=== PATIENT | female | born 1950 | race Caucasian/White ===

== ENCOUNTER 2024-12-23 10:41 | Inpatient (IN) ==
[2024-12-23 11:39] LABS: Basophils # (auto) 0.04 K/uL (0.00-0.20); Basophils % (auto) 0.5 %; Eosinophils # (auto) 0.03 K/uL (0.00-0.50); Eosinophils % (auto) 0.4 %; Hematocrit (blood only) 45.1 % (37.0-47.0); Hemoglobin 15.4 g/dl (12.0-16.0); Immature Granulocytes # (auto) 0.03 K/uL (0.01-0.20); Immature Granulocytes % (auto) 0.4 %; Lymphocytes # (auto) 1.82 K/uL (1.20-3.40); Lymphocytes % (auto) 24.6 %; Mean Corpuscular Hemoglobin 29.6 pg (25.0-34.0); Mean Corpuscular Hgb Conc 34.1 g/dL (32.0-36.0); Mean Corpuscular Volume 86.7 fL (80.0-100.0); Mean Platelet Volume 10.5 fL (9.4-12.4); Monocytes % (auto) 8.1 %; Neutrophils # (auto) 4.89 K/uL (1.40-6.50); Platelet Count 293 K/uL (130-400); RDW Coefficient of Variation 13.2 % (11.5-14.5); RDW Standard Deviation 41.5 fL (36.4-46.3); White Blood Count 7.41 K/ul (4.8-10.8)
--- NOTE | 2024-12-23 11:48 | XRay Report ---
XR chest 1V portable CLINICAL HISTORY: Tachycardia. COMPARISON STUDY: No previous studies for comparison. FINDINGS: Lung volumes are normal. Lungs are clear. There is no pneumothorax or pleural effusion. Mil d cardiomegaly. Mediastinal contours are normal. There is no evidence for pulmonary edema. IMPRESSION: No acute cardiopulmonary findings. ACT 112: Negative or not required by law. Electronically signed by: Darryl Galeana M.D. 12/23/2024 11:46 AM
--- NOTE | 2024-12-23 12:00 | Emergency Department Note ---
Impression & Plan Atrial fibrillation with rapid ventricular response, Hypokalemia ED Provider Note Provider: Gil Galeana MD CHIEF COMPLAINT: Weak, fatigued HISTORY OF PRESENT ILLNESS: Patient is a 74-year-old female past medical history including hypothyroidism and hypertension presenting here today stating send in a Friday to 3 days ago began develop nausea and vomiting. Not expected until this morning. Feeling better today as far as the stomach. Have an episode of diarrhea but nothing significant. No abdominal pain. No chest pain. No palpitations. Had a normal breakfast. Has however today been feeling quite rundown and generally weak and fatigued. No dizziness or headache. No syncope but felt quite lightheaded in the shower this morning. Again did have food and drink. No new numbness or tingling. Denies any significant cardiac history. No sick contacts. Denies significant URI symptoms. PAST MEDICAL HISTORY: As noted above MEDICATIONS: Reviewed home medications FMH: Mother with a history of A-fib SOCIAL HISTORY: Retired PHYSICAL EXAM: GENERAL: alert and oriented in no acute distress on stretcher Head: normocephalic and atraumatic EYES: No injection, discharge or icterus. EOMI. NECK: Trachea midline. ENT: Mucous membranes pink and moist. LUNGS: Airway patent. No retractions. Breath sounds clear with good air entry bilaterally. HEART: Tachycardic regular irregular rate and rhythm. No chest wall tenderness ABDOMEN: Soft and non-tender, without guarding or rebound. SKIN: Acyanotic, warm, dry, without rashes EXTREMITIES: Without swelling, tenderness or deformity NEUROLOGICAL: No focal deficits. No aphasia. No facial droop or slurred speech. Ambulatory. EK bpm atrial fibrillation. No acute ST segment elevation or depression with QTc of 517. CONTINUOUS CARDIAC MONITORING: was ordered and showed a heart rate of 100s-150s bpm in atrial fibrillation Patient's laboratory studies and imaging reviewed. Differential includes Infection, dehydration, metabolic abnormality, hypo/hyperglycemia, electrolyte disturbance, anemia, hypoxia, cardiac sources, intracerebral event, toxicologic, neurologic, as well as other pathologies. IMPRESSION/MEDICAL DECISION MAKING: No focal weakness. No headache. No aphasia or dizziness. Doubt acute CVA. Appears to be a new onset rapid atrial fibrillation. Given some IV fluids here. GI symptoms likely viral gastroenteritis seem to be resolving. Denies abdominal pain or chest pain. [place] palpitations or feeling her arrhythmia. Near syncope but no actual syncope and no head trauma. No bleeding hemorrhaging. Does not appear fluid overloaded on exam and chest x-ray without findings concerning for significant pneumonia or fluid overload. Again benign abdomen no bleeding intra-abdominal imaging at this time. Basic blood work completed. No leukocytosis. No significant anemia. Respiratory viral panel completed for completeness with the GI symptoms that have been resolving but denies other URI symptoms. Given some IV fluid and some metoprolol. [id number] 2 score is is elevated at 3. Will need long-term anticoagulation. Will see how closely can affect some rate control and given some IV magnesium here. Respiratory viral panel negative here. Somewhat low potassium 3.0 without other significant electrolyte abnormalities noted. Given some oral potassium repletion. Troponin returns normal at 10.9. Normal renal function. Second dose of IV metoprolol is affecting some rate control with patient still feels quite weak and fatigued. Dose of IV potassium ordered for additional supplementation as well. Discussion patient agreeable to plan to stay and feels more comfortable with this. Hospitalist team contacted. Will leave anticoagulation choice up to the inpatient team. DIAGNOSIS: New onset atrial fibrillation ventricular response, hypokalemia DISPOSITION: Hospitalist will evaluate Patient was agreeable with this plan. Critical Care I have personally spent 34 minutes of critical care time in the direct management of this patient. This includes bedside care, interpretation of diagnostic studies, and testing, discussion with consultants, patient, and other required patient management activities. These 34 minutes is in excess of all separately billable procedures. Past Med/Surg History Problem List (Updated 12/23/24 @ 13:28 by Gil Galeana M.D.) Hypokalemia (Acute) Atrial fibrillation with rapid ventricular response (Acute) Social History Smoking Status: Former smoker Preferred Language: [place]i Feels Safe at Home: Yes Allergies Allergies Allergy/AdvReac Type Severity Reaction Status Date / Time naproxen Allergy Intermediate Rash Unverified 12/23/24 13:17 hydrochlorothiazide AdvReac Intermediate Makes her Unverified 12/23/24 13:17 feel terrible Home Meds Home Medications Medication Instructions Recorded Confirmed amlodipine 5 mg tablet 5 mg PO QAM 12/23/24 12/23/24 aspirin 81 mg tablet,delayed 81 mg PO QAM 12/23/24 12/23/24 release cyanocobalamin (vitamin B-12) 1 tab PO DAILY 12/23/24 12/23/24 diclofenac sodium 75 mg 75 mg PO BID 12/23/24 12/23/24 tablet,delayed release duloxetine 30 mg capsule,delayed 30 mg PO QAM 12/23/24 12/23/24 release irbesartan 300 mg tablet 300 mg PO HS 12/23/24 12/23/24 levothyroxine 88 mcg tablet 88 mcg PO QAM 12/23/24 12/23/24 magnesium 1 tab PO DAILY 12/23/24 12/23/24 omeprazole 20 mg capsule,delayed 20 mg PO QAM 12/23/24 12/23/24 release rosuvastatin 5 mg tablet 5 mg PO QAM 12/23/24 12/23/24 Results & Data (ED) Vital Signs Vital Signs - 24 hr 12/23/24 10:58 12/23/24 11:12 12/23/24 11:15 Temperature 36.1 C L Temperature Source Skin Pulse Rate 96 H 153 H Pulse Rate [Apical] Pulse Rate from SpO2 Sensor 114 H Respiratory Rate 16 16 Respiratory Effort / Characteristics Non-Labored Spontaneous Respiratory Depth Normal Respiratory Pattern Regular Blood Pressure 74/54 L 119/75 Blood Pressure [Right Arm] Blood Pressure Mean 60 83 Blood Pressure Mean [Right Arm] Pulse Oximetry 96 95 Oxygen Delivery Method Room Air Sepsis Recent Fever Within 48 Hours No Sepsis New/Unexplained Change in Mental Status N/A Sepsis Action Taken by Nursing No Action Required 12/23/24 11:27 12/23/24 11:32 12/23/24 11:33 Temperature Temperature Source Pulse Rate 112 H 107 H Pulse Rate [Apical] Pulse Rate from SpO2 Sensor 100 H 128 H Respiratory Rate 16 18 Respiratory Effort / Characteristics Respiratory Depth Respiratory Pattern Blood Pressure 99/57 L Blood Pressure [Right Arm] Blood Pressure Mean 93 Blood Pressure Mean [Right Arm] Pulse Oximetry 92 93 Oxygen Delivery Method Sepsis Recent Fever Within 48 Hours Sepsis New/Unexplained Change in Mental Status Sepsis Action Taken by Nursing 12/23/24 12:01 12/23/24 12:16 12/23/24 12:33 Temperature Temperature Source Pulse Rate 137 H 115 H Pulse Rate [Apical] 110 H Pulse Rate from SpO2 Sensor Respiratory Rate 18 Respiratory Effort / Characteristics Respiratory Depth Respiratory Pattern Blood Pressure 126/100 Blood Pressure [Right Arm] 121/75 Blood Pressure Mean Blood Pressure Mean [Right Arm] 90 Pulse Oximetry 94 Oxygen Delivery Method Room Air Sepsis Recent Fever Within 48 Hours Sepsis New/Unexplained Change in Mental Status Sepsis Action Taken by Nursing 12/23/24 12:45 Temperature Temperature Source Pulse Rate 114 H Pulse Rate [Apical] Pulse Rate from SpO2 Sensor Respiratory Rate Respiratory Effort / Characteristics Respiratory Depth Respiratory Pattern Blood Pressure 121/75 Blood Pressure [Right Arm] Blood Pressure Mean Blood Pressure Mean [Right Arm] Pulse Oximetry Oxygen Delivery Method Sepsis Recent Fever Within 48 Hours Sepsis New/Unexplained Change in Mental Status Sepsis Action Taken by Nursing Laboratory Data 12/23/24 11:14 12/23/24 11:14 Lab Results 12/23/24 12/23/24 Range/Units 11:14 Unknown WBC 7.41 (4.8-10.8) K/ul RBC 5.20 (4.20-5.40) M/uL Hgb 15.4 (12.0-16.0) g/dl Hct 45.1 (37.0-47.0) % MCV 86.7 (80.0-100.0) fL MCH 29.6 (25.0-34.0) pg MCHC 34.1 (32.0-36.0) g/dL RDW Std Deviation 41.5 (36.4-46.3) fL RDW Coeff of [place] 13.2 (11.5-14.5) % Plt Count 293 (130-400) K/uL MPV 10.5 (9.4-12.4) fL Immature Gran % (Auto) 0.4 % Neut % (Auto) 66.0 % Lymph % (Auto) 24.6 % [place] % (Auto) 8.1 % Eos % (Auto) 0.4 % Baso % (Auto) 0.5 % Neut # (Auto) 4.89 (1.40-6.50) K/uL Lymph # (Auto) 1.82 (1.20-3.40) K/uL [place] # (Auto) 0.60 H (0.11-0.59) K/uL Eos # (Auto) 0.03 (0.00-0.50) K/uL Baso # (Auto) 0.04 (0.00-0.20) K/uL Immature Gran # (Auto) 0.03 (0.01-0.20) K/uL PT 10.3 (9.0-12.0) Seconds INR 0.9 (0.9-1.1) APTT 24 (21-31) Seconds PTT Ratio 0.9 Sodium 140 (136-145) mmol/L Potassium 3.0 L (3.5-5.1) mmol/L Chloride 104 (98-107) mmol/L Carbon Dioxide 26 (21-32) mmol/L Anion Gap 10 (3-11) BUN 22 (6-23) mg/dl Creatinine 1.16 (0.6-1.2) mg/dl Est Cr Clr Drug Dosing 39.2 ml/min eGFR 49.78 BUN/Creatinine Ratio 19.0 (10-20) Glucose 140 H (70-99(Fasting)) mg/dl Calcium 9.4 (8.6-10.3) mg/dl Total Bilirubin 0.7 (0.2-1.0) mg/dl AST 26 (13-39) U/L ALT 28 (7-52) U/L Alkaline Phosphatase 86 (34-104) U/L Troponin I High Sens 10.9 (0-14) pg/ml Total Protein 6.9 (6.0-8.3) gm/dl Albumin 4.5 (3.4-5.0) gm/dl Globulin 2.4 L (2.5-4.0) gm/dl Albumin/Globulin Ratio 1.9 (0.9-2) TSH 3.249 (0.300-4.500) uIu/ml Adenovirus (PCR) Not Detected (NotDetected) B. pertussis DNA (PCR) Not Detected (NotDetected) B.parapertussis DNA PCR Not Detected (NotDetected) C. pneumoniae DNA (PCR) Not Detected (NotDetected) Coronavirus OC43 (PCR) Not Detected (NotDetected) Coronavirus HKU1 (PCR) Not Detected (NotDetected) Coronavirus 229E (PCR) Not Detected (NotDetected) SARS-CoV-2 (PCR) Not Detected (NotDetected) Coronavirus NL63 (PCR) Not Detected (NotDetected) Human Metapneumovir PCR Not Detected (NotDetected) Influenza Type A (PCR) Not Detected (NotDetected) Influenza Type B (PCR) Not Detected (NotDetected) M. pneumoniae (PCR) Not Detected (NotDetected) Parainfluenza 1 (PCR) Not Detected (NotDetected) Parainfluenza 2 (PCR) Not Detected (NotDetected) Parainfluenza 3 (PCR) Not Detected (NotDetected) Parainfluenza 4 (PCR) Not Detected (NotDetected) RSV (PCR) Not Detected (NotDetected) Entero/Rhino (PCR) Not Detected (NotDetected) Administered Medications Potassium Chloride (K Ger / Wtr) 10 meq in 100 mls @ 100 mls/hr IV ONE ONE Stop: 12/23/24 13:54 Last Admin: 12/23/24 13:09 Dose: 100 mls/hr Documented By: RADHA Discontinued Medications Sodium Chloride (Nss) 1,000 mls @ 999 mls/hr IV .Q1H1M ONE Stop: 12/23/24 12:54 Last Infusion: 12/23/24 13:14 Dose: Infused Documented By: Admin: 12/23/24 12:01 Dose: 999 mls/hr Documented By: RADHA Magnesium Sulfate/Dextrose (Magnesium Sulfate / D5w) 1 gm in 100 mls @ 100 mls/hr IV NOW STA Stop: 12/23/24 12:54 Last Infusion: 12/23/24 13:13 Dose: Infused Documented By: Admin: 12/23/24 12:01 Dose: 100 mls/hr Documented By: RADHA Metoprolol Tartrate (Metoprolol Tartrate 1 Mg/Ml Vial) 5 mg IV NOW STA Stop: 12/23/24 11:55 Last Admin: 12/23/24 12:01 Dose: 5 mg Documented By: RADHA Metoprolol Tartrate (Metoprolol Tartrate 1 Mg/Ml Vial) 5 mg IV NOW STA Stop: 12/23/24 12:38 Last Admin: 12/23/24 12:45 Dose: 5 mg Documented By: RADHA Potassium Chloride (Potassium Chloride Crtab 20 Meq Tabcr) 40 meq PO NOW STA Stop: 12/23/24 12:07 Last Admin: 12/23/24 12:45 Dose: 40 meq Documented By: RADHA Imaging Data Radiologist's Impression: Chest X-Ray 12/23/24 11:20 XR chest 1V portable CLINICAL HISTORY: Tachycardia. COMPARISON STUDY: No previous studies for comparison. FINDINGS: Lung volumes are normal. Lungs are clear. There is no pneumothorax or pleural effusion. Mild cardiomegaly. Mediastinal contours are normal. There is no evidence for pulmonary edema. IMPRESSION: No acute cardiopulmonary findings. ACT 112: Negative or not required by law. Electronically signed by: Darryl Galeana M.D. 12/23/2024 11:46 AM Discharge Plan Visit Data Chief Complaint: Dehydration Stated Complaint: DEHYDRATION ED Provider: Gil Galeana Discharge Problem: Atrial fibrillation with rapid ventricular response, Hypokalemia Patient Disposition: Being Evaluated by Hospitalist Forms Stand Alone Forms: My [facility] Prescriptions Prescriptions: No Action amlodipine 5 mg tablet 5 mg PO QAM aspirin [Aspir-81] 81 mg Tablet,Delayed Release (Dr/Ec) 81 mg PO QAM levothyroxine 88 mcg tablet 88 mcg PO QAM omeprazole 20 mg capsule,delayed release(DR/EC) 20 mg PO QAM diclofenac sodium 75 mg tablet,delayed release (DR/EC) 75 mg PO BID irbesartan 300 mg tablet 300 mg PO HS rosuvastatin 5 mg tablet 5 mg PO QAM magnesium Tablet 1 tab PO DAILY Rx Instructions: otc unknown strength duloxetine 30 mg capsule,delayed release(DR/EC) 30 mg PO QAM cyanocobalamin (vitamin B-12) 1 tab PO DAILY Rx Instructions: otc, unknown strength Referrals Referrals: PCP,NO [Physician] -
[2024-12-23] MEDS: SODIUM CHLORIDE 0.9% 1,000 ML IV ONE (12:01)
[2024-12-23] MEDS: METOPROLOL TARTRATE 1 MG/ML VIAL IV STA ×2 (12:01→12:45)
[2024-12-23] MEDS: MAGNESIUM SULFATE / D5W 1 GM/100 ML BAG IV STA (12:01)
[2024-12-23 12:02] LABS: Albumin Globulin Ratio 1.9 (0.9-2); Albumin Level 4.5 gm/dl (3.4-5.0); Bilirubin,Total 0.7 mg/dl (0.2-1.0); Calcium 9.4 mg/dl (8.6-10.3); Creatinine Clr Calc Pharmacy 39.2 ml/min; Globulin 2.4 gm/dl (2.5-4.0); Total Protein 6.9 gm/dl (6.0-8.3)
[2024-12-23 12:05] LABS: INR 0.9 (0.9-1.1); Partial Thromboplastin Ratio 0.9; Partial Thromboplastin Time 24 Seconds (21-31); Prothrombin Time 10.3 Seconds (9.0-12.0)
[2024-12-23 12:26] LABS: Adenovirus PCR Not Detected (NotDetected); Bordetella parapertussis PCR Not Detected (NotDetected); Bordetella pertussis PCR Not Detected (NotDetected); Chlamydia pneumoniae PCR Not Detected (NotDetected); Coronavirus 229E PCR Not Detected (NotDetected); Coronavirus CoV-2 (COVID19)PCR Not Detected (NotDetected); Coronavirus HKU1 PCR Not Detected (NotDetected); Coronavirus NL63 PCR Not Detected (NotDetected); Coronavirus OC43PCR Not Detected (NotDetected); Human Metapneumovirus PCR Not Detected (NotDetected); Influenza A PCR Not Detected (NotDetected); Influenza B PCR Not Detected (NotDetected); Mycoplasma pneumoniae PCR Not Detected (NotDetected); Parainfluenza Virus 1 PCR Not Detected (NotDetected); Parainfluenza Virus 2 PCR Not Detected (NotDetected); Parainfluenza Virus 3 PCR Not Detected (NotDetected); Parainfluenza Virus 4 PCR Not Detected (NotDetected); Respiratory Syncytial VirusPCR Not Detected (NotDetected); Rhinovirus/Enterovirus PCR Not Detected (NotDetected)
[2024-12-23 12:27] LABS: Troponin I High Sensitivity 10.9 pg/ml (0-14)
[2024-12-23 12:36] LABS: Thyroid Stimulating Hormone 3.249 uIu/ml (0.300-4.500)
[2024-12-23] MEDS: POTASSIUM CHLORIDE CRTAB 20 MEQ TABCR PO STA (12:45)
[2024-12-23] MEDS: POTASSIUM CHLORIDE / WTR 10 MEQ/100 ML PLCT IV ONE (13:09)
[2024-12-23 13:41] LABS: Magnesium 2.1 mg/dl (1.7-2.4)
[2024-12-23] MEDS ORDERED: STAT IV Infusion **Titration per Protocol STA (14:12)
--- NOTE | 2024-12-23 14:14 | History & Physical Report ---
Date of Service December 23, 2024 Assessment & Plan (1) New onset atrial fibrillation: Plan: Bc Najera is a very pleasant 74y/o F with PMHx significant for hypothyroidism, HTN, HLD, former tobacco use and chronic pain of right knee who presented to the ED from home with complaints of generalized weakness, lightheadedness and dizziness. She was found to have new-onset atrial fibrillation with RVR. EKG on presentation revealed new onset atrial fibrillation with rapid ventricular response, ventricular rate 139 bpm. Initial labs reviewed. TSH WNL. S/p 10mg IV metoprolol tartrate and 40mEq po KCl in the ED. [id number] score of 3 points. Initiating IV heparin for stroke prophylaxis. Appreciate cardiology consult. Metoprolol tartrate 12.5mg Q6H for now. Obtain resting TTE. (2) HTN, goal below 130/80: Plan: Hold amlodipine and irbesartan for now 2/2 softer BP. (3) Dyslipidemia, goal LDL below 100: Plan: Continue statin and ASA. Check AM lipid panel and Hgb A1c. (4) Dehydration: (5) Viral gastroenteritis: Plan: Dehydration 2/2 recent viral gastroenteritis. S/p 1L NSS in ED. Continue IVF with 1L LR's x 1 bag for now. (6) Hypokalemia: Plan: K+ 3 on presentation. S/p 40mEq po KCl and 10mEq IV KCl in ED. Continue to monitor and replete PRN. (7) Hypothyroidism: Plan: TSH WNL. Continue levothyroxine. DVT Prophylaxis: On IV heparin as per above. Code Status: FULL CODE PCP: Igor Boucher, Disposition: Admit to PCU for further inpatient evaluation and management. Patient seen in collaboration with Dr. Crowder. Please see addendum. I spent a total of 45 minutes coordinating, documenting, and providing care for this patient excluding time spent in the performance of separately billed services or time spent by another provider/QHP. This included personally reviewing all current laboratories and imaging studies, medical reconciliation, outpatient chart review and discussion with specialists. This chart was completed in part utilizing Speech Voice Recognition Software. Grammatical errors, random word insertions, pronoun errors, and incomplete sentences are an occasional consequence of this system due to software limitations, ambient noise, and hardware issues. Any formal questions or concerns about the content, text, or information contained within the body of this dictation should be directly addressed to the provider for clarification. History of Present Illness Chief Complaint: Dehydration, dizziness/lightheadedness Primary Care Provider: Igor Boucher DO Bc Najera is a very pleasant 74y/o F with PMHx significant for hypothyroidism, HTN, HLD, former tobacco use and chronic pain of right knee who presented to the ED from home with complaints of generalized weakness, light headedness and dizziness. History obtained from the patient, discussion with ED provider and associated chart review. Mentions she developed a GI illness over the weekend with nausea, vomiting and diarrhea. Vomiting resolved on Friday but she continued to have some diarrhea and persistent nausea through Friday. Diarrhea now resolved. She was been having a tough time maintaining her oral hydration status due to the nausea, which is slowly improving. She was able to eat some breakfast this morning without issue and has been tolerating fluids since yesterday without any further incidences of vomiting. She was showering this morning when she started to feel lightheaded and dizzy. Did not pass out or hit her head. Does however feel extremely weak and fatigued. Denies any palpitations, chest pain or SOB. Notes her mother has a history of atrial fibrillation. Former smoker. No alcohol use. Lives with her . Very independent and functional at baseline. EKG on presentation revealed new onset atrial fibrillation with rapid ventricular response, ventricular rate 139 bpm. Initial labs reviewed. K+ 3 with normal magnesium level. TSH WNL. S/p 10mg IV metoprolol tartrate and 40mEq po KCl in the ED. [id number] score of 3 points. Allergies Allergy/AdvReac Type Severity Reaction Status Date / Time naproxen Allergy Intermediate Rash Unverified 12/23/24 13:17 hydrochlorothiazide AdvReac Intermediate Makes her Unverified 12/23/24 13:17 feel terrible Home Medications Medication Instructions Recorded Confirmed Type amlodipine 5 mg tablet 5 mg PO QAM 12/23/24 12/23/24 History aspirin 81 mg tablet,delayed 81 mg PO QAM 12/23/24 12/23/24 History release cyanocobalamin (vitamin B-12) 1 tab PO DAILY 12/23/24 12/23/24 History diclofenac sodium 75 mg 75 mg PO BID 12/23/24 12/23/24 History tablet,delayed release duloxetine 30 mg capsule,delayed 30 mg PO QAM 12/23/24 12/23/24 History release irbesartan 300 mg tablet 300 mg PO HS 12/23/24 12/23/24 History levothyroxine 88 mcg tablet 88 mcg PO QAM 12/23/24 12/23/24 History magnesium 1 tab PO DAILY 12/23/24 12/23/24 History omeprazole 20 mg capsule,delayed 20 mg PO QAM 12/23/24 12/23/24 History release rosuvastatin 5 mg tablet 5 mg PO QAM 12/23/24 12/23/24 History Past Med/Surg History Problem List (Updated 12/23/24 @ 16:08 by Bree Hoang PA-C) Hypothyroidism New onset atrial fibrillation Dehydration Dyslipidemia, goal LDL below 100 HTN, goal below 130/80 Viral gastroenteritis New onset atrial fibrillation Hypokalemia (Acute) Atrial fibrillation with rapid ventricular response (Acute) Social History Smoking Status: Former smoker Hx Alcohol Use: Yes Alcohol type: beer Hx Substance Use: No Preferred Language: Kyrgyz Communication Ability: Effective Relay Worker Required: No Beliefs That Will Affect Care: None Current Living Situation: Spouse Feels Safe at Home: Yes Safety Concerns: Feels Safe At This Time Assistive Devices: None Review of Systems Review of Systems: At least ten systems reviewed and negative, except as noted in the HPI. Physical Exam Physical Exam: General: WD/WN, vitals as above, NAD, sitting up in bed, very pleasant, conversing appropriately. A+Ox3. HEENT: Normocephalic, atraumatic. Conjunctivae normal. External ear and nose normal, oropharynx somewhat dry. Respiratory: Normal respiratory effort, lungs clear to auscultation bilaterally. No accessory muscle use. Cardiovascular: Tachycardic rate, irregularly irregular rhythm. Normal peripheral pulses, no BLE edema. Abdomen/GI: Normal bowel sounds, soft, nondistended, nontender to palpation in all quadrants. Extremities/Musculoskeletal: No cyanosis or clubbing, extremities motor strength intact, moves all extremities. Results & Data Results & Data Vital Signs (Past 12 Hours) Vital Signs Temp Pulse Pulse Resp BP BP Pulse Ox 12/23/24 12:45 114 H 121/75 12/23/24 12:33 110 H 18 121/75 94 12/23/24 12:16 115 H 12/23/24 12:01 137 H 126/100 12/23/24 11:33 107 H 18 93 12/23/24 11:32 99/57 L 12/23/24 11:27 112 H 16 92 12/23/24 11:15 153 H 16 95 12/23/24 11:12 119/75 12/23/24 10:58 36.1 C L 96 H 16 74/54 L 96 O2 Del Method 12/23/24 12:45 12/23/24 12:33 Room Air 12/23/24 12:16 12/23/24 12:01 12/23/24 11:33 12/23/24 11:32 12/23/24 11:27 12/23/24 11:15 12/23/24 11:12 12/23/24 10:58 Room Air Laboratory Results Short CBC 12/23/24 Range/Units 11:14 WBC 7.41 (4.8-10.8) K/ul Hgb 15.4 (12.0-16.0) g/dl Hct 45.1 (37.0-47.0) % Plt Count 293 (130-400) K/uL BMP 12/23/24 11:14 Sodium 140 Potassium 3.0 L Chloride 104 Carbon Dioxide 26 BUN 22 Creatinine 1.16 Glucose 140 H Calcium 9.4 Liver Function 12/23/24 Range/Units 11:14 Total Bilirubin 0.7 (0.2-1.0) mg/dl AST 26 (13-39) U/L ALT 28 (7-52) U/L Alkaline Phosphatase 86 (34-104) U/L Albumin 4.5 (3.4-5.0) gm/dl Diagnostic Findings Chest X-Ray 12/23/24 11:20 XR chest 1V portable CLINICAL HISTORY: Tachycardia. COMPARISON STUDY: No previous studies for comparison. FINDINGS: Lung volumes are normal. Lungs are clear. There is no pneumothorax or pleural effusion. Mild cardiomegaly. Mediastinal contours are normal. There is no evidence for pulmonary edema. IMPRESSION: No acute cardiopulmonary findings. ACT 112: Negative or not required by law. Electronically signed by: Darryl Galeana M.D. 12/23/2024 11:46 AM Medications Administered Heparin Sodium/Dextrose (Heparin 86793 Unit/500 Ml D5w) 25,000 units in 500 mls @ 21 mls/hr IV .[id number] [facility]; Protocol Stop: 01/22/25 14:29 Last Admin: 12/23/24 14:41 Dose: 1,050 units/hr, 21 mls/hr Documented By: RADHA Co-signed By: ERIN Lactated Ringer's (Lr) 1,000 mls @ 80 mls/hr IV .[id number] [facility] Stop: 12/24/24 04:14 Last Admin: 12/23/24 15:58 Dose: 80 mls/hr Documented By: OZIEL Discontinued Medications Heparin Sodium/Dextrose (Heparin Iv Adult Wt-Based Standard *No* Initial Bolus Protocol) 1 each IV ONE STA; Protocol Stop: 12/23/24 14:13 Last Admin: 12/23/24 15:52 Dose: 1 each Documented By: OZIEL Sodium Chloride (Nss) 1,000 mls @ 999 mls/hr IV .Q1H1M ONE Stop: 12/23/24 12:54 Last Infusion: 12/23/24 13:14 Dose: Infused Documented By: Admin: 12/23/24 12:01 Dose: 999 mls/hr Documented By: RADHA Magnesium Sulfate/Dextrose (Magnesium Sulfate / D5w) 1 gm in 100 mls @ 100 mls/hr IV NOW STA Stop: 12/23/24 12:54 Last Infusion: 12/23/24 13:13 Dose: Infused Documented By: Admin: 12/23/24 12:01 Dose: 100 mls/hr Documented By: RDAHA Potassium Chloride (K Ger / Wtr) 10 meq in 100 mls @ 100 mls/hr IV ONE ONE Stop: 12/23/24 13:54 Last Infusion: 12/23/24 14:37 Dose: Infused Documented By: Admin: 12/23/24 13:09 Dose: 100 mls/hr Documented By: RADHA Diltiazem HCl 125 mg/ Dextrose 125 mls @ 5 mls/hr IV .Q24H [facility]; Protocol Stop: 01/22/25 14:14 Last Admin: 12/23/24 15:42 Dose: Not Given Documented By: OZIEL Metoprolol Tartrate (Metoprolol Tartrate 1 Mg/Ml Vial) 5 mg IV NOW STA Stop: 12/23/24 11:55 Last Admin: 12/23/24 12:01 Dose: 5 mg Documented By: RADHA Metoprolol Tartrate (Metoprolol Tartrate 1 Mg/Ml Vial) 5 mg IV NOW STA Stop: 12/23/24 12:38 Last Admin: 12/23/24 12:45 Dose: 5 mg Documented By: DS Potassium Chloride (Potassium Chloride Crtab 20 Meq Tabcr) 40 meq PO NOW STA Stop: 12/23/24 12:07 Last Admin: 12/23/24 12:45 Dose: 40 meq Documented By: RADHA Code Status & VTE Plan Code Status FULL CODE VTE Prophylaxis Plan VTE Prophylaxis will be ordered: Yes Supervising Physician Co-Signing Physician Notes Patient seen and examined at bedside. Rates better controlled after metoprolol dosing. Feels well overall. Discussed need for blood thinner, discussed risks and benefits at length, she is agreeable. [facility] and potential discharge if rates controlled. I have seen and discussed the case with the collaborating advanced practitioner. I agree with the above H&P. I have reviewed and confirmed the patients medical history, the findings on physical examination, and the patients diagnosis and treatment plan with Natalya HUNTER and agree with the information documented. I spent a total of 20 minutes coordinating, documenting, and providing care for this patient excluding time spent in the performance of separately billed services. All of the aforementioned completed outside of collaborating with the assigned advanced practitioner for a full treatment plan. I have reviewed the advanced practitioner's documentation, and I agree with, and take responsibility for the plan of care (7) Hypothyroidism Hypothyroidism type: unspecified Qualified Code(s): E03.9 - Hypothyroidism, unspecified
[2024-12-23] MEDS: HEPARIN 25000 UNIT/500 ML D5W 25,000 UNITS/500 ML BAG IV SCH (14:41)
--- NOTE | 2024-12-23 14:52 | Cardiology Consultation ---
Date of Consultation December 23, 2024 Assessment & Plan (1) Dehydration: (2) Viral gastroenteritis: (3) New onset atrial fibrillation: (4) Hypokalemia: (5) HTN, goal below 130/80: (6) Dyslipidemia, goal LDL below 100: Plan 74-year-old female presenting to [facility] via personal vehicle with weakness and lightheadedness, significant volume depletion in the setting of probable viral gastroenteritis. BP 74/54 on presentation, improving with fluid resuscitation. Laboratory work with hypokalemia. EKG notable for new onset atrial fibrillation with rapid ventricular response of unknown duration. [id number] Score 5 points. Recommendations: Agree with weight based IV heparin Avoid diltiazem for now given soft blood pressures, GI issues Add metoprolol tartrate 12.5 mg every 6 hours for now Supplement potassium, maintain electrolytes Hold amlodipine, irbesartan Admit to telemetry Refer for resting echocardiography Will follow, reevaluate in AM See documentation by Dr. Hayward Supervising Physician Co-Signing Physician Notes Patient was seen and personally examined. Full assessment and plan as outlined by advanced provider above. Care and management discussed and personally endorsed 74-year-old female presents after suffering probable acute viral syndrome for GI complaints weakness. Found to be in atrial fibrillation with elevated ventricular response rate. Uncertain duration of onset. Plan as above add beta-denae, supplement electrolytes. [id number] 2 score elevated for age, gender, hypertension, prior TIA. Full anticoagulation warranted begun with IV heparin with plans likely for Eliquis on discharge History of Present Illness Reason for Consultation: Atrial fibrillation [facility]ing Physician: [facility] Hospital[facility] Service Attending Physician: [facility] Hospitalist Service History of Present Illness Bc Najera is a very pleasant 74-year-old female who was in her usual state of health, feeling perfectly fine until 1230 Friday morning at which time she awoke with nausea, vomiting and diarrhea. Patient notes that she vomited nonstop until noon the next day. She describes having never been so sick in her entire life. She notes things seem to be a little better on Friday and Friday though she continued to have diarrhea and nausea and was unable to eat. Notes even having a tough time trying to drink water. This morning she awoke and while lying in bed felt pretty good, feeling as though she could go about her day. She notes exiting the bed and going to the shower where she developed significant weakness, dizziness, and wobbly knees upon standing. She notes getting out of the bathroom on the floor and eventually getting settled though feeling extremely weak and lightheaded. Patient transported to [facility] ER via for further evaluation and treatment. EKG on presentation revealed new onset atrial fibrillation with rapid ventricular response, ventricular rate 139 bpm. Complete blood count looked okay, within normal white blood cell count. H&H were 15.4 and 45.1. Platelet count was normal at 293K. Chemistry panel revealed hypokalemia with a potassium of 3.0. Random glucose elevated at 140. Magnesium normal at 2.1. TSH within normal range, 3.249. In the ER patient received fluid resuscitation, a total of 10 mg IV metoprolol, 40 mEq of potassium chloride, and one potassium rider. IV heparin and diltiazem has been ordered although not yet initiated. Patient denies palpitations, chest pain, or shortness of breath. She is feeling better with initial measures in the ER. Patient denies prior cardiac history with exception of her PCP hearing a heart murmur many years ago. This led to resting echocardiography circa 2001 with normal findings observed. Patient specifically denies history of atrial fibrillation, arrhythmias, CHF, CAD, NV, rheumatic fever, or scarlet fever. Past Medical and Surgical History: Hypertension Dyslipidemia Probable TIA circa 3 years ago, did not seek care Hemorrhoids Bunion, status post surgery Cataract status post surgery Following with ophthalmology, elevated pressures, mother with glaucoma. Family History: Mother had atrial fibrillation diagnosed at the age of 90. She also had a history of colon cancer. She passed at the age of 93 from natural causes. Father committed suicide before patient was born. Oldest sister with a MAINTENANCE COORDINATOR cancer. Another sister without known issues. Lost brother 1 year ago due to COPD. Social History: Smoker from her teenage years till around the age of 31. Alcohol: 4 beers per day. No illegal/illicit drug use. . Lives with her . 2 stepchildren. 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 Allergies Allergy/AdvReac Type Severity Reaction Status Date / Time naproxen Allergy Intermediate Rash Unverified 12/23/24 13:17 hydrochlorothiazide AdvReac Intermediate Makes her Unverified 12/23/24 13:17 feel terrible Home Medications Medication Instructions Recorded Confirmed Type amlodipine 5 mg tablet 5 mg PO QAM 12/23/24 12/23/24 History aspirin 81 mg tablet,delayed 81 mg PO QAM 12/23/24 12/23/24 History release cyanocobalamin (vitamin B-12) 1 tab PO DAILY 12/23/24 12/23/24 History diclofenac sodium 75 mg 75 mg PO BID 12/23/24 12/23/24 History tablet,delayed release duloxetine 30 mg capsule,delayed 30 mg PO QAM 12/23/24 12/23/24 History release irbesartan 300 mg tablet 300 mg PO HS 12/23/24 12/23/24 History levothyroxine 88 mcg tablet 88 mcg PO QAM 12/23/24 12/23/24 History magnesium 1 tab PO DAILY 12/23/24 12/23/24 History omeprazole 20 mg capsule,delayed 20 mg PO QAM 12/23/24 12/23/24 History release rosuvastatin 5 mg tablet 5 mg PO QAM 12/23/24 12/23/24 History Patient History Social History Smoking Status: Former smoker Preferred Language: Lebanese Feels Safe at Home: Yes Review of Systems Review of Systems: Complete Review of Systems: Constitutional: Low-grade fever on Friday and Friday. No rigors. HEENT: Bilateral cataract status postextraction.? Glaucoma. No macular degeneration. No history of amaurosis fugax. Pulmonary: Denies history of asthma, emphysema, COPD, or sleep apnea. No history of PE. Cardiac: See above. GI/Abd: No dysphagia. No GERD. No melana or hematochezia. No kidney problems. No liver problems. No history of pancreatic issues. Vascular: No history of carotid artery disease, AAA, or lower extremity claudication/PAD. Hematologic: No coagulation disorder, anemia, or abnormal bleeding. Musculoskeletal: Arthritis. Skin: No rash. Neurologic: Suspected TIA circa 3 years ago. No history of seizure. Endocrine: No history of diabetes mellitus. No thyroid trouble. Complete Review of Systems is as stated above, negative, or noncontributory Physical Exam Physical Exam: General: A&Ox3. NAD. HENT: Normocephalic. Atraumatic. Eyes: PER. Conjunctiva pink, sclera clear. Neck: No carotid bruits. No JVD. No HJR. Heart: Irregularly irregular, 130 bpm. No murmur. No rub. Lungs: Clear to auscultation. Abdomen: +BS. Soft. Nontender. No masses or organomegaly. Extremities: No clubbing, cyanosis, or edema. Limited neurological examination is without focal deficits. Pulses: Posterior tibial=2/4. Results & Data Vital Signs (Past 12 Hours) Vital Signs Temp Pulse Pulse Resp BP BP Pulse Ox 12/23/24 14:39 115 H 12/23/24 14:25 120 H 18 112/87 96 12/23/24 12:45 114 H 121/75 12/23/24 12:33 110 H 18 121/75 94 12/23/24 12:16 115 H 12/23/24 12:01 137 H 126/100 12/23/24 11:33 107 H 18 93 12/23/24 11:32 99/57 L 12/23/24 11:27 112 H 16 92 12/23/24 11:15 153 H 16 95 12/23/24 11:12 119/75 12/23/24 10:58 36.1 C L 96 H 16 74/54 L 96 O2 Del Method 12/23/24 14:39 12/23/24 14:25 Room Air 12/23/24 12:45 12/23/24 12:33 Room Air 12/23/24 12:16 12/23/24 12:01 12/23/24 11:33 12/23/24 11:32 12/23/24 11:27 12/23/24 11:15 12/23/24 11:12 12/23/24 10:58 Room Air Laboratory Results Cardiac Enzymes 12/23/24 Range/Units 11:14 AST 26 (13-39) U/L Troponin I High Sens 10.9 (0-14) pg/ml Coagulation 12/23/24 Range/Units 11:14 PT 10.3 (9.0-12.0) Seconds APTT 24 (21-31) Seconds CBC 12/23/24 Range/Units 11:14 WBC 7.41 (4.8-10.8) K/ul RBC 5.20 (4.20-5.40) M/uL Hgb 15.4 (12.0-16.0) g/dl Hct 45.1 (37.0-47.0) % Plt Count 293 (130-400) K/uL Neut # (Auto) 4.89 (1.40-6.50) K/uL Lymph # (Auto) 1.82 (1.20-3.40) K/uL [place] # (Auto) 0.60 H (0.11-0.59) K/uL Eos # (Auto) 0.03 (0.00-0.50) K/uL Baso # (Auto) 0.04 (0.00-0.20) K/uL Comprehensive Metabolic Panel 12/23/24 Range/Units 11:14 Sodium 140 (136-145) mmol/L Potassium 3.0 L (3.5-5.1) mmol/L Chloride 104 (98-107) mmol/L Carbon Dioxide 26 (21-32) mmol/L BUN 22 (6-23) mg/dl Creatinine 1.16 (0.6-1.2) mg/dl Glucose 140 H (70-99(Fasting)) mg/dl Calcium 9.4 (8.6-10.3) mg/dl AST 26 (13-39) U/L ALT 28 (7-52) U/L Alkaline Phosphatase 86 (34-104) U/L Total Protein 6.9 (6.0-8.3) gm/dl Albumin 4.5 (3.4-5.0) gm/dl Intake and Output 12/23/24 12/23/24 12/23/24 06:59 14:59 22:59 Intake Total 1200 / 1200 Balance 1200 / 1200 Intake: IV 1200 / 1200 Magnesium Sulfate / D5w 1 gm In 100 / 100 100 ml @ 100 mls/hr IV NOW STA Rx#:[id number] Potassium Chloride / Wtr 10 meq 100 / 100 In 100 ml @ 100 mls/hr IV ONE ONE Rx#:[id number] Sodium Chloride 0.9% 1,000 ml @ 1000 / 1000 999 mls/hr IV .Q1H1M ONE Rx#: [id number] Other: Weight 72.2 kg Weight Measurement Method Chair Scale Patient Weight 12/24/24 06:59 Weight 72.2 kg Diagnostic Findings Telemetry: Atrial fibrillation with rapid ventricular response. No significant bradycardia or pauses. No periods of sinus. No significant ventricular arrhythmias. Admission chest x-ray without acute cardiopulmonary findings.
[2024-12-23] MEDS: dilTIAZem HCL 125 MG in DEXTROSE 5% 100 ML IV SCH (15:42)
[2024-12-23] MEDS ORDERED: POLYETHYLENE (MIRALAX) 17 GM PACK PO PRN (15:43)
[2024-12-23] MEDS ORDERED: MAGNESIUM HYDROXIDE SUSP 30 ML UDC PO PRN (15:43)
[2024-12-23] MEDS ORDERED: ACETAMINOPHEN 325 MG TAB PO PRN (15:43)
[2024-12-23] MEDS: Heparin IV Adult Wt-Based Standard *NO* INITIAL Bolus Protocol IV STA (15:52)
[2024-12-23] MEDS: LACTATED RINGER'S 1,000 ML IV SCH (15:58)
[2024-12-23] MEDS: METOPROLOL TARTRATE 25 MG TAB PO SCH (16:28)
[2024-12-23 21:27] LABS: ANTI-Xa, UFH(UnfractionatedHep 0.47 IU/ml (0.3-0.7)
--- OUTSIDE RECORDS SUMMARY | 2024-12-24 04:39 | External Medical Summary | Summary of Care ---
Author Name Unknown Organization [facility] Address [address] [place] [address] Phone [phone] Care Team Providers Care Portuguese Tutor Name Role Phone Maxine Boucher DO Primary Care Provider Reason for Visit * Reason Comments eRx-Medication Refill Encounter Details Date Type Department Care Team (Late st Contact Info) Description 07/20/2024 Refill Family Practice [facility] [address] [place] [address] Maxine Boucher DO [address] [place] [address] Allergies Active Allergy Reactions Criticality Noted Date Comments Hydrochlorothiazide 05/12/2018 Nauseaous and low energy Naproxen Rash High 11/26/2007 Bullous eruption on hands, phototoxicity documented as of this encounter (statuses as of 07/22/2024) Medications Medication Sig Dispensed Refills Start Date End Date Status Calcium-Vitamin D-Vitamin K 500-1000-40 MG-UNT-MCG Oral Tablet Chewable 1 Tablet in the morning. Active aspirin enteric coated 81 MG TBEC Take 1 Tab by mouth daily. 100 Tab 3 02/23/2018 Active Vitamin B-12 1000 MCG Oral Tablet (Cyanocobalamin) Take 1 Tablet by mouth in the morning. 90 Tablet 3 01/13/2024 Active amLODIPine Besylate 5 MG Oral Tablet (Norvasc)Indicat ions:HTN, goal below 130/80 TAKE 1 TABLET BY MOUTH IN THE MORNING 90 Tablet 2 02/12/2024 Active Fluorouracil 5 % External Cream (Efudex) Apply to rough area on nose twice a day for two weeks, and to rough areas on hands twice a day for 4 weeks 40 g 1 02/13/2024 Active Magnesium Oxide 400 MG Oral TabletIndication s:Leg cramping Take 1 Tablet by mouth in the morning. 30 Tablet 11 02/17/2024 Active Diclofenac Sodium 75 MG Oral Tablet Delayed Release (Voltaren)Indica tions:Pain in limb Take 1 tablet by mouth twice daily with food 60 Tablet 5 02/21/2024 Active Omeprazole 20 MG Oral Capsule Delayed Release (PriLOSEC)Indica tions:Esophageal reflux Take 1 capsule by mouth in the morning 90 Capsule 3 03/15/2024 Active Rosuvastatin Calcium 5 MG Oral Tablet (Crestor) TAKE 1 TABLET BY MOUTH IN THE MORNING 90 Tablet 1 04/05/2024 Active Irbesartan 300 MG Oral Tablet (Avapro) TAKE 1 TABLET BY MOUTH AT BEDTIME 90 Tablet 1 04/05/2024 Active DULoxetine HCl 30 MG Oral Capsule Delayed Release Particles (Cymbalta)Indica tions:Adjustment disorder with anxious mood,Chronic pain of right knee TAKE 1 CAPSULE BY MOUTH ONCE DAILY IN THE MORNING. DO NOT CUT, CRUSH, OR CHEW CAPSULE. 90 Capsule 07/21/2024 Active Levothyroxine Sodium 88 MCG Oral Tablet (Levoxyl) TAKE 1 TABLET BY MOUTH IN THE MORNING AT LEAST 30 MINUTES PRIOR TO BREAKFAST OR MEDICATIONS 90 Tablet 1 07/22/2024 Active Levothyroxine Sodium 88 MCG Oral Tablet (Levoxyl) TAKE 1 TABLET BY MOUTH IN THE MORNING AT LEAST 30 MINUTES PRIOR TO BREAKFAST OR MEDICATIONS 90 Tablet 1 01/30/2024 4 Discontinued documented as of this encounter (statuses as of 07/22/2024) Active Problems Problem Noted Date Diagnosed Date Chronic pain of right knee 02/06/2021 HTN, goal below 130/80 12/14/2019 ADVANCE DIRECTIVE INFORMATION 08/20/2006 Overview: Pt will bring copy at next visit. Other specified hypothyroidism 12/30/2002 CANCER OF COLON,FAM HX - Mom 03/10/1998 Menopause 03/10/1998 CARDIAC MURMURS NEC documented as of this encounter (statuses as of 07/22/2024) Resolved Problems Problem Noted Date Diagnosed Date Resolved Date Encounter for examination fo r normal comparison and control in clinical research program 01/12/2019 05/15/2020 Overview: DO NOT DELETE [facility] DETECT Study: Project # [id number], Power Generation Technician: Murphy Alicia, PhD. SUMMARY: Goal: Establish test characteristics (sensitivity, specificity, PPV, NPV) of a circulating tumor DNA (ctDNA)-based test for cancer. Hypothesis: Circulating tumor DNA (ctDNA) and elevated protein biomarkers (together, the marker panel) can be detected in asymptomatic individuals with early cancer. Specific Aim 1: Determine the prevalence of a positive marker panel test in a prospective clinical cohort of 10,000 asymptomatic women ages 65 to 75 years. Specific Aim 2: Determine the sensitivity, specificity, positive predictive value (PPV) and negative predictive value (NPV) of a marker panel test to identify histologically proven cancers that develop within 5-years of the marker panel evaluation. CONTACTS: During normal business hours, contact study staff at ; after hours Power Generation Technician via the [facility] hospital relief operator . Please contact study team before resolving/deleting from patients problem list. Study phone number: [phone]. Diagnosis changed due to Research Module. Go to Snapshot for study details. Encounter for examination fo r normal comparison and control in clinical research program 01/12/2019 06/13/2022 Overview: DO NOT DELETE - [facility] DETECT Study: Project # [id number], Power Generation Technician: Ezequiel Christian, MS, MPH. SUMMARY: Goal: Establish test characteristics (sensitivity, specificity, PPV, NPV) of a circulating tumor DNA (ctDNA)-based test for cancer. - Hypothesis: Circulating tumor DNA (ctDNA) and elevated protein biomarkers (together, the marker panel) can be detected in asymptomatic individuals with early cancer. - Specific Aim 1: Determine the prevalence of a positive marker panel test in a prospective clinical cohort of 10,000 asymptomatic women ages 65 to 75 years. - Specific Aim 2: Determine the sensitivity, specificity, positive predictive value (PPV) and negative predictive value (NPV) of a marker panel test to identify histologically proven cancers that develop within 5-years of the marker panel evaluation. - CONTACTS: During normal business hours, contact study staff at ; after hours Power Generation Technician via the [facility] hospital relief operator . - Please contact study team before resolving/deleting from patients problem list. Study phone number: [phone]. Diagnosis changed due to Research Module. Go to Snapshot for study details. Special screening for malign ant neoplasms, colon 01/30/2006 04/08/2019 Overview: Colonoscopy 01/21/06 --hyperplastic polyp--repeat 5 years documented as of this encounter (statuses as of 07/22/2024) Immunizations Name Administration Dates Next Due COVID-19 mRNA, LNP-s, No Pre serve, 2-Dose Series (Textic) 08/07/2021,12/25/2020,11/20/2020 COVID-19, LNP-s, No Preserve , Gus-sucrose, Ages 12+ (Pfizer) 04/30/2022 COVID-19, MRNA-LNP, 23-24, P F, 30 MCG/0.3 mL, 12 YRS AND ABOVE, IM (PFIZER-Comirnaty) 08/13/2023 Covid-19, Mrna, Lnp-s, Pf, B ivalent, 30 Mcg, IM, 12 yrs and above (Pfizer) 08/08/2022 Pneumococcal Conjugate Vacc, 13 Valent (Prevnar) 11/12/2016 Pneumococcal Polysaccharide PPV23 (Pneumovax) 11/13/2017 Season Influenza, Quad, PF, Adjuvanted, 65+ Yrs, IM (FLUAD) 06/15/2020 Seasonal Influenza Vac., MDV , IM, 0.5 mL (Fluzone) 07/21/2013,08/13/2012,07/19/2010,08/22,08/31/2007 Seasonal Influenza, High Dos e, Trivalent, PF, IM (Fluzone HD) 07/05/2024 Seasonal Influenza, PF, 6 M & above, IM , (FluLaval or Fluzone) 09/30/2018,09/19/2017 Seasonal Influenza, Quadriva lent Hd (Fluzone Hd) 07/01/2023,07/10/2022,08/13/2021 Seasonal Influenza, Quadriva lent, No Preserve, IM 09/02/2016,08/25/2015 Seasonal Influenza, Trivalen t, Adjuvanted, 65+ YRS, PF, (Fluad) 07/29/2019 TDAP (age 10 and older)(Boostrix) 06/15/2020 TDAP, Age 7 and older, IM (Adacel) 06/13/2010 Varicella Zoster Vaccine (Adult) 10/12/2012 Zoster Vaccine Recombinant (Shingrix) 09/01/2019 ,04/19/2019 documented as of this encounter Social History Tobacco Use Types Packs/Day Years Used Date Smoking Tobacco: Former Cigarettes 1 15 0 02/08/1969 - 02/09/1984 Smokeless Tobacco: Never Alcohol Use Standard Drinks/Week Comments Yes 0 (1 standard drink = 0.6 oz pur e alcohol) beer on weekends PHQ-2 Answer Date Recorded PHQ Adult Total Score 0 06/11/2024 Hunger Vital Sign Answer Date Recorded Within the past 12 months, y ou worried that your food would run out before you got the money to buy more. Never true 06/30/20 23 Within the past 12 months, t he food you bought just didn't last and you didn't have money to get more. Never true 06/30/2023 Childcare Answer Date Recorded Do you feel overwhelmed with taking care of a child, family member or friend? No 06/30/2023 Does your family need help f inding childcare? (Household - for ages 0-17 years) Not on file 06/30/2023 Clothing Answer Date Recorded Have you been unable to get clothing when it was really needed? No 06/30/2023 Is your family able to get c lothes or diapers when needed? (Household - for ages 0-17 years) Not on file 06/30/2023 Personal Safety Answer Date Recorded Do you feel unsafe or have concerns for your saf ety? No 06/30/2023 Do you have concerns for you r family's safety? (Household - for ages 0-17 years) Not on file 06/30/2023 Utilities Answer Date Recorded Do you have trouble paying y our heating, water, or electric bill? (Adult - for ages 18 years and over) Not on file 07/04/2024 Is your family able to pay t he heat, water, or electric bill? (Household - for ages 0-17 years) Not on file 07/04/2024 Does your family have access to good internet? (Household - for ages 0-17 years) Not on file 07/04/2024 Employment Status Answer Date Recorded Are you unemployed or without regular income? No 06/30/2023 Does the household have a re gular source of income? (Household - for ages 0-17 years) Not on file 06/30/2023 Social Connections Answer Date Recorded How often do you feel lonely or isolated from those around you? (Adult - for ages 18 years and over) Not on file 07/04/2024 Financial Resource Strain Answer Date R ecorded Do you have any trouble payi ng for your medications, or do you think you might in the future? No 06/30/2023 Does your family have troubl e paying for medicine? (Household - for ages 0-17 years) Not on file 06/30/2023 Transportation Needs Answer Date Record ed READ ONLY Do you have troubl e getting a ride to medical visits or work? Never True 06/30/2023 Does your family have a hard time getting a ride to doctors visits? (Household - for ages 0-17 years) Not on file 06/30/2023 Has lack of transportation k ept you from medical appointments, meetings, work, or from getting things needed for daily living? Check all that apply. (Adult - for ages 18 years and over) Not on file 06/30/2023 Do you (or your family) have trouble finding or paying for a ride (transportation)? (Household - for ages 0-17 years) Not on file 06/30/2023 Housing Stability Answer Date Recorded Do you currently live in a s helter or have no steady place to sleep at night? No 06/30/2023 READ ONLY Do you think you a re at risk of becoming homeless? No 06/30/2023 Does your family worry about paying for your home or becoming homeless? (Household - for ages 0-17 years) Not on file 0 06/30/2023 Are you homeless or worried that you might be in the future? (Adult - for ages 18 years and over) Not on file Are you (or your family) pratima eless or worried that you might be in the future? (Household - for ages 0-17 years) Not on file Food Insecurity Answer Date Recorded Do you need food for this week? No 06/30/2023 Are you able to get enough f ood for your family? (Household - for ages 0-17 years) Not on file 06/30/2023 Does your family need food t his week? (Household - for ages 0-17 years) Not on file 06/30/2023 Do you always have enough fo od for your family? (Household - for ages 0-17 years) Not on file 06/30/2023 Sex and Gender Information Value Date Recorded Sex Assigned at Female 05/24/2020 1:35 PM EDT Gender Identity Female 05/24/2020 1:35 PM EDT Sexual Orientation Straight 05/24/2020 1: 35 PM EDT Job Start Date Occupation Industry Not on file Not on file Not on file documented as of this encounter Miscellaneous Notes * Telephone Encounter - Justin Fisher [facility] - 07/22/2024 3:44 AM EDTSigned Prescriptions: Disp Refills Levothyroxine Sodium 88 MCG Oral Tablet (L*90 Tab*1 Sig: TAKE 1 TABLET BY MOUTH IN THE MORNING AT LEAST 30 MINUTES PRIOR TO BREAKFAST OR MEDICATIONSAuthorizing Provider: MAXINE BOUCHER User: JUSTIN FISHER documented in this encounter Plan of Treatment Upcoming Encounters Date Type Department Care Team (Late st Contact Info) Description 08/19/2024 10:00 AM EST Office Visit [facility] [address] [place] [address] Lisa Ramírez CRNP [address] [place] [address] 02/17/2025 10:00 AM EDT Office Visit [facility] [address] [place] [address] Maxine Boucher, [address] [place] [address] Scheduled Procedures Name Priority Associated Diagnoses Date/Ti me COLONOSCOPY FLEXIBLE PROXIMA L DIAGNOSTIC Recall Family history of colon cancer Health Maintenance Due Date Last Done Comments Cologuard 1996 Sigmoidoscopy 1996 Fecal Occult Blood Test 12/05/2002 12/05/19 02, 09/13/2000, 04/05/1998, Additional history exists COVID-19 Vaccine ( season) 2024 08/13/2023, 08/08/2022, 04/30/2022, Additional history exists GFR 01/12/2025 01/13/2024, 11/14, 05/07/2022, Additional history exists TSH 01/12/2025 01/13/2024, 11/14, 05/07/2022, Additional history exists Adult Wellness Visit 06/11/2025 06/11/2024 Depression Screening 06/11/2025 06/11/2024, 02/17/20 24 Mammogram 07/05/2025 07/05/2024, 06/14, 07/03/2023, Additional history exists Albumin/Creatinine Ratio 12/03/2025 023, 02/06/2021, 05/24/2020 Colonoscopy 12/10/2027 12/10/2022, 11/14, 01/31/2017, Additional history exists Colorectal Cancer Screening 12/10/2027 Lipid Panel 01/12/2029 01/13/2024, 11/14, 05/07/2022, Additional history exists DXA Scan 05/24/2029 05/24/2024, 05/13, 12/03/2016 DTap/Tdap Vaccines (4 - Td or Tdap) 06/15/2030 06/15/2020, 06/13/2010, 12/30/2002 Pneumococcal Vaccine: 65+ Years Completed 11/13/2017, 11/12/2016 Zoster Vaccines Completed 09/01/2019, 07/0 05/2019, 10/12/2012 RETIRED - COLONOSCOPY-EVERY 5 YRS AGES 18-100 Discontinued 12/10/2022, 12/10/2022, 01/31/2017, Additional history exists Influenza Vaccine (FLU shot) Completed 07/05/2024, 07/01/2023, 07/10/2022, Additional history exists HPV (Gardasil) Vaccine Aged Out No lo nger eligible based on patient's age to complete this topic Hepatitis B Vaccine Aged Out No longe r eligible based on patient's age to complete this topic MENINGOCOCCAL (MENACTRA/MENVEO) Aged Out No longer eligible based on patient's age to complete this topic documented as of this encounter Medical Devices Implanted Type Area Child Caregiver Private Home Device Identifier Shelf Expiration Date Model / Serial / Lot Lens Li61ao 13.00mm 19.00 - [id number] - [id number] Implanted:Qty: 1 on 07/15/2023 by Doron Toscano MD at [facility] Left: Eye [employer] 04/11/2028 [id number] / [id number] / [id number] Lens Li61ao 13.00mm 17.50 - [id number] - [id number] Implanted:Qty: 1 on 07/29/2023 by Doron Toscano MD at OR [facility] Right: Eye [employer] 03/12/2028 [id number] / [id number] / [id number] documented as of this encounter Advance Directives Documents on File Type Date Recorded Patient Lens Blank Gauger Expl anation Advance Directives and Living Will 07/08/2003 LIVING WILL Power of Director Of Claims 07/08/2003 POWER OF A [facility] POA * Full Code (Latest Code Status on File) Date Activated Date Inactivated Comments 07/29/2023 11:46 AM 07/29/2023 5:54 PM This orde r reflects the patients wishes and were consensually agreed upon. Question Answer Comments Discussion of Advance Directives occurred with: Patient Does the patient have a Living Will? No Does the patient have Health Care Power of Attor liya? No * Full Code Date Activated Date Inactivated Comments 07/15/2023 1:49 PM 07/15/2023 7:54 PM This order r eflects the patients wishes and were consensually agreed upon. Question Answer Comments Discussion of Advance Directives occurred with: Patient Does the patient have a Living Will? No Does the patient have Health Care Power of Attor liya? No Care Teams Portuguese Tutor Relationship Specialty Start Date End Date Maxine Boucher DO [address] [place] [address] PCP - General Family Medicine 12/14/19 documented as of this encounter
--- OUTSIDE RECORDS SUMMARY | 2024-12-24 04:39 | External Medical Summary | Summary of Care ---
Author Name Unknown Organization [facility] Address [address] [facility] [place] [address] Phone [phone] Care Team Providers Care Mortgage Loan Interviewer Name Role Phone Boucher Igor Persaudvira Primary Care Provider Encounter Details Date Type Department Care Team (Late st Contact Info) Description 11/04/2024 Population Health External Data Unspecified Department Allergies Active Allergy Reactions Criticality Noted Date Comments Hydrochlorothiazide 05/12/2018 Nauseaous and low energy Naproxen Rash High 11/26/2007 Bullous eruption on hands, phototoxicity documented as of this encounter (statuses as of 11/04/2024) Medications Calcium-Vitamin D-Vitamin K 500-1000-40 MG-UNT-MCG Oral Tablet Chewable 1 Tablet in the morning. Active aspirin enteric coated 81 MG TBEC Take 1 Tab by mouth daily. 100 Tab 3 8 Active Vitamin B-12 1000 MCG Oral Tablet (Cyanocobalamin ) Take 1 Tablet by mouth in the morning. 90 Tablet 3 4 Active Fluorouracil 5 % External Cream (Efudex) Apply to rough area on nose twice a day for two weeks, and to rough areas on hands twice a day for 4 weeks 40 g 1 4 Active Magnesium Oxide 400 MG Oral TabletIndicatio ns:Leg cramping Take 1 Tablet by mouth in the morning. 30 Tablet 11 02/17/2024 10:47 AM EDT 4 Active Omeprazole 20 MG Oral Capsule Delayed Release (PriLOSEC)Indic ations:Esophage al reflux Take 1 capsule by mouth in the morning 90 Capsule 3 4 Active Levothyroxine Sodium 88 MCG Oral Tablet (Levoxyl) TAKE 1 TABLET BY MOUTH IN THE MORNING AT LEAST 30 MINUTES PRIOR TO BREAKFAST OR MEDICATIONS 90 Tablet 1 4 Active Diclofenac Sodium 75 MG Oral Tablet Delayed Release (Voltaren)Indic ations:Pain in limb Take 1 tablet by mouth twice daily with food 60 Tablet 5 4 Active Rosuvastatin Calcium 5 MG Oral Tablet (Crestor) TAKE 1 TABLET BY MOUTH IN THE MORNING 90 Tablet 1 4 Active Irbesartan 300 MG Oral Tablet (Avapro) TAKE 1 TABLET BY MOUTH AT BEDTIME 90 Tablet 1 4 Active DULoxetine HCl 30 MG Oral Capsule Delayed Release Particles (Cymbalta)Indic ations:Adjustme nt disorder with anxious mood,Chronic pain of right knee TAKE 1 CAPSULE BY MOUTH ONCE DAILY IN THE MORNING -DO NOT CUT, CRUSH OR CHEW 90 Capsule 3 5 Active amLODIPine Besylate 5 MG Oral Tablet (Norvasc)Indica tions:HTN, goal below 130/80 TAKE 1 TABLET BY MOUTH IN THE MORNING 90 Tablet 3 5 Active documented as of this encounter (statuses as of 11/04/2024) Active Problems Problem Noted Date Diagnosed Date Chronic pain of right knee 02/06/2021 HTN, goal below 130/80 12/14/2019 Other specified hypothyroidism 12/30/2002 CANCER OF COLON,FAM HX - Mom 03/10/1998 Menopause 03/10/1998 CARDIAC MURMURS NEC documented as of this encounter (statuses as of 11/04/2024) Resolved Problems Problem Noted Date Diagnosed Date Resolved Date Encounter for examination fo r normal comparison and control in clinical research program 01/12/2019 05/15/2020 Overview (01/29/2021): DO NOT DELETE [facility] DETECT Study: Project # [id number], Psychiatric Nursing Aide: Murphy Alicia, PhD. SUMMARY: Goal: Establish test [...] contact study staff at ; after hours Psychiatric Nursing Aide via the [facility] rock crushing machine operator . Please contact study team before resolving/deleting from patients problem list. Study phone number: [phone]. Diagnosis changed due to Research Module. Go to Snapshot for study details. Encounter for examination fo r normal comparison and control in clinical research program 01/12/2019 06/13/2022 Overview (01/29/2021): DO NOT DELETE [facility] Study: Project # [id number], Psychiatric Nursing Aide: Ezequiel Christian, MS, MPH. SUMMARY: Goal: Establish [...] contact study staff at ; after hours Psychiatric Nursing Aide via the [facility] rock crushing machine operator . - Please contact study team before resolving/deleting from patients problem list. Study phone number: [phone]. Diagnosis changed due to Research Module. Go to Workhint for study details. ADVANCE DIRECTIVE INFORMATION 08/20/2006 08/16/2024 Overview (08/20/2006): Pt will bring copy at next visit. Special screening for malign ant neoplasms, colon 01/30/2006 04/08/2019 Overview (01/30/2006): Colonoscopy 01/21/06 --hyperplastic polyp--repeat 5 years documented as of this encounter (statuses as of 11/04/2024) Immunizations Name Administration Dates Next Due COVID-19 mRNA, LNP-s, No Pre serve, 2-Dose Series (DrinkSendo) 08/07/2021,12/25/2020,11/20/2020 COVID-19, LNP-s, No Preserve , Gus-sucrose, Ages 12+ (DrinkSendo) 04/30/2022 COVID-19, MRNA-LNP, PF, 30 M CG/0.3 mL, 12 YRS AND ABOVE, IM ([facility]) 08/13/2023 Covid-19, Mrna, Lnp-s, Pf, B ivalent, 30 Mcg, IM, 12 yrs and above (DrinkSendo) 08/08/2022 Pneumococcal Conjugate Vacc, 13 Valent (Prevnar) [...] the money to buy more. Never true 09/02/20 24 Within the past 12 months, t he food you bought just didn't last and you didn't have money to get more. Never true 09/02/2024 Childcare Answer Date Recorded Do you feel overwhelmed with taking care of a child, family member or friend? No 09/02/2024 Does your family need help f inding childcare? (Household - for ages 0-17 years) Not on file 09/02/2024 Clothing Answer Date Recorded Have you been unable to get clothing when it was really needed? No 09/02/2024 Is your family able to get c lothes or diapers when needed? (Household - for ages 0-17 years) Not on file 09/02/2024 Personal Safety Answer Date Recorded Do you feel unsafe or have concerns for your saf ety? No 09/02/2024 Do you have concerns for you r family's safety? (Household - for ages 0-17 years) Not on file 09/02/2024 Utilities Answer Date Recorded Do you have trouble paying y our heating, water, or electric bill? No 09/02/2024 Is your family able to pay t he heat, water, or electric bill? (Household - for ages 0-17 years) Not on file 09/02/2024 Does your family have access to good internet? (Household - for ages 0-17 years) Not on file 09/02/2024 Employment Status Answer Date Recorded Are you unemployed or without regular income? No 09/02/2024 Does the household have a re gular source of income? (Household - for ages 0-17 years) Not on file 09/02/2024 Social Connections Answer Date Recorded How often do you feel lonely or isolated from th ose around you? Rarely 09/02/2024 Financial Resource Strain Answer Date R ecorded Do you have any trouble payi ng for your medications, or do you think you might in the future? No 09/02/2024 Does your family have troubl e paying for medicine? (Household - for ages 0-17 years) Not on file 09/02/2024 Transportation Needs Answer Date Record ed Do you have trouble getting a ride to medical visits or work? (Adult - for ages 18 years and over) Not on file 09/02/2024 Does your family have a hard time getting a ride to doctors visits? (Household - for ages 0-17 years) Not on file 09/02/2024 Has lack of transportation k ept you from medical appointments, meetings, work, or from getting things needed for daily living? Check all that apply. No 09/02/2024 Do you (or your family) have trouble finding or paying for a ride (transportation)? (Household - for ages 0-17 years) Not on file 09/02/2024 Housing Stability Answer Date Recorded Do you currently live in a s helter or have no steady place to sleep at night? No 09/02/2024 Do you think you are at risk of becoming homeless? (Adult - for ages 18 years and over) Not on file 09/02/2024 Does your family worry about paying for your home or becoming homeless? (Household - for ages 0-17 years) Not on file 1 11/02/2023 Are you homeless or worried that you might be in the future? No 09/02/2024 Are you (or your family) pratima eless or worried that you might be in the future? (Household - for ages 0-17 years) Not on file Food Insecurity Answer Date Recorded Do you need food for this week? No 09/02/2024 Are you able to get enough f ood for your family? (Household - for ages 0-17 years) Not on file 09/02/2024 Does your family need food t his week? (Household - for ages 0-17 years) Not on file 09/02/2024 Do you always have enough fo od for your family? 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 file Not on file Not on fi le documented as of this encounter Plan of Treatment Upcoming Encounters Date Type Department Care Team (Late st Contact Info) Description 02/17/2025 10:00 AM EDT Office Visit Family Practice [facility] [address] [place] [address] Igor Boucher DO [address] [place] [id number] Scheduled Procedures Name Priority Associated Diagnoses Date/Ti [...] Depression Screening 06/11/2025 06/11/2024, 02/17/20 24 Mammogram 09/15/2025 09/15/2024, 06/14, 07/03/2023, Additional history exists Albumin/Creatinine Ratio 12/03/2025 023, 02/06/2021, 05/24/2020 Colonoscopy 12/10/2027 12/10/2022, 11/14, 01/31/2017, Additional history exists Colorectal Cancer Screening 12/10/2027 Lipid Panel 01/12/2029 01/13/2024, 11/14, 05/07/2022, Additional history exists DXA Scan 05/24/2029 05/24/2024, 05/13, 12/03/2016 DTap/Tdap Vaccines (4 - Td or Tdap) 06/15/2030 06/15/2020, 06/13/2010, 12/30/2002 Pneumococcal Vaccine: 50+ Years Completed 11/13/2017, 11/12/2016 Zoster Vaccines Completed 09/01/2019, 05/2019, 10/12/2012 RETIRED - COLONOSCOPY-EVERY 5 YRS [...] this encounter Medical Devices Implanted Type Area Steel Estimator Device Identifier Shelf Expiration Date Model / Serial / Lot Lens Li61ao 13.00mm 19.00 - [id number] - [id number] Implanted:Qty: 1 on 07/15/2023 by Doron Toscano MD at OR [facility] Left: Eye [employer]OM[employer] 04/11/2028 [id number] / [id number] / [id number] Lens Li61ao 13.00mm 17.50 - [id number] - [id number] Implanted:Qty: 1 on 07/29/2023 by Doron Toscano MD at OR [facility] Right: Eye BAUSCH [employer] LOMB 03/12/2028 [id number] / [id number] / [id number] documented as of this encounter Advance Directives Documents on File Type Date Recorded Patient Structural Manager Expl anation Advance Directives and Living Will 07/08/2003 LIVING WILL Power of Special Education Educational Assistant 07/08/2003 POWER OF A TTORNEY DURABLE HEALTHCARE [...] Power of Attor liya? No Care Teams Mortgage Loan Interviewer Relationship Specialty Start Date End Date Igor Boucher DO [address] [place] [address] PCP - General Family Medicine 12/14/19 documented as of this encounter
--- OUTSIDE RECORDS SUMMARY | 2024-12-24 04:39 | External Medical Summary | Summary of Care ---
Author Name Unknown Organization [facility] Address [address] [place] [address] Phone [phone] Care Team Providers Care Event Sales Assistant Name Role Phone Igor Bouchervira Primary Care Provider Encounter Details Date Type Department Care Team (Late st Contact Info) Description 06/29/2024 Orders Only Outcomes Research Department [address] [place] [address] Guerline Carpio [employer] Research Other*[id number] Allergies Active Allergy Reactions Criticality Noted Date Comments Hydrochlorothiazide 05/12/2018 Nauseaous and low energy Naproxen Rash High 11/26/2007 Bullous eruption on hands, phototoxicity documented as of this encounter (statuses as of 06/29/2024) Medications Medication Sig Dispensed Refills Start Date End Date Status Calcium-Vitamin D-Vitamin K 500-1000-40 MG-UNT-MCG Oral Tablet Chewable 1 Tablet in the morning. Active aspirin enteric coated 81 MG TBEC Take 1 Tab by mouth daily. 100 Tab 3 02/23/2018 Active Vitamin B-12 1000 MCG Oral Tablet (Cyanocobalamin) Take 1 Tablet by mouth in the morning. 90 Tablet 3 01/13/2024 Active DULoxetine HCl 30 MG Oral Capsule Delayed Release Particles (Cymbalta)Indicati ons:Adjustment disorder with anxious mood,Chronic pain of right knee TAKE 1 CAPSULE BY MOUTH ONCE DAILY IN THE MORNING DO NOT CUT,CRUSH, OR CHEW CAPSULE 90 Capsule 1 01/20/2024 Active Levothyroxine Sodium 88 MCG Oral Tablet (Levoxyl) TAKE 1 TABLET BY MOUTH IN THE MORNING AT LEAST 30 MINUTES PRIOR TO BREAKFAST OR MEDICATIONS 90 Tablet 1 01/30/2024 Active amLODIPine Besylate 5 MG Oral Tablet (Norvasc)Indicatio ns:HTN, goal below 130/80 TAKE 1 TABLET BY MOUTH IN THE MORNING 90 Tablet 2 02/12/2024 Active Fluorouracil 5 % External Cream (Efudex) Apply to rough area on nose twice a day for two weeks, and to rough areas on hands twice a day for 4 weeks 40 g 1 02/13/2024 Active Magnesium Oxide 400 MG Oral TabletIndications: Leg cramping Take 1 Tablet by mouth in the morning. 30 Tablet 11 02/17/2024 Active Diclofenac Sodium 75 MG Oral Tablet Delayed Release (Voltaren)Indicati ons:Pain in limb Take 1 tablet by mouth twice daily with food 60 Tablet 5 02/21/2024 Active Omeprazole 20 MG Oral Capsule Delayed Release (PriLOSEC)Indicati ons:Esophageal reflux Take 1 capsule by mouth in the morning 90 Capsule 3 03/15/2024 Active Rosuvastatin Calcium 5 MG Oral Tablet (Crestor) TAKE 1 TABLET BY MOUTH IN THE MORNING 90 Tablet 1 04/05/2024 Active Irbesartan 300 MG Oral Tablet (Avapro) TAKE 1 TABLET BY MOUTH AT BEDTIME 90 Tablet 1 04/05/2024 Active documented as of this encounter (statuses as of 06/29/2024) Active Problems Problem Noted Date Diagnosed Date Chronic pain of right knee 02/06/2021 HTN, goal below 130/80 12/14/2019 ADVANCE DIRECTIVE INFORMATION 08/20/2006 Overview: Pt will bring copy at next visit. Other specified hypothyroidism 12/30/2002 CANCER OF COLON,FAM HX - Mom 03/10/1998 Menopause 03/10/1998 CARDIAC MURMURS NEC documented as of this encounter (statuses as of 06/29/2024) Resolved Problems Problem Noted Date Diagnosed Date Resolved Date Encounter for examination fo r normal comparison and control in clinical research program 01/12/2019 05/15/2020 Overview: DO NOT DELETE [facility] DETECT Study: Project # [id number], Broth Setter: Murphy Alicia, PhD. SUMMARY: Goal: Establish test [...] contact study staff at ; after hours Broth Setter via the [facility] hospital change number operator . Please contact study team before resolving/deleting from patients problem list. Study phone number: [phone]. Diagnosis changed due to Research Module. Go to Snapshot for study details. Encounter for examination fo r normal comparison and control in clinical research program 01/12/2019 06/13/2022 Overview: DO NOT DELETE - [facility] Study: Project # [id number], Broth Setter: Ezequiel Christian, MS, MPH. SUMMARY: Goal: Establish [...] contact study staff at ; after hours Broth Setter via the [facility] change number operator . - Please contact study team before resolving/deleting from patients problem list. Study phone number: [phone]. Diagnosis changed due to Research Module. Go to Snapshot for study details. Special screening for malign ant neoplasms, colon 01/30/2006 04/08/2019 Overview: Colonoscopy 01/21/06 --hyperplastic polyp--repeat 5 years documented as of this encounter (statuses as of 06/29/2024) Immunizations Name Administration Dates Next Due COVID-19 mRNA, LNP-s, No Pre serve, 2-Dose Series (Cellectar) 08/07/2021,12/25/2020,11/20/2020 COVID-19, LNP-s, No Preserve , Gus-sucrose, Ages 12+ (Pfizer) 04/30/2022 COVID-19, MRNA-LNP, 23-24, P F, 30 MCG/0.3 mL, 12 YRS AND ABOVE, IM ([employer]ir[facility]) 08/13/2023 Covid-19, Mrna, Lnp-s, Pf, B ivalent, 30 Mcg, IM, 12 yrs and above (Cellectar) 08/08/2022 Pneumococcal Conjugate Vacc, 13 Valent (Prevnar) 11/12/2016 Pneumococcal Polysaccharide PPV23 (Pneumovax) 11/13/2017 Season Influenza, Quad, PF, Adjuvanted, 65+ Yrs, IM (FLUAD) 06/15/2020 Seasonal Influenza, PF, 6 M & above, IM , (FluLaval or Fluzone) 09/30/2018,09/19/2017 Seasonal Influenza, Quadriva lent Hd (Fluzone Hd) 07/01/2023,07/10/2022,08/13/2021 Seasonal Influenza, Quadriva lent, No Preserve, IM 09/02/2016,08/25/2015 Seasonal Influenza, Trivalen t, (IIV3), with Preserv, (Fluzone) 07/21/2013,08/13/2012,07/19/2010,08/22,08/31/2007 Seasonal Influenza, Trivalen t, Adjuvanted, 65+ YRS, [...] our heating, water, or electric bill? No 06/30/2023 Is your family able to pay t he heat, water, or electric bill? (Household - for ages 0-17 years) Not on file 06/30/2023 Does your family have access to good internet? (Household - for ages 0-17 years) Not on file 06/30/2023 Employment Status Answer Date Recorded Are you unemployed or without regular income? No 06/30/2023 Does the household have a re gular source of income? (Household - for ages 0-17 years) Not on file 06/30/2023 Social Connections Answer Date Recorded How often do you feel lonely or isolated from th ose around you? Never 06/30/2023 Financial Resource Strain Answer Date R ecorded [...] on file documented as of this encounter Plan of Treatment Upcoming Encounters Date Type Department Care Team (Late st Contact Info) Description 07/05/2024 3:00 PM EDT Imaging Radiology [facility] [address] [place] [address] 08/19/2024 10:00 AM EST Office Visit [facility] [address] [place] [address] Lisa Ramírez CRNP [address] [place] [address] 02/17/2025 10:00 AM EDT Office Visit [facility] [address] [place] [address] Igor Boucher DO [address] [place] [address] Scheduled Orders Name Type Priority Associated Diagnoses Orde r Schedule MYCODE SUBSEQUENT ADULT Lab Routine MyCode Research Other*[id number] Every 6 Months for 2 Occurrences starting 06/29/2024 until 07/19/2025 Scheduled Procedures Name Priority Associated Diagnoses Date/Ti me COLONOSCOPY FLEXIBLE PROXIMA L DIAGNOSTIC Recall Family history of colon cancer Health Maintenance Due Date Last Done Comments Cologuard 1996 Sigmoidoscopy 1996 Fecal Occult Blood Test 12/05/2002 12/05/19 02, 09/13/2000, 04/05/1998, Additional history exists COVID-19 Vaccine ( season) 2024 08/13/2023, 08/08/2022, 04/30/2022, Additional history exists Influenza Vaccine (FLU shot) (#1) 2024 07/01/2023, 07/10/2022, 08/13/2021, Additional history exists Mammogram 07/03/2024 07/03/2023, 06/14, 05/07/2022, Additional history exists GFR 01/12/2025 01/13/2024, 11/14, 05/07/2022, Additional history exists TSH 01/12/2025 01/13/2024, 11/14, 05/07/2022, Additional history exists Adult Wellness Visit 06/11/2025 06/11/2024 Depression Screening 06/11/2025 06/11/2024, 02/17/20 24 Albumin/Creatinine Ratio 12/03/2025 023, 02/06/2021, 05/24/2020 Colonoscopy 12/10/2027 12/10/2022, 11/14, 01/31/2017, Additional history exists Colorectal Cancer Screening 12/10/2027 Lipid Panel 01/12/2029 01/13/2024, 11/14, 05/07/2022, Additional history exists DXA Scan 05/24/2029 05/24/2024, 12/03/2016 DTap/Tdap Vaccines (4 - Td or Tdap) 06/15/2030 06/15/2020, 06/13/2010, 12/30/2002 Pneumococcal Vaccine: 65+ Years Completed 11/13/2017, 11/12/2016 Zoster Vaccines Completed 09/01/2019, 05/2019, 10/12/2012 RETIRED - COLONOSCOPY-EVERY 5 YRS AGES 18-100 Discontinued 12/10/2022, 12/10/2022, 01/31/2017, Additional history exists HPV (Gardasil) Vaccine Aged Out No lo nger eligible based on patient's age to complete this topic Hepatitis B Vaccine Aged Out No longe r eligible based on patient's age to complete this topic MENINGOCOCCAL (MENACTRA/MENVEO) Aged Out No longer eligible based on patient's age to complete this topic documented as of this encounter Medical Devices Implanted Type Area Body Wirer Device Identifier Shelf Expiration Date Model / Serial / Lot Lens Li61ao 13.00mm 19.00 - [id number] - [id number] Implanted:Qty: 1 on 07/15/2023 by Doron Toscano MD at [place] [facility] Left: Eye [employer]OMB 04/11/2028 [id number] / [id number] / [id number] Lens Li61ao 13.00mm 17.50 - [id number] - [id number] Implanted:Qty: 1 on 07/29/2023 by Doron Toscano MD at [place] [facility] Right: Eye [employer]CH [employer]OMB 03/12/2028 [id number] / [id number] / [id number] documented as of this encounter Visit Diagnoses Diagnosis MyCode Research Other*[id number] Screening mammogram for breast cancer documented in this encounter Advance Directives Documents on File Type Date Recorded Patient Program And Research Coordinator Expl anation Advance Directives and Living Will 07/08/[address] WILL Power of Rd Lab Technician 07/08/2003 POWER OF A TTORNEY DURABLE HEALTHCARE [...] Power of Attor liya? No Care Teams Event Sales Assistant Relationship Specialty Start Date End Date Igor Boucher DO [address] [place] [address] PCP - General Family Medicine 12/14/19 documented as of this encounter
--- OUTSIDE RECORDS SUMMARY | 2024-12-24 04:39 | External Medical Summary | Summary of Care ---
Author Name Unknown Organization [facility] Address [address] [address] Phone [phone] Care Team Providers Care Instructional Developer Name Role Phone Maxine Boucher DO Primary Care Provider Reason for Visit * Reason Comments eRx-Medication Refill Encounter Details Date Type Department Care Team (Late st Contact Info) Description 09/28/2024 Refill Family Practice [facility] [address] [place] [address] Maxine Boucher DO [address] [place] [address] Allergies Active Allergy Reactions Criticality Noted Date Comments Hydrochlorothiazide 05/12/2018 Nauseaous and low energy Naproxen Rash High 11/26/2007 Bullous eruption on hands, phototoxicity documented as of this encounter (statuses as of 09/29/2024) Medications Calcium-Vitami n D-Vitamin K 500-1000-40 MG-UNT-MCG Oral Tablet Chewable 1 Tablet in the morning. Active aspirin enteric coated 81 MG TBEC Take 1 Tab by mouth daily. 100 Tab 3 02/24/20 18 Active Vitamin B-12 1000 MCG Oral Tablet (Cyanocobalami n) Take 1 Tablet by mouth in the morning. 90 Tablet 3 01/13/20 24 Active amLODIPine Besylate 5 MG Oral Tablet (Norvasc)Indic ations:HTN, goal below 130/80 TAKE 1 TABLET BY MOUTH IN THE MORNING 90 Tablet 2 02/12/20 24 Active Fluorouracil 5 % External Cream (Efudex) Apply to rough area on nose twice a day for two weeks, and to rough areas on hands twice a day for 4 weeks 40 g 1 02/13/20 24 Active Magnesium Oxide 400 MG Oral TabletIndicati ons:Leg cramping Take 1 Tablet by mouth in the morning. 30 Tablet 11 4 10:47 AM EDT 02/17/20 24 Active Omeprazole 20 MG Oral Capsule Delayed Release (PriLOSEC)Patrizia cations:Esopha geal reflux Take 1 capsule by mouth in the morning 90 Capsule 3 03/15/20 24 Active DULoxetine HCl 30 MG Oral Capsule Delayed Release Particles (Cymbalta)Patrizia cations:Adjust ment disorder with anxious mood,Chronic pain of right knee TAKE 1 CAPSULE BY MOUTH ONCE DAILY IN THE MORNING. DO NOT CUT, CRUSH, OR CHEW CAPSULE. 90 Capsule 07/21/20 24 Active Levothyroxine Sodium 88 MCG Oral Tablet (Levoxyl) TAKE 1 TABLET BY MOUTH IN THE MORNING AT LEAST 30 MINUTES PRIOR TO BREAKFAST OR MEDICATIONS 90 Tablet 1 07/22/20 24 Active Diclofenac Sodium 75 MG Oral Tablet Delayed Release (Voltaren)Patrizia cations:Pain in limb Take 1 tablet by mouth twice daily with food 60 Tablet 5 08/17/20 24 Active Rosuvastatin Calcium 5 MG Oral Tablet (Crestor) TAKE 1 TABLET BY MOUTH IN THE MORNING 90 Tablet 1 09/29/20 24 Active Irbesartan 300 MG Oral Tablet (Avapro) TAKE 1 TABLET BY MOUTH AT BEDTIME 90 Tablet 1 09/29/20 24 Active Rosuvastatin Calcium 5 MG Oral Tablet (Crestor) TAKE 1 TABLET BY MOUTH IN THE MORNING 90 Tablet 1 04/05/20 24 024 Discontinued Irbesartan 300 MG Oral Tablet (Avapro) TAKE 1 TABLET BY MOUTH AT BEDTIME 90 Tablet 1 04/05/20 24 024 Discontinued documented as of this encounter (statuses as of 09/29/2024) Active Problems Problem Noted Date Diagnosed Date Chronic pain of right knee 02/06/2021 HTN, goal below 130/80 12/14/2019 Other specified hypothyroidism 12/30/2002 CANCER OF COLON,FAM HX - Mom 03/10/1998 Menopause 03/10/1998 CARDIAC MURMURS NEC documented as of this encounter (statuses as of 09/29/2024) Resolved Problems Problem Noted Date Diagnosed Date Resolved Date Encounter for examination fo r normal comparison and control in clinical research program 01/12/2019 05/15/2020 Overview (01/29/2021): DO NOT DELETE [employer] MAX Study: Project # [id number], Social Media Marketing Specialist: Murphy Alicia, PhD. SUMMARY: Goal: Establish test [...] contact study staff at ; after hours Social Media Marketing Specialist via the [facility] hospital welding machine operator submerged arc . Please contact study team before resolving/deleting from patients problem list. Study phone number: [phone]. Diagnosis changed due to Research Module. Go to Snapshot for study details. Encounter for examination fo r normal comparison and control in clinical research program 01/12/2019 06/13/2022 Overview (01/29/2021): DO NOT DELETE - [employer] MAX Study: Project # [id number], Social Media Marketing Specialist: Ezequiel Christian, MS, MPH. SUMMARY: Goal: Establish [...] contact study staff at ; after hours Social Media Marketing Specialist via the [facility] hospital welding machine operator submerged arc . - Please contact study team before resolving/deleting from patients problem list. Study phone number: [phone]. Diagnosis changed due to Research Module. Go to Snapshot for study details. ADVANCE DIRECTIVE INFORMATION 08/20/2006 08/16/2024 Overview (08/20/2006): Pt will bring copy at next visit. Special screening for malign ant neoplasms, colon 01/30/2006 04/08/2019 Overview (01/30/2006): Colonoscopy 01/21/06 --hyperplastic polyp--repeat 5 years documented as of this encounter (statuses as of 09/29/2024) Immunizations Name Administration Dates Next Due COVID-19 mRNA, LNP-s, No Pre serve, 2-Dose Series ([employer]) 08/07/2021,12/25/2020,11/20/2020 COVID-19, LNP-s, No Preserve , Gus-sucrose, Ages 12+ (Pfizer) 04/30/2022 COVID-19, MRNA-LNP, PF, 30 M CG/0.3 mL, 12 YRS AND ABOVE, IM [facility] 08/13/2023 Covid-19, Mrna, Lnp-s, Pf, B ivalent, 30 Mcg, IM, 12 yrs and above ([employer]) 08/08/2022 Pneumococcal Conjugate Vacc, 13 Valent (Prevnar) [...] 09/02/2024 Does the household have a re lar source of income? 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 on file Not on fi le documented as of this encounter Miscellaneous Notes * Telephone Encounter - Xuan Ortiz RP - 09/29/2024 10:50 AM ESTSigned Prescriptions: Disp Refills Rosuvastatin Calcium 5 MG Oral Tablet (Cre*90 Tab*1 Sig: TAKE 1 TABLET BY MOUTH IN THE MORNINGAuthorizing Provider: MAXINE BOUCHER User: XUAN ORTIZ Irbesartan 300 MG Oral Tablet (Avapro) 90 Tab*1 Sig: TAKE 1 TABLET BY MOUTH AT BEDTIMEAuthorizing Provider: MAXINE BOUCHER User: XUAN ORTIZ documented in this encounter Plan of Treatment Upcoming Encounters Date Type Department Care Team (Late st Contact Info) Description 02/17/2025 10:00 AM EDT Office Visit [facility] [address] [place] [address] Maxine Boucher DO [address] [place] [id number] Scheduled Procedures Name Priority Associated Diagnoses Date/Ti [...] this encounter Medical Devices Implanted Type Area Uat Tester Device Identifier Shelf Expiration Date Model / Serial / Lot Lens Li61ao 13.00mm 19.00 - [id number] - [id number] Implanted:Qty: 1 on 07/15/2023 by Doron Toscano MD at OR [facility] Left: Eye [employer] 04/11/2028 [id number] / [id number] / [id number] Lens Li61ao 13.00mm 17.50 - [id number] - [id number] Implanted:Qty: 1 on 07/29/2023 by Doron Toscano MD at OR [facility] Right: Eye [employer]OMB 03/12/2028 [id number] / [id number] / [id number] documented as of this encounter Advance Directives Documents on File Type Date Recorded Patient Assistant Chief Nursing Officer Expl anation Advance Directives and Living Will 07/08/2003 LIVING WILL Power of Assistant District Attorney 07/08/2003 POWER OF A TTORNEY DURABLE HEALTHCARE [...] Power of Attor liya? No Care Teams Instructional Developer Relationship Specialty Start Date End Date Maxine Boucher DO [address] [place] [address] PCP - General Family Medicine 12/14/19 documented as of this encounter
--- OUTSIDE RECORDS SUMMARY | 2024-12-24 04:39 | External Medical Summary | Summary of Care ---
Author Name Unknown Organization [facility] Address [address] [address] Phone [phone] Care Team Providers Care Roll Table Operator Name Role Phone Maxine Boucher DO Primary Care Provider Reason for Visit * Reason Comments eRx-Medication Refill Encounter Details Date Type Department Care Team (Late st Contact Info) Description 10/31/2024 Refill Family Practice [facility] [address] [place] [address] Maxine Boucher DO [address] [place] [address] HTN, goal below 130/80 Allergies Active Allergy Reactions Criticality Noted Date Comments Hydrochlorothiazide 05/12/2018 Nauseaous and low energy Naproxen Rash High 11/26/2007 Bullous eruption on hands, phototoxicity documented as of this encounter (statuses as of 10/31/2024) Medications Calcium-Vitami n D-Vitamin K 500-1000-40 MG-UNT-MCG Oral Tablet Chewable 1 Tablet in the morning. Active aspirin enteric coated 81 MG TBEC Take 1 Tab by mouth daily. 100 Tab 3 02/24/20 18 Active Vitamin B-12 1000 MCG Oral Tablet (Cyanocobalami n) Take 1 Tablet by mouth in the morning. 90 Tablet 3 01/13/20 24 Active Fluorouracil 5 % External Cream [...] morning 90 Capsule 3 03/15/20 24 Active Levothyroxine Sodium 88 MCG Oral [...] BEDTIME 90 Tablet 1 09/29/20 24 Active DULoxetine HCl 30 MG Oral Capsule Delayed Release Particles (Cymbalta)Patrizia cations:Adjust ment disorder with anxious mood,Chronic pain of right knee TAKE 1 CAPSULE BY MOUTH ONCE DAILY IN THE MORNING -DO NOT CUT, CRUSH OR CHEW 90 Capsule 3 10/16/19 25 Active amLODIPine Besylate 5 MG Oral Tablet (Norvasc)Indic ations:HTN, goal below 130/80 TAKE 1 TABLET BY MOUTH IN THE MORNING 90 Tablet 3 10/31/19 25 Active amLODIPine Besylate 5 MG Oral Tablet (Norvasc)Indic ations:HTN, goal below 130/80 TAKE 1 TABLET BY MOUTH IN THE MORNING 90 Tablet 2 02/12/20 24 025 Discontinued documented as of this encounter (statuses as of 10/31/2024) Active Problems Problem Noted Date Diagnosed Date Chronic pain of right knee 02/06/2021 HTN, goal below 130/80 12/14/2019 Other specified hypothyroidism 12/30/2002 CANCER OF COLON,FAM HX - Mom 03/10/1998 Menopause 03/10/1998 CARDIAC MURMURS NEC documented as of this encounter (statuses as of 10/31/2024) Resolved Problems Problem Noted Date Diagnosed Date Resolved Date Encounter for examination fo r normal comparison and control in clinical research program 01/12/2019 05/15/2020 Overview (01/29/2021): DO NOT DELETE Asaf [facility] MAX Study: Project # [id number], Cardiology Consultants: Murphy Alicia, PhD. SUMMARY: Goal: Establish test [...] contact study staff at ; after hours Cardiology Consultants via the [facility] hospital scale tank operator . Please contact study team before resolving/deleting from patients problem list. Study phone number: [phone]. Diagnosis changed due to Research Module. Go to Snapshot for study details. Encounter for examination fo r normal comparison and control in clinical research program 01/12/2019 06/13/2022 Overview (01/29/2021): DO NOT DELETE - [facility] DETECT Study: Project # [id number], Cardiology Consultants: Ezequiel Christian, MS, MPH. SUMMARY: Goal: Establish [...] contact study staff at ; after hours Cardiology Consultants via the [facility] hospital scale tank operator . - Please contact study team before resolving/deleting from patients problem list. Study phone number: [phone]. Diagnosis changed due to Research Module. Go to Snapshot for study details. ADVANCE DIRECTIVE INFORMATION 08/20/2006 08/16/2024 Overview (08/20/2006): Pt will bring copy at next visit. Special screening for malign ant neoplasms, colon 01/30/2006 04/08/2019 Overview (01/30/2006): Colonoscopy 01/21/06 --hyperplastic polyp--repeat 5 years documented as of this encounter (statuses as of 10/31/2024) Immunizations Name Administration Dates Next Due COVID-19 mRNA, LNP-s, No Pre serve, 2-Dose Series ([employer]) 08/07/2021,12/25/2020,11/20/2020 COVID-19, LNP-s, No Preserve , Gus-sucrose, Ages 12+ (Pfizer) 04/30/2022 COVID-19, MRNA-LNP, PF, 30 M CG/0.3 mL, 12 YRS AND ABOVE, IM ([employer]) 08/13/2023 Covid-19, Mrna, Lnp-s, Pf, B ivalent, 30 Mcg, IM, 12 yrs and above ([employer]) 08/08/2022 Pneumococcal Conjugate Vacc, 13 Valent (Prevnar) [...] 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 Not on fi le documented as of this encounter Miscellaneous Notes * Telephone Encounter - Aureliano Gusman jim - 10/31/2024 9:21 AM ESTSigned Prescriptions: Disp Refills amLODIPine Besylate 5 MG Oral Tablet (Norv*90 Tab*3 Sig: TAKE 1 TABLET BY MOUTH IN THE MORNINGAuthorizing Provider: MAXINE BOUCHEROrderlowell User: AURELIANO GUSMAN documented in this encounter Plan of Treatment Upcoming Encounters Date Type Department Care Team (Late st Contact Info) Description 02/17/2025 10:00 AM EDT Office Visit Family Practice [facility] [address] [address] Maxine Boucher, [address] [place] [address] Scheduled Procedures Name Priority Associated Diagnoses Date/Ti [...] this encounter Medical Devices Implanted Type Area Fluorescent Lamp Replacer Device Identifier Shelf Expiration Date Model / Serial / Lot Lens Li61ao 13.00mm 19.00 - [id number] - [id number] Implanted:Qty: 1 on 07/15/2023 by Doron Toscano MD at OR [facility] Left: Eye [employer]CH [employer] LOMB 04/11/2028 [id number] / [id number] / [id number] Lens Li61ao 13.00mm 17.50 - [id number] - [id number] Implanted:Qty: 1 on 07/29/2023 by Doron Toscano MD at OR [facility] Right: Eye [employer]CH [employer] LOMB 03/12/2028 [id number] / [id number] / [id number] documented as of this encounter Visit Diagnoses Diagnosis HTN, goal below 130/80 Unspecified essential hypertension documented in this encounter Advance Directives Documents on File Type Date Recorded 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 No Care Teams Roll Table Operator Relationship Specialty Start Date End Date Maxine Boucher DO [address] [place] [address] PCP - General Family Medicine 12/14/19 documented as of this encounter
--- OUTSIDE RECORDS SUMMARY | 2024-12-24 04:39 | External Medical Summary | Summary of Care ---
Author Name Unknown Organization [facility] Address [address] [address] Phone [phone] Care Team Providers Care Design And Sales Consultant Name Role Phone Maxine Boucher DO Primary Care Provider Reason for Visit * Reason Comments eRx-Medication Refill Encounter Details Date Type Department Care Team (Late st Contact Info) Description 10/15/[address] [facility] [address] [place] [address] Maxine Boucher DO [address] [place] [address] Adjustment disorder with anxious mood; Chronic pain of right knee Allergies Active Allergy Reactions Criticality Noted Date Comments Hydrochlorothiazide 05/12/2018 Nauseaous and low energy Naproxen Rash High 11/26/2007 Bullous eruption on hands, phototoxicity documented as of this encounter (statuses as of 10/16/2024) Medications Calcium-Vitami n D-Vitamin K 500-1000-40 MG-UNT-MCG [...] CHEW 90 Capsule 3 10/16/19 25 Active DULoxetine HCl 30 MG Oral Capsule Delayed Release Particles (Cymbalta)Patrizia cations:Adjust ment disorder with anxious mood,Chronic pain of right knee TAKE 1 CAPSULE BY MOUTH ONCE DAILY IN THE MORNING. DO NOT CUT, CRUSH, OR CHEW CAPSULE. 90 Capsule 07/21/20 24 025 Discontinued documented as of this encounter (statuses as of 10/16/2024) Active Problems Problem Noted Date Diagnosed Date Chronic pain of right knee 02/06/2021 HTN, goal below 130/80 12/14/2019 Other specified hypothyroidism 12/30/2002 CANCER OF COLON,FAM HX - Mom 03/10/1998 Menopause 03/10/1998 CARDIAC MURMURS NEC documented as of this encounter (statuses as of 10/16/2024) Resolved Problems Problem Noted Date Diagnosed Date Resolved Date Encounter for examination fo r normal comparison and control in clinical research program 01/12/2019 05/15/2020 Overview (01/29/2021): DO NOT DELETE [employer] Study: Project # [id number], General Counselor: Murphy Alicia, PhD. SUMMARY: Goal: Establish test [...] contact study staff at ; after hours General Counselor via the [facility] hospital locomotive switch operator . Please contact study team before resolving/deleting from patients problem list. Study phone number: [phone]. Diagnosis changed due to Research Module. Go to Snapshot for study details. Encounter for examination fo r normal comparison and control in clinical research program 01/12/2019 06/13/2022 Overview (01/29/2021): DO NOT DELETE - [employer] DETECT Study: Project # [id number], General Counselor: Ezequiel Christian, MS, MPH. SUMMARY: Goal: Establish [...] contact study staff at ; after hours General Counselor via the [facility] hospital locomotive switch operator . - Please contact study team before resolving/deleting from patients problem list. Study phone number: [phone]. Diagnosis changed due to Research Module. Go to Snapshot for study details. ADVANCE DIRECTIVE INFORMATION 08/20/2006 08/16/2024 Overview (08/20/2006): Pt will bring copy at next visit. Special screening for malign ant neoplasms, colon 01/30/2006 04/08/2019 Overview (01/30/2006): Colonoscopy 01/21/06 --hyperplastic polyp--repeat 5 years documented as of this encounter (statuses as of 10/16/2024) Immunizations Name Administration Dates Next Due COVID-19 mRNA, LNP-s, No Pre serve, 2-Dose Series ([employer]) 08/07/2021,12/25/2020,11/20/2020 COVID-19, LNP-s, No Preserve , Gus-sucrose, Ages 12+ (Pfizer) 04/30/2022 COVID-19, MRNA-LNP, PF, 30 M CG/0.3 mL, 12 YRS AND ABOVE, IM ([facility]) 08/13/2023 Covid-19, Mrna, Lnp-s, Pf, B ivalent, 30 Mcg, IM, 12 yrs and above ([employer]) 08/08/2022 Pneumococcal Conjugate Vacc, 13 Valent (Prevnar) [...] 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 Not on fi le documented as of this encounter Miscellaneous Notes * Telephone Encounter - Markell Rivers [facility] - 10/16/2024 12:54 PM ESTSigned Prescriptions: Disp Refills DULoxetine HCl 30 MG Oral Capsule Delayed *90 Cap*3 Sig: TAKE 1 CAPSULE BY MOUTH ONCE DAILY IN THE MORNING -DO NOT CUT, CRUSH OR CHEWAuthorizing Provider: MAXINE BOUCHER User: MARKELL RIVERS documented in this encounter Plan of Treatment Upcoming Encounters Date Type Department Care Team (Late st Contact Info) Description 02/17/2025 10:00 AM EDT Office Visit Family [facility] [address] [place] [address] Maxine Boucher, [address] [place] [address] Scheduled Procedures Name Priority Associated Diagnoses Date/Ti [...] this encounter Medical Devices Implanted Type Area Lcac Operator Device Identifier Shelf Expiration Date Model / Serial / Lot Lens Li61ao 13.00mm 19.00 - [id number] - [id number] Implanted:Qty: 1 on 07/15/2023 by Doron Toscano MD at OR [facility] Left: Eye [employer]OM[employer] 04/11/2028 [id number] / [id number] / [id number] Lens Li61ao 13.00mm 17.50 - [id number] - [id number] Implanted:Qty: 1 on 07/29/2023 by Doron Toscano MD at OR [facility] Right: Eye [employer]OMB 03/12/2028 [id number] / [id number] / [id number] documented as of this encounter Visit Diagnoses Diagnosis Adjustment disorder with anxious mood Adjustment disorder with anxiety Chronic pain of right knee documented in this encounter Advance Directives Documents on File Type Date Recorded 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 No Care Teams Design And Sales Consultant Relationship Specialty Start Date End Date Maxine Boucher DO [address] [place] [address] PCP - General Family Medicine 12/14/19 documented as of this encounter
--- OUTSIDE RECORDS SUMMARY | 2024-12-24 04:39 | External Medical Summary | Summary of Care ---
Author Name Unknown Organization [facility] Address [address] [facility] [place] [address] Phone [phone] Care Team Providers Care Driller Machine Name Role Phone Igor Boucher DO Primary Care Provider Reason for Visit * Reason Onset Date Comments Health Maintenance 11/25/2024 Encounter Details Date Type Department Care Team (Late st Contact Info) Description 11/25/2024 Telephone Family Practice [facility] [address] [place] [address] Igor Boucher DO [address] [place] [address] Health Maintenance Allergies Active Allergy Reactions Criticality Noted Date Comments Hydrochlorothiazide 05/12/2018 Nauseaous and low energy Naproxen Rash High 11/26/2007 Bullous eruption on hands, phototoxicity documented as of this encounter (statuses as of 11/25/2024) Medications Calcium-Vitamin D-Vitamin K 500-1000-40 MG-UNT-MCG Oral [...] 4 weeks 40 g 1 4 Active Additional Information Patient not taking.Reported on 11/09/2024 Magnesium Oxide 400 MG Oral TabletIndicatio ns:Leg [...] as of this encounter (statuses as of 11/25/2024) Active Problems Problem Noted Date Diagnosed Date Chronic pain of right knee 02/06/2021 HTN, goal below 130/80 12/14/2019 Other specified hypothyroidism 12/30/2002 CANCER OF COLON,FAM HX - Mom 03/10/1998 Menopause 03/10/1998 CARDIAC MURMURS NEC documented as of this encounter (statuses as of 11/25/2024) Resolved Problems Problem Noted Date Diagnosed Date Resolved Date Encounter for examination fo r normal comparison and control in clinical research program 01/12/2019 05/15/2020 Overview (01/29/2021): DO NOT DELETE Asaf [employer] MAX Study: Project # [id number], Elementary Tutor: Murphy Alicia, PhD. SUMMARY: Goal: Establish test [...] contact study staff at ; after hours Elementary Tutor via the [facility] slug press operator . Please contact study team before resolving/deleting from patients problem list. Study phone number: [phone]. Diagnosis changed due to Research Module. Go to Snapshot for study details. Encounter for examination fo r normal comparison and control in clinical research program 01/12/2019 06/13/2022 Overview (01/29/2021): DO NOT DELETE - Asaf ASNTANA Study: Project # [id number], Elementary Tutor: Ezequiel Christian, MS, MPH. SUMMARY: Goal: Establish [...] contact study staff at ; after hours Elementary Tutor via the [facility] slug press operator . - Please contact study team before resolving/deleting from patients problem list. Study phone number: [phone]. Diagnosis changed due to Research Module. Go to Snapshot for study details. ADVANCE DIRECTIVE INFORMATION 08/20/2006 08/16/2024 Overview (08/20/2006): Pt will bring copy at next visit. Special screening for malign ant neoplasms, colon 01/30/2006 04/08/2019 Overview (01/30/2006): Colonoscopy 01/21/06 --hyperplastic polyp--repeat 5 years documented as of this encounter (statuses as of 11/25/2024) Immunizations Name Administration Dates Next Due COVID-19 mRNA, LNP-s, No Pre serve, 2-Dose Series ([facility]) 08/07/2021,12/25/2020,11/20/2020 COVID-19, LNP-s, No Preserve , Gus-sucrose, Ages 12+ (Pfizer) 04/30/2022 COVID-19, MRNA-LNP, PF, 30 M CG/0.3 mL, 12 YRS AND ABOVE, IM (PFIZER-Comirnaty) [...] ages 0-17 years) Not on file 09/02/2024 Food Insecurity Answer Date Recorded Within the past 12 months, y ou worried that your food would run out before you got the money to buy more. Never true 09/02/20 24 Within the past 12 months, t he food you bought just didn't last and you didn't have money to get more. Never true 09/02/2024 Do you need food for this week? 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 file Not on file Not on fi le documented as of this encounter Miscellaneous Notes * Telephone Encounter - Tequila Champion LPN - 11/25/2024 1:38 PM EST Care Gaps Comprehensive Care Outreach Last Office/Telemedicine Visit: 11/09/2024 (in office), Visit date not found (telemedicine) Next Office Visit: 02/17/2025 Hemoglobin AIC Results: Lab Results Component Value Date/Time HEMOGLOBIN A1C - [facility] 5.2 02/06/2021 09:40 AM HEMOGLOBIN A1C - [facility] 5.3 06/08/2020 10:04 AM BP Readings from Last 1 Encounters: 11/09/24 118/78 Reviewed Health Maintenance below: Health Maintenance Topic Date Due COVID-19 Vaccine ( season) 2024 GFR 01/12/2025 TSH 01/12/2025 Labs already ordered Care Gap Outreach Action Taken: Outreach not indicated documented in this encounter Plan of Treatment Upcoming Encounters Date Type Department Care Team (Late st Contact Info) Description 02/17/2025 10:00 AM EDT Office Visit Family [facility] [address] [place] [address] Igor Boucher DO [address] [place] [address] Scheduled Procedures Name Priority Associated Diagnoses Date/Ti [...] this encounter Medical Devices Implanted Type Area Architectural Engineering Teacher Device Identifier Shelf Expiration Date Model / Serial / Lot Lens Li61ao 13.00mm 19.00 - [id number] - [id number] Implanted:Qty: 1 on 07/15/2023 by Doron Toscano MD at OR [facility] Left: Eye [employer]USCH [employer] LOMB 04/11/2028 [id number] / [id number] / [id number] Lens Li61ao 13.00mm 17.50 - [id number] - [id number] Implanted:Qty: 1 on 07/29/2023 by Doron Toscano MD at OR [facility] Right: Eye BAUSCH & LOMB 03/12/2028 [id number] / [id number] / [id number] documented as of this encounter Advance Directives Documents on File Type Date Recorded Patient Pets And Pet Supplies Salesperson Expl anation Advance Directives and Living Will 07/08/2003 LIVING WILL Power of Physician Relations Specialist 07/08/2003 POWER OF A TTORNEY DURABLE HEALTHCARE [...] patient have Health Care Power of Attor liay? No Care Teams Driller Machine Relationship Specialty Start Date End Date Igor Boucher DO [address] [place] [address] PCP - General Family Medicine 12/14/19 documented as of this encounter
--- OUTSIDE RECORDS SUMMARY | 2024-12-24 04:39 | External Medical Summary | Summary of Care ---
Author Name Unknown Organization [facility] Address [address] [address] Phone [phone] Care Team Providers Care Superintendent Of Generation Name Role Phone Igor Boucher DO Primary Care Provider Reason for Visit * Reason Onset Date Comments Medication Administration 07/05/2024 Flu an d/or Pneumo Inj Encounter Details Date Type Department Care Team (Late st Contact Info) Description 07/05/2024 4:00 PM EDT Immunization Ancillary [facility] [address] [place] [address] [facility] [address] [place] [address] Need for prophylactic vaccination and inoculation against influenza* Allergies Active Allergy Reactions Criticality Noted Date Comments Hydrochlorothiazide 05/12/2018 Nauseaous and low energy Naproxen Rash High 11/26/2007 Bullous eruption on hands, phototoxicity documented as of this encounter (statuses as of 07/05/2024) Medications Medication Sig Dispensed Refills Start Date [...] as of this encounter (statuses as of 07/05/2024) Active Problems Problem Noted Date Diagnosed Date Chronic pain of right knee 02/06/2021 HTN, goal below 130/80 12/14/2019 ADVANCE DIRECTIVE INFORMATION 08/20/2006 Overview: Pt will bring copy at next visit. Other specified hypothyroidism 12/30/2002 CANCER OF COLON,FAM HX - Mom 03/10/1998 Menopause 03/10/1998 CARDIAC MURMURS NEC documented as of this encounter (statuses as of 07/05/2024) Resolved Problems Problem Noted Date Diagnosed Date Resolved Date Encounter for examination fo r normal comparison and control in clinical research program 01/12/2019 05/15/2020 Overview: DO NOT DELETE Asaf [employer] DETECT Study: Project # [id number], Title I Director: Murphy Alicia, PhD. SUMMARY: Goal: Establish test [...] contact study staff at ; after hours Title I Director via the [facility] industrial x ray operator . Please contact study team before resolving/deleting from patients problem list. Study phone number: [phone]. Diagnosis changed due to Research Module. Go to Snapshot for study details. Encounter for examination fo r normal comparison and control in clinical research program 01/12/2019 06/13/2022 Overview: DO NOT DELETE - Asaf Arrieta DETECT Study: Project # [id number], Title I Director: Ezequiel Christian, MS, MPH. SUMMARY: Goal: Establish [...] contact study staff at ; after hours Title I Director via the [facility] industrial x ray operator . - Please contact study team before resolving/deleting from patients problem list. Study phone number: [phone]. Diagnosis changed due to Research Module. Go to Snapshot for study details. Special screening for malign ant neoplasms, colon 01/30/2006 04/08/2019 Overview: Colonoscopy 01/21/06 --hyperplastic polyp--repeat 5 years documented as of this encounter (statuses as of 07/05/2024) Immunizations Name Administration Dates Next Due COVID-19 mRNA, LNP-s, No Pre serve, 2-Dose Series ([facility]) 08/07/2021,12/25/2020,11/20/2020 COVID-19, LNP-s, No Preserve , Gus-sucrose, Ages 12+ (Pfizer) 04/30/2022 COVID-19, MRNA-LNP, 23-24, P F, 30 MCG/0.3 mL, 12 YRS AND ABOVE, IM ([facility]) 08/13/2023 Covid-19, Mrna, Lnp-s, Pf, B ivalent, 30 Mcg, IM, 12 yrs and above ([facility]) 08/08/2022 Pneumococcal Conjugate Vacc, 13 Valent (Prevnar) 11/12/2016 Pneumococcal Polysaccharide PPV23 (Pneumovax) 11/13/2017 Season Influenza, Quad, PF, Adjuvanted, 65+ Yrs, IM (FLUAD) 06/15/2020 Seasonal Influenza, High Dos e, Trivalent, PF, [...] on file documented as of this encounter Patient Instructions * Patient Instructions* Sena Galeano LPN - 07/05/2024 2:58 PM EDT ~~PATIENT INSTRUCTIONS FOR FLU SHOT~~ Possible side effects of influenza vaccine, (flu shot), are usually mild and include: 1. Soreness or redness at injection site 2. Low grade fever 3. Body aches You may use Tylenol/Acetaminophen as needed for these symptoms. LET YOUR DOCTOR KNOW IMMEDIATELY IF YOU HAVE DIFFICULTY BREATHING OR SWALLOWING, EXPERIENCE ITCHINGOF FEET OR HANDS, HAVE SWELLING OF EYES, FACE OR INSIDE OF NOSE. documented in this encounter Progress Notes * Sena Galeano LPN - 07/05/2024 2:57 PM EDT PRE - ADMINISTRATION DOCUMENTATION Are you experiencing any cold symptoms or fever? No Have you had Guillain-Ebony Syndrome (an illness that causes paralysis) within the last 6 weeks? No Have you had the flu shot in the past? YES Have you ever had a reaction to the flu shot? No Sena Galeano LPN, 07/05/2024 2:57 PM Immunization Administration Documentation Time Out Procedure Performed: Yes Patient Identified (Ask Name/Date of ): Yes Does the patient have a fever greater than 101 degrees today? No Patient allergic to latex? No VFC Stock: No Immunization(s) verified: Yes, Immunization Name: Flu, VIS Sheet(s) given: Yes Verified Side and Site: Yes Verified Shot(s) with Parent(s)/Patient: Yes documented in this encounter Plan of Treatment Upcoming Encounters Date Type Department Care Team (Late st Contact Info) Description 08/19/2024 10:00 AM EST Office Visit [facility] [address] [place] [address] Lisa Ramírez CRNP [address] [place] [address] 02/17/2025 10:00 AM EDT Office Visit [facility] [address] [place] [address] Igor Boucher DO [address] [place] [address] Scheduled Procedures Name Priority Associated Diagnoses Date/Ti me COLONOSCOPY FLEXIBLE PROXIMA L DIAGNOSTIC Recall Family history of colon cancer Health Maintenance Due Date Last Done Comments Cologuard 1996 Sigmoidoscopy 1996 Fecal Occult Blood Test 12/05/2002 12/05/19 02, 09/13/2000, 04/05/1998, Additional history exists COVID-19 Vaccine ( season) 2024 08/13/2023, 08/08/2022, 04/30/2022, Additional history exists Mammogram 07/03/2024 07/03/2023, 06/14, [...] this encounter Medical Devices Implanted Type Area First Crusher Device Identifier Shelf Expiration Date Model / Serial / Lot Lens Li61ao 13.00mm 19.00 - [id number] - [id number] Implanted:Qty: 1 on 07/15/2023 by Doron Toscano MD at OR [facility] Left: Eye BAUSCH & LOMB 04/11/2028 [id number] / [id number] / [id number] Lens Li61ao 13.00mm 17.50 - [id number] - [id number] Implanted:Qty: 1 on 07/29/2023 by Doron Toscano MD at OR [facility] Right: Eye BAUSCH & LOMB 03/12/2028 [id number] / [id number] / [id number] documented as of this encounter Visit Diagnoses Diagnosis Need for prophylactic vaccination and inoculation against influenza- Primary documented in this encounter Advance Directives Documents on File Type Date Recorded Patient Coffee Brewer Expl 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 No Care Teams Superintendent Of Generation Relationship Specialty Start Date End Date Igor Boucher DO [address] [place] [address] PCP - General Family Medicine 12/14/19 documented as of this encounter
--- OUTSIDE RECORDS SUMMARY | 2024-12-24 04:39 | External Medical Summary | Summary of Care ---
Author Name Unknown Organization [facility] Address [address] [facility] [place] [address] Phone [phone] Care Team Providers Care Asphalt Plant Operator Name Role Phone Maxine Boucher DO Primary Care Provider Reason for Visit * Reason Comments eRx-Medication Refill Encounter Details Date Type Department Care Team (Late st Contact Info) Description 08/16/2024 Refill Family Practice [facility] [address] [place] [address] Maxine Boucher DO [address] [place] [address] Pain in limb Allergies Active Allergy Reactions Criticality Noted Date Comments Hydrochlorothiazide 05/12/2018 Nauseaous and low energy Naproxen Rash High 11/26/2007 Bullous eruption on hands, phototoxicity documented as of this encounter (statuses as of 08/17/2024) Medications Medication Sig Dispensed Refills Start Date [...] the morning. 30 Tablet 11 02/17/2024 Active Omeprazole 20 MG Oral Capsule Delayed [...] OR MEDICATIONS 90 Tablet 1 07/22/2024 Active Diclofenac Sodium 75 MG Oral Tablet Delayed Release (Voltaren)Indica tions:Pain in limb Take 1 tablet by mouth twice daily with food 60 Tablet 5 08/17/2024 Active Diclofenac Sodium 75 MG Oral Tablet Delayed Release (Voltaren)Indica tions:Pain in limb Take 1 tablet by mouth twice daily with food 60 Tablet 5 02/21/2024 4 Discontinued documented as of this encounter (statuses as of 08/17/2024) Active Problems Problem Noted Date Diagnosed Date Chronic pain of right knee 02/06/2021 HTN, goal below 130/80 12/14/2019 Other specified hypothyroidism 12/30/2002 CANCER OF COLON,FAM HX - Mom 03/10/1998 Menopause 03/10/1998 CARDIAC MURMURS NEC documented as of this encounter (statuses as of 08/17/2024) Resolved Problems Problem Noted Date Diagnosed Date Resolved Date Encounter for examination fo r normal comparison and control in clinical research program 01/12/2019 05/15/2020 Overview: DO NOT DELETE Asaf [employer] MAX Study: Project # [id number], Cotton Machine Operator: Murphy Alicia, PhD. SUMMARY: Goal: Establish test [...] contact study staff at ; after hours Cotton Machine Operator via the [facility] test rack operator . Please contact study team before resolving/deleting from patients problem list. Study phone number: [phone]. Diagnosis changed due to Research Module. Go to Snapshot for study details. Encounter for examination fo r normal comparison and control in clinical research program 01/12/2019 06/13/2022 Overview: DO NOT DELETE - Asaf Qingguo DETECT Study: Project # [id number], Cotton Machine Operator: Ezequiel Christian, MS, MPH. SUMMARY: Goal: Establish [...] contact study staff at ; after hours Cotton Machine Operator via the [facility] test rack operator . - Please contact study team before resolving/deleting from patients problem list. Study phone number: [phone]. Diagnosis changed due to Research Module. Go to Snapshot for study details. ADVANCE DIRECTIVE INFORMATION 08/20/2006 08/16/2024 Overview: Pt will bring copy at next visit. Special screening for malign ant neoplasms, colon 01/30/2006 04/08/2019 Overview: Colonoscopy 01/21/06 --hyperplastic polyp--repeat 5 years documented as of this encounter (statuses as of 08/17/2024) Immunizations Name Administration Dates Next Due COVID-19 mRNA, LNP-s, No Pre serve, 2-Dose Series ([facility]) 08/07/2021,12/25/2020,11/20/2020 COVID-19, LNP-s, No Preserve , Gus-sucrose, Ages 12+ (Pfizer) 04/30/2022 COVID-19, MRNA-LNP, PF, 30 M CG/0.3 mL, 12 YRS AND ABOVE, IM ([facility]) 08/13/2023 Covid-19, Mrna, Lnp-s, Pf, B ivalent, 30 Mcg, IM, 12 yrs and above ([facility]) 08/08/2022 Pneumococcal Conjugate Vacc, 13 Valent (Prevnar) [...] encounter Miscellaneous Notes * Telephone Encounter - Carlos Gracia [facility] - 08/17/2024 10:10 AM EST Signed Prescriptions: Disp Refills Diclofenac Sodium 75 MG Oral Tablet Delaye*60 Tab*5 Sig: Take 1 tablet by mouth twice daily with foodAuthorizing Provider: MAXINE BOUCHER User: CARLOS GRACIA documented in this encounter Plan of Treatment Upcoming Encounters Date Type Department Care Team (Late st Contact Info) Description 09/03/2024 9:20 AM EST Office Visit [facility] [address] [place] [address] Lisa Ramírez CRNP [address] [place] [address] 02/17/2025 10:00 AM EDT Office Visit [facility] [address] [place] [address] Maxine Boucher, DO [address] [place] [address] Scheduled Procedures Name Priority Associated Diagnoses Date/Ti [...] this encounter Medical Devices Implanted Type Area Metal Mockup Maker Device Identifier Shelf Expiration Date Model / Serial / Lot Lens Li61ao 13.00mm 19.00 - [id number] - [id number] Implanted:Qty: 1 on 07/15/2023 by Doron Toscano MD at OR [facility] Left: Eye BAUSCH & LOMB 04/11/2028 [id number] / [id number] / [id number] Lens Li61ao 13.00mm 17.50 - [id number] - [id number] Implanted:Qty: 1 on 07/29/2023 by Doron Toscano MD at OR [facility] Right: Eye BAUSCH & LOMB 03/12/2028 [id number] / [id number] / [id number] documented as of this encounter Visit Diagnoses Diagnosis Pain in limb documented in this encounter Advance Directives Documents on File Type Date Recorded Patient Patient Svcs Mgr Expl anation Advance Directives and Living Will 07/08/2003 LIVING WILL Power of Diet Assistant 07/08/2003 POWER OF A TTORNEY DURABLE [...] Power of Attor liya? No Care Teams Asphalt Plant Operator Relationship Specialty Start Date End Date Maxine Boucher DO [address] [place] [address] PCP - General Family Medicine 12/14/19 documented as of this encounter
--- OUTSIDE RECORDS SUMMARY | 2024-12-24 04:39 | External Medical Summary | Summary of Care ---
Author Name Unknown Organization [facility] Address [address] [place] [address] Phone [phone] Care Team Providers Care Risk Control Field Representative Name Role Phone Maxine Boucher DO Primary Care Provider Reason for Visit * Reason Comments eRx-Medication Refill Encounter Details Date Type Department Care Team (Late st Contact Info) Description 07/19/2024 Refill Family Practice [facility] [address] [place] [address] Maxine Boucher DO [address] [place] [address] Adjustment disorder with anxious mood; Chronic pain of right knee Allergies Active Allergy Reactions Criticality Noted Date Comments Hydrochlorothiazide 05/12/2018 Nauseaous and low energy Naproxen Rash High 11/26/2007 Bullous eruption on hands, phototoxicity documented as of this encounter (statuses as of 07/21/2024) Medications Medication Sig Dispensed Refills Start Date End Date Status Calcium-Vitamin D-Vitamin K 500-1000-40 MG-UNT-MCG Oral Tablet Chewable 1 Tablet in the morning. Active aspirin enteric coated 81 MG TBEC Take 1 Tab by mouth daily. 100 Tab 3 02/23/2018 Active Vitamin B-12 1000 MCG Oral Tablet (Cyanocobalamin) Take 1 Tablet by mouth in the morning. 90 Tablet 3 01/13/2024 Active Levothyroxine Sodium 88 MCG Oral Tablet [...] OR CHEW CAPSULE. 90 Capsule 07/21/2024 Active DULoxetine HCl 30 MG Oral Capsule Delayed Release Particles (Cymbalta)Indica tions:Adjustment disorder with anxious mood,Chronic pain of right knee TAKE 1 CAPSULE BY MOUTH ONCE DAILY IN THE MORNING DO NOT CUT,CRUSH, OR CHEW CAPSULE 90 Capsule 1 01/20/2024 4 Discontinued documented as of this encounter (statuses as of 07/21/2024) Active Problems Problem Noted Date Diagnosed Date Chronic pain of right knee 02/06/2021 HTN, goal below 130/80 12/14/2019 ADVANCE DIRECTIVE INFORMATION 08/20/2006 Overview: Pt will bring copy at next visit. Other specified hypothyroidism 12/30/2002 CANCER OF COLON,FAM HX - Mom 03/10/1998 Menopause 03/10/1998 CARDIAC MURMURS NEC documented as of this encounter (statuses as of 07/21/2024) Resolved Problems Problem Noted Date Diagnosed Date Resolved Date Encounter for examination fo r normal comparison and control in clinical research program 01/12/2019 05/15/2020 Overview: DO NOT DELETE [facility] MAX Study: Project # [id number], Director Educational Radio: Murphy Alicia, PhD. SUMMARY: Goal: Establish test [...] contact study staff at ; after hours Director Educational Radio via the [facility] hospital photo booth operator . Please contact study team before resolving/deleting from patients problem list. Study phone number: [phone]. Diagnosis changed due to Research Module. Go to Snapshot for study details. Encounter for examination fo r normal comparison and control in clinical research program 01/12/2019 06/13/2022 Overview: DO NOT DELETE - [facility] DETECT Study: Project # [id number], Director Educational Radio: Ezequiel Christian, MS, MPH. SUMMARY: Goal: Establish [...] contact study staff at ; after hours Director Educational Radio via the [facility] hospital photo booth operator . - Please contact study team before resolving/deleting from patients problem list. Study phone number: [phone]. Diagnosis changed due to Research Module. Go to Snapshot for study details. Special screening for malign ant neoplasms, colon 01/30/2006 04/08/2019 Overview: Colonoscopy 01/21/06 --hyperplastic polyp--repeat 5 years documented as of this encounter (statuses as of 07/21/2024) Immunizations Name Administration Dates Next Due COVID-19 mRNA, LNP-s, No Pre serve, 2-Dose Series (Sqrrl) 08/07/2021,12/25/2020,11/20/2020 COVID-19, LNP-s, No Preserve , Gus-sucrose, Ages 12+ (Pfizer) 04/30/2022 COVID-19, MRNA-LNP, 23-24, P F, 30 MCG/0.3 mL, 12 YRS AND ABOVE, IM ([employer]-Comirnaty) 08/13/2023 Covid-19, Mrna, Lnp-s, Pf, B ivalent, [...] encounter Miscellaneous Notes * Telephone Encounter - Bambi Palumbo RPh - 07/21/2024 9:49 AM EDT Signed Prescriptions: Disp Refills DULoxetine HCl 30 MG Oral Capsule Delayed *90 Cap*0 Sig: TAKE 1 CAPSULE BY MOUTH ONCE DAILY IN THE MORNING. DO NOT CUT, CRUSH, OR CHEW CAPSULE.Authorizing Provider:MAXINE BOUCHER User: BAMBI PALUMBO * Telephone Encounter - Bambi Palumbo RP - 07/21/2024 9:48 AM EDT RX authorized. Zero refills given until upcoming appt. 08/19/2024 Thank you, Bambi Palumbo, PharmD Clinical Pharmacist [facility]) 07/21/24 9:48 AM [phone] documented in this encounter Plan of Treatment Upcoming Encounters Date Type Department Care Team (Late st Contact Info) Description 08/19/2024 10:00 AM EST Office Visit [facility] [address] [place] [address] Lisa Ramírez CRNP [address] [place] [address] 02/17/2025 10:00 AM EDT Office Visit [facility] [address] [place] [address] Maxine Boucher DO [address] [place] [address] Scheduled Procedures Name Priority Associated Diagnoses Date/Ti [...] this encounter Medical Devices Implanted Type Area Machine Milker Device Identifier Shelf Expiration Date Model / Serial / Lot Lens Li61ao 13.00mm 19.00 - [id number] - [id number] Implanted:Qty: 1 on 07/15/2023 by Doron Toscano MD at OR [facility] Left: Eye [employer] 04/11/2028 [id number] / [id number] / [id number] Lens Li61ao 13.00mm 17.50 - [id number] - [id number] Implanted:Qty: 1 on 07/29/2023 by Doron Toscano MD at OR [facility] Right: Eye [employer] 03/12/2028 [id number] / [id number] / [id number] documented as of this encounter Visit Diagnoses Diagnosis Adjustment disorder with anxious mood Adjustment disorder with anxiety Chronic pain of right knee documented in this encounter Advance Directives Documents on File Type Date Recorded 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 No Care Teams Risk Control Field Representative Relationship Specialty Start Date End Date Maxine Boucher DO [address] [place] [address] PCP - General Family Medicine 12/14/19 documented as of this encounter
--- OUTSIDE RECORDS SUMMARY | 2024-12-24 04:39 | External Medical Summary | Summary of Care ---
Author Name Unknown Organization [facility] Address [address] [address] Phone [phone] Care Team Providers Care Automatic Pinsetter Mechanic Name Role Phone Igor Boucher DO Primary Care Provider Reason for Referral * Evaluate & Treat - Unlimited Visits (Within 10 days (routine)) - Authorized Specialty Diagnoses / Procedures Referred By Contmana t Referred To Contact Physical Therapy / Physical Medicine And Rehab Diagnoses Hip pain, left Lisa Ramírez CRNP [address] [place] [address] Phone: tel: fax: Referral ID Status Reason Start Date Expiration Date Visits Requested Visits Authorized [id number] Authorized Specialty Services Required 4 [phone] Question Answer Referral Priority Within 10 days (routine) Where should this appointment be scheduled? [facility] Reason for Visit * Reason Comments Re-Check Inverted right nippl e, has had it awhile. Encounter Details Date Type Department Care Team (Late st Contact Info) Description 09/03/2024 9:20 AM EST Office Visit Family [facility] [address] [place] [address] Lisa Ramírez CRNP [address] [place] [address] Inversion of right nipple*; Hip pain, left; HTN, goal below 130/80; Dyslipidemia, goal LDL below 130 Allergies Active Allergy Reactions Criticality Noted Date Comments Hydrochlorothiazide 05/12/2018 Nauseaous and low energy Naproxen Rash High 11/26/2007 Bullous eruption on hands, phototoxicity documented as of this encounter (statuses as of 09/03/2024) Medications Calcium-Vitamin D-Vitamin K 500-1000-40 MG-UNT-MCG Oral Tablet Chewable 1 Tablet in the morning. Active aspirin enteric coated 81 MG TBEC Take 1 Tab by mouth daily. 100 Tab 3 8 Active Vitamin B-12 1000 MCG Oral Tablet (Cyanocobalamin ) Take 1 Tablet by mouth in the morning. 90 Tablet 3 4 Active amLODIPine Besylate 5 MG Oral Tablet (Norvasc)Indica tions:HTN, goal below 130/80 TAKE 1 TABLET BY MOUTH IN THE MORNING 90 Tablet 2 4 Active Fluorouracil 5 % External Cream [...] the morning 90 Capsule 3 4 Active Rosuvastatin Calcium 5 MG Oral [...] CUT, CRUSH, OR CHEW CAPSULE. 90 Capsule 4 Active Levothyroxine Sodium 88 MCG Oral Tablet (Levoxyl) TAKE 1 TABLET BY MOUTH IN THE MORNING AT LEAST 30 MINUTES PRIOR TO BREAKFAST OR MEDICATIONS 90 Tablet 1 4 Active Diclofenac Sodium 75 MG Oral Tablet Delayed Release (Voltaren)Indic ations:Pain in limb Take 1 tablet by mouth twice daily with food 60 Tablet 5 4 Active documented as of this encounter (statuses as of 09/03/2024) Active Problems Problem Noted Date Diagnosed Date Chronic pain of right knee 02/06/2021 HTN, goal below 130/80 12/14/2019 Other specified hypothyroidism 12/30/2002 CANCER OF COLON,FAM HX - Mom 03/10/1998 Menopause 03/10/1998 CARDIAC MURMURS NEC documented as of this encounter (statuses as of 09/03/2024) Resolved Problems Problem Noted Date Diagnosed Date Resolved Date Encounter for examination fo r normal comparison and control in clinical research program 01/12/2019 05/15/2020 Overview (01/29/2021): DO NOT DELETE [employer] DETECT Study: Project # [id number], Furnace Puncher: Murphy Alicia, PhD. SUMMARY: Goal: Establish test [...] contact study staff at ; after hours Furnace Puncher via the [facility] air reduction equipment operator . Please contact study team before resolving/deleting from patients problem list. Study phone number: [phone]. Diagnosis changed due to Research Module. Go to Snapshot for study details. Encounter for examination fo r normal comparison and control in clinical research program 01/12/2019 06/13/2022 Overview (01/29/2021): DO NOT ABDIAZIZTE - [employer] DETECT Study: Project # [id number], Furnace Puncher: Ezequiel Chirstian, MS, MPH. SUMMARY: Goal: Establish test characteristics [...] contact study staff at ; after hours Furnace Puncher via the [facility] hospital air reduction equipment operator . - Please contact study team before resolving/deleting from patients problem list. Study phone number: [phone]. Diagnosis changed due to Research Module. Go to Snapshot for study details. ADVANCE DIRECTIVE INFORMATION 08/20/2006 08/16/2024 Overview (08/20/2006): Pt will bring copy at next visit. Special screening for malign ant neoplasms, colon 01/30/2006 04/08/2019 Overview (01/30/2006): Colonoscopy 01/21/06 --hyperplastic polyp--repeat 5 years documented as of this encounter (statuses as of 09/03/2024) Immunizations Name Administration Dates Next Due COVID-19 mRNA, LNP-s, No Pre serve, 2-Dose Series ([employer]) 08/07/2021,12/25/2020,11/20/2020 COVID-19, LNP-s, No Preserve , Gus-sucrose, Ages 12+ (Pfizer) 04/30/2022 COVID-19, MRNA-LNP, PF, 30 M CG/0.3 mL, 12 YRS AND ABOVE, 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 History of Present Illness Bc Najera is a 74 year old female that presents for Re-Check (Inverted right nipple, has had it awhile.) HPI Here in routine follow up Has recheck labs ordered to do closer to her 1yr visit with PCP Has noticed R breast nipple inversion x 1 year - no skin changes, lumps, discharge, pain of breast otherwise. Has had normal mammo within last couple of months More aches and pain - feels a muscle pain in her lateral L hip that is new. She had R hip pain several months ago that responded well to PT. This pain feels a little different and doesn't limit her yoga that she does 3x/week. It usually happens late in the day regardless of activity level. Will sometimes wake her up. Current Outpatient Medications Medication Sig Dispense Refill Diclofenac Sodium 75 MG Oral Tablet Delayed Release (Voltaren) Take 1 tablet by mouth twice daily with food 60 Tablet 5 Levothyroxine Sodium 88 MCG Oral Tablet (Levoxyl) TAKE 1 TABLET BY MOUTH IN THE MORNING AT LEAST 30MINUTES PRIOR TO BREAKFAST OR MEDICATIONS 90 Tablet 1 DULoxetine HCl 30 MG Oral Capsule Delayed Release Particles (Cymbalta) TAKE 1 CAPSULE BY MOUTH ONCEDAILY IN THE MORNING. DO NOT CUT, CRUSH, OR CHEW CAPSULE. 90 Capsule 0 Irbesartan 300 MG Oral Tablet (Avapro) TAKE 1 TABLET BY MOUTH AT BEDTIME 90 Tablet 1 Rosuvastatin Calcium 5 MG Oral Tablet (Crestor) TAKE 1 TABLET BY MOUTH IN THE MORNING 90 Tablet 1 Omeprazole 20 MG Oral Capsule Delayed Release (PriLOSEC) Take 1 capsule by mouth in the morning 90 Capsule 3 Magnesium Oxide 400 MG Oral Tablet Take 1 Tablet by mouth in the morning. 30 Tablet 11 Fluorouracil 5 % External Cream (Efudex) Apply to rough area on nose twice a day for two weeks, andto rough areas on hands twice a day for 4 weeks 40 g 1 amLODIPine Besylate 5 MG Oral Tablet (Norvasc) TAKE 1 TABLET BY MOUTH IN THE MORNING 90 Tablet 2 Vitamin B-12 1000 MCG Oral Tablet (Cyanocobalamin) Take 1 Tablet by mouth in the morning. 90 Tablet3 aspirin enteric coated 81 MG TBEC Take 1 Tab by mouth daily. 100 Tab 3 Calcium-Vitamin D-Vitamin K 500-1000-40 MG-UNT-MCG Oral Tablet Chewable 1 Tablet in the morning. No current facility-administered medications for this visit. Physical Exam Vitals: 09/03/24 0918 Pulse: 79 BP: 124/80 BMI: 30.63 Physical Exam Vitals reviewed. Constitutional: Appearance: Normal appearance. HENT: Head: Normocephalic and atraumatic. Right Ear: Tympanic membrane, ear canal and external ear normal. Left Ear: Tympanic membrane, ear canal and external ear normal. Nose: Nose normal. Mouth/Throat: Mouth: Mucous membranes are moist. Eyes: Extraocular Movements: Extraocular movements intact. Conjunctiva/sclera: Conjunctivae normal. Pupils: Pupils are equal, round, and reactive to light. Cardiovascular: Rate and Rhythm: Normal rate and regular rhythm. Heart sounds: Normal heart sounds. Pulmonary: Effort: Pulmonary effort is normal. Breath sounds: Normal breath sounds. Chest: Abdominal: General: There is no distension. Palpations: Abdomen is soft. Tenderness: There is no abdominal tenderness. Musculoskeletal: Cervical back: Neck supple. Right lower leg: No edema. Left lower leg: No edema. Lymphadenopathy: Upper Body: Right upper body: No supraclavicular, axillary or pectoral adenopathy. Skin: General: Skin is warm and dry. Capillary Refill: Capillary refill takes less than 2 seconds. Neurological: Mental Status: She is alert and oriented to person, place, and time. Psychiatric: Behavior: Behavior normal. Thought Content: Thought content normal. Assessment and Plan Inversion of right nipple - US BREAST LIMITED RIGHT; Future - MAMMOGRAM DIAGNOSTIC AISHWARYA RIGHT; Future Hip pain, left - PHYSICAL THERAPY REFERRAL OP Dyslipidemia On statin HTN, goal below 130/80 stable Wrap-Up Follow Up: Return if symptoms worsen or fail to improve, for Labs 2-5 Days Before Next Visit. | For: Labs 2-5 Days Before Next Visit | Check-out note: Schedule us/mammo PT referral Time: I spent a total of 30-39 minutes (exact time 30 mins) on the date of service in preparation, delivery, and documentation of the care provided to Bc Najera excluding any time spent in the performance of separately billed services. documented in this encounter Plan of Treatment Upcoming Encounters Date Type Department Care Team (Late st Contact Info) Description 09/15/2024 12:30 PM EST Imaging Radiology [facility] 1st Floor, [place] [address] [facility] [place] [address] 09/15/2024 1:00 PM EST Imaging Radiology [facility] [address] [facility] [place] [address] 02/17/2025 10:00 AM EDT Office Visit Family Practice [facility] [address] [facility] [place] [address] Igor Boucher, [address] [facility] [place] [address] Scheduled Orders Name Type Priority Associated Diagnoses Orde r Schedule US BREAST LIMITED RIGHT Medical Imaging Routine Inversion of right nipple Expected: 09/03/2024, Expires: 10/03/2025 MAMMOGRAM DIAGNOSTIC AISHWARYA RIGHT Medical Imaging Routine Inversion of right nipple Expected: 09/03/2024, Expires: 10/03/2025 Scheduled Procedures Name Priority Associated Diagnoses Date/Ti me COLONOSCOPY FLEXIBLE PROXIMA L DIAGNOSTIC Recall Family history of colon cancer Scheduled Referrals Name Type Priority Associated Diagnoses Orde r Schedule PHYSICAL THERAPY REFERRAL OP Referral Within 10 days (routine) Hip pain, left Ordered: 09/03/2024 Health Maintenance Due Date Last Done Comments Cologuard 1996 Sigmoidoscopy 1996 Fecal Occult Blood Test 12/05/2002 12/05/19, 09/13/2000, 04/05/1998, Additional history exists COVID-19 Vaccine [...] this encounter Medical Devices Implanted Type Area Alarm Adjuster Device Identifier Shelf Expiration Date Model / Serial / Lot Lens Li61ao 13.00mm 19.00 - [id number] - [id number] Implanted:Qty: 1 on 07/15/2023 by Doron Toscano MD at [facility] Left: Eye [employer] 04/11/2028 [id number] / [id number] / [id number] Lens Li61ao 13.00mm 17.50 - [id number] - [id number] Implanted:Qty: 1 on 07/29/2023 by Doron Toscano MD at OR [facility] Right: Eye [employer] 03/12/2028 [id number] / [id number] / [id number] documented as of this encounter Visit Diagnoses Diagnosis Inversion of right nipple- Primary Hip pain, left Pain in joint, pelvic region and thigh HTN, goal below 130/80 Unspecified essential hypertension Dyslipidemia, goal LDL below 130 Other and unspecified hyperlipidemia documented in this encounter Advance Directives Documents on File Type Date Recorded 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 No Care Teams Automatic Pinsetter Mechanic Relationship Specialty Start Date End Date Igor Boucher DO [address] [place] [address] PCP - General Family Medicine 12/14/19 documented as of this encounter
[2024-12-24] MEDS: LEVOTHYROXINE SODIUM 88 MCG TABLET PO SCH (04:50)
--- NOTE | 2024-12-24 05:55 | Electrocardiogram Report ---
Test Reason : Blood Pressure : */* mmHG Vent. Rate : 139 BPM Atrial Rate : 139 BPM P-R Int : 112 ms QRS Dur : 78 ms QT Int : 320 ms P-R-T Axes : * -36 97 degrees QTcB Int : 487 ms Atrial fibrillation with rapid ventricular response Left axis deviation Septal infarct , age undetermined Nonspecific ST and T wave abnormality Prolonged QT Abnormal ECG No previous ECGs available Confirmed by Kervin Lloyd ([id number]) on 12/24/2024 5:55:28 AM Referred By: Confirmed By: Kervin Lloyd
[2024-12-24 06:26] LABS: Hematocrit (blood only) 36.3 % (37.0-47.0); Hemoglobin 12.3 g/dl (12.0-16.0); Mean Corpuscular Hemoglobin 29.1 pg (25.0-34.0); Mean Corpuscular Hgb Conc 33.9 g/dL (32.0-36.0); Mean Platelet Volume 10.6 fL (9.4-12.4); Platelet Count 228 K/uL (130-400); RDW Coefficient of Variation 13.2 % (11.5-14.5); RDW Standard Deviation 41.3 fL (36.4-46.3); Red Blood Count 4.22 M/uL (4.20-5.40)
[2024-12-24 06:42] LABS: ANTI-Xa, UFH(UnfractionatedHep 0.79 IU/ml (0.3-0.7)
[2024-12-24 06:50] LABS: Potassium 3.3 mmol/L (3.5-5.1)
[2024-12-24 06:51] LABS: BUN Creatinine Ratio 13.9 (10-20); Calcium 8.6 mg/dl (8.6-10.3); Chol HDL Ratio 2.5 (0-5); Creatinine Clr Calc Pharmacy 54.8 ml/min
[2024-12-24 07:58] VITALS: O2SAT 94
[2024-12-24 08:33] LABS: Estimated Average Glucose 108 mg/dl; Hemoglobin A1C 5.4 % (4.5-5.6)
[2024-12-24] MEDS: POTASSIUM CHLORIDE CRTAB 20 MEQ TABCR PO STA (08:41)
[2024-12-24] MEDS: DULoxetine HCL 30 MG CAP PO SCH (08:41)
[2024-12-24] MEDS: ROSUVASTATIN CALCIUM 5 MG TAB PO SCH (08:42)
[2024-12-24] MEDS: PANTOprazole 40 MG TAB PO SCH (08:42)
[2024-12-24] MEDS: ASPIRIN 81 MG ECTAB PO SCH (08:42)
--- NOTE | 2024-12-24 08:53 | Hospitalist Progress Note ---
Date of Service December 24, 2024 Assessment & Plan Admission and Anticipated Discharge Date Admission Date: December 23, 2024 Results & Data Results & Data Vital Signs (Past 12 Hours) Vital Signs Temp Pulse Pulse Resp BP Pulse Ox O2 Del Method 12/24/24 07:57 37.2 C 136 H 18 112/90 94 Room Air 12/24/24 02:33 37.0 C 139 H 18 103/70 93 Room Air 12/23/24 22:25 36.8 C 133 H 16 109/74 96 Room Air 12/23/24 21:50 149 H
--- NOTE | 2024-12-24 10:45 | Cardiology Progress Note ---
Date of Service December 24, 2024 Assessment & Plan (1) Dehydration: (2) Viral gastroenteritis: (3) New onset atrial fibrillation: (4) Hypokalemia: (5) HTN, goal below 130/80: (6) Dyslipidemia, goal LDL below 100: Plan 74-year-old female presenting to [facility] via personal vehicle with weakness and lightheadedness, significant volume depletion in the setting of probable viral gastroenteritis. BP 74/54 on presentation, improving with fluid resuscitation. Laboratory work with hypokalemia. EKG with new onset atrial fibrillation with rapid ventricular response of unknown duration. [id number] Score 5 points. Resting echocardiography notable for a hyp erechogenic myocardium with mild concentric LVH, mild to moderate mitral regurgitation, trivial posterolateral pericardial effusion, mildly dilated left atrium, EF 50 to 55%. No regional wall motion abnormalities observed. Recommendations: Referral for KEISHA and possible direct current cardioversion discussed and declined. Increase metoprolol tartrate for rate control, 25 mg every 6 hours Continue IV heparin, transitioning to Eliquis 5 mg twice a day prior to discharge Supplement potassium Hold amlodipine, irbesartan Close outpatient cardiology follow-up recommended, including further evaluation of the hyperechogenic myocardium as discussed Admission and Anticipated Discharge Date Admission Date: December 23, 2024 Supervising Physician Co-Signing Physician Notes Patient seen and personally examined. Assessment plan as outlined above. 1. Newly observed atrial fibrillation minimally symptomatic. Discussed with patient's management she does not wish to proceed with cardioversion at this point in time. Presenting complaints not associated with atrial fibrillation and agree with rate control and anticoagulation with Eliquis. Follow-up cardiology 3 weeks time reassess rate control and possible need for cardioversion Subjective Patient seen and examined. Chart, medications, telemetry reviewed. Notes having a rough night, without sleep. Exhausted this morning. Occasional flushed feeling last night and today. No palpitations, chest pain, shortness of breath, cough, chest congestion, orthopnea, PND, or peripheral edema. Ate breakfast around 7 AM EKG: Atrial fibrillation with a ventricular rate of 123 bpm, QTc 472 ms. Telemetry: Atrial fibrillation with a rapid ventricular response. Resting echocardiography on December 23, 2024 revealed normal size left ventricle with mild concentric LVH, EF 50 to 55%. No regional wall motion abnormalities observed. Myocardium described as hyperechogenic. Left atrium mildly dilated. Mild to moderate mitral regurgitation observed. Very trivial posterior lateral pericardial effusion noted. Review of Systems Review of Systems: Complete Review of Systems is as stated above, in the initial consultation, negative, or noncontributory Physical Exam Physical Exam: General: A&Ox3. NAD. HENT: Normocephalic. Atraumatic. Eyes: PER. Conjunctiva pink, sclera clear. Neck: No carotid bruits. No JVD. No HJR. Heart: Irregularly irregular, 120 bpm. No murmur. No rub. Lungs: Clear to auscultation. Abdomen: +BS. Soft. Nontender. No masses or organomegaly. Extremities: No clubbing, cyanosis, or edema. Limited neurological examination is without focal deficits. Pulses: Posterior tibial=2/4. Results & Data Vital Signs (Past 12 Hours) Vital Signs Temp Pulse Resp BP Pulse Ox O2 Del Method 12/24/24 07:57 37.2 C 136 H 18 112/90 94 Room Air 12/24/24 02:33 37.0 C 139 H 18 103/70 93 Room Air Laboratory Results Cardiac Enzymes 12/23/24 Range/Units 11:14 AST 26 (13-39) U/L Troponin I High Sens 10.9 (0-14) pg/ml Coagulation 12/23/24 Range/Units 11:14 PT 10.3 (9.0-12.0) Seconds APTT 24 (21-31) Seconds Lipids 12/24/24 Range/Units 06:00 Triglycerides 139 (0-150) mg/dl Cholesterol 135 (0-200) mg/dl HDL Cholesterol 53 mg/dl Cholesterol/HDL Ratio 2.5 (0-5) CBC 12/23/24 12/24/24 Range/Units 11:14 06:00 WBC 7.41 5.20 (4.8-10.8) K/ul RBC 5.20 4.22 (4.20-5.40) M/uL Hgb 15.4 12.3 D (12.0-16.0) g/dl Hct 45.1 36.3 L (37.0-47.0) % Plt Count 293 228 (130-400) K/uL Neut # (Auto) 4.89 (1.40-6.50) K/uL Lymph # (Auto) 1.82 (1.20-3.40) K/uL Ector # (Auto) 0.60 H (0.11-0.59) K/uL Eos # (Auto) 0.03 (0.00-0.50) K/uL Baso # (Auto) 0.04 (0.00-0.20) K/uL Comprehensive Metabolic Panel 12/23/24 12/24/24 Range/Units 11:14 06:00 Sodium 140 142 (136-145) mmol/L Potassium 3.0 L 3.3 L (3.5-5.1) mmol/L Chloride 104 113 H (98-107) mmol/L Carbon Dioxide 26 24 (21-32) mmol/L BUN 22 11 (6-23) mg/dl Creatinine 1.16 0.79 D (0.6-1.2) mg/dl Glucose 140 H 110 H (70-99(Fasting)) mg/dl Calcium 9.4 8.6 (8.6-10.3) mg/dl AST 26 (13-39) U/L ALT 28 (7-52) U/L Alkaline Phosphatase 86 (34-104) U/L Total Protein 6.9 (6.0-8.3) gm/dl Albumin 4.5 (3.4-5.0) gm/dl Intake and Output 12/23/24 12/24/24 12/24/24 22:59 06:59 14:59 Intake Total 327.75 / 2838.80 1311.05 / 2838.80 Balance 327.75 / 2838.80 1311.05 / 2838.80 Intake: IV 127.75 / 2538.80 1211.05 / 2538.80 Heparin 11181 Unit/500 ml D5w 127.75 / 338.80 211.05 / 338.80 25,000 units In 500 ml @ 1,050 UNITS/HR 21 mls/hr IV .[id number] NATY Rx#:[id number] Lactated Ringer's 1,000 ml @ 80 1000 / 1000 mls/hr IV .[id number] NATY Rx#: [id number] Oral 200 / 300 100 / 300 Other: Weight 72.2 kg 65.2 kg Weight Measurement Method Built in [facility] Built in [facility]
[2024-12-24] MEDS: METOPROLOL TARTRATE 25 MG TAB PO ONE (11:08)
[2024-12-24 11:15] VITALS: RESP 20; TEMP 97.5
[2024-12-24 11:54] LABS: Ferritin 84.8 ng/ml (8-388)
[2024-12-24] MEDS: METOPROLOL TARTRATE 25 MG TAB PO SCH (12:20)
--- NOTE | 2024-12-24 14:35 | Discharge Summary ---
Date of Service December 24, 2024 Admission HPI Per Admitting Provider Bc Najera is a very pleasant 74y/o F with PMHx significant for hypothyroidism, HTN, HLD, former tobacco use and chronic pain of right knee who presented to the ED from home with complaints of generalized weakness, lightheadedness and dizziness. History obtained from the patient, discussion with ED provider and associated chart review. Mentions she developed a GI illness over the weekend with nausea, vomiting and diarrhea. Vomiting resolved on Friday but she continued to have some diarrhea and persistent nausea through Friday. Diarrhea now resolved. She was been having a tough time maintaining her oral hydration status due to the nausea, which is slowly improving. She was able to eat some breakfast this morning without issue and has been tolerating fluids since yesterday without any further incidences of vomiting. She was showering this morning when she started to feel lightheaded and dizzy. Did not pass out or hit her head. Does however feel extremely weak and fatigued. Denies any palpitations, chest pain or SOB. Notes her mother has a history of atrial fibrillation. Former smoker. No alcohol use. Lives with her . Very independent and functional at baseline. EKG on presentation revealed new onset atrial fibrillation with rapid ventricular response, ventricular rate 139 bpm. Initial labs reviewed. K+ 3 with normal magnesium level. TSH WNL. S/p 10mg IV metoprolol tartrate and 40mEq po KCl in the ED. [id number] score of 3 points. Admission Exam Per Admitting Provider General: WD/WN, vitals as above, NAD, sitting up in bed, very pleasant, conversing appropriately. A+Ox3. HEENT: Normocephalic, atraumatic. Conjunctivae normal. External ear and nose normal, oropharynx somewhat dry. Respiratory: Normal respiratory effort, lungs clear to auscultation bilaterally. No accessory muscle use. Cardiovascular: Tachycardic rate, irregularly irregular rhythm. Normal peripheral pulses, no BLE edema. Abdomen/GI: Normal bowel sounds, soft, nondistended, nontender to palpation in all quadrants. Extremities/Musculoskeletal: No cyanosis or clubbing, extremities motor strength intact, moves all extremities. Principal Diagnosis New onset Atrial fibrillation Discharge Exam Constitutional + well hydrated; no acute distress Eyes PERRL, conjunctivae normal, anicteric sclerae ENMT external ear and nose normal, oropharynx normal Respiratory normal respiratory effort, lungs clear to auscultation Cardiovascular Rate/Rhythm: + irregularly irregular Gastrointestinal (Abdomen) normal bowel sounds, soft, nontender, no hepatosplenomegaly Musculoskeletal No pedal edema Neurologic PERRL, EOMI, accommodation nl, no face palsy, no dysarthria Psychiatric A+Ox3, euthymic affect Discharge Data Allergies Allergy/AdvReac Type Severity Reaction Status Date / Time naproxen Allergy Intermediate Rash Unverified 12/23/24 13:17 hydrochlorothiazide AdvReac Intermediate Makes her Unverified 12/23/24 13:17 feel terrible Consultations 12/23/24 13:08 ED Decision to Admit Stat 12/23/24 15:43 Consult Cardiology Routine Hospital Course (1) New onset atrial fibrillation: 74 year old woman with PMHx significant for hypothyroidism, HTN, HLD, former tobacco use and chronic pain of right knee who presented to the ED from home with complaints of generalized weakness, lightheadedness and dizziness. She was found to have new-onset atrial fibrillation with RVR. EKG on presentation revealed new onset atrial fibrillation with rapid ventricular response, ventricular rate 139 bpm. Initial labs reviewed. TSH within normal. [id number] score of 3 Patient was started on heparin drip and metoprolol tartarate Cardiology evaluated. Patient does not want cardioversion at this time TTE showed mild conc LVH, EF 55-60%, mildly dilated LA, mild to mod MR, trivial posterolateral pericardial effusion Cardiology recommended discharge on metoprolol succinate 50mg BID and eliquis 5mg BID Manager Of Customer Billing recommends continuing ASA 81mg daily for 1 month for now Patient is to follow up with Cardiology outpatient Provided education regarding anticoagulation. Advised to stop diclofenac or other NSAIDs for now (2) HTN, goal below 130/80: Home amlodipine and irbesartan were held on admission due to hypotension Cardiology recommends holding off resuming this for now Patient advised to keep home BP log for PCP (3) Dyslipidemia, goal LDL below 100: Continue statin and ASA (4) Dehydration: (5) Viral gastroenteritis: Dehydration 2/2 recent viral gastroenteritis. Got 1L NSS in ED. Symptoms resolved (6) Hypokalemia: Repleted (7) Hypothyroidism: TSH WNL. Continue levothyroxine. Total Time Total Time Spent Total Time Spent (In Minutes): 45 Total Time Includes: Examination of the Patient, Discharge Planning, Medication Reconciliation and Communication With Other Providers Discharge Plan Discharge Items Patient Disposition: Home - Self-Care Reason For Visit: NEW ONSET AFIB Discharge Diagnosis: New onset Atrial fibrillation Activity: Resume your previous activity Non-emergency contact: Primary Care Provider and Manager Of Customer Billing Call non-emergency contact if: you have any medication questions Follow-up/Referrals: Igor Boucher DO [Primary Care Provider] - (Date & Time 12/29/2024 9:00 AM Provider: Igor Boucher DO [facility] ([place], [place]) ) Diet: Heart Healthy Addtl Attending Provider Instructions: Mrs Najera You were managed for new onset atrial fibrillation You are being discharged on eliquis 5mg twice a day. Continue your aspirin 81mg for one month as recommended by Cardiology. You were also started on metoprolol succinate 50mg twice a day for heart rate control Please stop your amlodipine and irbesartan for now and monitor your Blood pressure at home as discussed. Please stop taking diclofenac or other NSAIDS such as ibuprofen/motrin, naproxen for now It is very important that you follow up with your Primary Doctor and Cardiology. It was a pleasure taking care of you. Pending Studies at Discharge: No Stand-Alone Forms: My [facility] vivio, Smoking Cessation Medications and DC Order Prescriptions: New Eliquis 5 mg tablet 5 mg PO BID Qty: 60 0RF metoprolol succinate 50 mg tablet extended release 24 hr 50 mg PO BID Qty: 60 0RF Continued aspirin 81 mg Tablet,Delayed Release (Dr/Ec) 81 mg PO QAM levothyroxine 88 mcg tablet 88 mcg PO QAM omeprazole 20 mg capsule,delayed release(DR/EC) 20 mg PO QAM rosuvastatin 5 mg tablet 5 mg PO QAM magnesium Tablet 1 tab PO DAILY Rx Instructions: otc unknown strength duloxetine 30 mg capsule,delayed release(DR/EC) 30 mg PO QAM cyanocobalamin (vitamin B-12) 1 tab PO DAILY Rx Instructions: otc, unknown strength Discontinued amlodipine 5 mg tablet 5 mg PO QAM diclofenac sodium 75 mg tablet,delayed release (DR/EC) 75 mg PO BID irbesartan 300 mg tablet 300 mg PO HS Discharge Orders: Discharge Order (Routine); Ordered 12/24/24 Ordered By: Ariana Washington/Other Patient Handouts: Apixaban Oral Tablet, Metoprolol Extended Release Oral Tablet, Identifying Your Heart Risks, AFib Preventing Stroke, AFib Admission Data Admit Date/Time: 12/23/24 14:10 Attending Provider: Ariana Patel I. Admit Provider: Ovi Crowder Primary Care Provider: Igor Boucher Other Providers: Ovi Crowder; Alex Hayward Other Interventions: Discharge Summary Assessment (RN) Last Done: 12/24/24 14:39
[2024-12-24 14:42] VITALS: BP 123/94
[2024-12-24 14:45] VITALS: PULSE 132
[2024-12-24 15:09] LABS: ANTI-Xa, UFH(UnfractionatedHep 0.85 IU/ml (0.3-0.7)
--- NOTE | 2024-12-24 21:32 | Electrocardiogram Report ---
Test Reason : Blood Pressure : */* mmHG Vent. Rate : 123 BPM Atrial Rate : * BPM P-R Int : * ms QRS Dur : 78 ms QT Int : 330 ms P-R-T Axes : * -35 76 degrees QTcB Int : 472 ms Atrial fibrillation with rapid ventricular response Left axis deviation Abnormal ECG When compared with ECG of 23-Dec-2024 11:09, Nonspecific T wave abnormality has replaced inverted T waves in Lateral leads Confirmed by Kervin Lloyd ([id number]) on 12/24/2024 9:32:28 PM Referred By: REFERRED SELF Confirmed By: Kervin Lloyd
[2024-12-28 08:22] LABS: Kappa Light Chain, Free, Urine 9.96 mg/L (<=32.90); Kappa/Lambda, Free Ratio, Ur 5.89 (<=8.69); Lambda Light Chain, Free, Ur 1.69 mg/L (<=3.79)
== END 2024-12-24 15:44 | disposition home or self-care (01) | DRG 310 ==
LOC: ED 10:41 → SUATTDRO 14:10 → 2S 14:10

== ENCOUNTER 2025-01-04 08:09 | Inpatient (IN) ==
--- NOTE | 2025-01-04 08:38 | Emergency Department Note ---
Impression & Plan LIZAMA (dyspnea on exertion), Atrial fibrillation with rapid ventricular response, CHF (congestive heart failure), Elevated brain natriuretic peptide (BNP) level ED Provider Note NAME: STAR BENNETT AGE: 74 SEX: F : 1950 ARRIVES VIA: Walk-In INFORMANT: [Patient] ED PROVIDER(S): [Cole Sam MD] CHIEF COMPLAINT: Short of breath HISTORY OF PRESENT ILLNESS: The patient is a 74-year-old female who was discharged from our hospital 11 days ago with the diagnosis of A-fib. She is on Eliquis and metoprolol. Since discharge, the patient has noticed dyspnea on exertion which seems to be worsening. She went to the [facility] clinic yesterday, she presents today. She did not take her metoprolol or Eliquis this morning. Patient has pressure across the chest. She has dyspnea on exertion. No fever, no cough. She has no diagnosed lung disease. She has not seen cardiology since discharge from our hospital. PMHx/PSHx/Social Hx: See Below PHYSICAL EXAM: GENERAL: Patient is in no acute distress. HEENT: No acute trauma, normocephalic atraumatic, mucous membranes moist, no nasal congestion. NECK: No stridor, no adenopathy, no meningismus, trachea is midline. LUNGS: There are some occasional crackles, no wheezing, breath sounds somewhat diminished bilaterally. HEART: Tachycardic and irregular, no murmurs. ABDOMEN: Soft, nontender, no peritonitis. EXTREMITIES: No cyanosis, full range of motion of all the joints without pain or difficulty. NEUROLOGIC: Oriented x 3, no acute motor or sensory deficits, no focal weakness. SKIN: No jaundice, no diaphoresis. DIFFERENTIAL DIAGNOSIS: Rapid A-fib, failed outpatient management, MS, CHF, anemia, among others. EMERGENCY DEPARTMENT PROCEDURES: MEDICAL DECISION MAKING: There is no leukocytosis. A very subtle anemia was seen. There is a normal platelet count. No coagulopathy. VBG did not show acidosis or CO2 retention. No renal failure or significant electrolyte abnormality. No worrisome liver enzyme elevation. ECG shows atrial fibrillation with a rapid rate. No acute ST elevation. Cardiac enzyme testing x 1 is not consistent with acute cardiac injury. BNP is elevated consistent with CHF and fluid overload. Chest x-ray does show findings of CHF. Urinalysis does not show findings of infection. Respiratory bio fire was negative. On exam, the patient did have occasional crackles on her lung exam. She was tachycardic. She was not hypoxic or toxic. The patient was given 20 mg of IV Lasix for the findings of CHF. She was given oral metoprolol succinate, 50 mg. She was given 5 mg of IV Lopressor. She was eventually given a bolus of diltiazem and placed on a diltiazem drip. The patient presents with dyspnea on exertion. She was found to be in rapid A- fib as well as heart failure. These 2 findings are causing her dyspnea. Admission/hospitalization is warranted. Patient has made some improvement with my treatment here in the ED. Her heart rate has slowed, she is diuresing. I did speak with case management, the on-call hospitalist was consulted. Prior/Outside records/notes reviewed: Discharge summary note from 12/24/2024 describing her presentation, hospital course and plan outpatient. ECG per my interpretation: Indication was shortness of breath. The ECG shows atrial fibrillation with a rate of 141. There is no acute ST elevation, no PVCs. The QTc is 480. Continuous Cardiac Monitoring per my interpretation: An order was placed for continuous cardiac monitoring. The monitor shows a rate of 133 with rapid atrial fibrillation. Imaging/x-ray results per my interpretation: Chest x-ray does appear to show some CHF. On no focal pneumonia. Chronic Medical/Social conditions affecting care: Recent diagnosis of A-fib, advanced age, Eliquis use. Care/Management discussed with: Case management, the on-call hospitalist. Level of care consideration(s): After review of the information above and other included data: --I believe the patient requires escalation of care to admission Critical Care Note: I have personally spent 49 minutes of critical care time in the direct management of this patient. This includes bedside care, interpretation of diagnostic studies, and testing, discussion with consultants, patient, and family members, and other required patient management activities. This 49 minutes is in excess of all separately billable procedures. DISPOSITION: Admission Past Med/Surg History Problem List Elevated brain natriuretic peptide (BNP) level (Acute) CHF (congestive heart failure) (Acute) Atrial fibrillation with rapid ventricular response (Acute) LIZAMA (dyspnea on exertion) (Acute) Acute on chronic heart failure with preserved ejection fraction (HFpEF) SOB (shortness of breath) Chest pain Persistent atrial fibrillation with rapid ventricular response Hypothyroidism Dehydration Dyslipidemia, goal LDL below 100 HTN, goal below 130/80 Viral gastroenteritis New onset atrial fibrillation Hypokalemia (Acute) Atrial fibrillation with rapid ventricular response (Acute) Medical History New onset atrial fibrillation Social History Smoking Status: Never smoker Hx Alcohol Use: Yes Alcohol type: beer Hx Substance Use: No Preferred Language: Kenyan Communication Ability: Effective 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 Beliefs That Will Affect Care: None Current Living Situation: Spouse Feels Safe at Home: Yes Assistive Devices: None Allergies Allergies Allergy/AdvReac Type Severity Reaction Status Date / Time naproxen Allergy Intermediate Rash Unverified 12/23/24 13:17 hydrochlorothiazide AdvReac Intermediate Makes her Unverified 12/23/24 13:17 feel terrible Home Meds Home Medications Medication Instructions Recorded Confirmed aspirin 81 mg tablet,delayed 81 mg PO QAM 12/23/24 01/04/25 release cyanocobalamin (vitamin B-12) 1 tab PO DAILY 12/23/24 01/04/25 duloxetine 30 mg capsule,delayed 30 mg PO QAM 12/23/24 01/04/25 release levothyroxine 88 mcg tablet 88 mcg PO QAM 12/23/24 01/04/25 magnesium 1 tab PO DAILY 12/23/24 01/04/25 omeprazole 20 mg capsule,delayed 20 mg PO QAM 12/23/24 01/04/25 release rosuvastatin 5 mg tablet 5 mg PO QAM 12/23/24 01/04/25 Previous Rx's Medication Instructions Recorded apixaban 5 mg tablet (Eliquis) 5 mg PO BID #60 tabs 12/24/24 metoprolol succinate 50 mg 50 mg PO BID #60 tabs 12/24/24 tablet,extended release 24 hr Results & Data (ED) Vital Signs Vital Signs - 24 hr 01/04/25 08:22 01/04/25 08:37 01/04/25 08:53 Temperature 36.5 C Temperature Source Oral Pulse Rate 121 H 135 H 135 H Pulse Rate [Apical] Pulse Rhythm [Apical] Respiratory Rate 18 Respiratory Effort / Characteristics Respiratory Depth Blood Pressure 124/66 131/93 Blood Pressure [Right Arm] Blood Pressure Mean 85 Blood Pressure Mean [Right Arm] Blood Pressure Position Sitting Pulse Oximetry 98 Oxygen Delivery Method Room Air Sepsis Recent Fever Within 48 Hours No Sepsis New/Unexplained Change in Mental Status No Sepsis Action Taken by Nursing No Action Required 01/04/25 08:56 01/04/25 08:57 01/04/25 09:29 Temperature Temperature Source Pulse Rate 140 H Pulse Rate [Apical] 125 H Pulse Rhythm [Apical] Irregular Respiratory Rate Respiratory Effort / Characteristics Non-Labored Respiratory Depth Normal Blood Pressure 104/87 Blood Pressure [Right Arm] 131/93 Blood Pressure Mean Blood Pressure Mean [Right Arm] 105 Blood Pressure Position Pulse Oximetry 96 96 Oxygen Delivery Method Room Air Room Air Sepsis Recent Fever Within 48 Hours Sepsis New/Unexplained Change in Mental Status Sepsis Action Taken by Halfway Medications Current Medication List: was personally reviewed by me Laboratory Data Attestation: I reviewed the patient's lab results. 01/04/25 08:48 01/04/25 08:48 Lab Results 01/04/25 Range/Units 08:48 WBC 7.10 (4.8-10.8) K/ul RBC 4.06 L (4.20-5.40) M/uL Hgb 11.9 L (12.0-16.0) g/dl Hct 35.8 L (37.0-47.0) % MCV 88.2 (80.0-100.0) fL MCH 29.3 (25.0-34.0) pg MCHC 33.2 (32.0-36.0) g/dL RDW Std Deviation 42.1 (36.4-46.3) fL RDW Coeff of [place] 13.2 (11.5-14.5) % Plt Count 302 (130-400) K/uL MPV 11.1 (9.4-12.4) fL Immature Gran % (Auto) 0.4 % Neut % (Auto) 69.7 % Lymph % (Auto) 19.3 % Petroleum % (Auto) 8.2 % Eos % (Auto) 1.7 % Baso % (Auto) 0.7 % Neut # (Auto) 4.95 (1.40-6.50) K/uL Lymph # (Auto) 1.37 (1.20-3.40) K/uL Petroleum # (Auto) 0.58 (0.11-0.59) K/uL Eos # (Auto) 0.12 (0.00-0.50) K/uL Baso # (Auto) 0.05 (0.00-0.20) K/uL Immature Gran # (Auto) 0.03 (0.01-0.20) K/uL PT 10.9 (9.0-12.0) Seconds INR 1.0 (0.9-1.1) APTT 26 (21-31) Seconds PTT Ratio 1.0 VBG pH 7.44 H (7.36-7.41) VBG pCO2 33 L (38-50) mmHg VBG pO2 88 mmHg VBG HCO3 22 mmol/L VBG O2 Saturation 98.3 % VBG Base Excess -1.1 mEq/L Sodium 138 (136-145) mmol/L Potassium 4.2 (3.5-5.1) mmol/L Chloride 108 H (98-107) mmol/L Carbon Dioxide 23 (21-32) mmol/L Anion Gap 7 (3-11) BUN 16 (6-23) mg/dl Creatinine 0.91 (0.6-1.2) mg/dl Est Cr Clr Drug Dosing 55.7 ml/min eGFR 66.61 BUN/Creatinine Ratio 17.6 (10-20) Glucose 106 H (70-99(Fasting)) mg/dl Calcium 9.1 (8.6-10.3) mg/dl Magnesium 2.2 (1.7-2.4) mg/dl Total Bilirubin 1.0 (0.2-1.0) mg/dl AST 14 (13-39) U/L ALT 21 (7-52) U/L Alkaline Phosphatase 91 (34-104) U/L Troponin I High Sens 4.9 (0-14) pg/ml B-Natriuretic Peptide 991 H (0-100) pg/ml Total Protein 6.2 (6.0-8.3) gm/dl Albumin 4.0 (3.4-5.0) gm/dl Globulin 2.2 L (2.5-4.0) gm/dl Albumin/Globulin Ratio 1.8 (0.9-2) Adenovirus (PCR) Not Detected (Stefantected) B. pertussis DNA (PCR) Not Detected (NotDetected) B.parapertussis DNA PCR Not Detected (NotDetected) C. pneumoniae DNA (PCR) Not Detected (NotDetected) Coronavirus OC43 (PCR) Not Detected (NotDetected) Coronavirus HKU1 (PCR) Not Detected (NotDetected) Coronavirus 229E (PCR) Not Detected (NotDetected) SARS-CoV-2 (PCR) Not Detected (NotDetected) Coronavirus NL63 (PCR) Not Detected (NotDetected) Human Metapneumovir PCR Not Detected (NotDetected) Influenza Type A (PCR) Not Detected (NotDetected) Influenza Type B (PCR) Not Detected (NotDetected) M. pneumoniae (PCR) Not Detected (NotDetected) Parainfluenza 1 (PCR) Not Detected (NotDetected) Parainfluenza 2 (PCR) Not Detected (NotDetected) Parainfluenza 3 (PCR) Not Detected (NotDetected) Parainfluenza 4 (PCR) Not Detected (NotDetected) RSV (PCR) Not Detected (NotDetected) Entero/Rhino (PCR) Not Detected (NotDetected) Administered Medications Diltiazem HCl 125 mg/ Dextrose 125 mls @ 10 mls/hr IV .[id number] [facility]; Protocol Stop: 02/03/25 09:59 Last Titration: 01/04/25 11:57 Dose: 10 mg/hr, 10 mls/hr Documented By: RONI Co-signed By: KIAN Admin: 01/04/25 10:21 Dose: 5 mg/hr, 5 mls/hr Documented By: LORE Co-signed By: RADHA Potassium Chloride (Potassium Chloride Crtab 20 Meq Tabcr) 20 meq PO QAM [facility] Stop: 02/03/25 11:59 Last Admin: 01/04/25 12:04 Dose: 20 meq Documented By: MMF Discontinued Medications Apixaban (Apixaban 5 Mg Tablet) 5 mg PO ONE ONE Stop: 01/04/25 10:46 Last Admin: 01/04/25 10:53 Dose: 5 mg Documented By: LORE Diltiazem HCl (Diltiazem Hcl 5 Mg/Ml 5 Ml Vial) 10 mg IV NOW STA Stop: 01/04/25 09:50 Last Admin: 01/04/25 10:10 Dose: 10 mg Documented By: LORE Co-signed By: RADHA Furosemide (Furosemide Inj 20 Mg/2 Ml Vial) 20 mg IV ONE ONE Stop: 01/04/25 08:40 Last Admin: 01/04/25 08:53 Dose: 20 mg Documented By: LORE Metoprolol Succinate (Metoprolol Succ 50mg Ext Rel Tab) 50 mg PO NOW STA Stop: 01/04/25 08:35 Last Admin: 01/04/25 09:19 Dose: 50 mg Documented By: LORE Metoprolol Tartrate (Metoprolol Tartrate 1 Mg/Ml Vial) 5 mg IV NOW STA Stop: 01/04/25 08:35 Last Admin: 01/04/25 08:53 Dose: 5 mg Documented By: LORE Miscellaneous (Stat Iv Infusion Titration Per Protocol) 1 each N/A NOW STA Stop: 01/04/25 09:50 Last Admin: 01/04/25 10:31 Dose: Not Given Documented By: LORE Imaging Data Radiologist's Impression: Chest X-Ray 01/04/25 08:27 XR chest 1V portable CLINICAL HISTORY: Dyspnea COMPARISON STUDY: 12/23/2024 FINDINGS: There is stable mild cardiomegaly with mild pulmonary vascular congestion. There is interval reticular opacity in the lung bases with blunting of the costophrenic angles. No pneumothorax. Stable mild scoliosis. IMPRESSION: 1. Mild CHF. Interval very small pleural effusions, left greater than right. 2. Adjacent reticular pulmonary opacity in the lung bases could represent atelectasis or early pneumonia. ACT 112: Negative or not required by law. Electronically signed by: Murphy Reich M.D. 01/04/2025 8:44 AM Discharge Plan Visit Data Chief Complaint: Shortness of Breath/Dyspnea Stated Complaint: SOB/TROUBLE BREATHING, CHEST PRESSURE ED Provider: Cole Sam Discharge Problem: LIZAMA (dyspnea on exertion), Atrial fibrillation with rapid ventricular response, CHF (congestive heart failure), Elevated brain natriuretic peptide (BNP) level Patient Disposition: Admitted As Inpatient Condition: Serious Discharge Instructions Interventions: ED Discharge Assessment Last Done: 01/04/25 11:46 Discharge Problem: CHF (congestive heart failure) Qualifiers: Heart failure type: unspecified Heart failure chronicity: acute Qualified Code(s): I50.9 - Heart failure, unspecified
--- NOTE | 2025-01-04 08:45 | XRay Report ---
XR chest 1V portable CLINICAL HISTORY: Dyspnea COMPARISON STUDY: 12/23/2024 FINDINGS: There is stable mild cardiomegaly with mild pulmonary vascular congestion. There is interva l reticular opacity in the lung bases with blunting of the costophrenic angles. No pneumothorax. Stab le mild scoliosis. IMPRESSION: 1. Mild CHF. Interval very small pleural effusions, left greater than right. 2. Adjacent reticular pulmonary opacity in the lung bases could represent atelectasis or early pneumo katja. ACT 112: Negative or not required by law. Electronically signed by: Murphy Reich M.D. 01/04/2025 8:44 AM
[2025-01-04] MEDS: FUROSEMIDE INJ 20 MG/2 ML VIAL IV ONE (08:53)
[2025-01-04] MEDS: METOPROLOL TARTRATE 1 MG/ML VIAL IV STA (08:53)
[2025-01-04 08:55] LABS: Base Excess VBG -1.1 mEq/L; HCO3 VBG 22 mmol/L; Oxygen Saturation VBG 98.3 %; PCO2 VBG 33 mmHg (38-50); PO2 VBG 88 mmHg; pH VBG 7.44 (7.36-7.41)
[2025-01-04 09:05] LABS: Basophils # (auto) 0.05 K/uL (0.00-0.20); Basophils % (auto) 0.7 %; Eosinophils # (auto) 0.12 K/uL (0.00-0.50); Eosinophils % (auto) 1.7 %; Hematocrit (blood only) 35.8 % (37.0-47.0); Hemoglobin 11.9 g/dl (12.0-16.0); Immature Granulocytes # (auto) 0.03 K/uL (0.01-0.20); Immature Granulocytes % (auto) 0.4 %; Lymphocytes # (auto) 1.37 K/uL (1.20-3.40); Lymphocytes % (auto) 19.3 %; Mean Corpuscular Hemoglobin 29.3 pg (25.0-34.0); Mean Corpuscular Hgb Conc 33.2 g/dL (32.0-36.0); Mean Corpuscular Volume 88.2 fL (80.0-100.0); Mean Platelet Volume 11.1 fL (9.4-12.4); Monocytes # (auto) 0.58 K/uL (0.11-0.59); Monocytes % (auto) 8.2 %; Neutrophils # (auto) 4.95 K/uL (1.40-6.50); Neutrophils % (auto) 69.7 %; Platelet Count 302 K/uL (130-400); RDW Coefficient of Variation 13.2 % (11.5-14.5); RDW Standard Deviation 42.1 fL (36.4-46.3); Red Blood Count 4.06 M/uL (4.20-5.40)
[2025-01-04] MEDS: METOPROLOL SUCC 50MG EXT REL TAB PO STA (09:19)
[2025-01-04 09:21] LABS: Partial Thromboplastin Time 26 Seconds (21-31); Prothrombin Time 10.9 Seconds (9.0-12.0)
[2025-01-04 09:22] LABS: Calcium 9.1 mg/dl (8.6-10.3); Magnesium 2.2 mg/dl (1.7-2.4); Potassium 4.2 mmol/L (3.5-5.1)
[2025-01-04 09:28] LABS: Albumin Globulin Ratio 1.8 (0.9-2); BUN Creatinine Ratio 17.6 (10-20); Creatinine Clr Calc Pharmacy 55.7 ml/min; Globulin 2.2 gm/dl (2.5-4.0); Total Protein 6.2 gm/dl (6.0-8.3)
[2025-01-04 09:32] LABS: Troponin I High Sensitivity 4.9 pg/ml (0-14)
[2025-01-04 09:57] LABS: Adenovirus PCR Not Detected (NotDetected); Bordetella parapertussis PCR Not Detected (NotDetected); Bordetella pertussis PCR Not Detected (NotDetected); Chlamydia pneumoniae PCR Not Detected (NotDetected); Coronavirus 229E PCR Not Detected (NotDetected); Coronavirus CoV-2 (COVID19)PCR Not Detected (NotDetected); Coronavirus HKU1 PCR Not Detected (NotDetected); Coronavirus NL63 PCR Not Detected (NotDetected); Coronavirus OC43PCR Not Detected (NotDetected); Human Metapneumovirus PCR Not Detected (NotDetected); Influenza A PCR Not Detected (NotDetected); Influenza B PCR Not Detected (NotDetected); Mycoplasma pneumoniae PCR Not Detected (NotDetected); Parainfluenza Virus 1 PCR Not Detected (NotDetected); Parainfluenza Virus 2 PCR Not Detected (NotDetected); Parainfluenza Virus 3 PCR Not Detected (NotDetected); Parainfluenza Virus 4 PCR Not Detected (NotDetected); Respiratory Syncytial VirusPCR Not Detected (NotDetected); Rhinovirus/Enterovirus PCR Not Detected (NotDetected)
[2025-01-04] MEDS: dilTIAZem HCl 5 MG/ML 5 ML VIAL IV STA (10:10)
--- NOTE | 2025-01-04 10:12 | History & Physical Report ---
<Statement entered by Ever Mendoza, DO - 01/04/25 12:16> I have seen and examined the patient and have discussed the case with the advance practice provider. I have reviewed the advanced practitioner's documentation, and I agree with, and take responsibility for that plan of care. Patient seen and evaluated while still in the ED. Has had good response to Lasix. Breathing seems a bit better. Lungs: Decreased breath sounds, few Rales at bases CV: S1-S2 irregular irregular Heart rate seems to be starting to respond to IV diltiazem drip, continue to titrate as able with patient's blood pressure Communication with cardiology team, aware of patient, will consider cardioversion, patient informed Plan of care discussed as outlined below I spent a total of 18 minutes coordinating, documenting, and providing care for this patient excluding time spent by another provider/QHP. Date of Service January 04, 2025 Assessment & Plan (1) Persistent atrial fibrillation with rapid ventricular response: (2) Acute on chronic heart failure with preserved ejection fraction (HFpEF): (3) Chest pain: (4) SOB (shortness of breath): (5) HTN, goal below 130/80: (6) Dyslipidemia, goal LDL below 100: (7) Hypothyroidism: Plan This is a 74 yr old F who has a significant PMH of Persistent Afib, HTN and HLD who presents to ED 2/2 worsening chest tightness and shortness of breath. Of significance pt was recently hospitalized from 12/23-12/24 2/2 new onset atrial fibrillation. #Persistent Atrial fibrillation with RVR #Acute on Chronic HFpEF 2/2 above #Chest pain/LIZAMA 2/2 above pt fitbit with HRS ranging from 30s-180 every day since discharge suspect pt not tolerating rhythm along with uncontrolled rates leading to a decompensation in HFpEF Pt missed todays metoprolol and eliquis, ordered in ED started on diltiazem bolus and gtt in ED, received 1 dose of IV lopressor w/o improvement Receiving Lasix IV 20mg daily echo from recent admission notable for hyperechogenic myocardium with mild concentric LVH, mild to moderate mitral regurgitation, trivial posterolateral pericardial effusion, mildly dilated left atrium, EF 50 to 55%. K and Mag acceptable Discussed with Dr. Blum who will see pt and discuss timing of likely KEISHA/DCCV Continue Lasix IV 20mg daily, suspect CHF will improve with improved rates repeat 2 hr troponin due to chest pressure, but suspect this is secondary to afib given no ischemic change on ecg HTN: bp controlled, recently amlodipine and irbesartan was d/c in favor of metoprolol due to lower BP HLD: chronic, stable on statin Hx of TIA: asa, statin Hypothyroidism: on Synthroid, TSH last admission WNL, 3.2 uIu/ml DVT ppx: continue eliquis FULL CODE PCP: Lacie burden Dispo: admit to PCU, will keep NPO until timing of DCCV determined Pt was seen and examined in collaboration with Dr. Mendoza, please see addendum I spent a total of 61 minutes coordinating, documenting and providing care for this patient excluding time spent in the performance of separately billed services or time spent by another provider/QHP. History of Present Illness Chief Complaint: SOB and Chest tightness x 2 weeks. Primary Care Provider: Igor Burden, DO This is a 74 yr old F who has a significant PMH of Persistent Afib, HTN and HLD who presents to ED 2/2 worsening chest tightness and shortness of breath. Of significance pt was recently hospitalized from 12/23-12/24 2/2 new onset atrial fibrillation. Pt was started on metoprolol and IV heparin. Echo notable for a hyperechogenic myocardium with mild concentric LVH, mild to moderate mitral regurgitation, trivial posterolateral pericardial effusion, mildly dilated left atrium, EF 50 to 55%. No regional wall motion abnormalities observed. Her metoprolol was uptitrated to 50mg bid and she was transitioned to eliquis. It was recommended she undergo a KEISHA and DCCV, but pt declined. She was discharged with outpt follow up. Prior to his hospitalization she had a GI illness with n/v/d which is thought to have precipitated this event. Since discharge she continues to report worsening SOB with exertion and at rest. She also exhibits substernal chest tightness that is constant and worse with exertion. She further complaints of 2 pillow orthopnea and fatigue. Due to worsening sx she presented back to the ED. she reports compliance with her eliquis and metoprolol, except for this morning. She denies any f/c/s, dizziness, lightheaded, cough, hemoptysis, n/v/d, change in bowel or urinary habits. She has not weighed herself since discharge so is unaware of any weight changes. She denies any peripheral edema. Pt does have a fitbit. She pulled up her data on her hunter which shows her HR anywhere from 30s-180 every day since discharge and registering as atrial fibrillation. She doesn't have means to check BP/Pulse at home. She currently is retired, lives at home with her and is typically i ndependent at baseline. She is a former smoker and drinks beer daily. Allergies Allergy/AdvReac Type Severity Reaction Status Date / Time naproxen Allergy Intermediate Rash Unverified 12/23/24 13:17 hydrochlorothiazide AdvReac Intermediate Makes her Unverified 12/23/24 13:17 feel terrible Home Medications Medication Instructions Recorded Confirmed Type aspirin 81 mg tablet,delayed 81 mg PO QAM 12/23/24 01/04/25 History release cyanocobalamin (vitamin B-12) 1 tab PO DAILY 12/23/24 01/04/25 History duloxetine 30 mg capsule,delayed 30 mg PO QAM 12/23/24 01/04/25 History release levothyroxine 88 mcg tablet 88 mcg PO QAM 12/23/24 01/04/25 History magnesium 1 tab PO DAILY 12/23/24 01/04/25 History omeprazole 20 mg capsule,delayed 20 mg PO QAM 12/23/24 01/04/25 History release rosuvastatin 5 mg tablet 5 mg PO QAM 12/23/24 01/04/25 History apixaban 5 mg tablet (Eliquis) 5 mg PO BID #60 tabs 12/24/24 01/04/25 Rx metoprolol succinate 50 mg 50 mg PO BID #60 tabs 12/24/24 01/04/25 Rx tablet,extended release 24 hr Past Med/Surg History Problem List (Updated 01/04/25 @ 10:52 by Lia Carty PA-C) Acute on chronic heart failure with preserved ejection fraction (HFpEF) SOB (shortness of breath) Chest pain Persistent atrial fibrillation with rapid ventricular response Hypothyroidism New onset atrial fibrillation Dehydration Dyslipidemia, goal LDL below 100 HTN, goal below 130/80 Viral gastroenteritis New onset atrial fibrillation Hypokalemia (Acute) Atrial fibrillation with rapid ventricular response (Acute) Social History Smoking Status: Never smoker Hx Alcohol Use: Yes Alcohol type: beer Hx Substance Use: No Preferred Language: Bangladeshi Communication Ability: Effective Deliver Driver Required: No Beliefs That Will Affect Care: None Current Living Situation: Spouse Feels Safe at Home: Yes Assistive Devices: None Review of Systems Review of Systems: All systems reviewed & are unremarkable except as noted in HPI & below Physical Exam Physical Exam: Constitutional: WD/WN, vitals as above, NAD, sitting up in bed, pleasant, conversing easily Head: Normocephalic, Atraumatic Eyes: PERRL, conjunctivae normal, anicteric sclerae ENMT: external ear and nose normal, oropharynx normal Neck: trachea midline, no thyromegaly normal visual inspection Respiratory: normal respiratory effort, lungs clear to auscultation, no wheeze, +crackles at bases, Normal insp/exp effort, no accessory muscle use Cardiovascular: IRR/IRR HR in 120s, no murmur, no edema Vessels: no JVD or carotid bruit Chest: normal inspection of chest Abdomen: normal bowel sounds, soft, nontender, no hepatosplenomegaly Musculoskeletal: no cyanosis or clubbing, extremities motor strength 5/5 Skin: no rashes, warm and dry normal turgor Neurologic: PERRL, EOMI, accommodation nl, no face palsy, no dysarthria CN's II-XI intact bilaterally and moves all extremities Psychiatric: A+Ox3, euthymic affect Lymphatic: no cervical or axillary lymphadenopathy : deferred Results & Data Results & Data Vital Signs (Past 12 Hours) Vital Signs Temp Pulse Pulse Resp BP BP Pulse Ox 01/04/25 09:29 140 H 104/87 01/04/25 08:57 96 01/04/25 08:56 125 H 131/93 96 01/04/25 08:53 135 H 131/93 01/04/25 08:37 135 H 01/04/25 08:22 36.5 C 121 H 18 124/66 98 O2 Del Method 01/04/25 09:29 01/04/25 08:57 Room Air 01/04/25 08:56 Room Air 01/04/25 08:53 01/04/25 08:37 01/04/25 08:22 Room Air Laboratory Results I have independently reviewed and interpreted patient's admitting labs including CBC, CMP, PTT, PT/INR, mag and troponin, UA and resp biofire Diagnostic Findings Chest X-Ray 01/04/25 08:27 XR chest 1V portable CLINICAL HISTORY: Dyspnea COMPARISON STUDY: 12/23/2024 FINDINGS: There is stable mild cardiomegaly with mild pulmonary vascular con gestion. There is interval reticular opacity in the lung bases with blunting of the costophrenic angles. No pneumothorax. Stable mild scoliosis. IMPRESSION: 1. Mild CHF. Interval very small pleural effusions, left greater than right. 2. Adjacent reticular pulmonary opacity in the lung bases could represent atelectasis or early pneumonia. ACT 112: Negative or not required by law. Electronically signed by: Murphy Reich M.D. 01/04/2025 8:44 AM Medications Administered Medication List Diltiazem HCl 125 mg/ Dextrose 125 mls @ 5 mls/hr IV .Q24H NATY; Protocol Stop: 02/03/25 09:59 Last Admin: 01/04/25 10:21 Dose: 5 mg/hr, 5 mls/hr Documented By: LORE Co-signed By: RADHA Discontinued Medications Diltiazem HCl (Diltiazem Hcl 5 Mg/Ml 5 Ml Vial) 10 mg IV NOW STA Stop: 01/04/25 09:50 Last Admin: 01/04/25 10:10 Dose: 10 mg Documented By: LORE Co-signed By: RADHA Furosemide (Furosemide Inj 20 Mg/2 Ml Vial) 20 mg IV ONE ONE Stop: 01/04/25 08:40 Last Admin: 01/04/25 08:53 Dose: 20 mg Documented By: LORE Metoprolol Succinate (Metoprolol Succ 50mg Ext Rel Tab) 50 mg PO NOW STA Stop: 01/04/25 08:35 Last Admin: 01/04/25 09:19 Dose: 50 mg Documented By: LORE Metoprolol Tartrate (Metoprolol Tartrate 1 Mg/Ml Vial) 5 mg IV NOW STA Stop: 01/04/25 08:35 Last Admin: 01/04/25 08:53 Dose: 5 mg Documented By: LORE Miscellaneous (Stat Iv Infusion Titration Per Protocol) 1 each N/A NOW STA Stop: 01/04/25 09:50 Last Admin: 01/04/25 10:31 Dose: Not Given Documented By: LORE ECG Additional Comments: I have independently reviewed and interpreted patient's admitting EKG which revealed: afib 141 bpm, qtc 480ms, no st or t wave changes COVID-19 Results Results COVID- Adm Lab Results: RBC 4.06 M/uL (4.20-5.40) L 01/04/25 WBC 7.10 K/ul (4.8-10.8) 01/04/25 Hgb 11.9 g/dl (12.0-16.0) L 01/04/25 Hct 35.8 % (37.0-47.0) L 01/04/25 Plt Count 302 K/uL (130-400) 01/04/25 Neutrophils (%) (Auto) 69.7 % 01/04/25 Lymphocytes (%) (Auto) 19.3 % 01/04/25 Monocytes # (Auto) 0.58 K/uL (0.11-0.59) 01/04/25 Eosinophils # (Auto) 0.12 K/uL (0.00-0.50) 01/04/25 Immature Granulocyte % (Auto) 0.4 % 01/04/25 Neutrophils # (Auto) 4.95 K/uL (1.40-6.50) 01/04/25 Lymphocytes # (Auto) 1.37 K/uL (1.20-3.40) 01/04/25 Monocytes # (Auto) 0.58 K/uL (0.11-0.59) 01/04/25 Eosinophils # (Auto) 0.12 K/uL (0.00-0.50) 01/04/25 Basophils # (Auto) 0.05 K/uL (0.00-0.20) 01/04/25 Immature Granulocyte # (Auto) 0.03 K/uL (0.01-0.20) 5 Na 138 mmol/L (136-145) 01/04/25 K 4.2 mmol/L (3.5-5.1) 01/04/25 Cl 108 mmol/L (98-107) H 01/04/25 CO2 23 mmol/L (21-32) 01/04/25 Anion Gap 7 (3-11) 01/04/25 BUN 16 mg/dl (6-23) 01/04/25 Creatinine 0.91 mg/dl (0.6-1.2) 01/04/25 BUN/Creatinine Ratio 17.6 (10-20) 01/04/25 Glucose Level 106 mg/dl (70-99(Fasting)) H 01/04/25 Ca 9.1 mg/dl (8.6-10.3) 01/04/25 Total Bilirubin 1.0 mg/dl (0.2-1.0) 01/04/25 AST/SGOT 14 U/L (13-39) 01/04/25 ALT/SGPT 21 U/L (7-52) 01/04/25 Alkaline Phosphatase 91 U/L (34-104) 01/04/25 Total Protein 6.2 gm/dl (6.0-8.3) 01/04/25 Albumin 4.0 gm/dl (3.4-5.0) 01/04/25 Globulin 2.2 gm/dl (2.5-4.0) L 01/04/25 Albumin/Globulin Ratio 1.8 (0.9-2) 01/04/25 PTT 26 Seconds (21-31) 01/04/25 INR 1.0 (0.9-1.1) 01/04/25 Adenovirus (PCR) Not Detected (NotDetected) 01/04/25 B. parapertussis DNA (PCR) Not Detected (NotDetected) 12/12 03/06 B. pertussis DNA (PCR) Not Detected (NotDetected) 01/04/25 C. pneumoniae DNA (PCR) Not Detected (NotDetected) Coronavirus Type OC43 (PCR) Not Detected (NotDetected) Coronavirus Type HKU1 (PCR) Not Detected (NotDetected) Coronavirus Type 229E (PCR) Not Detected (NotDetected) COVID-19 PCR Not Detected (NotDetected) 01/04/25 Coronavirus Type NL63 (PCR) Not Detected (NotDetected) Human Metapneumovirus (PCR) Not Detected (NotDetected) Influenza Virus Type A (PCR) Not Detected (NotDetected) Influenza Virus Type B (PCR) Not Detected (NotDetected) M. pneumoniae (PCR) Not Detected (NotDetected) 01/04/25 Parainfluenza Type 1 (PCR) Not Detected (NotDetected) 12/12 03/06 Parainfluenza Type 2 (PCR) Not Detected (NotDetected) 12/12 03/06 Parainfluenza Type 3 (PCR) Not Detected (NotDetected) 12/12 03/06 Parainfluenza Type 4 (PCR) Not Detected (NotDetected) 12/12 03/06 RSV (PCR) Not Detected (NotDetected) 01/04/25 Enterovirus/Rhinovirus (PCR) Not Detected (NotDetected) Chest X-Ray 01/04/25 Code Status & VTE Plan Code Status FULL CODE VTE Prophylaxis Plan VTE Prophylaxis will be ordered: No (7) Hypothyroidism Hypothyroidism type: unspecified Qualified Code(s): E03.9 - Hypothyroidism, unspecified
[2025-01-04] MEDS: dilTIAZem HCL 125 MG in DEXTROSE 5% 100 ML IV SCH (10:21)
[2025-01-04] MEDS: STAT IV Infusion **Titration per Protocol STA (10:31)
[2025-01-04 10:40] LABS: Appearance Urine Clear (Clear); Bacteria Urine Automated None Seen (None Seen); Bilirubin Urine Negative (Negative); Blood Urine Negative (Negative); Cast Urine Automated 0-2 /lpf (0-2); Color Urine Yellow; Epithelial Cell Urine Auto 0-2 /hpf (0-2); Glucose Urine UA Negative (Negative); Ketones Urine Negative (Negative); Leukocyte Esterase Urine 2+ (Negative); Nitrite Urine Negative (Negative); Protein Urine Negative (Negative); RBC Urine Automated 0-2 /hpf (0-2); Specific Gravity Urine 1.006 (1.000-1.030); Urobilinogen Urine Negative (Negative); WBC Urine Automated 0-5 /hpf (0-5)
[2025-01-04] MEDS: APIXABAN 5 MG TABLET PO ONE (10:53)
[2025-01-04] MEDS ORDERED: ONDANSETRON INJ 2 MG/ML 2 ML VIAL IV PRN (11:46)
[2025-01-04] MEDS ORDERED: ACETAMINOPHEN 325 MG TAB PO PRN (11:46)
[2025-01-04] MEDS: POTASSIUM CHLORIDE CRTAB 20 MEQ TABCR PO SCH (12:04)
--- OUTSIDE RECORDS SUMMARY | 2025-01-04 12:31 | External Medical Summary | Summary of Care ---
Author Name Unknown Organization [facility] Address [address] [place] [address] Phone [phone] Care Team Providers Care Cafe Assistant Name Role Phone Boucher Igor Persaudvira Primary Care Provider Reason for Visit * Reason Onset Date Comments Test Results 01/03/2025 Unexpected or In determinate Result Encounter Details Date Type Department Care Team (Late st Contact Info) Description 01/03/2025 Telephone Laboratory, [place] [address] [place] [address] Raghavendra Kwok, ELSA [address] [place] [address] Test Results (Unexpected or Indeterminate ... Allergies Active Allergy Reactions Criticality Noted Date Comments Hydrochlorothiazide 05/12/2018 Nauseaous and low energy Naproxen Rash High 11/26/2007 Bullous eruption on hands, phototoxicity documented as of this encounter (statuses as of 01/04/2025) Medications aspirin enteric coated 81 MG TBEC Take 1 Tab by mouth daily. 100 Tab 3 8 Active Vitamin B-12 1000 MCG Oral Tablet (Cyanocobalamin) Take 1 Tablet by mouth in the morning. 90 Tablet 3 4 Active Magnesium Oxide 400 MG Oral TabletIndication [...] OR MEDICATIONS 90 Tablet 1 4 Active Rosuvastatin Calcium 5 MG Oral Tablet (Crestor) TAKE 1 TABLET BY MOUTH IN THE MORNING 90 Tablet 1 4 Active Eliquis 5 MG Oral Tablet Take 1 Tablet by mouth in the morning and 1 Tablet before bedtime. 5 Active DULoxetine HCl 20 MG Oral Capsule Delayed Release Particles (Cymbalta)Indica tions:Chronic pain of right knee,Major depressive disorder in full remission, unspecified whether recurrent (HCC) Take 2 Capsules by mouth in the morning. Do not cut, crush or chew. 60 Capsule 5 5 Active Metoprolol Succinate ER 50 MG Oral Tablet Extended Release 24 Hour (toPROL XL) Take 1 Tablet by mouth in the morning and 1 Tablet before bedtime. 5 Active documented as of this encounter (statuses as of 01/04/2025) Active Problems Problem Noted Date Diagnosed Date Chronic pain of right knee 02/06/2021 HTN, goal below 130/80 12/14/2019 Other specified hypothyroidism 12/30/2002 CANCER OF COLON,FAM HX - Mom 03/10/1998 Menopause 03/10/1998 CARDIAC MURMURS NEC documented as of this encounter (statuses as of 01/04/2025) Resolved Problems Problem Noted Date Diagnosed Date Resolved Date Encounter for examination fo r normal comparison and control in clinical research program 01/12/2019 05/15/2020 Overview (01/29/2021): DO NOT DELETE [facility] DETECT Study: Project # [id number], Systems Testing Laboratory Technician: Murphy Alicia, PhD. SUMMARY: Goal: Establish [...] contact study staff at ; after hours Systems Testing Laboratory Technician via the [facility] biscuit machine operator . Please contact study team before resolving/deleting from patients problem list. Study phone number: [phone]. Diagnosis changed due to Research Module. Go to Snapshot for study details. Encounter for examination fo r normal comparison and control in clinical research program 01/12/2019 06/13/2022 Overview (01/29/2021): DO NOT DELETE - [facility] MAX Study: Project # [id number], Systems Testing Laboratory Technician: Ezequiel Christian, MS, MPH. SUMMARY: Goal: [...] contact study staff at ; after hours Systems Testing Laboratory Technician via the [facility] biscuit machine operator . - Please contact study team before resolving/deleting from patients problem list. Study phone number: [phone]. Diagnosis changed due to Research Module. Go to [employer]te for study details. ADVANCE DIRECTIVE INFORMATION 08/20/2006 08/16/2024 Overview (08/20/2006): Pt will bring copy at next visit. Special screening for malign ant neoplasms, colon 01/30/2006 04/08/2019 Overview (01/30/2006): Colonoscopy 01/21/06 --hyperplastic polyp--repeat 5 years documented as of this encounter (statuses as of 01/04/2025) Immunizations Name Administration Dates Next Due COVID-19 mRNA, LNP-s, No Pre serve, 2-Dose Series ([employer]) 08/07/2021,12/25/2020,11/20/2020 COVID-19, LNP-s, No Preserve , Gus-sucrose, Ages 12+ (Pfizer) 04/30/2022 COVID-19, MRNA-LNP, PF, 30 M CG/0.3 mL, 12 YRS AND ABOVE, IM ([facility]) 08/13/2023 Covid-19, Mrna, Lnp-s, Pf, B ivalent, 30 Mcg, IM, 12 yrs and above ([employer]) 08/08/2022 Pneumococcal Conjugate Vacc, 13 Valent (Prevnar) [...] 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 Study Type:XR CHEST 2 VIEWS Date of Study: 01/03/2025 IMPRESSION Small bilateral pleural effusions. Ill-defined bibasilar ground-glass opacities are noted which may represent atelectasis or infection. Please correlate clinically. Please respond to this encounter to acknowledge receipt of this message and take responsibility to ensure this report is reviewed. Thank you, KHURRAM Hughes Client Service Rep [facility] documented in this encounter Plan of Treatment Upcoming Encounters Date Type Department Care Team (Late st Contact Info) Description 01/11/2025 9:30 AM EDT [facility] [address] [phone] [place] Dwyer [address] [address] 01/27/2025 11:30 AM EDT Office Visit Cardiology, [facility] [place] [address] [phone] Evleyn Vogt PA-C [address] [place] [address] 02/17/2025 10:00 AM EDT Office Visit [facility] [address] [place] [address] Igor Boucher DO [address] [place] [address] 07/01/2025 10:40 AM EDT Office Visit [facility] [address] [place] [address] Lisa Ramírez CRNP [address] [place] [address] Scheduled Procedures Name Priority Associated Diagnoses Date/Ti [...] 06/11/2025 06/11/2024, 02/17/20 24 Mammogram 09/15/2025 09/15/2024, 1201/2024, 07/05/2024, Additional history exists Albumin/Creatinine Ratio 12/03/2025 023, [...] on patient's age to complete this topic Meningitis B Vaccine (Bexsero/Trumemba) Aged Out No longer eligible based on patient's age to complete this topic documented as of this encounter Medical Devices Implanted Type Area Renal Dialysis Rn Device Identifier Shelf Expiration Date Model / Serial / Lot Lens Li61ao 13.00mm 19.00 - [id number] - [id number] Implanted:Qty: 1 on 07/15/2023 by Doron Toscano MD at OR [facility] Left: Eye [employer] 04/11/2028 [id number] / [id number] / [id number] Lens Li61ao 13.00mm 17.50 - [id number] - [id number] Implanted:Qty: 1 on 07/29/2023 by Doron Toscano MD at OR [facility] Right: Eye [employer] 03/12/2028 [id number] / [id number] / [id number] documented as of this encounter Advance Directives Documents on File Type Date Recorded Patient Pricing Consultant Expl anation Advance Directives and Living Will 07/08/2003 LIVING WILL Power of Area Operations Manager 07/08/2003 POWER OF A [facility] [...] Power of Attor liya? No Care Teams Cafe Assistant Relationship Specialty Start Date End Date Igor Boucher DO [address] [id number] PCP - General Family Medicine 12/14/19 documented as of this encounter
--- OUTSIDE RECORDS SUMMARY | 2025-01-04 12:31 | External Medical Summary | Summary of Care ---
Author Name Unknown Organization [facility] Address [address] [facility] [place] [address] Phone [phone] Care Team Providers Care Rare/Endangered Species Specialist Name Role Phone Igor Boucher DO Primary Care Provider Reason for Visit * Reason Comments Outpatient Testing Encounter Details Date Type Department Care Team (Late st Contact Info) Description 01/03/2025 11:20 AM EDT [facility] [address] [facility] [place] [address] [place], Laboratory [address] [facility] [address] Encounter for long-term (current) use of medications; HTN, goal below 130/80; Leg cramping; Other specified hypothyroidism; Dyslipidemia, goal LDL below 130; B12 deficiency; Atrial fibrillation, unspecified type (HCC); SOB (shortness of breath) Allergies Active Allergy Reactions Criticality Noted Date Comments Hydrochlorothiazide 05/12/2018 Nauseaous and low energy Naproxen Rash High 11/26/2007 Bullous eruption on hands, phototoxicity documented as of this encounter (statuses as of 01/03/2025) Medications aspirin enteric coated 81 MG TBEC Take 1 Tab by mouth daily. 100 Tab 3 02/24/20 18 Active Vitamin B-12 1000 MCG Oral Tablet (Cyanocobalamin ) Take 1 Tablet by mouth in the morning. 90 Tablet 3 01/13/20 24 Active Magnesium Oxide 400 MG Oral TabletIndicatio [...] MEDICATIONS 90 Tablet 1 07/22/20 24 Active Rosuvastatin Calcium 5 MG Oral Tablet (Crestor) TAKE 1 TABLET BY MOUTH IN THE MORNING 90 Tablet 1 09/29/20 24 Active Eliquis 5 MG Oral Tablet Take 1 Tablet by mouth in the morning and 1 Tablet before bedtime. 12/25/19 25 Active DULoxetine HCl 20 MG Oral Capsule Delayed Release Particles (Cymbalta)Indic ations:Chronic pain of right knee,Major depressive disorder in full remission, unspecified whether recurrent (HCC) Take 2 Capsules by mouth in the morning. Do not cut, crush or chew. 60 Capsule 5 12/30/19 25 Active Metoprolol Succinate ER 25 MG Oral Tablet Extended Release 24 Hour (toPROL XL) Take 1 Tablet by mouth in the morning and 1 Tablet before bedtime. 12/25/19 25 025 Discontinued documented as of this encounter (statuses as of 01/03/2025) Active Problems Problem Noted Date Diagnosed Date Chronic pain of right knee 02/06/2021 HTN, goal below 130/80 12/14/2019 Other specified hypothyroidism 12/30/2002 CANCER OF COLON,FAM HX - Mom 03/10/1998 Menopause 03/10/1998 CARDIAC MURMURS NEC documented as of this encounter (statuses as of 01/03/2025) Resolved Problems Problem Noted Date Diagnosed Date Resolved Date Encounter for examination fo r normal comparison and control in clinical research program 01/12/2019 05/15/2020 Overview (01/29/2021): DO NOT DELETE [facility] DETECT Study: Project # [id number], Spanish Lecturer: Murphy Alicia, PhD. SUMMARY: Goal: Establish test [...] contact study staff at ; after hours Spanish Lecturer via the [facility] hospital stereoplotter operator . Please contact study team before resolving/deleting from patients problem list. Study phone number: [phone]. Diagnosis changed due to Research Module. Go to Snapshot for study details. Encounter for examination fo r normal comparison and control in clinical research program 01/12/2019 06/13/2022 Overview (01/29/2021): DO NOT DELETE - [facility] Study: Project # [id number], Spanish Lecturer: Ezequiel Christian, MS, MPH. SUMMARY: Goal: Establish [...] contact study staff at ; after hours Spanish Lecturer via the [facility] stereoplotter operator . - Please contact study team before resolving/deleting from patients problem list. Study phone number: [phone]. Diagnosis changed due to Research Module. Go to Snapshot for study details. ADVANCE DIRECTIVE INFORMATION 08/20/2006 08/16/2024 Overview (08/20/2006): Pt will bring copy at next visit. Special screening for malign ant neoplasms, colon 01/30/2006 04/08/2019 Overview (01/30/2006): Colonoscopy 01/21/06 --hyperplastic polyp--repeat 5 years documented as of this encounter (statuses as of 01/03/2025) Immunizations Name Administration Dates Next Due COVID-19 mRNA, LNP-s, No Pre serve, 2-Dose Series ([employer]) 08/07/2021,12/25/2020,11/20/2020 COVID-19, LNP-s, No Preserve , Gus-sucrose, Ages 12+ ([employer]) 04/30/2022 COVID-19, MRNA-LNP, PF, 30 M CG/0.3 mL, 12 YRS AND ABOVE, IM [facility] 08/13/2023 Covid-19, Mrna, Lnp-s, Pf, B ivalent, 30 Mcg, IM, 12 yrs and above ([employer]) 08/08/2022 DT - Diptheria/Tetanus (PEDS) 12/30/2002 Pneumococcal Conjugate Vacc, 13 Valent (Prevnar) 11/12/2016 [...] 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 Not on file Not on fi le documented as of this encounter Plan of Treatment Upcoming Encounters Date Type Department Care Team (Late st Contact Info) Description 01/11/2025 9:30 AM EDT Laboratory Laboratory, [facility] [address] [place] [phone] [address] [place] [address] 01/27/2025 11:30 AM EDT Office Visit Cardiology, [facility] [address] [place] [phone] Evelyn Vogt PA-C [address] [place] [address] [place] [address] 02/17/2025 10:00 AM EDT Office Visit Family Practice [facility] [address] [place] [address] Igor Boucher, [address] [place] [address] 07/01/2025 10:40 AM EDT Office Visit Family Practice [facility] [address] [place] [address] Lisa Ramírez CRNP [address] [place] [address] Pending Results Name Type Priority Associated Diagnoses Date /Time VITAMIN B12 Lab Routine Encounter for long-term (current) use of medications 01/03/2025 11:16 AM EDT CBC WITH WBC DIFFERENTIAL Lab Routine HTN, goal below 130/80 01/03/2025 11:16 AM EDT COMPREHENSIVE METABOLIC PANEL Lab Routine Leg cramping 01/03/2025 11:16 AM EDT TSH WITH FREE T4 IF INDICATED Lab Routine Other specified hypothyroidism 01/03/2025 11:16 AM EDT MAGNESIUM Lab Routine Encounter for long-term (current) use of medications 01/03/2025 11:16 AM EDT LIPID PANEL WITH DIRECT LDL IF TG IS HIGH Lab Routine Dyslipidemia, goal LDL below 130 01/03/2025 11:16 AM EDT METHYLMALONIC ACID, SERUM Lab Routine B12 deficiency 01/03/2025 11:16 AM EDT BNP, NT-PRO Lab Routine Atrial fibrillation, unspecified type (HCC) SOB (shortness of breath) 01/03/2025 11:16 AM EDT CBC Lab Routine HTN, goal below 130/80 01/03/2025 11:16 AM EDT DIFFERENTIAL, AUTOMATED Lab Routine HTN, goal below 130/80 01/03/2025 11:16 AM EDT Scheduled Procedures Name Priority Associated Diagnoses Date/Ti [...] 06/11/2025 06/11/2024 Depression Screening 06/11/2025 06/11/2024, 02/17/20 Mammogram 09/15/2025 09/15/2024, 01/2024, 07/05/2024, Additional history exists Albumin/Creatinine Ratio 12/03/2025 [...] this encounter Medical Devices Implanted Type Area Loader Operator Supervisor Device Identifier Shelf Expiration Date Model / Serial / Lot Lens Li61ao 13.00mm 19.00 - [id number] - [id number] Implanted:Qty: 1 on 07/15/2023 by Doron Toscano MD at [place] [facility] Left: Eye [employer] 04/11/2028 [id number] / [id number] / [id number] Lens Li61ao 13.00mm 17.50 - [id number] - [id number] Implanted:Qty: 1 on 07/29/2023 by Doron Toscano MD at [place] [facility] Right: Eye [employer] 03/12/2028 [id number] / [id number] / [id number] documented as of this encounter Visit Diagnoses Diagnosis Encounter for long-term (current) use of medications Encounter for long-term (current) use of other medications HTN, goal below 130/80 Unspecified essential hypertension Leg cramping Other specified hypothyroidism Dyslipidemia, goal LDL below 130 Other and unspecified hyperlipidemia B12 deficiency Other B-complex deficiencies Atrial fibrillation, unspecified type (HCC) SOB (shortness of breath) Shortness of breath documented in this encounter Advance Directives Documents on File Type Date Recorded Patient Coal Conveyor Operator Expl anation Advance Directives and Living Will 07/08/2003 LIVING WILL Power of Health Education Aide 07/08/2003 POWER OF A TTORNEY DURABLE HEALTHCARE [...] Power of Attor liya? No Care Teams Rare/Endangered Species Specialist Relationship Specialty Start Date End Date Igor Boucher DO [address] [place] [address] PCP - General Family Medicine 12/14/19 documented as of this encounter
--- OUTSIDE RECORDS SUMMARY | 2025-01-04 12:31 | External Medical Summary | Summary of Care ---
Author Name Unknown Organization [facility] Address [address] [facility] [place] [address] Phone [phone] Care Team Providers Care Yardage Tufting Machine Operator Name Role Phone Igor Boucher DO Primary Care Provider Reason for Visit * Reason Comments Acute Patient is here with complaints of recent Afib diagnosis. Last night she felt a lot of pressure on her chest and she is having SOB with exertion and fatigue. Encounter Details Date Type Department Care Team (Late st Contact Info) Description 01/03/2025 10:20 AM EDT Office [facility] [address] [facility] [place] [address] Raghavendra Kwok PACornelio [address] [place] [id number] Atrial fibrillation, unspecified type (HCC)*; SOB (shortness of breath) Allergies Active Allergy [...] 01/12/2019 05/15/2020 Overview (01/29/2021): DO NOT DELETE [facility] DETECT Study: Project # [id number], Arcade Games Mechanic: Murphy Alicia, PhD. SUMMARY: Goal: Establish test [...] contact study staff at ; after hours Arcade Games Mechanic via the [facility] hospital mortar mixer operator . Please contact study team before resolving/deleting from patients problem list. Study phone number: [phone]. Diagnosis changed due to Research Module. Go to Snapshot for study details. Encounter for examination fo r normal comparison and control in clinical research program 01/12/2019 06/13/2022 Overview (01/29/2021): DO NOT DELETE - [facility] Study: Project # [id number], [employer] Mechanic: Ezequiel Christian, MS, MPH. SUMMARY: Goal: Establish [...] contact study staff at ; after hours Arcade Games Mechanic via the [facility] mortar mixer operator . - Please contact study team before resolving/deleting from patients problem list. Study phone number: [phone]. Diagnosis changed due to Research Module. 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 Not on file Not on fi le documented as of this encounter Last Filed Vital Signs Vital Sign Reading Time Taken Comments Blood Pressure 112/62 01/03/2025 10:11 AM EDT Pulse 79 01/03/2025 10:11 AM EDT Temperature 36.3 °C (97.3 °F) 01/03/2025 10:11 AM E DT Respiratory Rate 18 01/03/2025 10:11 AM EDT Oxygen Saturation 96% 01/03/2025 10:11 AM EDT Inhaled Oxygen Concentration - - Weight 75 kg (165 lb 4.8 oz) 01/03/2025 10:11 AM EDT Height - - Body Mass Index 31.23 09/03/2024 9:18 AM EST documented in this encounter Progress Notes * Raghavendra Kwok PA-C - 01/03/2025 10:29 AM EDT Images from the original note were not included. Subjective Bc Najera is a 74 year old female that presents for Acute (Patient is here with complaints ofrecent Afib diagnosis. Last night she felt a lot of pressure on her chest and she is having SOB with exertion and fatigue. ) Recent diagnosis of A.fib at [facility] ER 12/24/24. Had presented d/t acute GI illness and Afib incidentally found. Patient denies sensation of palpitations. Echo EF 55-60%. Saw PCP in follow-up 12/29/24. Continues with "exhaustion". Feels a pressure in chest, worse with laying down. Breathing seems more labored. No cough or wheezing. No leg swelling. Admits not eating well, food doesn't taste good. Trying to hydrate. No longer V/D. Compliant with Eliquis, metoprolol. PCP did just increase duloxetine to help with arthritic pains now that she is off NSAIDs. Objective BP 112/62 | Pulse 79 | Temp 97.3 °F (36.3 °C) (Tympanic) | Resp 18 | Wt 165 lb 4.8 oz (75 kg) | LMP 09/10/2002 | SpO2 96% | BMI 31.23 kg/m² | BSA 1.8 m² Physical Exam Vitals and nursing note reviewed. Constitutional: General: She is not in acute distress. HENT: Head: Normocephalic and atraumatic. Cardiovascular: Rate and Rhythm: Normal rate. Rhythm irregular. Pulmonary: Effort: Pulmonary effort is normal. Breath sounds: No wheezing, rhonchi or rales. Musculoskeletal: General: No swelling. Neurological: Mental Status: She is alert and oriented to person, place, and time. Psychiatric: Mood and Affect: Mood normal. Assessment and Plan Atrial fibrillation, unspecified type (HCC) Orders: EKG; Future BNP, NT-PRO; Future XR CHEST 2 VIEWS SOB (shortness of breath) Orders: EKG; Future BNP, NT-PRO; Future XR CHEST 2 VIEWS Additional lab orders in place from PCP. Ask-A-Doc Cardiology sent. Wrap-Up Follow Up: Return for Xray today, Labs Today. | For: Xray today, Labs Today | Check-out note: Any sooner appointments with Cardiology? To ER if acute worsening. I spent a total of 30-39 minutes (exact time 30 mins) on the date of service in preparation, delivery, and documentation of the care provided to Bc Najera excluding any time spent in the performance of separately billed services. documented in this encounter Nursing Notes * Loren Duarte LPN - 01/03/2025 10:11 AM EDT The patient has been properly identified by confirmation of name and date of . Chief Complaint Patient presents with Acute Patient is here with complaints of recent Afib diagnosis. Last night she felt a lot of pressure on her chest and she is having SOB with exertion and fatigue. documented in this encounter Plan of Treatment Upcoming Encounters Date Type Department Care Team (Late st Contact Info) Description 01/11/2025 9:30 AM EDT Laboratory Laboratory, [facility] [address] [place] [phone] [facility] [address] [place] [address] 01/27/2025 11:30 AM EDT Office Visit Cardiology, [facility] [address] [place] [phone] Evelyn Vogt PA-C [address] [facility] [place] [address] 02/17/2025 10:00 AM EDT Office Visit [facility] [address] [place] [address] Igor Boucher DO [address] [place] [address] 07/01/2025 10:40 AM EDT Office Visit [facility] [address] [place] [address] Lisa Ramírez CRNP [address] [place] [address] Pending Results Name Type Priority Associated Diagnoses Date /Time BNP, NT-PRO Lab Routine Atrial fibrillation, unspecified type (HCC) SOB (shortness of breath) 01/03/2025 11:16 AM EDT Scheduled Orders Name Type Priority Associated Diagnoses Orde r Schedule BNP, NT-PRO Lab Routine Atrial fibrillation, unspecified type (HCC) SOB (shortness of breath) Expected: 01/03/2025 (Approximate), Expires: 01/03/2026 Scheduled Procedures Name Priority Associated Diagnoses Date/Ti [...] this encounter Medical Devices Implanted Type Area Cash Register Repairer Device Identifier Shelf Expiration Date Model / Serial / Lot Lens Li61ao 13.00mm 19.00 - [id number] - [id number] Implanted:Qty: 1 on 07/15/2023 by Doron Toscano MD at [facility] Left: Eye [employer] 04/11/2028 [id number] / [id number] / [id number] Lens Li61ao 13.00mm 17.50 - [id number] - [id number] Implanted:Qty: 1 on 07/29/2023 by Doron Toscano MD at [facility] Right: Eye [employer] 03/12/2028 [id number] / [id number] / [id number] documented as of this encounter Procedures Procedure Name Priority Date/Time Associated Diagnosis Comments XR CHEST 2 VIEWS Routine 01/03/2025 11:2 6 AM EDT Atrial fibrillation, unspecified type (HCC) SOB (shortness of breath) documented in this encounter Results * XR CHEST 2 VIEWS (01/03/2025 11:26 AM EDT) Anatomical Region Laterality Modality Chest Digital Radiogra phy 01/03/2025 12:4 4 PM EDT Impressions 01/03/2025 12:42 PM EDT IMPRESSION Small bilateral pleural effusions. Ill-defined bibasilar ground-glass opacities are noted which may represent atelectasis or infection. Please correlate clinically. Narrative 01/03/2025 12:42 PM EDT EXAM XR CHEST 2 VIEWS-01/03/2025 11:26 am HISTORY A fib, SOB COMPARISON None TECHNIQUE Chest x-ray two-views FINDINGS The cardiac silhouette is mildly enlarged. There are atherosclerotic calcifications of the thoracic aorta. There are small bilateral pleural effusions. Ill- defined bibasilar ground-glass opacities are noted. Dextroscoliosis of the thoracolumbar spine is noted. Moderate degenerative changes of the thoracic and lumbar spine are noted. Procedure Note Opal Barrett MD - 01/03/2025 EXAM XR CHEST 2 VIEWS-01/03/2025 11:26 am HISTORY A fib, SOB COMPARISON None TECHNIQUE Chest x-ray two-views FINDINGS The cardiac silhouette is mildly enlarged. There are atheroscleroticcalcifications of the thoracic aorta. There are small bilateral pleuraleffusions. Ill-defined bibasilar ground-glass opacities are noted.Dextroscoliosis of the thoracolumbar spine is noted. Moderatedegenerative changes of the thoracic and lumbar spine are noted. IMPRESSION IMPRESSION Small bilateral pleural effusions. Ill-defined bibasilar ground-glassopacities are noted which may represent atelectasis or infection. Pleasecorrelate clinically. Raghavendra Kwok PA-C RADIOLOGY (RAD GENERAL) F inal Result * EKG (01/03/2025 10:56 AM EDT) 01/03/2025 10:5 6 AM EDT Narrative Procedure Note Kendall Damian DO - 01/03/2025 10:56 AM EDT REASON FOR STUDY: A fib, SOB;A fib, SOB CONCLUSIONS: Atrial fibrillation with rapid ventricular response Possible Anterior infarct , age undetermined Abnormal ECG No previous ECGs available Ventricular Rate: 139 Atrial Rate: 267 QRS Duration: 78 QT/QTc: 310/471 ms P-R-T [place]: 0 : -6 : 76 degrees Raghavendra Kwok PA-C EKG Final Res ult [facility] documented in this encounter Visit Diagnoses Diagnosis Atrial fibrillation, unspecified type (HCC)- Primary SOB (shortness of breath) Shortness of breath Atrial fibrillation, unspecified type (HCC) SOB (shortness of breath) Shortness of breath documented in this encounter Advance Directives Documents on File Type Date Recorded Patient Senior Cytogenetics Laboratory Director Expl anation Advance Directives and Living Will 07/08/2003 LIVING WILL Power of Senior Business Development Manager 07/08/2003 POWER OF A TTORNEY DURABLE [...] Power of Attor liya? No Care Teams Yardage Tufting Machine Operator Relationship Specialty Start Date End Date Igor Boucher DO [address] [facility] [place] [address] PCP - General Family Medicine 12/14/19 documented as of this encounter
--- OUTSIDE RECORDS SUMMARY | 2025-01-04 12:32 | External Medical Summary | Summary of Care ---
Author Name Unknown Organization [facility] Address [address] [facility] [address] Phone [phone] Care Team Providers Care Temperature Regulator Pyrometer Name Role Phone Igor Boucher DO Primary Care Provider Reason for Visit * Reason Comments Outpatient Testing Encounter Details Date Type Department Care Team (Late st Contact Info) Description 01/03/2025 11:20 AM EDT [facility] [address] [place] [address] [place], Laboratory [address] [place] [address] Encounter for long-term (current) use of medications; [...] 01/12/2019 05/15/2020 Overview (01/29/2021): DO NOT DELETE [facility] DETECT Study: Project # [id number], Hogshead Stripper: Murphy Alicia, PhD. SUMMARY: Goal: Establish test [...] contact study staff at ; after hours Hogshead Stripper via the [facility] hospital track moving machine operator . Please contact study team before resolving/deleting from patients problem list. Study phone number: [phone]. Diagnosis changed due to Research Module. Go to Snapshot for study details. Encounter for examination fo r normal comparison and control in clinical research program 01/12/2019 06/13/2022 Overview (01/29/2021): DO NOT DELETE - [facility] Study: Project # [id number], Hogshead Stripper: Ezequiel Christian, MS, MPH. SUMMARY: Goal: Establish [...] contact study staff at ; after hours Hogshead Stripper via the [facility] track moving machine operator . - Please contact study team before resolving/deleting from patients problem list. Study phone number: [phone]. Diagnosis changed due to Research Module. 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 Not on fi le documented as of this encounter Plan of Treatment Upcoming Encounters Date Type Department Care Team (Late st Contact Info) Description 01/11/2025 9:30 AM EDT Laboratory Laboratory, [facility] [address] [address] [phone] [address] [place] [address] 01/27/2025 11:30 AM EDT Office Visit Cardiology, [facility] [address] [place] [phone] Evelyn Vogt PA-C [address] [place] [address] [place] [address] 02/17/2025 10:00 AM EDT Office Visit Family Practice [facility] [address] [place] [address] Igor Boucher, [address] [place] [address] 07/01/2025 10:40 AM EDT Office Visit Family Practice [facility] [address] [place] [address] Lisa Ramírez CRNP [address] [place] [address] Pending Results Name Type Priority Associated Diagnoses [...] this encounter Medical Devices Implanted Type Area Cutter Hand Device Identifier Shelf Expiration Date Model / Serial / Lot Lens Li61ao 13.00mm 19.00 - [id number] - [id number] Implanted:Qty: 1 on 07/15/2023 by Doron Toscano MD at OR [facility] Left: Eye [employer] 04/11/2028 [id number] / [id number] / [id number] Lens Li61ao 13.00mm 17.50 - [id number] - [id number] Implanted:Qty: 1 on 07/29/2023 by Doron Toscano MD at OR [facility] Right: Eye [employer] 03/12/2028 [id number] / [id number] / [id number] documented as of this encounter Visit Diagnoses [...] Documents on File Type Date Recorded Patient Facility Designer Expl anation Advance Directives and Living Will 07/08/2003 LIVING WILL Power of Exposure Machine Operator 07/08/2003 POWER OF A TTORNEY DURABLE HEALTHCARE [...] Power of Attor liya? No Care Teams Temperature Regulator Pyrometer Relationship Specialty Start Date End Date Igor Boucher DO [address] [place] [address] PCP - General Family Medicine 12/14/19 documented as of this encounter
--- OUTSIDE RECORDS SUMMARY | 2025-01-04 12:32 | External Medical Summary | Summary of Care ---
Author Name Unknown Organization [facility] Address [address] [facility] [place] [address] Phone [phone] Care Team Providers Care Client Services Analyst Name Role Phone Maxine Boucher DO Primary Care Provider Reason for Referral * Evaluate & Treat - Unlimited Visits (Within 10 days (routine)) - Authorized Specialty Diagnoses / Procedures Referred By Contmaan cm Referred To Contact Cardiovascular Medicine / Cardiology Diagnoses Chronic atrial fibrillation (HCC) Maxine Boucher DO [address] [place] [address] Phone: tel: fax: Referral ID Status Reason Start Date Expiration Date Visits Requested Visits Authorized [id number] Authorized Specialty Services Required 12/28/[phone] Question Answer Referral Priority Within 10 days (routine) Where should this appointment be scheduled? [facility] For which of the following conditions are you referring? Atrial Fibrillation (A. Fib) Reason for Visit * Reason Onset Date Comments Advice 12/24/2024 Encounter Details Date Type Department Care Team (Late st Contact Info) Description 12/24/2024 Telephone Cardiology, [facility] [address] [place] [address] Alex Hayward MD [address] [place] [address] Advice Allergies Active Allergy Reactions Criticality Noted Date Comments Hydrochlorothiazide 05/12/2018 Nauseaous and low energy Naproxen Rash High 11/26/2007 Bullous eruption on hands, phototoxicity documented as of this encounter (statuses as of 12/29/2024) Medications aspirin enteric coated 81 MG TBEC Take 1 Tab by mouth daily. 100 Tab 3 02/24/20 18 Active Vitamin B-12 1000 MCG Oral Tablet (Cyanocobalam in) Take 1 Tablet by mouth in the morning. 90 Tablet 3 01/13/20 24 Active Magnesium Oxide 400 MG Oral TabletIndicat ions:Leg cramping Take 1 Tablet by mouth in the morning. 30 Tablet 11 4 10:47 AM EDT 02/17/20 24 Active Omeprazole 20 MG Oral Capsule Delayed Release (PriLOSEC)Ind ications:Esop hageal reflux Take 1 capsule by mouth in [...] 1 Tablet before bedtime. 12/25/19 25 Active Metoprolol Succinate ER 25 MG Oral Tablet Extended Release 24 Hour (toPROL XL) Take 1 Tablet by mouth in the morning and 1 Tablet before bedtime. 12/25/19 25 Active Calcium-Vitam in D-Vitamin K 500-1000-40 MG-UNT-MCG Oral Tablet Chewable 1 Tablet in the morning. 025 Discontinued(Me dication List Clean Up) Fluorouracil 5 % External Cream (Efudex) Apply to rough area on nose twice a day for two weeks, and to rough areas on hands twice a day for 4 weeks 40 g 1 02/13/20 24 025 Discontinued(Me dication List Clean Up) Diclofenac Sodium 75 MG Oral Tablet Delayed Release (Voltaren)Ind ications:Pain in limb Take 1 tablet by mouth twice daily with food 60 Tablet 5 08/17/20 24 025 Discontinued(Me dication List Clean Up) Irbesartan 300 MG Oral Tablet (Avapro) TAKE 1 TABLET BY MOUTH AT BEDTIME 90 Tablet 1 09/29/20 24 025 Discontinued DULoxetine HCl 30 MG Oral Capsule Delayed Release Particles (Cymbalta)Ind ications:Adju stment disorder with anxious mood,Chronic pain of right knee TAKE 1 CAPSULE BY MOUTH ONCE DAILY IN THE MORNING -DO NOT CUT, CRUSH OR CHEW 90 Capsule 3 10/16/19 25 025 Discontinued amLODIPine Besylate 5 MG Oral Tablet (Norvasc)Patrizia cations:HTN, goal below 130/80 TAKE 1 TABLET BY MOUTH IN THE MORNING 90 Tablet 3 10/31/19 25 025 Discontinued documented as of this encounter (statuses as of 12/29/2024) Active Problems Problem Noted Date Diagnosed Date Chronic pain of right knee 02/06/2021 HTN, goal below 130/80 12/14/2019 Other specified hypothyroidism 12/30/2002 CANCER OF COLON,FAM HX - Mom 03/10/1998 Menopause 03/10/1998 CARDIAC MURMURS NEC documented as of this encounter (statuses as of 12/29/2024) Resolved Problems Problem Noted Date Diagnosed Date Resolved Date Encounter for examination fo r normal comparison and control in clinical research program 01/12/2019 05/15/2020 Overview (01/29/2021): DO NOT DELETE [facility] DETECT Study: Project # [id number], Gold Plater: Murphy Alicia, PhD. SUMMARY: Goal: Establish test [...] contact study staff at ; after hours Gold Plater via the [facility] photo machine operator . Please contact study team before resolving/deleting from patients problem list. Study phone number: [phone]. Diagnosis changed due to Research Module. Go to Snapshot for study details. Encounter for examination fo r normal comparison and control in clinical research program 01/12/2019 06/13/2022 Overview (01/29/2021): DO NOT DELETE - [facility] MAX Study: Project # [id number], Gold Plater: Ezequiel Christian, MS, MPH. SUMMARY: Goal: Establish [...] contact study staff at ; after hours Gold Plater via the [facility] photo machine operator . - Please contact study team before resolving/deleting from patients problem list. Study phone number: [phone]. Diagnosis changed due to Research Module. Go to Trot for study details. ADVANCE DIRECTIVE INFORMATION 08/20/2006 08/16/2024 Overview (08/20/2006): Pt will bring copy at next visit. Special screening for malign ant neoplasms, colon 01/30/2006 04/08/2019 Overview (01/30/2006): Colonoscopy 01/21/06 --hyperplastic polyp--repeat 5 years documented as of this encounter (statuses as of 12/29/2024) Immunizations Name Administration Dates Next Due COVID-19 mRNA, LNP-s, No Pre serve, 2-Dose Series (Line[place]) 08/07/2021,12/25/2020,11/20/2020 COVID-19, LNP-s, No Preserve , Gus-sucrose, Ages 12+ (Pfizer) 04/30/2022 COVID-19, MRNA-LNP, PF, 30 M CG/0.3 mL, 12 YRS AND ABOVE, IM ([facility]) 08/13/2023 Covid-19, Mrna, Lnp-s, Pf, B ivalent, 30 Mcg, IM, 12 yrs and above (Pfizer) 08/08/2022 DT - Diptheria/Tetanus (PEDS) 12/30/2002 Pneumococcal [...] 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 Please schedule and remove hold. * Telephone Encounter - Griffin Smart OSA - 12/29/2024 10:47 AM EDT Patient called back, she accepted , 01/27/25 at 1130 am with Evelyn. I did get a referral from the PCP. Thank you. * Telephone Encounter - Griffin Smart OSA - 12/29/2024 9:38 AM EDT LM for patient to call back to schedule. * Telephone Encounter - Griffin Smart OSA - 12/29/2024 7:49 AM EDT Thank you very much. * Addendum Note - Maxine Boucher DO - 12/28/2024 9:27 PM EDTAddended by: MAXINE BOUCHER on: 12/28/2024 09:27 PM Modules accepted: Orders * Telephone Encounter - Griffin Smart OSA - 12/28/2024 9:[address] Boucher, may I please have a referral placed for this patient, for the cardiology department, forher recent hospital stay. thank you. * Telephone Encounter - Sharon Estrella RN - 12/28/2024 9:23 AM EDT Patient seen by Dr. Hayward and Deep Ervin during recent hospitalization at [facility]. Please schedule either return visit with either listed above. If no return available in time frame for providers, please schedule new patient evaluation with any other provider. Patient will require referral from PCP if needing schedule as a new patient. * Telephone Encounter - Griffin Smart OSA - 12/24/2024 2:56 PM EDT Sharon patient will be new to the office, may I offer her a WELCOME WAGON HOSTESS appt with any provider? Thank you. * Addendum Note - Jc Stubbs LPN - 12/24/2024 2:55 PM EDTAddended by: JC STUBBS on: 12/24/2024 02:55 PM Modules accepted: Orders * Telephone Encounter - Jc Stubbs LPN - 12/24/2024 2:54 PM EDT Medication list updated. Scheduling please assist. * Telephone Encounter - Alex Hayward MD - 12/24/2024 2:47 PM EDT Patient was hospitalized at [facility] following acute gastroenteritis. Found to be in atrial fibrillation with elevated ventricular response rate. Patient unaware of arrhythmia anduncertain of duration. Begun on rate control with metoprolol succinate 25 mg twice per day, anticoagulation with Eliquis 5mg twice per day. May need upward titration of metoprolol if rates remain elevated Follow-up cardiology 3 weeks time documented in this encounter Plan of Treatment Upcoming Encounters Date Type Department Care Team (Late st Contact Info) Description 01/27/2025 11:30 AM EDT Office Visit Cardiology, [facility] [address] [facility] [place] [address] Evelyn Vogt PA-C [address] [place] [address] [place] [address] 02/17/2025 10:00 AM EDT Office Visit Family [facility] [address] [place] [address] Maxine Boucher DO [address] [place] [address] 07/01/2025 10:40 AM EDT Office Visit [facility] [address] [place] [address] Lisa Ramírez CRNP [address] [place] [address] Scheduled Procedures Name Priority Associated Diagnoses Date/Ti me COLONOSCOPY FLEXIBLE PROXIMA L DIAGNOSTIC Recall Family history of colon cancer Scheduled Referrals Name Type Priority Associated Diagnoses Orde r Schedule CARDIOLOGY REFERRAL OP Referral Within 10 days (routine) Chronic atrial fibrillation (HCC) Ordered: 12/28/2024 Health Maintenance Due Date Last Done Comments [...] 06/11/2025 06/11/2024, 02/17/20 24 Mammogram 09/15/2025 09/15/2024, 01/2024, 07/05/2024, Additional history [...] this encounter Medical Devices Implanted Type Area Script Developer Device Identifier Shelf Expiration Date Model / Serial / Lot Lens Li61ao 13.00mm 19.00 - [id number] - [id number] Implanted:Qty: 1 on 07/15/2023 by Doron Toscano MD at OR [facility] Left: Eye [employer]USCH [employer] LOMB 04/11/2028 [id number] / [id number] / [id number] Lens Li61ao 13.00mm 17.50 - [id number] - [id number] Implanted:Qty: 1 on 07/29/2023 by Doron Toscano MD at OR [facility] Right: Eye BAUSCH & LOMB 03/12/2028 [id number] / [id number] / [id number] documented as of this encounter Visit Diagnoses Diagnosis Chronic atrial fibrillation (HCC)- Primary Atrial fibrillation documented in this encounter Advance Directives Documents on File Type Date Recorded Patient Tugboat Operator Expl anation Advance Directives and Living Will 07/08/2003 LIVING WILL Power of Roller Presser Operator 07/08/2003 POWER OF A TTORNEY DURABLE [...] Power of Attor liya? No Care Teams Client Services Analyst Relationship Specialty Start Date End Date Maxine Boucher DO [address] [place] [address] PCP - General Family Medicine 12/14/19 documented as of this encounter
--- OUTSIDE RECORDS SUMMARY | 2025-01-04 12:32 | External Medical Summary | Summary of Care ---
Author Name Unknown Organization [facility] Address [address] [facility] [place] [address] Phone [phone] Care Team Providers Care Bagel Maker Name Role Phone Maxine Boucher DO Primary Care Provider Reason for Referral * Evaluate & Treat - Unlimited Visits (Within 10 days (routine)) - Authorized Specialty Diagnoses / Procedures Referred By Contmana cm Referred To Contact Cardiovascular Medicine / Cardiology Diagnoses Chronic atrial fibrillation (HCC) Maxine Boucher DO [address] [place] [address] Phone: tel: fax: Referral ID Status Reason Start Date Expiration Date Visits Requested Visits Authorized [id number] Authorized Specialty Services Required 12/28/[phone] Question Answer Referral Priority Within 10 days (routine) Where should this appointment be scheduled? [facility] For which of the following conditions are you referring? Atrial Fibrillation (A. Fib) Reason for Visit * Reason Onset Date Comments Advice 12/24/2024 Encounter Details Date Type Department Care Team (Late st Contact Info) Description 12/24/2024 Telephone Cardiology, [facility] [address] [place] [address] Alex Hayward MD [address] [place] [address] Advice Allergies Active Allergy Reactions Criticality Noted [...] DELETE [facility] DETECT Study: Project # [id number], Records Management Director: Murphy Alicia, PhD. SUMMARY: Goal: Establish [...] contact study staff at ; after hours Records Management Director via the [facility] friction welding machine operator . Please contact study team before resolving/deleting from patients problem list. Study phone number: [phone]. Diagnosis changed due to Research Module. Go to Snapshot for study details. Encounter for examination fo r normal comparison and control in clinical research program 01/12/2019 06/13/2022 Overview (01/29/2021): DO NOT DELETE - [facility] MAX Study: Project # [id number], Records Management Director: Ezequiel Christian, MS, MPH. SUMMARY: Goal: [...] contact study staff at ; after hours Records Management Director via the [facility] friction welding machine operator . - Please contact study team before resolving/deleting from patients problem list. Study phone number: [phone]. Diagnosis changed due to Research Module. Go to [employer] for study details. ADVANCE DIRECTIVE INFORMATION 08/20/2006 08/16/2024 Overview (08/20/2006): Pt will bring copy at next visit. 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 Please schedule either return visit with either listed above. If no return available in time frame for providers, please schedule new patient evaluation with any other provider. Patient will require referral from PCP if needing schedule as a new patient. * Telephone Encounter - Griffin Smart OSA - 12/24/2024 2:56 PM EDT Sharon, patient will be new to the office, may I offer her a EXTRUSION DIE COORDINATOR appt with any provider? Thank you. * Addendum Note - Jc Stubbs LPN - 12/24/2024 2:55 PM EDTAddended by: JC STUBBS on: 12/24/2024 02:55 PM Modules accepted: Orders * Telephone Encounter - Jc Stubbs LPN - 12/24/2024 2:54 PM EDT Medication list updated. Scheduling please assist. * Telephone Encounter - Alex Hayward MD - 12/24/2024 2:47 PM EDT Patient was hospitalized at [facility] following acute gastroenteritis. Found to be in [...] Description 02/17/2025 10:00 AM EDT Office Visit [facility] [address] [place] [address] Maxine Boucher DO [address] [place] [address] 07/01/2025 10:40 AM EDT Office Visit [facility] [address] [place] [address] Lisa Ramírez CRNP [address] [place] [address] Scheduled Procedures Name Priority Associated Diagnoses Date/Ti [...] this encounter Medical Devices Implanted Type Area Laborer/Key Man Device Identifier Shelf Expiration Date Model / Serial / Lot Lens Li61ao 13.00mm 19.00 - [id number] - [id number] Implanted:Qty: 1 on 07/15/2023 by Doron Toscano MD at OR [facility] Left: Eye BAUSCH [employer] LOMB 04/11/2028 [id number] / [id number] / [id number] Lens Li61ao 13.00mm 17.50 - [id number] - [id number] Implanted:Qty: 1 on 07/29/2023 by Doron Toscano MD at [facility] Right: Eye BAUSCH & LOMB 03/12/2028 [id number] / [id number] / [id number] documented as of this encounter Visit Diagnoses Diagnosis Chronic atrial fibrillation (HCC)- Primary Atrial fibrillation documented in this encounter Advance Directives Documents on File Type Date Recorded Patient Pulper Operator Expl anation Advance Directives and Living Will 07/08/[address] L[address] WILL Power of Ct Mri Technologist 07/08/2003 POWER OF A TTORNEY DURABLE HEALTHCARE [...] Power of Attor liya? No Care Teams Bagel Maker Relationship Specialty Start Date End Date Maxine Boucher DO [address] [place] [address] PCP - General Family Medicine 12/14/19 documented as of this encounter
--- OUTSIDE RECORDS SUMMARY | 2025-01-04 12:32 | External Medical Summary ---
Author Name Unknown Address Unknown Organization K01:LABORATORY [facility] - [address] [place] [address] Laboratory Report Ordering Provider Test Date Status MATI GOODMAN 01/03/2025 11:16:21 Final Observation Date Value Abnormality Reference (Units ) Status SYNC LEUKOCYTES IN BLOOD BY AUTOMATED COUNT 01/03/2025 11:16:21 7.73 4.00-10.80 (K/uL) Final Segs 01/03/2025 11:16:21 73.2 40.0-75.0 (%) Final Lymphs % 01/03/2025 11:16:21 18.4 18.0-42.0 (%) Final Monos 01/03/2025 11:16:21 6.0 1.0-11.0 (%) Final Eosinophils 01/03/2025 11:16:21 1.2 0.0-6.0 (%) Final Basos 01/03/2025 11:16:21 0.6 0.0-2.0 (%) Final Immature Granulocyte, Percent 01/03/2025 11:16:21 0.6 0.0-2.0 (%) Final Absolute Segs 01/03/2025 11:16:21 5.66 1.80-7.70 (K/uL) Final Lymphs, absolute 01/03/2025 11:16:21 1.42 1.00-4.80 (K/ul) Final Monos, Abs 01/03/2025 11:16:21 0.46 0.00-1.10 (K/uL) Final Eos, Abs 01/03/2025 11:16:21 0.09 0.00-0.70 (K/uL) Final Basos, Abs 01/03/2025 11:16:21 0.05 0.00-0.20 (K/uL) Final Immature Granulocytes, Number 01/03/2025 11:16:21 0.05 0.00-0.20 (K/uL) Final Performing Location LABORATORY [facility] - [facility] [place] [address]
--- OUTSIDE RECORDS SUMMARY | 2025-01-04 12:32 | External Medical Summary ---
Author Name Unknown Address Unknown Organization K01:[facility] - [address] [place] [address] Laboratory Report Ordering Provider Test Date Status MATI GOODMAN 01/03/2025 11:16:21 Final Observation Date Value Abnormality Reference (Units ) Status TSH 01/03/2025 11:16:21 2.49 0.27-4.20 (uIU/mL) Final Performing Location [facility] [place] [address] [place] [address]
--- OUTSIDE RECORDS SUMMARY | 2025-01-04 12:32 | External Medical Summary | Summary of Care ---
Author Name Unknown Organization [facility] Address [address] [facility] [place] [address] Phone [phone] Care Team Providers Care Booking Police Officer Name Role Phone Igor Boucher DO Primary Care Provider Encounter Details Date Type Department Care Team (Late st Contact Info) Description 12/31/2024 Orders Only PATIENT PORT[place] DO NOT DELETE [place] [address] Allergies Active Allergy Reactions Criticality Noted Date Comments Hydrochlorothiazide 05/12/2018 Nauseaous and low energy Naproxen Rash High 11/26/2007 Bullous eruption on hands, phototoxicity documented as of this encounter (statuses as of 12/31/2024) Medications aspirin enteric coated 81 MG TBEC [...] and 1 Tablet before bedtime. 5 Active Metoprolol Succinate ER 25 MG Oral [...] or chew. 60 Capsule 5 5 Active documented as of this encounter (statuses as of 12/31/2024) Active Problems Problem Noted Date Diagnosed Date Chronic pain of right knee 02/06/2021 HTN, goal below 130/80 12/14/2019 Other specified hypothyroidism 12/30/2002 CANCER OF COLON,FAM HX - Mom 03/10/1998 Menopause 03/10/1998 CARDIAC MURMURS NEC documented as of this encounter (statuses as of 12/31/2024) Resolved Problems Problem Noted Date Diagnosed Date Resolved Date Encounter for examination fo r normal comparison and control in clinical research program 01/12/2019 05/15/2020 Overview (01/29/2021): DO NOT DELETE [facility] DETECT Study: Project # [id number], Railway Signal Operator: Murphy Alicia, PhD. SUMMARY: Goal: Establish [...] contact study staff at ; after hours Railway Signal Operator via the [facility] vibrating screed operator . Please contact study team before resolving/deleting from patients problem list. Study phone number: [phone]. Diagnosis changed due to Research Module. Go to Snapshot for study details. Encounter for examination fo r normal comparison and control in clinical research program 01/12/2019 06/13/2022 Overview (01/29/2021): DO NOT DELETE - [facility] DETECT Study: Project # [id number], Railway Signal Operator: Ezequiel Christian, MS, MPH. SUMMARY: Goal: [...] contact study staff at ; after hours Railway Signal Operator via the [facility] vibrating screed operator . - Please contact study team before resolving/deleting from patients problem list. Study phone number: [phone]. Diagnosis changed due to Research Module. Go to Snapshot for study details. ADVANCE DIRECTIVE INFORMATION 08/20/2006 08/16/2024 Overview (08/20/2006): Pt will bring copy at next visit. Special screening for malign ant neoplasms, colon 01/30/2006 04/08/2019 Overview (01/30/2006): Colonoscopy 01/21/06 --hyperplastic polyp--repeat 5 years documented as of this encounter (statuses as of 12/31/2024) Immunizations Name Administration Dates Next Due COVID-19 mRNA, LNP-s, No Pre serve, 2-Dose Series ([place]) 08/07/2021,12/25/2020,11/20/2020 COVID-19, LNP-s, No Preserve , Gus-sucrose, Ages 12+ (Pfizer) 04/30/2022 COVID-19, MRNA-LNP, PF, 30 M CG/0.3 mL, 12 YRS AND ABOVE, IM ([facility] 08/13/2023 Covid-19, Mrna, Lnp-s, Pf, B ivalent, [...] 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 Not on fi le documented as of this encounter Plan of Treatment Upcoming Encounters Date Type Department Care Team (Late st Contact Info) Description 01/27/2025 11:30 AM EDT Office Visit Cardiology, [facility] [address] [place] [id number] Evelyn Vogt PA-C [address] [place] [address] 02/17/2025 10:00 AM EDT Office Visit [facility] [address] [place] [address] Igor Boucher DO [address] [place] [address] 07/01/2025 10:40 AM EDT Office Visit [facility] [address] [place] [address] Lisa Ramírez CRNP [address] [place] [address] Scheduled Procedures Name Priority Associated Diagnoses Date/Ti [...] this encounter Medical Devices Implanted Type Area Compliance Review Specialist Device Identifier Shelf Expiration Date Model / Serial / Lot Lens Li61ao 13.00mm 19.00 - [id number] - [id number] Implanted:Qty: 1 on 07/15/2023 by Doron Toscano MD at OR [facility] Left: Eye BAUSCH [employer] LOMB 04/11/2028 [id number] / [id number] / [id number] Lens Li61ao 13.00mm 17.50 - [id number] - [id number] Implanted:Qty: 1 on 07/29/2023 by Doron Toscano MD at OR [facility] Right: Eye BAUSCH & LOMB 03/12/2028 [id number] / [id number] / [id number] documented as of this encounter Advance Directives Documents on File Type Date Recorded Patient Contact Center Specialist Expl anation Advance Directives and Living Will 07/08/2003 LIVING WILL Power of Boat Loader 07/08/2003 POWER OF A TTORNEY DURABLE HEALTHCARE [...] Power of Attor liya? No Care Teams Booking Police Officer Relationship Specialty Start Date End Date Igor Boucher DO [address] [place] [address] PCP - General Family Medicine 12/14/19 documented as of this encounter
--- OUTSIDE RECORDS SUMMARY | 2025-01-04 12:32 | External Medical Summary | Summary of Care ---
Author Name Unknown Organization [facility] Address [address] [facility] [place] [address] Phone [phone] Care Team Providers Care Stock Transfer Clerk Name Role Phone Igor Boucher DO Primary Care Provider Reason for Visit * Reason Comments Hospital Follow-Up [facility] d/c 12/[address] omach virus, dehydration, Afib Encounter Details Date Type Department Care Team (Late st Contact Info) Description 12/29/2024 9:00 AM EDT Office Visit Family [facility] [address] [place] [address] Igor Boucher DO [address] [facility] [place] [address] Chronic atrial fibrillation (HCC)*; Other specified hypothyroidism; HTN, goal below 130/80; Dyslipidemia, goal LDL below 130; Chronic pain of right knee; Major depressive disorder in full remission, unspecified whether recurrent (HCC); B12 deficiency; Encounter for long-term (current) use of medications Allergies Active Allergy Reactions Criticality Noted Date [...] 20 MG Oral Capsule Delayed Release Particles (Cymbalta)Patrizia cations:Chroni c pain of right knee,Major depressive disorder in full remission, unspecified whether recurrent (HCC) Take 2 Capsules by mouth in the morning. Do not cut, crush or chew. 60 Capsule 5 12/30/19 25 Active Calcium-Vitami n D-Vitamin K 500-1000-40 MG-UNT-MCG Oral Tablet Chewable 1 Tablet in the morning. 025 Discontinued(M edication List Clean Up) Fluorouracil 5 % External Cream (Efudex) Apply to rough area on nose twice a day for two weeks, and to rough areas on hands twice a day for 4 weeks 40 g 1 02/13/20 24 025 Discontinued(M edication List Clean Up) Diclofenac Sodium 75 MG Oral Tablet Delayed Release (Voltaren)Patrizia cations:Pain in limb Take 1 tablet by mouth twice daily with food 60 Tablet 5 08/17/20 24 025 Discontinued(M edication List Clean Up) Irbesartan 300 MG Oral [...] Discontinued amLODIPine Besylate 5 MG Oral Tablet (Norvasc)Indic [...] 01/12/2019 05/15/2020 Overview (01/29/2021): DO NOT DELETE [facility] DETECT Study: Project # [id number], Cafeteria Helper: Murphy Alicia, PhD. SUMMARY: Goal: Establish test [...] contact study staff at ; after hours Cafeteria Helper via the [facility] hospital acoustic sensor operator . Please contact study team before resolving/deleting from patients problem list. Study phone number: [phone]. Diagnosis changed due to Research Module. Go to Snapshot for study details. Encounter for examination fo r normal comparison and control in clinical research program 01/12/2019 06/13/2022 Overview (01/29/2021): DO NOT DELETE - [facility] MAX Study: Project # [id number], Cafeteria Helper: Ezequiel Christian, MS, MPH. SUMMARY: Goal: Establish [...] contact study staff at ; after hours Cafeteria Helper via the [facility] hospital acoustic sensor operator . - Please contact study team before resolving/deleting from patients problem list. Study phone number: [phone]. Diagnosis changed due to Research Module. Go to Beta Dash for study details. ADVANCE DIRECTIVE INFORMATION 08/20/2006 08/16/2024 Overview (08/20/2006): Pt will bring copy at next visit. 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 Assessment and Plan Assessment & Plan Atrial Fibrillation/Hospital Discharge New onset likely due to dehydration from a stomach virus. Irregular heart rate, lightheadedness, controlled with metoprolol now but remains in A-fib. On Eliquis for anticoagulation. Discussed cardioversion options but ultimately defer to cardiology. Fatigue from metoprolol expected to improve. - Continue metoprolol for rate control. - Continue Eliquis for anticoagulation. - Arrange cardiology follow-up for ongoing discussion - Recheck labs including potassium and TSH before cardiology appointment. Hypertension Blood pressure low due to metoprolol. Holding other antihypertensives. Discussed irbesartan for renal benefits, not currently needed. - Monitor blood pressure and adjust medications as needed. Joint Pain Joint pain previously managed with diclofenac, not used due to anticoagulation. Discussed increasing Cymbalta for pain management. - Increase Cymbalta to 40 mg initially, then to 60 mg if tolerated. History of Present Illness Bc Najera is a 74 year old female that presents for Hospital Follow-Up ([facility] d/c 12/24 had stomach virus, dehydration, Afib) History of Present Illness The patient, with a recent diagnosis of atrial fibrillation (AFib), presents for follow-up after a recent hospitalization. She reports feeling pressure in the chest but no palpitations. She also experiences lightheadedness, especially when walking or climbing stairs. The patient is currently on metoprolol and Eliquis for AFib. She also has joint pain, which is managed with Cymbalta and diclofenac. However, the patient reports that she has been holding other blood pressure medications due to lowblood pressure. Physical Exam Vitals: 12/29/24 0850 Temp: 97.2 °F (36.2 °C) Pulse: 68 Resp: 16 BP: 108/68 Physical Exam Constitutional: Appearance: Normal appearance. HENT: Head: Normocephalic and atraumatic. Eyes: Extraocular Movements: Extraocular movements intact. Pupils: Pupils are equal, round, and reactive to light. Cardiovascular: Rate and Rhythm: Normal rate. Rhythm irregular. Pulmonary: Effort: Pulmonary effort is normal. Neurological: General: No focal deficit present. Mental Status: She is alert and oriented to person, place, and time. Psychiatric: Mood and Affect: Mood normal. Behavior: Behavior normal. Wrap-Up Follow-up: Return in about 6 months (around 07/01/2025). | Check-out note: Every other with [employer] Please schedule consult/referral with cardiology [facility] f/u Time: Total time today was 44 minutes excluding any time spent in the performance of separately billed services. Text in this note was generated using an reKode Education documentation service. I discussed the use of a device to record and summarize our discussion today. All persons present during the encounter consented to its use. documented in this encounter Plan of Treatment Upcoming Encounters Date Type Department Care Team (Late st Contact Info) Description 02/17/2025 10:00 AM EDT Office Visit [facility] [address] [facility] [place] [address] Igor Boucher DO [address] [place] [address] 07/01/2025 10:40 AM EDT Office Visit [facility] [address] [address] Lisa Ramírez CRNP [address] [place] [address] Scheduled Orders Name Type Priority Associated Diagnoses Orde r Schedule TSH WITH FREE T4 IF INDICATED Lab Routine Other specified hypothyroidism Expected: 12/29/2024 (Approximate), Expires: 12/29/2025 COMPREHENSIVE METABOLIC PANEL Lab Routine HTN, goal below 130/80 Dyslipidemia, goal LDL below 130 Expected: 12/29/2024 (Approximate), Expires: 12/29/2025 LIPID PANEL WITH DIRECT LDL IF TG IS HIGH Lab Routine Dyslipidemia, goal LDL below 130 Expected: 12/29/2024, Expires: 12/29/2025 METHYLMALONIC ACID, SERUM Lab Routine B12 deficiency Expected: 12/29/2024 (Approximate), Expires: 12/29/2025 VITAMIN B12 Lab Routine B12 deficiency Expected: 12/29/2024 (Approximate), Expires: 12/29/2025 CBC WITH WBC DIFFERENTIAL Lab Routine Encounter for long-term (current) use of medications Expected: 12/29/2024 (Approximate), Expires: 12/29/2025 Scheduled Procedures Name Priority Associated Diagnoses Date/Ti [...] this encounter Medical Devices Implanted Type Area Yarder Engineer Device Identifier Shelf Expiration Date Model / Serial / Lot Lens Li61ao 13.00mm 19.00 - [id number] - [id number] Implanted:Qty: 1 on 07/15/2023 by Doron Toscano MD at OR [facility] Left: Eye [employer] 04/11/2028 [id number] / [id number] / [id number] Lens Li61ao 13.00mm 17.50 - [id number] - [id number] Implanted:Qty: 1 on 07/29/2023 by Doron Toscano MD at OR [facility] Right: Eye BAUSCH [employer] LOMB 03/12/2028 [id number] / [id number] / [id number] documented as of this encounter Visit Diagnoses Diagnosis Chronic atrial fibrillation (HCC)- Primary Atrial fibrillation Other specified hypothyroidism HTN, goal below 130/80 Unspecified essential hypertension Dyslipidemia, goal LDL below 130 Other and unspecified hyperlipidemia Chronic pain of right knee Major depressive disorder in full remission, unspecified whether recurrent (HCC) B12 deficiency Other B-complex deficiencies Encounter for long-term (current) use of medications Encounter for long-term (current) use of other medications documented in this encounter Advance Directives Documents on File Type Date Recorded 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 No Care Teams Stock Transfer Clerk Relationship Specialty Start Date End Date Igor Boucher DO [address] [place] [address] PCP - General Family Medicine 12/14/19 documented as of this encounter"
--- OUTSIDE RECORDS SUMMARY | 2025-01-04 12:32 | External Medical Summary ---
Author Name Unknown Address Unknown Organization K01:[facility] [address] [facility] [address] [facility] [address] Laboratory Report Ordering Provider Test Date Status MATI GOODMAN 01/03/2025 11:16:21 Final Observation Date Value Abnormality Reference (Units ) Status WBC, Total 01/03/2025 11:16:21 7.73 4.00-10.80 (K/uL) Final RBC 01/03/2025 11:16:21 4.04 3.85-5.15 (M/uL) Final Hemoglobin 01/03/2025 11:16:21 11.8 Below low normal 12.0-15.3 (g/dL) Final HCT 01/03/2025 11:16:21 38.2 36.0-45.2 (%) Final MCV 01/03/2025 11:16:21 94.6 81.5-97.5 (fL) Final MCH 01/03/2025 11:16:21 29.2 27.0-34.0 (pg) Final MCHC 01/03/2025 11:16:21 30.9 32.0-36.0 (g/dL) Final RDW 01/03/2025 11:16:21 13.2 11.5-15.5 (%) Final Platelets 01/03/2025 11:16:21 347 140-400 (K/uL) Final MPV 01/03/2025 11:16:21 11.7 6.6-11.1 (fL) Final Nucleated erythrocytes/100 leukocytes [Ratio] in Blood by Automated count 01/03/2025 11:16:21 0 <=0 (/100 WBCs) Final Performing Location [facility] [place] [address] [place] [address]
--- OUTSIDE RECORDS SUMMARY | 2025-01-04 12:32 | External Medical Summary ---
Author Name Unknown Address Unknown Organization K01:[facility] [place] [address] [place] [address] Laboratory Report Ordering Provider Test Date Status MATI GOODMAN 01/03/2025 11:16:21 Final Observation Date Value Abnormality Reference (Units ) Status Magnesium 01/03/2025 11:16:21 2.5 1.5-2.6 (m g/dL) Final Performing Location LABORATORY [facility] - [address] [place] [address]
--- OUTSIDE RECORDS SUMMARY | 2025-01-04 12:32 | External Medical Summary ---
Author Name Unknown Address Unknown Organization K01:[facility] [place] [address] [place] [address] Laboratory Report Ordering Provider Test Date Status VALERIA IBARRA 01/03/2025 11:16:21 Final Observation Date Value Abnormality Reference (Units ) Status Vitamin B12 01/03/2025 11:16:21 1584 Above high normal 232-1245 (pg/mL) Final Performing Location LABORATORY [facility] - [address] [place] [address]
--- OUTSIDE RECORDS SUMMARY | 2025-01-04 12:32 | External Medical Summary ---
Author Name Unknown Address Unknown Organization K01:LABORATORY [facility] [place] [place] - [address] [facility] [address] Laboratory Report Ordering Provider Test Date Status MATI GOODMAN 01/03/2025 11:16:21 Final Observation Date Value Abnormality Reference (Units ) Status Triglyceride 01/03/2025 11:16:21 143 <=174 ( mg/dL) Final Triglyceride Reference Range s (mg/dL):
<150 Acceptable
150-174 Borderline high
175-499 High
>=500 Very high Cholesterol 01/03/2025 11:16:21 139 <200 (mg /dL) Final Total Cholesterol Reference Ranges (mg/dL):
<200 Desirable
200-239 Borderline high
>=240 High HDL 01/03/2025 11:16:21 38 Below low normal >49 (mg/dL) Final HDL Cholesterol Reference Ra nges (mg/dL):
>=60 High (Desirable)
<50 Low (Undesirable) For Females
<40 Low (Undesirable) For Males NON-HDL CHOLESTEROL 01/03/2025 11:16:21 101 <=159 (mg/dL) Final Non-HDL Cholesterol Referenc e Range (mg/dL):
<100 Target level for high risk ASCVD patient
<130 Optimal for general population
130-159 Near optimal for general population
160-189 Borderline High
190-219 High
>=220 Very High LDL, (calculated) 01/03/2025 11:16:21 72 <= 129 (mg/dL) Final LDL Cholesterol Reference Ra nges (mg/dL):
<70 Target level for high risk ASCVD patient
<100 Optimal for general population
100-129 Near optimal for general population
130-159 Borderline high
160-189 High
>=190 Very high
Patient has high LDL cholesterol. Consider screening for Familial Hypercholesterolemia. Performing Location LABORATORY [facility] [place] [place] - [address] [facility] [address]
--- OUTSIDE RECORDS SUMMARY | 2025-01-04 12:32 | External Medical Summary ---
Author Name Unknown Address Unknown Organization K01:LABORATORY [facility] [place] - [address] [place] [address] Laboratory Report Ordering Provider Test Date Status DELILAH DEL TORO 01/03/2025 11:16:21 Final Exclude Heart Failure: <300 pg/mL
Diagnose Heart Failure:
Age <50 yr: >450 pg/mL
50-75 yr: >900 pg/mL
>75 yr: >1800 pg/mL
GFR is 30-59 mL/min: >1200 pg/mL or Age- adjusted values
GFR <30 mL/min: do not use, not reliable

Prognostic threshold: 1000 pg/mL Observation Date Value Abnormality Reference (Units ) Status BNP, Pro-hormone 01/03/2025 11:16:21 4933 Above high no rmal <300 (pg/mL) Final Performing Location LABORATORY [facility] [place] - [facility] [address] [place] [address]
--- OUTSIDE RECORDS SUMMARY | 2025-01-04 12:32 | External Medical Summary | Summary of Care ---
Author Name Unknown Organization [facility] Address [address] [facility] [place] [address] Phone [phone] Care Team Providers Care Taste Tester Name Role Phone Maxine Boucher DO Primary Care Provider Reason for Referral * Evaluate & Treat - Unlimited Visits (Within 10 days (routine)) - Authorized Specialty Diagnoses / Procedures Referred By Contmana cm Referred To Contact Cardiovascular Medicine / Cardiology Diagnoses Chronic atrial fibrillation (HCC) Maxine Boucher DO [address] [place] [address] Phone: tel: fax: Referral ID Status Reason Start Date Expiration Date Visits Requested Visits Authorized [id number] Authorized Specialty Services Required 12/28/2024 999 999 Question Answer Referral Priority Within 10 days (routine) Where should this appointment be scheduled? [facility] For which of the following conditions are you referring? Atrial Fibrillation (A. Fib) Reason for Visit * Reason Onset Date Comments Advice 12/24/2024 Encounter Details Date Type Department Care Team (Late st Contact Info) Description 12/24/2024 Telephone Cardiology, [facility] [address] [place] [address] Alex Hayward MD [address] [place] [address] Advice Allergies Active Allergy Reactions Criticality Noted [...] 01/12/2019 05/15/2020 Overview (01/29/2021): DO NOT DELETE [facility] DETECT Study: Project # [id number], Medical Records Supervisor: Murphy Alicia, PhD. SUMMARY: Goal: Establish test [...] contact study staff at ; after hours Medical Records Supervisor via the [facility] hospital gauge and weigh machine operator . Please contact study team before resolving/deleting from patients problem list. Study phone number: [phone]. Diagnosis changed due to Research Module. Go to Snapshot for study details. Encounter for examination fo r normal comparison and control in clinical research program 01/12/2019 06/13/2022 Overview (01/29/2021): DO NOT DELETE - [facility] MAX Study: Project # [id number], Medical Records Supervisor: Ezequiel Christian, MS, MPH. SUMMARY: Goal: Establish [...] contact study staff at ; after hours Medical Records Supervisor via the [facility] gauge and weigh machine operator . - Please contact study team before resolving/deleting from patients problem list. Study phone number: [phone]. Diagnosis changed due to Research Module. Go to Envision Blue Green for study details. ADVANCE DIRECTIVE INFORMATION 08/20/2006 08/16/2024 Overview (08/20/2006): Pt will bring copy at next visit. 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 Please schedule either return visit with either [...] the office, may I offer her a DOUBLE BACKER appt with any provider? Thank you. * Addendum Note - Jc Stubbs LPN - 12/24/2024 2:55 PM EDTAddended by: JC STUBBS on: 12/24/2024 02:55 PM Modules accepted: Orders * Telephone Encounter - Jc Stubbs LPN - 12/24/2024 2:54 PM EDT Medication list updated. Scheduling please assist. * Telephone Encounter - Alex Hayward MD - 12/24/2024 2:47 PM EDT Patient was hospitalized at [facility] following acute gastroenteritis. Found to be in [...] Description 02/17/2025 10:00 AM EDT Office Visit [address] [place] [address] Maxine Boucher DO [address] [place] [address] 07/01/2025 10:40 AM EDT Office Visit Family Practice [facility] [address] [place] [address] Lisa Ramírez CRNP [address] [place] [address] Scheduled Procedures Name Priority Associated Diagnoses Date/Ti [...] this encounter Medical Devices Implanted Type Area Crop Pest Control Specialist Device Identifier Shelf Expiration Date Model / Serial / Lot Lens Li61ao 13.00mm 19.00 - [id number] - [id number] Implanted:Qty: 1 on 07/15/2023 by Doron Toscano MD at OR [facility] Left: Eye [employer]OMB 04/11/2028 [id number] / [id number] / [id number] Lens Li61ao 13.00mm 17.50 - [id number] - [id number] Implanted:Qty: 1 on 07/29/2023 by Doron Toscano MD at OR [facility] Right: Eye BAUSCH [employer] LOMB 03/12/2028 [id number] / [id number] / [id number] documented as of this encounter Visit Diagnoses Diagnosis Chronic atrial fibrillation (HCC)- Primary Atrial fibrillation documented in this encounter Advance Directives Documents on File Type Date Recorded 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 No Care Teams Taste Tester Relationship Specialty Start Date End Date Maxine Boucher DO [address] [facility] [place] [address] PCP - General Family Medicine 12/14/19 documented as of this encounter
--- OUTSIDE RECORDS SUMMARY | 2025-01-04 12:32 | External Medical Summary ---
Author Name Unknown Address Unknown Organization K01:[facility] [place] [address] [facility] [address] [place] [address] Laboratory Report Ordering Provider Test Date Status MATI GOODMAN 01/03/2025 11:16:21 Final Observation Date Value Abnormality Reference (Units ) Status BUN 01/03/2025 11:16:21 14 6-20 (mg/dL) Final Creatinine 01/03/2025 11:16:21 1.0 0.5-1.0 (mg/dL) Final Glomerular filtration rate/1.73 sq M.predicted [Volume Rate/Area] in Serum, Plasma or Blood by Creatinine-based formula (CKD-EPI) 01/03/2025 11:16:21 61 >=60 (mL/min) Final eGFR is calculated based on the CKD-EPI 2020 equation. Sodium 01/03/2025 11:16:21 138 135-146 (m mol/L) Final Potassium 01/03/2025 11:16:21 4.5 3.5-5.1 (m mol/L) Final Cl 01/03/2025 11:16:21 104 98-107 (mm ol/L) Final CO2 01/03/2025 11:16:21 22 22-32 (mmo l/L) Final Anion gap 01/03/2025 11:16:21 12 7-15 (mmol /L) Final Glucose 01/03/2025 11:16:21 111 70-120 (mg /dL) Final Albumin 01/03/2025 11:16:21 4.1 3.8-5.0 (g /dL) Final AST (Aspartate aminotransferase) 01/03/2025 11:16:21 17 10-35 (U/L) Final Alk Phos 01/03/2025 11:16:21 110 35-130 (U/ L) Final Bilirubin, Total 01/03/2025 11:16:21 0.8 <=1 .2 (mg/dL) Final Calcium 01/03/2025 11:16:21 9.2 8.4-10.2 ( mg/dL) Final Protein 01/03/2025 11:16:21 6.1 6.0-8.3 (g /dL) Final ALT (Alanine aminotransferase) 01/03/2025 11:16:21 25 10-35 (U/L) Final Performing Location [facility]ORY [facility] [place] - [address] [facility] [address]
--- OUTSIDE RECORDS SUMMARY | 2025-01-04 12:32 | External Medical Summary | Summary of Care ---
Author Name Unknown Organization [facility] Address [address] [facility] [place] [address] Phone [phone] Care Team Providers Care Licensed Midwife Name Role Phone Maxine Boucher DO Primary Care Provider Reason for Referral * Evaluate & Treat - Unlimited Visits (Within 10 days (routine)) - Authorized Specialty Diagnoses / Procedures Referred By Contmana cm Referred To Contact Cardiovascular Medicine / Cardiology Diagnoses Chronic atrial fibrillation (HCC) Maxine Boucher DO [address] [place] [address] Phone: tel: fax: Referral ID Status Reason Start Date Expiration Date Visits Requested Visits Authorized [id number] Authorized Specialty Services Required 12/28/2024 999 999 Question Answer Referral Priority Within 10 days (routine) Where should this appointment be scheduled? [facility] For which of the following conditions are you referring? Atrial Fibrillation (A. Fib) Reason for Visit * Reason Onset Date Comments Advice 12/24/2024 Encounter Details Date Type Department Care Team (Late st Contact Info) Description 12/24/2024 Telephone Cardiology, [facility] [address] [place] [address] Alex Hayward MD [address] [place] [address] Advice Allergies Active Allergy Reactions Criticality Noted [...] 05/15/2020 Overview (01/29/2021): DO NOT DELETE [employer] DETECT Study: Project # [id number], Middle School Technology Teacher: Murphy Alicia, PhD. SUMMARY: Goal: Establish test [...] contact study staff at ; after hours Middle School Technology Teacher via the [facility] gas roller operator . Please contact study team before resolving/deleting from patients problem list. Study phone number: [phone]. Diagnosis changed due to Research Module. Go to Snapshot for study details. Encounter for examination fo r normal comparison and control in clinical research program 01/12/2019 06/13/2022 Overview (01/29/2021): DO NOT DELETE - [facility] MAX Study: Project # [id number], Middle School Technology Teacher: Ezequiel Christian, MS, MPH. SUMMARY: Goal: Establish [...] contact study staff at ; after hours Middle School Technology Teacher via the [facility] gas roller operator . - Please contact study team before resolving/deleting from patients problem list. Study phone number: [phone]. Diagnosis changed due to Research Module. Go to wunderloop for study details. ADVANCE DIRECTIVE INFORMATION 08/20/2006 08/16/2024 Overview (08/20/2006): Pt will bring copy at next visit. 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 Please schedule either return visit with [...] the office, may I offer her a HABILITATIVE INTERVENTIONIST appt with any provider? Thank you. * Addendum Note - Jc Stubbs LPN - 12/24/2024 2:55 PM EDTAddended by: JC STUBBS on: 12/24/2024 02:55 PM Modules accepted: Orders * Telephone Encounter - Jc Stubbs LPN - 12/24/2024 2:54 PM EDT Medication list updated. Scheduling please assist. * Telephone Encounter - Alex Hayward MD - 12/24/2024 2:47 PM EDT Patient was hospitalized at [facility] following acute gastroenteritis. Found to be [...] 01/27/2025 11:30 AM EDT Office Visit Cardiology, [facility] [address] [facility] [place] [address] Evelyn Vogt PA-C [address] [place] [address] [place] [address] 02/17/2025 10:00 AM EDT Office Visit [facility] [address] [place] [address] Maxine Boucher DO [address] [place] [address] 07/01/2025 10:40 AM EDT Office Visit [facility] [address] [place] [address] Lisa Ramírez CRNP [address] [place] [address] Scheduled Procedures Name Priority Associated Diagnoses Date/Ti [...] this encounter Medical Devices Implanted Type Area Surface Supervisor Device Identifier Shelf Expiration Date Model / Serial / Lot Lens Li61ao 13.00mm 19.00 - [id number] - [id number] Implanted:Qty: 1 on 07/15/2023 by Doron Toscano MD at [place] [facility] Left: Eye [employer]USCH [employer] LOMB 04/11/2028 [id number] / [id number] / [id number] Lens Li61ao 13.00mm 17.50 - [id number] - [id number] Implanted:Qty: 1 on 07/29/2023 by Doron Toscano MD at OR [facility] Right: Eye BAUSCH & LOMB 03/12/2028 [id number] / [id number] / [id number] documented as of this encounter Visit Diagnoses Diagnosis Chronic atrial fibrillation (HCC)- Primary Atrial fibrillation documented in this encounter Advance Directives Documents on File Type Date Recorded Patient Draw In Hand Expl anation Advance Directives and Living Will 07/08/2003 LIVING WILL Power of Bottom Precipitator Operator 07/08/2003 POWER OF A TTORNEY DURABLE [...] Power of Attor liya? No Care Teams Licensed Midwife Relationship Specialty Start Date End Date Maxine Boucher DO [address] [place] [address] PCP - General Family Medicine 12/14/19 documented as of this encounter
--- OUTSIDE RECORDS SUMMARY | 2025-01-04 12:33 | External Medical Summary | Summary of Care ---
Author Name Unknown Organization [facility] Address [address] [facility] [place] [address] Phone [phone] Care Team Providers Care Tile Grinder Name Role Phone Boucher Igor Persaudvira Primary Care Provider Reason for Visit * Reason Onset Date Comments Advice 12/24/2024 Encounter Details Date Type Department Care Team (Late st Contact Info) Description 12/24/2024 Telephone Cardiology, [facility] [address] [place] [address] Alex Hayward MD [address] [place] [address] Advice Allergies Active Allergy Reactions Criticality Noted Date Comments Hydrochlorothiazide 05/12/2018 Nauseaous and low energy Naproxen Rash High 11/26/2007 Bullous eruption on hands, phototoxicity documented as of this encounter (statuses as of 12/24/2024) Medications Calcium-Vitamin D-Vitamin K 500-1000-40 MG-UNT-MCG Oral [...] THE MORNING 90 Tablet 3 5 Active Eliquis 5 MG Oral Tablet Take 1 Tablet by mouth in the morning and 1 Tablet before bedtime. 5 Active Metoprolol Succinate ER 25 MG Oral Tablet Extended Release 24 Hour (toPROL XL) Take 1 Tablet by mouth in the morning and 1 Tablet before bedtime. 5 Active documented as of this encounter (statuses as of 12/24/2024) Active Problems Problem Noted Date Diagnosed Date Chronic pain of right knee 02/06/2021 HTN, goal below 130/80 12/14/2019 Other specified hypothyroidism 12/30/2002 CANCER OF COLON,FAM HX - Mom 03/10/1998 Menopause 03/10/1998 CARDIAC MURMURS NEC documented as of this encounter (statuses as of 12/24/2024) Resolved Problems Problem Noted Date Diagnosed Date Resolved Date Encounter for examination fo r normal comparison and control in clinical research program 01/12/2019 05/15/2020 Overview (01/29/2021): DO NOT DELETE [employer] MAX Study: Project # [id number], Inspector Conveyor Line: Murphy Alicia, PhD. SUMMARY: Goal: Establish test [...] contact study staff at ; after hours Inspector Conveyor Line via the [facility] hospital system operator . Please contact study team before resolving/deleting from patients problem list. Study phone number: [phone]. Diagnosis changed due to Research Module. Go to Snapshot for study details. Encounter for examination fo r normal comparison and control in clinical research program 01/12/2019 06/13/2022 Overview (01/29/2021): DO NOT DELETE - [employer] DETECT Study: Project # [id number], Inspector Conveyor Line: Ezequiel Christian, MS, MPH. SUMMARY: Goal: Establish [...] contact study staff at ; after hours Inspector Conveyor Line via the [facility] hospital system operator . - Please contact study team before resolving/deleting from patients problem list. Study phone number: [phone]. Diagnosis changed due to Research Module. Go to Snapshot for study details. ADVANCE DIRECTIVE INFORMATION 08/20/2006 08/16/2024 Overview (08/20/2006): Pt will bring copy at next visit. 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 Thank you. * Addendum Note - Jc Stubbs LPN - 12/24/2024 2:55 PM EDTAddended by: JC STUBBS on: 12/24/2024 02:55 PM Modules accepted: Orders * Telephone Encounter - Jc Stubbs LPN - 12/24/2024 2:54 PM EDT Medication list updated. Scheduling please assist. * Telephone Encounter - Alex Hayward MD - 12/24/2024 2:47 PM EDT Patient was hospitalized at [facility] following acute gastroenteritis. Found to be [...] 12/29/2024 9:00 AM EDT Office Visit [facility] [address] [place] [address] Igor Boucher DO [address] [place] [address] 02/17/2025 10:00 AM EDT Office Visit [facility] [address] [place] [address] Igor Boucher DO [address] [place] [address] Scheduled Procedures Name Priority Associated Diagnoses Date/Ti [...] encounter Medical Devices Implanted Type Area Crop Quantitative Geneticist Device Identifier Shelf Expiration Date Model / Serial / Lot Lens Li61ao 13.00mm 19.00 - [id number] - [id number] Implanted:Qty: 1 on 07/15/2023 by Doron Toscano MD at OR [facility] Left: Eye BAUSCH [employer] LOMB 04/11/2028 [id number] / [id number] / [id number] Lens Li61ao 13.00mm 17.50 - [id number] - [id number] Implanted:Qty: 1 on 07/29/2023 by Doron Toscano MD at OR [facility] Right: Eye BAUSCH & LOMB 03/12/2028 [id number] / [id number] / [id number] documented as of this encounter Advance Directives Documents on File Type Date Recorded Patient Cant Hooker Expl anation Advance Directives and Living Will 07/08/2003 LIVING WILL Power of Electric Frying Pan Repairer 07/08/2003 POWER OF A TTORNEY DURABLE HEALTHCARE [...] Power of Attor liya? No Care Teams Tile Grinder Relationship Specialty Start Date End Date Igor Boucher DO [address] [place] [address] PCP - General Family Medicine 12/14/19 documented as of this encounter
--- OUTSIDE RECORDS SUMMARY | 2025-01-04 12:33 | External Medical Summary | Summary of Care ---
Author Name Unknown Organization [facility] Address [address] [place] [address] Phone [phone] Care Team Providers Care Manager Hematology Name Role Phone Boucher Igor Persaudvira Primary Care Provider Reason for Visit * Reason Onset Date Comments Advice 12/24/2024 Encounter Details Date Type Department Care Team (Late st Contact Info) Description 12/24/2024 Telephone Cardiology, [facility] [address] [place] [address] Alex Hayward MD [address] [place] [address] Advice Allergies Active Allergy Reactions Criticality Noted Date Comments Hydrochlorothiazide 05/12/2018 Nauseaous and low energy Naproxen Rash High 11/26/2007 Bullous eruption on hands, phototoxicity documented as of this encounter (statuses as of 12/28/2024) Medications Calcium-Vitamin D-Vitamin K 500-1000-40 MG-UNT-MCG Oral [...] as of this encounter (statuses as of 12/28/2024) Active Problems Problem Noted Date Diagnosed Date Chronic pain of right knee 02/06/2021 HTN, goal below 130/80 12/14/2019 Other specified hypothyroidism 12/30/2002 CANCER OF COLON,FAM HX - Mom 03/10/1998 Menopause 03/10/1998 CARDIAC MURMURS NEC documented as of this encounter (statuses as of 12/28/2024) Resolved Problems Problem Noted Date Diagnosed Date Resolved Date Encounter for examination fo r normal comparison and control in clinical research program 01/12/2019 05/15/2020 Overview (01/29/2021): DO NOT DELETE [employer] MAX Study: Project # [id number], Pan Tank Worker: Murphy Alicia, PhD. SUMMARY: Goal: Establish test [...] contact study staff at ; after hours Pan Tank Worker via the [facility] hospital blow moulding machine operator . Please contact study team before resolving/deleting from patients problem list. Study phone number: [phone]. Diagnosis changed due to Research Module. Go to Snapshot for study details. Encounter for examination fo r normal comparison and control in clinical research program 01/12/2019 06/13/2022 Overview (01/29/2021): DO NOT DELETE - [employer] DETECT Study: Project # [id number], Pan Tank Worker: Ezequiel Christian, MS, MPH. SUMMARY: Goal: Establish [...] contact study staff at ; after hours Pan Tank Worker via the [facility] hospital blow moulding machine operator . - Please contact study team before resolving/deleting from patients problem list. Study phone number: [phone]. Diagnosis changed due to Research Module. Go to Snapshot for study details. ADVANCE DIRECTIVE INFORMATION 08/20/2006 08/16/2024 Overview (08/20/2006): Pt will bring copy at next visit. 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 thank you. * Telephone Encounter - Sharon Estrella RN - 12/28/2024 9:23 AM EDT Patient seen by Dr. Hayward and Deep Ervin during recent hospitalization at [facility]. Please schedule either return visit with [...] the office, may I offer her a WELDER GUN appt with any provider? Thank you. * Addendum Note - Jc Stubbs LPN - 12/24/2024 2:55 PM EDTAddended by: JC STUBBS on: 12/24/2024 02:55 PM Modules accepted: Orders * Telephone Encounter - Jc Stubbs LPN - 12/24/2024 2:54 PM EDT Medication list updated. Scheduling please assist. * Telephone Encounter - Alex Hayward MD - 12/24/2024 2:47 PM EDT Patient was hospitalized at [facility] following acute gastroenteritis. Found to be in [...] Description 12/29/2024 9:00 AM EDT Office Visit [facility] [address] [place] [address] Igor Boucher, DO [address] [place] [address] 02/17/2025 10:00 AM EDT Office Visit [facility] [address] [place] [address] Igor Boucher, DO [address] [place] [address] Scheduled Procedures Name Priority Associated Diagnoses Date/Ti [...] this encounter Medical Devices Implanted Type Area Occupational Health Physiotherapist Device Identifier Shelf Expiration Date Model / Serial / Lot Lens Li61ao 13.00mm 19.00 - [id number] - [id number] Implanted:Qty: 1 on 07/15/2023 by Doron Toscano MD at OR [facility] Left: Eye BAUSCH & LOMB 04/11/2028 [id number] / [id number] / [id number] Lens Li61ao 13.00mm 17.50 - [id number] - [id number] Implanted:Qty: 1 on 07/29/2023 by Doron Toscano MD at OR [facility] Right: Eye BAUSCH & LOMB 03/12/2028 [id number] / [id number] / [id number] documented as of this encounter Advance Directives Documents on File Type Date Recorded Patient Milling/Polishing Operator Expl anation Advance Directives and Living Will 07/08/2003 LIVING WILL Power of Men'S Custom Hair Piece Consultant 07/08/2003 POWER OF A TTORNEY DURABLE HEALTHCARE [...] Power of Attor liya? No Care Teams Manager Hematology Relationship Specialty Start Date End Date Igor Boucher DO [address] [place] [address] PCP - General Family Medicine 12/14/19 documented as of this encounter
--- OUTSIDE RECORDS SUMMARY | 2025-01-04 12:33 | External Medical Summary | Summary of Care ---
Author Name Unknown Organization [facility] Address [address] [facility] [place] [address] Phone [phone] Care Team Providers Care Hydroelectric Station Operator Name Role Phone Boucher Igor Persaudvira Primary Care Provider Reason for Visit * Reason Onset Date Comments Advice 12/24/2024 Encounter Details Date Type Department Care Team (Late st Contact Info) Description 12/24/2024 Telephone Cardiology, [facility] [address] [place] [address] Alex Hayward MD [address] [place] [address] Advice Allergies Active Allergy Reactions Criticality Noted [...] 01/12/2019 05/15/2020 Overview (01/29/2021): DO NOT DELETE [employer] MAX Study: Project # [id number], Faculty Research Physician: Murphy Alicia, PhD. SUMMARY: Goal: Establish test [...] contact study staff at ; after hours Faculty Research Physician via the [facility] hospital gang saw operator . Please contact study team before resolving/deleting from patients problem list. Study phone number: [phone]. Diagnosis changed due to Research Module. Go to Snapshot for study details. Encounter for examination fo r normal comparison and control in clinical research program 01/12/2019 06/13/2022 Overview (01/29/2021): DO NOT DELETE - [employer] DETECT Study: Project # [id number], Faculty Research Physician: Ezequiel Christian, MS, MPH. SUMMARY: Goal: Establish [...] contact study staff at ; after hours Faculty Research Physician via the [facility] hospital gang saw operator . - Please contact study team before resolving/deleting from patients problem list. Study phone number: [phone]. Diagnosis changed due to Research Module. Go [...] mRNA, LNP-s, No Pre serve, 2-Dose Series ([employer]) 08/07/2021,12/25/2020,11/20/2020 COVID-19, LNP-s, No Preserve , Gus-sucrose, Ages 12+ (Pfizer) 04/30/2022 COVID-19, MRNA-LNP, PF, 30 M CG/0.3 mL, 12 YRS AND ABOVE, IM (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 Please schedule either return visit with either [...] office, may I offer her a WELDER FITTER ARC appt with any provider? Thank you. * Addendum Note - Jc Stubbs LPN - 12/24/2024 2:55 PM EDTAddended by: JC STUBBS on: 12/24/2024 02:55 PM Modules accepted: Orders * Telephone Encounter - Jc Stubbs LPN - 12/24/2024 2:54 PM EDT Medication list updated. Scheduling please assist. * Telephone Encounter - Alex Hayward MD - 12/24/2024 2:47 PM EDT Patient was hospitalized at [facility] following acute gastroenteritis. Found to be in [...] Description 12/29/2024 9:00 AM EDT Office Visit [facility] [address] [place] [address] Igor Boucher, DO [address] [place] [address] 02/17/2025 10:00 AM EDT Office Visit [facility] [address] [place] [address] Igor Boucher, DO [address] [place] [address] Scheduled Procedures Name Priority Associated Diagnoses Date/Ti [...] this encounter Medical Devices Implanted Type Area Boat Tender Device Identifier Shelf Expiration Date Model / Serial / Lot Lens Li61ao 13.00mm 19.00 - [id number] - [id number] Implanted:Qty: 1 on 07/15/2023 by Doron Toscano MD at OR [facility] Left: Eye BAUSCH & LOMB 04/11/2028 [id number] / [id number] / [id number] Lens Li61ao 13.00mm 17.50 - [id number] - [id number] Implanted:Qty: 1 on 07/29/2023 by Doron Toscano MD at OR [facility] Right: Eye BAUSCH & LOMB 03/12/2028 [id number] / [id number] / [id number] documented as of this encounter Advance Directives Documents on File Type Date Recorded Patient Family Practice Nurse Practitioner Expl anation Advance Directives and Living Will 07/08/2003 LIVING WILL Power of Green Chainer 07/08/2003 POWER OF A TTORNEY DURABLE HEALTHCARE [...] Power of Attor liya? No Care Teams Hydroelectric Station Operator Relationship Specialty Start Date End Date Igor Boucher DO [address] [place] [address] PCP - General Family Medicine 12/14/19 documented as of this encounter
--- OUTSIDE RECORDS SUMMARY | 2025-01-04 12:33 | External Medical Summary | Summary of Care ---
Author Name Unknown Organization [facility] Address [address] [address] Phone [phone] Care Team Providers Care Tool Or Die Drawing Checker Name Role Phone Boucher Igor Persaudvira Primary Care Provider Reason for Visit * Reason Onset Date Comments Advice 12/24/2024 Encounter Details Date Type Department Care Team (Late st Contact Info) Description 12/24/2024 Telephone Cardiology, [facility] [address] [place] [address] Alex Hayward MD [address] [place] [address] Advice Allergies Active Allergy Reactions Criticality Noted [...] 01/12/2019 05/15/2020 Overview (01/29/2021): DO NOT DELETE [employer] MAX Study: Project # [id number], Bulk Sausage Casing Tier Off: Murphy Alicia, PhD. SUMMARY: Goal: Establish test [...] contact study staff at ; after hours Bulk Sausage Casing Tier Off via the [facility] hospital tree feller operator . Please contact study team before resolving/deleting from patients problem list. Study phone number: [phone]. Diagnosis changed due to Research Module. Go to Snapshot for study details. Encounter for examination fo r normal comparison and control in clinical research program 01/12/2019 06/13/2022 Overview (01/29/2021): DO NOT DELETE - [employer] DETECT Study: Project # [id number], Bulk Sausage Casing Tier Off: Ezequiel Christian, MS, MPH. SUMMARY: Goal: Establish [...] contact study staff at ; after hours Bulk Sausage Casing Tier Off via the [facility] hospital tree feller operator . - Please contact study team before resolving/deleting from patients problem list. Study phone number: [phone]. Diagnosis changed due to Research Module. 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 Thank you. * Addendum Note - Jc Stubbs LPN - 12/24/2024 2:55 PM EDTAddended by: JC STUBBS on: 12/24/2024 02:55 PM Modules accepted: Orders * Telephone Encounter - Jc Stubbs LPN - 12/24/2024 2:54 PM EDT Medication list updated. Scheduling please assist. * Telephone Encounter - Alex Hayward MD - 12/24/2024 2:47 PM EDT Patient was hospitalized at [facility] following acute gastroenteritis. Found to be [...] Description 12/29/2024 9:00 AM EDT Office Visit [facility] [address] [place] [address] Igor Boucher DO [address] [place] [address] 02/17/2025 10:00 AM EDT Office Visit [facility] [address] [place] [address] Igor Boucher DO [address] [place] [address] Scheduled Procedures Name Priority Associated Diagnoses Date/Ti [...] this encounter Medical Devices Implanted Type Area Cyber Analyst Device Identifier Shelf Expiration Date Model / Serial / Lot Lens Li61ao 13.00mm 19.00 - [id number] - [id number] Implanted:Qty: 1 on 07/15/2023 by Doron Toscano MD at OR [facility] Left: Eye BAUSCH & LOMB 04/11/2028 [id number] / [id number] / [id number] Lens Li61ao 13.00mm 17.50 - [id number] - [id number] Implanted:Qty: 1 on 07/29/2023 by Doron Toscano MD at OR [facility] Right: Eye BAUSCH & LOMB 03/12/2028 [id number] / [id number] / [id number] documented as of this encounter Advance Directives Documents on File Type Date Recorded Patient Supervisor Hot Strip Mill Expl anation Advance Directives and Living Will 07/08/2003 LIVING WILL Power of Welder Experimental 07/08/2003 POWER OF A TTORNEY DURABLE HEALTHCARE [...] Power of Attor liya? No Care Teams Tool Or Die Drawing Checker Relationship Specialty Start Date End Date Igor Boucher DO [address] [place] [address] PCP - General Family Medicine 12/14/19 documented as of this encounter
--- OUTSIDE RECORDS SUMMARY | 2025-01-04 12:33 | External Medical Summary | Summary of Care ---
Author Name Unknown Organization [facility] Address [address] [facility] [place] [address] Phone [phone] Care Team Providers Care Sas Sql Developer Name Role Phone Maxine Boucher DO Primary Care Provider Reason for Referral * Evaluate & Treat - Unlimited Visits (Within 10 days (routine)) - Authorized Specialty Diagnoses / Procedures Referred By Contmana cm Referred To Contact Cardiovascular Medicine / Cardiology Diagnoses Chronic atrial fibrillation (HCC) Maxine Boucher DO [address] [place] [address] Phone: tel: fax: Referral ID Status Reason Start Date Expiration Date Visits Requested Visits Authorized [id number] Authorized Specialty Services Required 12/28/2024 999 999 Question Answer Referral Priority Within 10 days (routine) Where should this appointment be scheduled? [facility] For which of the following conditions are you referring? Atrial Fibrillation (A. Fib) Reason for Visit * Reason Onset Date Comments Advice 12/24/2024 Encounter Details Date Type Department Care Team (Late st Contact Info) Description 12/24/2024 Telephone Cardiology, [facility] [address] [place] [address] Alex Hayward MD [address] [place] [address] Advice Allergies Active Allergy Reactions Criticality Noted Date Comments Hydrochlorothiazide 05/12/2018 Nauseaous and low energy Naproxen Rash High 11/26/2007 Bullous eruption on hands, phototoxicity documented as of this encounter (statuses as of 12/29/2024) Medications Calcium-Vitamin D-Vitamin K 500-1000-40 MG-UNT-MCG Oral [...] 01/12/2019 05/15/2020 Overview (01/29/2021): DO NOT DELETE [facility] DETECT Study: Project # [id number], Irrigation Specialist: Murphy Alicia, PhD. SUMMARY: Goal: Establish [...] contact study staff at ; after hours Irrigation Specialist via the [facility] hospital monotype keyboard operator . Please contact study team before resolving/deleting from patients problem list. Study phone number: [phone]. Diagnosis changed due to Research Module. Go to Snapshot for study details. Encounter for examination fo r normal comparison and control in clinical research program 01/12/2019 06/13/2022 Overview (01/29/2021): DO NOT DELETE - [employer] [facility] MAX Study: Project # [id number], Irrigation Specialist: Ezequiel Christian, MS, MPH. SUMMARY: Goal: [...] contact study staff at ; after hours Irrigation Specialist via the [facility] hospital monotype keyboard operator . - Please contact study team before resolving/deleting from patients problem list. Study phone number: [phone]. Diagnosis changed due to Research Module. 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 Please schedule either return visit with [...] the office, may I offer her a RN DOCUMENT IMPROVEMENT SPECIALIST appt with any provider? Thank you. * Addendum Note - Jc Stubbs LPN - 12/24/2024 2:55 PM EDTAddended by: JC STUBBS on: 12/24/2024 02:55 PM Modules accepted: Orders * Telephone Encounter - Jc Stubbs LPN - 12/24/2024 2:54 PM EDT Medication list updated. Scheduling please assist. * Telephone Encounter - Alex Hayward MD - 12/24/2024 2:47 PM EDT Patient was hospitalized at [facility] following acute gastroenteritis. Found to be in [...] Description 12/29/2024 9:00 AM EDT Office Visit [facility] [address] [place] [address] Maxine Boucher, [address] [place] [address] 02/17/2025 10:00 AM EDT Office Visit [facility] [address] [place] [address] Maxine Boucher, [address] [place] [address] Scheduled Procedures Name Priority Associated Diagnoses Date/Ti [...] this encounter Medical Devices Implanted Type Area Garden Labourer Device Identifier Shelf Expiration Date Model / Serial / Lot Lens Li61ao 13.00mm 19.00 - [id number] - [id number] Implanted:Qty: 1 on 07/15/2023 by Doron Toscano MD at OR [facility] Left: Eye [employer]USCH [employer] LOMB 04/11/2028 [id number] / [id number] / [id number] Lens Li61ao 13.00mm 17.50 - [id number] - [id number] Implanted:Qty: 1 on 07/29/2023 by Doron Toscano MD at OR [facility] Right: Eye [employer]USCH [employer] LOMB 03/12/2028 [id number] / [id number] / [id number] documented as of this encounter Visit Diagnoses Diagnosis Chronic atrial fibrillation (HCC)- Primary Atrial fibrillation documented in this encounter Advance Directives Documents on File Type Date Recorded Patient Heavy Equipment Plumbing Supervisor Expl anation Advance Directives and Living Will 07/08/2003 LIVING WILL Power of Ecommerce Marketing Manager 07/08/2003 POWER OF A TTORNEY DURABLE [...] Power of Attor liya? No Care Teams Sas Sql Developer Relationship Specialty Start Date End Date Maxine Boucher DO [address] [place] [address] PCP - General Family Medicine 12/14/19 documented as of this encounter
--- OUTSIDE RECORDS SUMMARY | 2025-01-04 12:33 | External Medical Summary | Summary of Care ---
Author Name Unknown Organization [facility] Address [address] [facility] [place] [address] Phone [phone] Care Team Providers Care Temporary Receptionist Name Role Phone Maxine Boucher DO Primary Care Provider Reason for Referral * Evaluate & Treat - Unlimited Visits (Within 10 days (routine)) - Authorized Specialty Diagnoses / Procedures Referred By Contmana cm Referred To Contact Cardiovascular Medicine / Cardiology Diagnoses Chronic atrial fibrillation (HCC) Maxine Boucher DO [address] [place] [address] Phone: tel: fax: Referral ID Status Reason Start Date Expiration Date Visits Requested Visits Authorized [id number] Authorized Specialty Services Required 12/28/2024 999 999 Question Answer Referral Priority Within 10 days (routine) Where should this appointment be scheduled? [facility] For which of the following conditions are you referring? Atrial Fibrillation (A. Fib) Reason for Visit * Reason Onset Date Comments Advice 12/24/2024 Encounter Details Date Type Department Care Team (Late st Contact Info) Description 12/24/2024 Telephone Cardiology, [facility] [address] [place] [address] Alex Hayward MD [address] [place] [address] Advice Allergies Active Allergy Reactions Criticality Noted [...] 05/15/2020 Overview (01/29/2021): DO NOT DELETE [facility] DETECT Study: Project # [id number], Patient Services Coordinator: Murphy Alicia, PhD. SUMMARY: Goal: Establish test [...] contact study staff at ; after hours Patient Services Coordinator via the [facility] hospital technical operator . Please contact study team before resolving/deleting from patients problem list. Study phone number: [phone]. Diagnosis changed due to Research Module. Go to Snapshot for study details. Encounter for examination fo r normal comparison and control in clinical research program 01/12/2019 06/13/2022 Overview (01/29/2021): DO NOT DELETE - [employer] [facility] MAX Study: Project # [id number], Patient Services Coordinator: Ezequiel Christian, MS, MPH. SUMMARY: Goal: Establish [...] contact study staff at ; after hours Patient Services Coordinator via the [facility] hospital technical operator . - Please contact study team before resolving/deleting from patients problem list. Study phone number: [phone]. Diagnosis changed due to Research Module. 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 Please schedule either return visit with either [...] the office, may I offer her a GUARD IMMIGRATION appt with any provider? Thank you. * Addendum Note - Jc Stubbs LPN - 12/24/2024 2:55 PM EDTAddended by: JC STUBBS on: 12/24/2024 02:55 PM Modules accepted: Orders * Telephone Encounter - Jc Stubbs LPN - 12/24/2024 2:54 PM EDT Medication list updated. Scheduling please assist. * Telephone Encounter - Alex Hayward MD - 12/24/2024 2:47 PM EDT Patient was hospitalized at [facility] following acute gastroenteritis. Found to be [...] Description 12/29/2024 9:00 AM EDT Office Visit [facility] [address] [place] [address] Maxine Boucher DO [address] [place] [address] 02/17/2025 10:00 AM EDT Office Visit [facility] [address] [place] [address] Maxine Boucher DO [address] [place] [address] Scheduled Procedures Name Priority Associated Diagnoses Date/Ti [...] this encounter Medical Devices Implanted Type Area Heavy Duty Truck Mechanic Device Identifier Shelf Expiration Date Model / Serial / Lot Lens Li61ao 13.00mm 19.00 - [id number] - [id number] Implanted:Qty: 1 on 07/15/2023 by Doron Toscano MD at OR [facility] Left: Eye BAUSCH & LOMB 04/11/2028 [id number] / [id number] / [id number] Lens Li61ao 13.00mm 17.50 - [id number] - [id number] Implanted:Qty: 1 on 07/29/2023 by Doron Toscano MD at OR [facility] Right: Eye BAUSCH & LOMB 03/12/2028 [id number] / [id number] / [id number] documented as of this encounter Visit Diagnoses Diagnosis Chronic atrial fibrillation (HCC)- Primary Atrial fibrillation documented in this encounter Advance Directives Documents on File Type Date Recorded Patient Marketing Intern Expl anation Advance Directives and Living Will 07/08/2003 LIVING WILL Power of Temporary Help Agency Referral Clerk 07/08/2003 POWER OF A TTORNEY [facility] POA * Full Code (Latest Code [...] Power of Attor liya? No Care Teams Temporary Receptionist Relationship Specialty Start Date End Date Maxine Boucher DO [address] [place] [address] PCP - General Family Medicine 12/14/19 documented as of this encounter
--- OUTSIDE RECORDS SUMMARY | 2025-01-04 12:33 | External Medical Summary | Summary of Care ---
Author Name Unknown Organization [facility] Address [address] [address] Phone [phone] Care Team Providers Care Front Office Medical Assistant Name Role Phone Boucher Igor Persaudvira Primary Care Provider Reason for Visit * Reason Onset Date Comments Advice 12/24/2024 Encounter Details Date Type Department Care Team (Late st Contact Info) Description 12/24/2024 Telephone Cardiology, [facility] [address] [place] [address] Alex Hayward MD [address] [place] [address] Advice Allergies Active Allergy Reactions Criticality Noted [...] 01/12/2019 05/15/2020 Overview (01/29/2021): DO NOT DELETE [employer] MAX Study: Project # [id number], Pulp Maker: Murphy Alicia, PhD. SUMMARY: Goal: Establish test [...] contact study staff at ; after hours Pulp Maker via the [facility] hospital lye machine operator . Please contact study team before resolving/deleting from patients problem list. Study phone number: [phone]. Diagnosis changed due to Research Module. Go to Snapshot for study details. Encounter for examination fo r normal comparison and control in clinical research program 01/12/2019 06/13/2022 Overview (01/29/2021): DO NOT DELETE - [employer] DETECT Study: Project # [id number], Pulp Maker: Ezequiel Christian, MS, MPH. SUMMARY: Goal: Establish [...] contact study staff at ; after hours Pulp Maker via the [facility] hospital lye machine operator . - Please contact study team before resolving/deleting from patients problem list. Study phone number: [phone]. Diagnosis changed due to Research Module. Go [...] mRNA, LNP-s, No Pre serve, 2-Dose Series ([employer]) 08/07/2021,12/25/2020,11/20/2020 COVID-19, LNP-s, No Preserve , Gus-sucrose, Ages 12+ (Pfizer) 04/30/2022 COVID-19, MRNA-LNP, PF, 30 M CG/0.3 mL, 12 YRS AND ABOVE, IM (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 Thank you. * Addendum Note - Jc Stubbs LPN - 12/24/2024 2:55 PM EDTAddended by: JC STUBBS on: 12/24/2024 02:55 PM Modules accepted: Orders * Telephone Encounter - Jc Stubbs LPN - 12/24/2024 2:54 PM EDT Medication list updated. Scheduling please assist. * Telephone Encounter - Alex Hayward MD - 12/24/2024 2:47 PM EDT Patient was hospitalized at [facility] following acute gastroenteritis. Found to be [...] Description 12/29/2024 9:00 AM EDT Office Visit [facility] [address] [place] [address] Igor Boucher DO [address] [place] [address] 02/17/2025 10:00 AM EDT Office Visit [facility] [address] [address] Igor Boucher DO [address] [place] [address] Scheduled Procedures Name Priority Associated Diagnoses Date/Ti [...] this encounter Medical Devices Implanted Type Area Peace Officer Device Identifier Shelf Expiration Date Model / Serial / Lot Lens Li61ao 13.00mm 19.00 - [id number] - [id number] Implanted:Qty: 1 on 07/15/2023 by Doron Toscano MD at OR [facility] Left: Eye BAUSCH & LOMB 04/11/2028 [id number] / [id number] / [id number] Lens Li61ao 13.00mm 17.50 - [id number] - [id number] Implanted:Qty: 1 on 07/29/2023 by Doron Toscano MD at OR [facility] Right: Eye BAUSCH & LOMB 03/12/2028 [id number] / [id number] / [id number] documented as of this encounter Advance Directives Documents on File Type Date Recorded Patient Tree Deadener Expl anation Advance Directives and Living Will 07/08/2003 LIVING WILL Power of Dry Ice Machine Operator 07/08/2003 POWER OF A TTORNEY [...] Power of Attor liya? No Care Teams Front Office Medical Assistant Relationship Specialty Start Date End Date Igor Boucher DO [address] [place] [address] PCP - General Family Medicine 12/14/19 documented as of this encounter
--- NOTE | 2025-01-04 13:23 | Cardiology Consultation ---
Date of Consultation January 04, 2025 Assessment & Plan (1) Atrial fibrillation with rapid ventricular response: Patient with ongoing symptomatic atrial fibrillation despite a trial of medical therapy x 11 days. Patient agreeable to proceeding with transesophageal echocardiogram guided direct-current cardioversion. Her last intake was coffee, half a cup, with cream, at 7 AM and therefore it has been over 6 hours. She had 2 pieces of pizza last evening for dinner at around 6 PM. Continue IV diltiazem and oral metoprolol for now. Continue Eliquis, most recent dose at 10:53 AM. (2) Acute on chronic heart failure with preserved ejection fraction (HFpEF): Proceed cardioversion as noted. Patient received a dose of IV furosemide 20 mg x 1 in the emergency department. Mild concentric left ventricular hypertrophy with hyperechoic myocardium noted on echocardiogram performed earlier this month suggestive of possible infiltrative process. A serum immunofixation study was performed with negative findings. Urine light chains were within normal limits. Will likely still need a dedicated monoclonal gammopathy screening panel as an outpatient and if negative, future considerations include cardiac MRI and nuclear medicine PYP scan. History of Present Illness Attending Physician: Ever Mendoza DO History of Present Illness Mrs. Najera is a 74 year old female seen in cardiology consultation per the request of Lia Carty PA-C for the valuation of persistent atrial fibrillation with rapid ventricular response. Patient presents today with worsening complaints of chest pressure and dyspnea on exertion. She had presented to this institution via the emergency department on 12/23/2024 with findings of nausea, vomiting and diarrhea. Her presentation was suggestive of a viral gastroenteritis. She was also found to be in atrial fibrillation with rapid ventricular response at that time which was a new diagnosis for her. She was started on medication including metoprolol and Eliquis. Transesophageal echocardiogram guided direct-current cardioversion was discussed with the patient but she elected to proceed with a trial of medical therapy. Over the last 10 days however she has felt quite symptomatic. After receiving oral metoprolol and IV diltiazem in the emergency department, her ventricular rates have improved from the 130s down to 100 225 bpm and she notes that she feels subjectively improved. She notes her gastrointestinal symptoms have resolved. She has been taking metoprolol and Eliquis at home without interruption since discharge on 12/24/2024, and received a dose of Eliquis in the emergency department this morning. Past Medical and Surgical History: Hypertension Dyslipidemia Probable TIA circa 3 years ago, did not seek care Hemorrhoids Bunion, status post surgery Cataract status post surgery Following with ophthalmology, elevated pressures, mother with glaucoma. Family History: Mother had atrial fibrillation diagnosed at the age of 90. She also had a history of colon cancer. She passed at the age of 93 from natural causes. Father committed suicide before patient was born. Oldest sister with a SEAT NAILER cancer. Another sister without known issues. Lost brother 1 year ago due to COPD. Social History: Smoker from her teenage years till around the age of 31. Alcohol: 4 beers per day. No illegal/illicit drug use. (Her spouse's name is Jt). Lives with her . 2 stepchildren. [facility]ired [employer], 30 years of service Allergies Allergy/AdvReac Type Severity Reaction Status Date / Time naproxen Allergy Intermediate Rash Unverified 12/23/24 13:17 hydrochlorothiazide AdvReac Intermediate Makes her Unverified 12/23/24 13:17 feel terrible Home Medications Medication Instructions Recorded Confirmed Type aspirin 81 mg tablet,delayed 81 mg PO QAM 12/23/24 01/04/25 History release cyanocobalamin (vitamin B-12) 1 tab PO DAILY 12/23/24 01/04/25 History duloxetine 30 mg capsule,delayed 30 mg PO QAM 12/23/24 01/04/25 History release levothyroxine 88 mcg tablet 88 mcg PO QAM 12/23/24 01/04/25 History magnesium 1 tab PO DAILY 12/23/24 01/04/25 History omeprazole 20 mg capsule,delayed 20 mg PO QAM 12/23/24 01/04/25 History release rosuvastatin 5 mg tablet 5 mg PO QAM 12/23/24 01/04/25 History apixaban 5 mg tablet (Eliquis) 5 mg PO BID #60 tabs 12/24/24 01/04/25 Rx metoprolol succinate 50 mg 50 mg PO BID #60 tabs 12/24/24 01/04/25 Rx tablet,extended release 24 hr Patient History Medical History New onset atrial fibrillation Social History Smoking Status: Never smoker Hx Alcohol Use: Yes Alcohol type: beer Hx Substance Use: No Preferred Language: Taiwanese Communication Ability: Effective Staff Field Engineer Required: No Beliefs That Will Affect Care: None Current Living Situation: Spouse Feels Safe at Home: Yes Assistive Devices: None Review of Systems Review of Systems: All systems reviewed & are unremarkable except as noted in HPI & below Physical Exam Physical Exam: Temp Pulse Resp BP Pulse Ox O2 Del Method 36.5 C 126 H 18 103/81 93 Room Air 01/04/25 08:22 01/04/25 12:05 01/04/25 12:00 01/04/25 12:00 01/04/25 12:13 01/04/25 12:13 General: no acute distress and stated age Eyes: conjunctiva are pink and non-injected, sclera clear Neck: normal jugular venous pulse, no hepatojugular reflux Chest: normal shape and normal respiratory effort Lungs: clear to auscultation and percussion Cardiac Exam: - Irregular rhythm, no murmurs, no edema Abdomen: abdomen soft, non-tender, no abnormal masses and no hepatosplenomegaly Musculoskeletal: no gait disturbance, no weakness Extremities: no edema and no cyanosis Neuro:awake, conversant, follows commands, no focal motor deficits Psych: appropriate affect and insight. Results & Data Vital Signs (Past 12 Hours) Vital Signs Temp Pulse Pulse Resp BP BP Pulse Ox 01/04/25 12:13 01/04/25 12:05 126 H 01/04/25 12:00 130 H 18 103/81 93 01/04/25 11:55 131 H 23 90 01/04/25 10:54 93 01/04/25 10:54 118 H 18 118/82 94 01/04/25 10:10 136 H 18 119/74 99 01/04/25 09:29 140 H 104/87 01/04/25 08:57 96 01/04/25 08:56 125 H 131/93 96 01/04/25 08:53 135 H 131/93 01/04/25 08:37 135 H 01/04/25 08:22 36.5 C 121 H 18 124/66 98 Pulse Ox O2 Del Method O2 Del Method 01/04/25 12:13 93 Room Air 01/04/25 12:05 01/04/25 12:00 Room Air 01/04/25 11:55 Room Air 01/04/25 10:54 Room Air 01/04/25 10:54 Room Air 01/04/25 10:10 Room Air 01/04/25 09:29 01/04/25 08:57 Room Air 01/04/25 08:56 Room Air 01/04/25 08:53 01/04/25 08:37 01/04/25 08:22 Room Air Laboratory Results Cardiac Enzymes 01/04/25 01/04/25 Range/Units 08:48 11:00 AST 14 (13-39) U/L Troponin I High Sens 4.9 < 2.3 (0-14) pg/ml B-Natriuretic Peptide 991 H (0-100) pg/ml Coagulation 01/04/25 Range/Units 08:48 PT 10.9 (9.0-12.0) Seconds APTT 26 (21-31) Seconds B-Natriuretic Peptide 991 H (0-100) pg/ml CBC 01/04/25 Range/Units 08:48 WBC 7.10 (4.8-10.8) K/ul RBC 4.06 L (4.20-5.40) M/uL Hgb 11.9 L (12.0-16.0) g/dl Hct 35.8 L (37.0-47.0) % Plt Count 302 (130-400) K/uL Neut # (Auto) 4.95 (1.40-6.50) K/uL Lymph # (Auto) 1.37 (1.20-3.40) K/uL [place] # (Auto) 0.58 (0.11-0.59) K/uL Eos # (Auto) 0.12 (0.00-0.50) K/uL Baso # (Auto) 0.05 (0.00-0.20) K/uL Comprehensive Metabolic Panel 01/04/25 Range/Units 08:48 Sodium 138 (136-145) mmol/L Potassium 4.2 (3.5-5.1) mmol/L Chloride 108 H (98-107) mmol/L Carbon Dioxide 23 (21-32) mmol/L BUN 16 (6-23) mg/dl Creatinine 0.91 (0.6-1.2) mg/dl Glucose 106 H (70-99(Fasting)) mg/dl Calcium 9.1 (8.6-10.3) mg/dl AST 14 (13-39) U/L ALT 21 (7-52) U/L Alkaline Phosphatase 91 (34-104) U/L Total Protein 6.2 (6.0-8.3) gm/dl Albumin 4.0 (3.4-5.0) gm/dl Intake and Output 01/03/25 01/04/25 01/04/25 22:59 06:59 14:59 Intake Total Output Total 200 / 200 Balance -192 / -192 Intake: IV dilTIAZem HCL 125 mg In Dextrose 5% 100 ml @ 5 MG/HR 5 mls/hr IV .Q24H [facility] Rx#: [id number] Output: Urine 200 / 200 Other: Weight 74.7 kg Weight Measurement Method Built in [facility] Patient Weight 01/05/25 06:59 Weight 74.7 kg Diagnostic Findings EKG performed today 01/04/2025 and reviewed independently: Atrial fibrillation with rapid ventricular spots, ventricular rate 141 bpm, no significant repolarization abnormalities, poor R wave progression noted in lead V2. Summary of transthoracic echocardiogram performed 12/23/2024: Mild concentric left ventricular prophy Myocardium is hyperechoic No left ventricular regional wall motion abnormalities The LVEF was noted to be at the lower limit of normal, 50 to 55% Mild left atrial lodgment Mild to moderate mitral regurgitation Very trivial posterior lateral pericardial effusion observed Chest x-ray performed today 01/04/2025: Mild interstitial edema with very small pleural effusions left greater than right radiology report describes an adjacent reticular pulmonary opacity in the lung bases which could represent atelectasis or early pneumonia
--- NOTE | 2025-01-04 13:34 | Anesthesiology Consultation ---
Date of Service January 04, 2025 Assessment & Plan ASA ASA3 Proposed Anesthesia Anesthesia Type: MAC Risk / Benefits Reviewed With: PT / POA / Parent / Guardian, Accepts Plan and Informed Consent Obtained History Surgery Operation Date: 01/04/25 13:30 Proposed Procedures p Transesophageal Echo - Jesus Blum DO s Cardioversion - Jesus Blum DO Height/Weight Height: 5 ft 5 in Weight: 74.7 kg Allergies Allergy/AdvReac Type Severity Reaction Status Date / Time naproxen Allergy Intermediate Rash Unverified 12/23/24 13:17 hydrochlorothiazide AdvReac Intermediate Makes her Unverified 12/23/24 13:17 feel terrible Medications Home Medications Medication Instructions Recorded Confirmed Last Taken aspirin 81 mg tablet,delayed 81 mg PO QAM 12/23/24 01/04/25 12/23/24 release cyanocobalamin (vitamin B-12) 1 tab PO DAILY 12/23/24 01/04/25 Unknown duloxetine 30 mg capsule,delayed 30 mg PO QAM 12/23/24 01/04/25 Unknown release levothyroxine 88 mcg tablet 88 mcg PO QAM 12/23/24 01/04/25 12/23/24 magnesium 1 tab PO DAILY 12/23/24 01/04/25 Unknown omeprazole 20 mg capsule,delayed 20 mg PO QAM 12/23/24 01/04/25 12/23/24 release rosuvastatin 5 mg tablet 5 mg PO QAM 12/23/24 01/04/25 Unknown apixaban 5 mg tablet (Eliquis) 5 mg PO BID #60 tabs 12/24/24 01/04/25 Unknown metoprolol succinate 50 mg 50 mg PO BID #60 tabs 12/24/24 01/04/25 Unknown tablet,extended release 24 hr Active Medications Generic Name Dose Route Start Last Admin Trade Name Freq PRN Reason Stop Dose Admin Diltiazem HCl 125 mg/ Dextrose 125 mls @ 10 mls/hr 01/04/25 10:00 01/04/25 11:57 IV 02/03/25 09:59 10 mg/hr .[id number] NATY 10 mls/hr Titration Protocol 10 MG/HR Potassium Chloride 20 meq 01/04/25 12:00 01/04/25 12:04 Potassium Chloride Crtab 20 Meq Tabcr PO 02/03/25 11:59 20 meq QAM NATY Administration Past Medical History Medical History New onset atrial fibrillation Exercise / Class Metabolic Activity II 4-5 Yardwork/Stairs/Walk up hill Past Anesthesia History No Hx of Anesthesia Complications and No Family Hx of Anesthesia Complications History of PONV No Hx of PONV and No Hx of Motion Sickness Social History Smoking Status: Never smoker Hx Alcohol Use: Yes Alcohol type: beer alcohol intake frequency: 3 or more drinks per day Hx Substance Use: No substance use type: does not use Review of Systems denies fever/cough/ colds/ chest pain/ SOB/ KHURRAM denies KHURRAM Physical Exam Vital Signs Last Vital Signs Temp 36.5 C 01/04/25 08:22 Pulse 126 H 01/04/25 12:05 Resp 18 01/04/25 12:00 BP 103/81 01/04/25 12:00 Pulse Ox 93 01/04/25 12:13 O2 Del Method Room Air 01/04/25 12:13 ENMT Mouth: no TMJ abnormality and no dentition abnormality Thyromental Distance: > or= 3.5 Finger Breadths Mallampati Class: II Neck neck extension not limited Respiratory normal respiratory effort; no respiratory distress Auscultation: lungs clear to auscultation bilaterally Cardiovascular Rate/Rhythm: regular rate and regular rhythm Neurologic moves all extremities Psychiatric Orientation: alert and oriented x 3 Testing Laboratory Results 01/04/25 08:48 01/04/25 08:48 PT 10.9 Seconds (9.0-12.0) 01/04/25 08:48 INR 1.0 (0.9-1.1) 01/04/25 08:48 APTT 26 Seconds (21-31) 01/04/25 08:48 Urine Color Yellow 01/04/25 Unknown Urine Appearance Clear (Clear) 01/04/25 Unknown Urine pH 7.0 (4.5-7.5) 01/04/25 Unknown Ur Specific [place] 1.006 (1.000-1.030) 01/04/25 Unknown Urine Protein Negative (Negative) 01/04/25 Unknown Urine Glucose (UA) Negative (Negative) 01/04/25 Unknown Urine Ketones Negative (Negative) 01/04/25 Unknown Urine Nitrite Negative (Negative) 01/04/25 Unknown Ur Leukocyte Esterase 2+ (Negative) H 01/04/25 Unknown Urine WBC (Auto) 0-5 /hpf (0-5) 01/04/25 Unknown Urine RBC (Auto) 0-2 /hpf (0-2) 01/04/25 Unknown U Hyaline Cast (Auto) 0-2 /lpf (0-2) 01/04/25 Unknown U Epithel Cells (Auto) 0-2 /hpf (0-2) 01/04/25 Unknown Urine Bacteria (Auto) None Seen (None Seen) 01/04/25 Unknown
--- NOTE | 2025-01-04 14:02 | Cardioversion ---
Date of Service January 04, 2025 Electrical Cardioversion Rpt Electrical Cardioversion Report Preprocedure diagnosis: Symptomatic atrial fibrillation with rapid ventricular response Post procedure diagnosis: No left atrial or left atrial appendage thrombus, mild to moderate mitral regurgitation, successful conversion to sinus rhythm Transesophageal echocardiogram guided direct-current cardioversion procedure: The patient's vital signs were monitored via the standard fashion. The patient was sedated with the assistance of the anesthesia service receiving a total of 160 mg of IV propofol, 40 mg of IV lidocaine, and 200 mcg of phenylephrine were administered for blood pressure support. The patient underwent a focused transesophageal echocardiogram. The left atrial appendage was well-visualized without evidence of thrombus. The mitral valve was assessed with findings of mild to moderate mitral regurgitation, no mitral valve prolapse. The patient then underwent direct-current cardioversion receiving a single dose of 200 J of biphasic energy with successful conversion to sinus rhythm. Individual Pension Consultant Jesus Blum DO Business Banking Officer Trisha Barba, RCS Estimated Blood Loss 0 Findings Consistent with Post-Op Diagnosis Anesthesia Type MAC Complications none Recommendations: Patient to proceed with hospitalization for optimization of her fluid status. Continue metoprolol. IV diltiazem has been discontinued. Continue Eliquis.
--- NOTE | 2025-01-04 14:28 | Electrocardiogram Report ---
Test Reason : Blood Pressure : */* mmHG Vent. Rate : 141 BPM Atrial Rate : * BPM P-R Int : * ms QRS Dur : 74 ms QT Int : 314 ms P-R-T Axes : * 130 50 degrees QTcB Int : 480 ms Atrial fibrillation with rapid ventricular response Right axis deviation Abnormal ECG When compared with ECG of 24-Dec-2024 05:07, QRS axis Shifted right Confirmed by Joon Bojorquez ([id number]) on 01/04/2025 2:27:58 PM Referred By: Confirmed By: Joon Bojorquez
--- NOTE | 2025-01-04 15:04 | Anesthesiology Progress Note ---
Date of Service January 04, 2025 Anesthesia Post Procedure Vital Signs Vital Signs: Temp Pulse Pulse Resp BP BP Pulse Ox 01/04/25 14:44 60 18 110/78 96 01/04/25 14:30 59 L 18 106/67 98 01/04/25 14:15 60 18 106/65 94 01/04/25 14:00 60 18 108/65 94 01/04/25 13:33 138 H 18 124/74 95 01/04/25 12:13 01/04/25 12:05 126 H 01/04/25 12:00 130 H 18 103/81 93 01/04/25 11:55 131 H 23 90 01/04/25 10:54 93 01/04/25 10:54 118 H 18 118/82 94 01/04/25 10:10 136 H 18 119/74 99 01/04/25 09:29 140 H 104/87 01/04/25 08:57 96 01/04/25 08:56 125 H 131/93 96 01/04/25 08:53 135 H 131/93 01/04/25 08:37 135 H 01/04/25 08:22 36.5 C 121 H 18 124/66 98 Pulse Ox O2 Del Method O2 Del Method O2 Flow Rate 01/04/25 14:44 Nasal Cannula 2 01/04/25 14:30 Nasal Cannula 2 01/04/25 14:15 Nasal Cannula 3 01/04/25 14:00 Nasal Cannula 3 01/04/25 13:33 Room Air 01/04/25 12:13 93 Room Air 01/04/25 12:05 01/04/25 12:00 Room Air 01/04/25 11:55 Room Air 01/04/25 10:54 Room Air 01/04/25 10:54 Room Air 01/04/25 10:10 Room Air 01/04/25 09:29 01/04/25 08:57 Room Air 01/04/25 08:56 Room Air 01/04/25 08:53 01/04/25 08:37 01/04/25 08:22 Room Air Transfer of Care Handoff Completed per policy Notes Mental Status: alert / awake / arousable and participated in evaluation Patient Amnestic to Procedure: Yes Nausea / Vomiting: adequately controlled Pain: adequately controlled Airway Patency, RR, SpO2: stable & adequate BP & HR: stable & adequate Hydration State: stable & adequate Anesthetic Complications: no major complications apparent and Pt Satisfied with anesthetic care
[2025-01-04] MEDS: METOPROLOL SUCC 50MG EXT REL TAB PO SCH (20:08)
[2025-01-04] MEDS: APIXABAN 5 MG TABLET PO SCH (20:08)
[2025-01-05] MEDS: BENZOCAINE/TETRACAIN/BUTAM 50 APPLN/5 GM CAN EXT ONE (00:54)
[2025-01-05] MEDS: FUROSEMIDE INJ 20 MG/2 ML VIAL IV ONE ×2 (03:39→10:59)
[2025-01-05] MEDS: ALBUT/IPRATROP 3MG/0.5MG NEB 3 ML VIAL NEB STA (03:41)
[2025-01-05] MEDS: LEVOTHYROXINE SODIUM 88 MCG TABLET PO SCH (05:36)
[2025-01-05 06:17] LABS: Hematocrit (blood only) 35.1 % (37.0-47.0); Hemoglobin 11.9 g/dl (12.0-16.0); Mean Corpuscular Hemoglobin 29.6 pg (25.0-34.0); Mean Corpuscular Hgb Conc 33.9 g/dL (32.0-36.0); Mean Corpuscular Volume 87.3 fL (80.0-100.0); Platelet Count 293 K/uL (130-400); RDW Coefficient of Variation 13.2 % (11.5-14.5); RDW Standard Deviation 41.8 fL (36.4-46.3); Red Blood Count 4.02 M/uL (4.20-5.40); White Blood Count 5.18 K/ul (4.8-10.8)
[2025-01-05 06:31] LABS: BUN Creatinine Ratio 18.4 (10-20); Calcium 9.1 mg/dl (8.6-10.3); Creatinine Clr Calc Pharmacy 47.1 ml/min; Magnesium 2.2 mg/dl (1.7-2.4); Potassium 3.4 mmol/L (3.5-5.1)
[2025-01-05 07:15] VITALS: TEMP 97.7
[2025-01-05] MEDS ORDERED: FUROSEMIDE INJ 20 MG/2 ML VIAL IV SCH (09:00)
[2025-01-05] MEDS: ASPIRIN 81 MG ECTAB PO SCH (09:08)
[2025-01-05] MEDS: ROSUVASTATIN CALCIUM 5 MG TAB PO SCH (09:08)
[2025-01-05] MEDS: DULoxetine HCL 30 MG CAP PO SCH (09:09)
[2025-01-05] MEDS: PANTOprazole 40 MG TAB PO SCH (09:09)
[2025-01-05] MEDS: POTASSIUM CHLORIDE CRTAB 20 MEQ TABCR PO STA ×2 (09:15→10:58)
--- NOTE | 2025-01-05 09:47 | Electrocardiogram Report ---
Test Reason : Blood Pressure : */* mmHG Vent. Rate : 61 BPM Atrial Rate : 61 BPM P-R Int : 220 ms QRS Dur : 84 ms QT Int : 418 ms P-R-T Axes : 64 -29 33 degrees QTcB Int : 420 ms Sinus rhythm with 1st degree A-V block Otherwise normal ECG When compared with ECG of 04-Jan-2025 08:30, Sinus rhythm has replaced Atrial fibrillation Vent. rate has decreased by 80 bpm QRS axis Shifted left Confirmed by Joon Bojorquez ([id number]) on 01/05/2025 9:46:33 AM Referred By: REFERRED SELF Confirmed By: Joon Bojorquez
--- NOTE | 2025-01-05 10:09 | Cardiology Progress Note ---
Date of Service January 05, 2025 Assessment & Plan (1) Atrial fibrillation with rapid ventricular response: Plan: This IV diltiazem discontinued at the time of cardioversion yesterday. Continue metoprolol succinate 50 mg twice daily. Continue Eliquis 5 mg twice daily. Patient has a history of a remote TIA. Is difficult to determine if that may have been atrial fibrillation related with atrial fibrillation finally being detected within the last month or a separate issue. She has been on aspirin for stroke prophylaxis for years and will continue aspirin 81 mg daily in addition to the Eliquis. (2) Acute on chronic heart failure with preserved ejection fraction (HFpEF): Plan: Furosemide 20 mg x 1 this morning, supplement potassium. Changed to furosemide 20 mg p.o. daily to start 01/06/2025, discharged on potassium chloride 20 mill equivalents p.o. daily along with the furosemide. Mild concentric left ventricular hypertrophy with hyperechoic myocardium noted on echocardiogram performed earlier this month suggestive of possible infiltrative process. A serum immunofixation study was performed with negative findings. Urine light chains were within normal limits. Will likely still need a dedicated monoclonal gammopathy screening panel as an outpatient and if negative, future considerations include cardiac MRI and nuclear medicine PYP scan. Disposition plan: Patient already has an outpatient cardiology follow-up visit scheduled, 01/27/25. Orders placed in outpatient chart for PYP scan and repeat gammopathy panel. Admission and Anticipated Discharge Date Admission Date: January 04, 2025 Subjective Patient seen in cardiology follow-up of dyspnea exertion. She had undergone transesophageal echocardiogram guided direct-current cardioversion yesterday which she tolerated well. She remains in sinus rhythm. Per review of telemetry, rates were mostly in the 60s during sleep last night and into the 80s in bed this morning. Patient notes feeling well. She did receive a dose of IV furosemide last night and another dose this morning. She required oxygen last night but has been weaned to room air. Physical Exam Physical Exam: Temp Pulse Resp BP Pulse Ox O2 Del Method O2 Flow Rate 36.5 C 74 17 140/81 96 Nasal Cannula 1 01/05/25 07:14 01/05/25 07:14 01/05/25 07:14 01/05/25 07:14 01/05/25 07:14 01/05/25 07:31 01/05/25 07:31 General: no acute distress and stated age Eyes: conjunctiva are pink and non-injected, sclera clear Neck: normal jugular venous pulse, no hepatojugular reflux Chest: normal shape and normal respiratory effort Lungs: clear to auscultation and percussion Cardiac Exam: - Irregular rhythm, no murmurs, no edema Abdomen: abdomen soft, non-tender, no abnormal masses and no hepatosplenomegaly Musculoskeletal: no gait disturbance, no weakness Extremities: no edema and no cyanosis Neuro:awake, conversant, follows commands, no focal motor deficits Psych: appropriate affect and insight. Results & Data Vital Signs (Past 12 Hours) Vital Signs Temp Pulse Resp BP Pulse Ox O2 Del Method O2 Flow Rate 01/05/25 07:31 Nasal Cannula 1 01/05/25 07:14 36.5 C 74 17 140/81 96 Room Air 01/05/25 03:42 67 18 91 Nasal Cannula 1 01/05/25 03:16 36.6 C 69 18 115/69 99 Room Air, Nasal Cannula 1.0 01/04/25 23:00 36.7 C 68 19 126/82 90 Room Air Laboratory Results Cardiac Enzymes 01/04/25 Range/Units 11:00 Troponin I High Sens < 2.3 (0-14) pg/ml CBC 01/05/25 Range/Units 05:41 WBC 5.18 (4.8-10.8) K/ul RBC 4.02 L (4.20-5.40) M/uL Hgb 11.9 L (12.0-16.0) g/dl Hct 35.1 L (37.0-47.0) % Plt Count 293 (130-400) K/uL Comprehensive Metabolic Panel 01/05/25 Range/Units 05:41 Sodium 139 (136-145) mmol/L Potassium 3.4 L (3.5-5.1) mmol/L Chloride 104 (98-107) mmol/L Carbon Dioxide 29 (21-32) mmol/L BUN 18 (6-23) mg/dl Creatinine 0.98 (0.6-1.2) mg/dl Glucose 110 H (70-99(Fasting)) mg/dl Calcium 9.1 (8.6-10.3) mg/dl Diagnostic Findings EKG performed this morning 01/05/2025 at 5:23 AM revealed sinus rhythm at 69 bpm, poor R wave progression noted in the anterior precordial leads, otherwise normal EKG.
--- NOTE | 2025-01-05 10:43 | Electrocardiogram Report ---
Test Reason : Blood Pressure : */* mmHG Vent. Rate : 69 BPM Atrial Rate : 69 BPM P-R Int : 192 ms QRS Dur : 88 ms QT Int : 446 ms P-R-T Axes : 52 -8 27 degrees QTcB Int : 477 ms Normal sinus rhythm Poor R wave progression, consider anterior NH vs. lead placement vs. LVH Abnormal ECG When compared with ECG of 04-Jan-2025 14:00, (unconfirmed) T wave amplitude has decreased in Anterior leads QT has lengthened Confirmed by Joon Bojorquez ([id number]) on 01/05/2025 10:42:52 AM Referred By: REFERRED SELF Confirmed By: Joon Bojorquez
--- NOTE | 2025-01-05 11:01 | Communication Note ---
By CMS guidelines, a determination that the admission or continued stay is not medically necessary has been made by a member of the UR committee and a physician for this hospital stay, therefore a Code 44 will be completed and the Inpatient admission will be changed to outpatient. Date of Service: January 05, 2025
[2025-01-05 11:30] VITALS: BP 123/72; RESP 18; O2SAT 94
[2025-01-05 11:47] VITALS: PULSE 59
--- NOTE | 2025-01-05 16:51 | Discharge Summary ---
Discharge Summary Date of Service January 05, 2025 Principal Dx & Hospital Course #1 = Principal Diagnosis (1) Persistent atrial fibrillation with rapid ventricular response: (2) Acute on chronic heart failure with preserved ejection fraction (HFpEF): (3) Chest pain: (4) SOB (shortness of breath): (5) HTN, goal below 130/80: (6) Dyslipidemia, goal LDL below 100: (7) Hypothyroidism: Plan This is a 74 yr old F who has a significant PMH of Persistent Afib, HTN and HLD who presents to ED 2/2 worsening chest tightness and shortness of breath. Of significance pt was recently hospitalized from 12/23-12/24 2/2 new onset atrial f ibrillation. #Persistent Atrial fibrillation with RVR #Acute on Chronic HFpEF 2/2 above #Chest pain/LIZAMA 2/2 above pt fitbit with HRS ranging from 30s-180 every day since discharge suspect pt not tolerating rhythm along with uncontrolled rates leading to a decompensation in HFpEF Pt missed todays metoprolol and eliquis, ordered in ED started on diltiazem bolus and gtt in ED, received 1 dose of IV lopressor w/o improvement Receiving Lasix IV 20mg daily echo from recent admission notable for hyperechogenic myocardium with mild concentric LVH, mild to moderate mitral regurgitation, trivial posterolateral pericardial effusion, mildly dilated left atrium, EF 50 to 55%. K and Mag acceptable -s/p cardioversion -patient doing well post op, recommending lasix outpatient HTN: bp controlled, recently amlodipine and irbesartan was d/c in favor of metoprolol due to lower BP HLD: chronic, stable on statin Hx of TIA: asa, statin Hypothyroidism: on Synthroid, TSH last admission WNL, 3.2 uIu/ml Notes For Next Care Provider This is a 74 yr old F who has a significant PMH of Persistent Afib, HTN and HLD who presents to ED 2/2 worsening chest tightness and shortness of breath. Of significance pt was recently hospitalized from 12/23-12/24 2/2 new onset atrial fibrillation. Upon admission, cardiology consulted, recommended KEISHA guided cardioversion which was performed without complications. Per cardiology and medicine, patient medically ready for discharge. Discharged with potassium and lasix. Medication Changes From Visit -potassium, lasix Admission HPI Per Admitting Provider This is a 74 yr old F who has a significant PMH of Persistent Afib, HTN and HLD who presents to ED 2/2 worsening chest tightness and shortness of breath. Of significance pt was recently hospitalized from 12/23-12/24 2/2 new onset atrial fibrillation. Pt was started on metoprolol and IV heparin. Echo notable for a hyperechogenic myocardium with mild concentric LVH, mild to moderate mitral regurgitation, trivial posterolateral pericardial effusion, mildly dilated left atrium, EF 50 to 55%. No regional wall motion abnormalities observed. Her metoprolol was uptitrated to 50mg bid and she was transitioned to eliquis. It was recommended she undergo a KEISHA and DCCV, but pt declined. She was discharged with outpt follow up. Prior to his hospitalization she had a GI illness with n/v/d which is thought to have precipitated this event. Since discharge she continues to report worsening SOB with exertion and at rest. She also exhibits substernal chest tightness that is constant and worse with exertion. She further complaints of 2 pillow orthopnea and fatigue. Due to worsening sx she presented back to the ED. she reports compliance with her eliquis and metoprolol, except for this morning. She denies any f/c/s, dizziness, lightheaded, cough, hemoptysis, n/v/d, change in bowel or urinary habits. She has not weighed herself since discharge so is unaware of any weight changes. She denies any peripheral edema. Pt does have a fitbit. She pulled up her data on her hunter which shows her HR anywhere from 30s-180 every day since discharge and registering as atrial fibrillation. She doesn't have means to check BP/Pulse at home. She currently is retired, lives at home with her and is typically independent at baseline. She is a former smoker and drinks beer daily. Discharge Exam Gen: A&O 3 NAD HEENT: NCAT, EOMI, not icteric. External ears normal. No rhinorrhea. Moist mucous membranes. Neck: Supple, full range of motion, no observable masses, No meningeal sign. Lungs: No Respiratory distress. CV: RRR, no edema. Abdomen: Soft, nondistended, No rebound tenderness. MSK: No joint swelling, no redness. Skin: No rashes, petechiae, lesions. Normal color per patient. Neuro: Normal Gait, Grossly intact. Psych: Appropriate for situation. Updated Medication List Medication Instructions Recorded Confirmed Type aspirin 81 mg tablet,delayed 81 mg PO QAM 12/23/24 01/04/25 History release cyanocobalamin (vitamin B-12) 1 tab PO DAILY 12/23/24 01/04/25 History duloxetine 30 mg capsule,delayed 30 mg PO QAM 12/23/24 01/04/25 History release levothyroxine 88 mcg tablet 88 mcg PO QAM 12/23/24 01/04/25 History omeprazole 20 mg capsule,delayed 20 mg PO QAM 12/23/24 01/04/25 History release rosuvastatin 5 mg tablet 5 mg PO QAM 12/23/24 01/04/25 History apixaban 5 mg tablet (Eliquis) 5 mg PO BID #60 tabs 12/24/24 01/04/25 Rx metoprolol succinate 50 mg 50 mg PO BID #60 tabs 12/24/24 01/04/25 Rx tablet,extended release 24 hr furosemide 20 mg tablet 20 mg PO DAILY #30 tabs 01/05/25 Rx potassium chloride 20 mEq 20 meq PO QAM #30 tabs 01/05/25 Rx tablet,extended release(part/cryst) Hospital Stay Data Consultations 01/04/25 10:08 ED Decision to Admit Stat 01/04/25 10:38 Consult Cardiology Routine 01/04/25 12:30 Consult Anesthesiology Routine Procedures Performed Operation Date: 01/04/25 13:30 Actual Procedures s Echo Color Flow - Jesus Blum DO p Echo Transesophageal - DO juan carlos Leblanc Cardioversion - DO juan carlos Leblanc Doppler Echo Limited/Follow Up - Jesus Blum DO Pending Results Patient Have Any Pending Studies at Discharge: Yes Discharge Instructions Given to Patient (Per Discharging Provider) 1. Please follow up with PCP and cardiology. 2. Please take medications as prescribed. Total Time Total Time Spent Total Time Spent (In Minutes): I spent a total of 35 minutes in direct patient care, including [id number] time with the patient and/or family, reviewing medical records, ordering and reviewing diagnostic tests, and coordinating care with other healthcare providers. This time includes: history taking, physical examination, medical decision making, counseling, ECG interpretation, imaging interpretation, lab interpretation, orders, and education, excluding time spent in the performance of separately billed services.
[2025-01-06] MEDS ORDERED: FUROSEMIDE INJ 20 MG/2 ML VIAL IV SCH (09:00)
--- OUTSIDE RECORDS SUMMARY | 2025-01-17 16:36 | External Medical Summary | Summary of Care ---
Author Name Unknown Organization [facility] Address [address] [address] Phone [phone] Care Team Providers Care Renewable Energy Broker Name Role Phone Maxine Boucher DO Primary Care Provider Reason for Visit * Reason Comments eRx-Medication Refill Encounter Details Date Type Department Care Team (Late st Contact Info) Description 01/11/2025 Refill Family Practice [facility] [address] [place] [address] Maxine Boucher DO [address] [place] [address] Allergies Active Allergy Reactions Criticality Noted Date Comments Hydrochlorothiazide 05/12/2018 Nauseaous and low energy Naproxen Rash High 11/26/2007 Bullous eruption on hands, phototoxicity documented as of this encounter (statuses as of 01/12/2025) Medications aspirin enteric coated 81 MG TBEC Take 1 Tab by mouth daily. 100 Tab 3 018 Active Vitamin B-12 1000 MCG Oral Tablet (Cyanocobalami n) Take 1 Tablet by mouth in the morning. 90 Tablet 3 024 Active Magnesium Oxide 400 MG Oral TabletIndicati ons:Leg cramping Take 1 Tablet by mouth in the morning. 30 Tablet 11 02/17/20 24 10:47 AM EDT 024 Active Omeprazole 20 MG Oral Capsule Delayed Release (PriLOSEC)Patrizia cations:Esopha geal reflux Take 1 capsule by mouth in the morning 90 Capsule 3 024 Active Rosuvastatin Calcium 5 MG Oral Tablet (Crestor) TAKE 1 TABLET BY MOUTH IN THE MORNING 90 Tablet 1 024 Active Eliquis 5 MG Oral Tablet Take 1 Tablet by mouth in the morning and 1 Tablet before bedtime. 025 Active DULoxetine HCl 20 MG Oral Capsule Delayed Release Particles (Cymbalta)Patrizia cations:Chroni c pain of right knee,Major depressive disorder in full remission, unspecified whether recurrent (HCC) Take 2 Capsules by mouth in the morning. Do not cut, crush or chew. 60 Capsule 5 025 Active Metoprolol Succinate ER 50 MG Oral Tablet Extended Release 24 Hour (toPROL XL) Take 1 Tablet by mouth in the morning and 1 Tablet before bedtime. 025 Active Levothyroxine Sodium 88 MCG Oral Tablet (Levoxyl) TAKE 1 TABLET BY MOUTH IN THE MORNING AT LEAST 30 MINUTES PRIOR TO BREAKFAST OR MEDICATIONS 90 Tablet 3 025 Active Furosemide 20 MG Oral Tablet (Lasix) Take 1 Tablet by mouth in the morning. 025 Active Potassium Chloride Alma Rosa ER 20 MEQ Oral Tablet Extended Release Take 20 Milliequivalent by mouth in the morning. 025 Active Levothyroxine Sodium 88 MCG Oral Tablet (Levoxyl) TAKE 1 TABLET BY MOUTH IN THE MORNING AT LEAST 30 MINUTES PRIOR TO BREAKFAST OR MEDICATIONS 90 Tablet 1 024 2024 Discontinued documented as of this encounter (statuses as of 01/12/2025) Active Problems Problem Noted Date Diagnosed Date Chronic pain of right knee 02/06/2021 HTN, goal below 130/80 12/14/2019 Other specified hypothyroidism 12/30/2002 CANCER OF COLON,FAM HX - Mom 03/10/1998 Menopause 03/10/1998 CARDIAC MURMURS NEC documented as of this encounter (statuses as of 01/12/2025) Resolved Problems Problem Noted Date Diagnosed Date Resolved Date Encounter for examination fo r normal comparison and control in clinical research program 01/12/2019 05/15/2020 Overview (01/29/2021): DO NOT DELETE [facility] DETECT Study: Project # [id number], Load Out Worker: Murphy Alicia, PhD. SUMMARY: Goal: Establish [...] contact study staff at ; after hours Load Out Worker via the [facility] digital printer operator . Please contact study team before resolving/deleting from patients problem list. Study phone number: [phone]. Diagnosis changed due to Research Module. Go to Snapshot for study details. Encounter for examination fo r normal comparison and control in clinical research program 01/12/2019 06/13/2022 Overview (01/29/2021): DO NOT DELETE - Asaf SANTANA Study: Project # [id number], Load Out Worker: Ezequiel Christian, MS, MPH. SUMMARY: Goal: [...] contact study staff at ; after hours Load Out Worker via the [facility] digital printer operator . - Please contact study team before resolving/deleting from patients problem list. Study phone number: [phone]. Diagnosis changed due to Research Module. Go to Snapshot for study details. ADVANCE DIRECTIVE INFORMATION 08/20/2006 08/16/2024 Overview (08/20/2006): Pt will bring copy at next visit. Special screening for malign ant neoplasms, colon 01/30/2006 04/08/2019 Overview (01/30/2006): Colonoscopy 01/21/06 --hyperplastic polyp--repeat 5 years documented as of this encounter (statuses as of 01/12/2025) Immunizations Name Administration Dates Next Due COVID-19 mRNA, LNP-s, No Pre serve, 2-Dose Series ([employer]) 08/07/2021,12/25/2020,11/20/2020 COVID-19, LNP-s, No Preserve , Gus-sucrose, Ages 12+ (Pfizer) 04/30/2022 COVID-19, MRNA-LNP, PF, 30 M CG/0.3 mL, 12 YRS AND ABOVE, IM ([employer]-Comirnat) 08/13/2023 Covid-19, Mrna, Lnp-s, Pf, B ivalent, 30 Mcg, IM, 12 yrs and above ([employer] [place]) 08/08/2022 Pneumococcal Conjugate Vacc, 13 Valent (Prevnar) [...] older, IM (Adacel) 06/13/2010 Varicella Zoster Vaccine Mitchell lt (Zostavax) 10/12/2012 Zoster Vaccine Recombinant (Shingrix) 09/01/2019 ,04/19/2019 [...] 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 Not on file Not on fi le documented as of this encounter Miscellaneous Notes * Telephone Encounter - Balwinder Jones RPh - 01/12/2025 11:41 AM EDT Signed Prescriptions: Disp Refills Levothyroxine Sodium 88 MCG Oral Tablet (L*90 Tab*3 Sig: TAKE 1 TABLET BY MOUTH IN THE MORNING AT LEAST 30 MINUTES PRIOR TO BREAKFAST OR MEDICATIONSAuthorizing Provider: MAXINE BOUCHER User: BALWINDER JONES documented in this encounter Plan of Treatment Upcoming Encounters Date Type Department Care Team (Late st Contact Info) Description 01/25/2025 1:00 PM EDT Appointment Radiology, [address] [address] 01/25/2025 4:00 PM EDT Appointment Radiology, [address] [address] 01/25/2025 4:30 PM EDT Appointment Radiology, [address] [address] 01/27/2025 11:30 AM EDT Office Visit Cardiology, [facility] [address] [facility] [place] [address] Evelyn Vogt PA-C [address] [facility] [place] [address] 02/17/2025 10:00 AM EDT Office Visit [facility] [address] [facility] [place] [address] Maxine Boucher DO [address] [facility] [place] [address] 07/01/2025 10:40 AM EDT Office Visit [facility] [address] [facility] [place] [address] Lisa Ramírez CRNP [address] [facility] [place] [address] Scheduled Procedures Name Priority Associated Diagnoses Date/Ti [...] this encounter Medical Devices Implanted Type Area Advertising Account Manager Device Identifier Shelf Expiration Date Model / Serial / Lot Lens Li61ao 13.00mm 19.00 - [id number] - [id number] Implanted:Qty: 1 on 07/15/2023 by Doron Toscano MD at OR [facility] Left: Eye [employer] 04/11/2028 [id number] / [id number] / [id number] Lens Li61ao 13.00mm 17.50 - [id number] - [id number] Implanted:Qty: 1 on 07/29/2023 by Doron Toscano MD at OR [facility] Right: Eye [employer] 03/12/2028 [id number] / [id number] / [id number] documented as of this encounter Advance Directives Documents on File Type Date Recorded Patient Registry Np Expl anation Advance Directives and Living Will 07/08/2003 LIVING WILL Power of Handicrafts Teacher 07/08/2003 POWER OF A TTORNEY DURABLE [...] Power of Attor liya? No Care Teams Renewable Energy Broker Relationship Specialty Start Date End Date Maxine Boucher DO [address] [place] [address] PCP - General Family Medicine 12/14/19 documented as of this encounter
--- OUTSIDE RECORDS SUMMARY | 2025-01-17 16:36 | External Medical Summary | Summary of Care ---
Author Name Unknown Organization [facility] Address [address] [facility] [place] [address] Phone [phone] Care Team Providers Care Door To Door Selling Agent Name Role Phone Sander Igor Persaudvira Primary Care Provider Encounter Details Date Type Department Care Team (Late st Contact Info) Description 12/24/2024 Result Scan Unspecified Department <No scans attached> Allergies Active Allergy Reactions Criticality Noted Date Comments Hydrochlorothiazide 05/12/2018 Nauseaous and low energy Naproxen Rash High 11/26/2007 Bullous eruption on hands, phototoxicity documented as of this encounter (statuses as of 01/13/2025) Medications aspirin enteric coated 81 MG TBEC Take 1 Tab by mouth daily. 100 Tab 3 02/23/2018 Active Vitamin B-12 1000 MCG Oral Tablet (Cyanocobalamin ) Take 1 Tablet by mouth in the morning. 90 Tablet 3 01/13/2024 Active Magnesium Oxide 400 MG Oral TabletIndicatio ns:Leg cramping Take 1 Tablet by mouth in the morning. 30 Tablet 11 02/17/2024 10:47 AM EDT 02/17/2024 Active Omeprazole 20 MG Oral Capsule Delayed Release (PriLOSEC)Indic ations:Esophage al reflux Take 1 capsule by mouth in the morning 90 Capsule 3 03/15/2024 Active Rosuvastatin Calcium 5 MG Oral Tablet (Crestor) TAKE 1 TABLET BY MOUTH IN THE MORNING 90 Tablet 1 09/29/2024 Active Eliquis 5 MG Oral Tablet Take 1 Tablet by mouth in the morning and 1 Tablet before bedtime. 12/24/2024 Active documented as of this encounter (statuses as of 01/13/2025) Active Problems Problem Noted Date Diagnosed Date Chronic pain of right knee 02/06/2021 HTN, goal below 130/80 12/14/2019 Other specified hypothyroidism 12/30/2002 CANCER OF COLON,FAM HX - Mom 03/10/1998 Menopause 03/10/1998 CARDIAC MURMURS NEC documented as of this encounter (statuses as of 01/13/2025) Resolved Problems Problem Noted Date Diagnosed Date Resolved Date Encounter for examination fo r normal comparison and control in clinical research program 01/12/2019 05/15/2020 Overview (01/29/2021): DO NOT DELETE [employer] DETECT Study: Project # [id number], Meter Installer And Remover: Murphy Alicia, PhD. SUMMARY: Goal: Establish test [...] study staff at ; after hours Meter Installer And Remover via the [facility] hospital senior boiler operator . Please contact study team before resolving/deleting from patients problem list. Study phone number: [phone]. Diagnosis changed due to Research Module. Go to Snapshot for study details. Encounter for examination fo r normal comparison and control in clinical research program 01/12/2019 06/13/2022 Overview (01/29/2021): DO NOT DELETE [employer] DETECT Study: Project # [id number], Meter Installer And Remover: Ezequiel Christian, MS, MPH. SUMMARY: Goal: Establish [...] study staff at ; after hours Meter Installer And Remover via the [facility] hospital senior boiler operator . - Please contact study team before resolving/deleting from patients problem list. Study phone number: [phone]. Diagnosis changed due to Research Module. Go to Snapshot for study details. ADVANCE DIRECTIVE INFORMATION 08/20/2006 08/16/2024 Overview (08/20/2006): Pt will bring copy at next visit. Special screening for malign ant neoplasms, colon 01/30/2006 04/08/2019 Overview (01/30/2006): Colonoscopy 01/21/06 --hyperplastic polyp--repeat 5 years documented as of this encounter (statuses as of 01/13/2025) Immunizations Name Administration Dates Next Due COVID-19 mRNA, LNP-s, No Pre serve, 2-Dose Series (Dot) 08/07/2021,12/25/2020,11/20/2020 COVID-19, LNP-s, No Preserve , Gus-sucrose, Ages 12+ (Pfizer) 04/30/2022 COVID-19, MRNA-LNP, PF, 30 M CG/0.3 mL, 12 YRS AND ABOVE, IM ([employer]-Comirnaty) 08/13/2023 Covid-19, Mrna, Lnp-s, Pf, B ivalent, 30 Mcg, IM, 12 yrs and above (Dot) 08/08/2022 Pneumococcal Conjugate Vacc, 13 Valent (Prevnar) [...] No 09/02/2024 Does the household have a [facility] source of income? 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 Not on fi le documented as of this encounter Plan of Treatment Upcoming Encounters Date Type Department Care Team (Late st Contact Info) Description 01/25/2025 1:00 PM EDT Appointment Radiology, [address] [address] 01/25/2025 4:00 PM EDT Appointment Radiology, [address] [address] 01/25/2025 4:30 PM EDT Appointment Radiology, [place] [address] [place] [address] 01/27/2025 11:30 AM EDT [facility] [place] [phone] Evelyn Vogt PA-C [address] [facility] [place] [address] 02/17/2025 10:00 AM EDT Office Visit [facility] [address] [facility] [place] [address] Igor Boucher DO [address] [place] [address] 07/01/2025 10:40 AM EDT Office Visit [facility] [address] [facility] [place] [address] Lisa Ramírez CRNP [address] [place] [address] Scheduled Procedures Name Priority Associated Diagnoses Date/Ti [...] 12/03/2025 023, 02/06/2021, 05/24/2020 GFR 01/03/2026 01/03/2025, 040 11/2023, 12/03/2022, Additional history exists TSH 01/03/2026 01/03/2025, 040 11/2023, 12/03/2022, Additional history exists Colonoscopy 12/10/2027 12/10/2022, 11/14, 01/31/2017, Additional history exists Colorectal Cancer Screening 12/10/2027 DXA Scan 05/24/2029 05/24/2024, 05/13, 12/03/2016 Lipid Panel 01/03/2030 01/03/2025, 0 11/2023, 12/03/2022, Additional history exists DTap/Tdap Vaccines [...] this encounter Medical Devices Implanted Type Area Medical Transcription Device Identifier Shelf Expiration Date Model / Serial / Lot Lens Li61ao 13.00mm 19.00 - [id number] - [id number] Implanted:Qty: 1 on 07/15/2023 by Doron Toscano MD at OR [facility] Left: Eye [employer] 04/11/2028 [id number] / [id number] / [id number] Lens Li61ao 13.00mm 17.50 - [id number] - [id number] Implanted:Qty: 1 on 07/29/2023 by Doron Toscano MD at OR [facility] Right: Eye [employer] 03/12/2028 [id number] / [id number] / [id number] documented as of this encounter Procedures Procedure Name Priority Date/Time Associated Diagnosis Comments EKG SCANNED RESULT 12/24/2024 EKG SCANNED RESULT 12/23/2024 documented in this encounter Results * EKG SCANNED RESULT (12/24/2024) 12/24/2024 us No Physician Data Unknown EKG Final Result * EKG SCANNED RESULT (12/23/2024) 12/23/2024 us No Physician Data Unknown EKG Final Result documented in this encounter Advance Directives Documents on File Type Date Recorded Patient Inventory Taker Expl anation Advance Directives and Living Will 07/08/2003 LIVING WILL Power of Regulatory Agency Director 07/08/2003 POWER OF A TTORNEY DURABLE HEALTHCARE [...] Power of Attor liya? No Care Teams Door To Door Selling Agent Relationship Specialty Start Date End Date Igor Boucher DO [address] [place] [address] PCP - General Family Medicine 12/14/19 documented as of this encounter
== END 2025-01-05 12:47 | disposition home or self-care (01) | DRG 308 ==
LOC: ED 08:09 → OBSVTOIN 10:10 → SUATTDRO 10:10 → EDINP 10:10 → INTOOBSV 10:10 → EDINP 11:46 → 2S 15:19

== ENCOUNTER 2025-01-11 15:20 | Inpatient (IN) ==
[2025-01-11] MEDS: SODIUM CHLORIDE 0.9% 1,000 ML IV ONE (16:47)
[2025-01-11 16:53] LABS: Basophils # (auto) 0.03 K/uL (0.00-0.20); Basophils % (auto) 0.5 %; Eosinophils # (auto) 0.12 K/uL (0.00-0.50); Eosinophils % (auto) 2.2 %; Hematocrit (blood only) 35.7 % (37.0-47.0); Hemoglobin 11.9 g/dl (12.0-16.0); Immature Granulocytes # (auto) 0.04 K/uL (0.01-0.20); Immature Granulocytes % (auto) 0.7 %; Lymphocytes # (auto) 1.73 K/uL (1.20-3.40); Lymphocytes % (auto) 31.3 %; Mean Corpuscular Hemoglobin 29.1 pg (25.0-34.0); Mean Corpuscular Hgb Conc 33.3 g/dL (32.0-36.0); Mean Corpuscular Volume 87.3 fL (80.0-100.0); Mean Platelet Volume 10.7 fL (9.4-12.4); Monocytes % (auto) 9.1 %; Neutrophils % (auto) 56.2 %; Platelet Count 233 K/uL (130-400); RDW Coefficient of Variation 13.2 % (11.5-14.5); RDW Standard Deviation 41.2 fL (36.4-46.3); Red Blood Count 4.09 M/uL (4.20-5.40); White Blood Count 5.52 K/ul (4.8-10.8)
[2025-01-11 17:09] LABS: Albumin Globulin Ratio 1.8 (0.9-2); Albumin Level 4.3 gm/dl (3.4-5.0); BUN Creatinine Ratio 20.4 (10-20); Bilirubin,Total 0.5 mg/dl (0.2-1.0); Calcium 9.1 mg/dl (8.6-10.3); Creatinine Clr Calc Pharmacy 47.8 ml/min; Globulin 2.4 gm/dl (2.5-4.0); Magnesium 2.1 mg/dl (1.7-2.4); Total Protein 6.7 gm/dl (6.0-8.3)
[2025-01-11 17:14] LABS: Troponin I High Sensitivity 3.3 pg/ml (0-14)
[2025-01-11 17:17] LABS: Prothrombin Time 10.9 Seconds (9.0-12.0)
[2025-01-11 17:23] LABS: Thyroid Stimulating Hormone 0.672 uIu/ml (0.300-4.500)
--- NOTE | 2025-01-11 17:44 | Emergency Department Note ---
Impression & Plan Atrial fibrillation with rapid ventricular response, Chest pain, Dyspnea ED Provider Note ED Provider Note NAME: STAR BENNETT AGE:74 SEX: Female : 1950 ARRIVES VIA: Private vehicle INFORMANT: Patient ED PROVIDER(s): Kinza Chaidez DO CHIEF COMPLAINT: Atrial fibrillation, chest pain, shortness of breath HPI: This is a 74-year-old female who presents emerged department after being referred here by his PCP due to concern for recurrent atrial fibrillation with RVR. Patient admits to some recent chest pain and shortness of breath. Patient states 2 weeks ago she was admitted with norovirus and found to be in rapid A- fib. She states she underwent cardiology evaluation while here including an echo and was seen by Dr. Blum. She states she ultimately underwent a cardioversion. She states she felt well for several days however approximately 2 to 3 days ago noticed that her Fitbit watch said that her heart rate was significantly elevated again. She began to notice that she was more short of breath with exertion and was intermittently having chest discomfort. She denies overt pain including any radiation into the neck, back, or arms. She denies nausea or vomiting, and states her appetite has slowly returned since the episode of norovirus. She states her stools are almost back to normal. She states she does feel as though she is staying well-hydrated. PAST MEDICAL HISTORY:See Below PAST SURGICAL HISTORY:See Below FAMILY HISTORY:See Below SOCIAL HISTORY:See Below HOME MEDICATIONS:See Below ALLERGIES:See Below VITALS:See Below PHYSICAL EXAMINATION: GENERAL: alert, well appearing, well nourished, no distress, non-toxic EYE EXAM: normal conjunctiva, PERRL and EOM's grossly intact OROPHARYNX: no exudate, no erythema, lips, buccal mucosa, and tongue normal and mucous membranes are moist NECK: supple, no nuchal rigidity, no adenopathy, non-tender LUNGS: Clear to auscultation. Normal chest wall mechanics, no w/r/r HEART: no murmurs, S1 normal and S2 normal ABDOMEN: abdomen soft, non-tender, normo-active bowel sounds, no masses, no rebound or guarding. BACK: Back is symmetrical on inspection and there is no deformity, no midline tenderness, no CVA tenderness. SKIN: no rashes, petechiae, orbruising UPPER EXTREMITIES: upper extremities are grossly normal. FROM, nml pulses b/l. LOWER EXTREMITIES: No pitting edema. FROM, nml pulses b/l. NEURO EXAM: Normal sensorium, cranial nerves II-XII grossly intact, normal speech, no facial droop,nogross weakness of arms, no gross weakness of legs. Gross sensation intact. No ataxia. Vital Signs: reviewed and remarkable Differential Diagnosis: acute coronary syndrome, pericarditis, pulmonary embolus, aortic dissection, pneumonia, pneumothorax, musculoskeletal pain, shingles, GERD, GI bleed, as well as others were considered MEDICAL DECISION MAKING: This is a 74-year-old female who presents emergency department after being referred here by her PCP due to finding of tachycardia in the office. Patient with recent diagnosis of atrial fibrillation. Patient was discharged on Eliquis and metoprolol. She states she had been cardioverted during her stay and felt well after until a few days ago when she began noticing intermittent chest pressure and dyspnea on exertion again. Patient was noted to have an elevated heart rate here and was in rapid A-fib. Initial blood pressure was borderline low however she had no accompanying pain, no increased work of breathing and was not hypoxic. Labs drawn and sent, IV established, EKG and chest x-ray performed at bedside interpreted by me and patient monitored on telemetry. After review of her recent cardiology evaluation including echo, and cardioversion, patient given IV fluids and then a dose of IV metoprolol. She did have mild improvement in her heart rate and blood pressure improved additionally. Patient's labs and imaging reassuring. Patient given her evening dose of oral metoprolol, and heart rate improved to the 1 teens. She was given additional 5 mg of metoprolol in case discussed via [place] text with on-call cardiology. We discussed if rate could be controlled and she was feeling well, we could increase her metoprolol as an outpatient she could follow-up with cardiology in the office. Patient with persistent rapid A-fib despite additional metoprolol dose in the ER. She was concerned due to persistent symptoms additionally as when she went to use the restroom she still felt more dyspneic than normal and had some slight chest discomfort. Case discussed with the hospitalist team for additional evaluation and management. I did give patient a one-time dose of Cardizem IV and updated the hospitalist on her response and consideration for additional rate controlling agents. I do not suspect recurrent infection. Patient's electrolytes were well-appearing. She states she has been compliant with her medications including her Eliquis. Consultation(s): 2021: Discussed with Dr. Damian, cardiology, via [place] text. Recommended increasing metoprolol to 75 mg twice daily if patient improved and rate can be controlled for her to go home. 2311: Discussed with Dr. Preston, [facility]ist team, for additional evaluation and management. ER Treatment Provided: See below Diagnostics Interpreted By Me: -EKG 1: Atrial fibrillation at 146, normal axis, normal intervals, no acute ST/T wave changes -ECG 2: Atrial fibrillation at 121, leftward axis, normal intervals, no acute ST/T wave changes -Cardiac Monitoring: An order was placed for continuous cardiac monitoring. The monitor shows a rate of 133 with atrial fibrillation rhythm. -Laboratory studies: As stated above and show below. -Imaging studies: X-ray Chest: A single view study of the chest was reviewed and was negative for cardiomegaly, focal infiltrate, effusion, pulmonary edema, or wide mediastinum. Triage Nursing Note Reviewed Prior/Outside Records Reviewed -cardiology consultation, echo, and cardioversion from 2 weeks ago reviewed Past Med/Surg History Problem List (Updated 01/12/25 @ 13:24 by Nilam Da Silva PA-C) Hypertension Chronic heart failure with preserved ejection fraction Dyspnea (Acute) Chest pain (Acute) Elevated brain natriuretic peptide (BNP) level (Acute) CHF (congestive heart failure) (Acute) Atrial fibrillation with rapid ventricular response (Acute) LIZAMA (dyspnea on exertion) (Acute) Acute on chronic heart failure with preserved ejection fraction (HFpEF) SOB (shortness of breath) Chest pain Persistent atrial fibrillation with rapid ventricular response Hypothyroidism Dehydration Dyslipidemia, goal LDL below 100 HTN, goal below 130/80 Viral gastroenteritis New onset atrial fibrillation Hypokalemia (Acute) Atrial fibrillation with rapid ventricular response (Acute) Medical History New onset atrial fibrillation Social History Smoking Status: Never smoker Second Hand Exposure: No; Do You Dip or Chew Tobacco: No; Hx Alcohol Use: Yes Alcohol type: beer Hx Substance Use: No Preferred Language: Korean Communication Ability: Effective Academic Counselor Required: No Beliefs That Will Affect Care: None Current Living Situation: Spouse Feels Safe at Home: Yes Safety Concerns: Feels Safe At This Time Assistive Devices: None Allergies Allergies Allergy/AdvReac Type Severity Reaction Status Date / Time naproxen Allergy Intermediate Rash Unverified 01/11/25 17:59 hydrochlorothiazide AdvReac Intermediate Makes her Unverified 01/11/25 17:59 feel terrible Home Meds Home Medications Medication Instructions Recorded Confirmed aspirin 81 mg tablet,delayed 81 mg PO QAM 12/23/24 01/11/25 release levothyroxine 88 mcg tablet 88 mcg PO QAM 12/23/24 01/11/25 omeprazole 20 mg capsule,delayed 20 mg PO QAM 12/23/24 01/11/25 release rosuvastatin 5 mg tablet 5 mg PO QAM 12/23/24 01/11/25 cyanocobalamin (vitamin B-12) 1,000 mcg sublingual QAM 01/11/25 01/11/25 1,000 mcg sublingual tablet duloxetine 20 mg capsule,delayed 40 mg PO QAM 01/11/25 01/11/25 release furosemide 20 mg tablet 20 mg PO QAM 01/11/25 01/11/25 Previous Rx's Medication Instructions Recorded apixaban 5 mg tablet (Eliquis) 5 mg PO BID #60 tabs 12/24/24 metoprolol succinate 50 mg 50 mg PO BID #60 tabs 12/24/24 tablet,extended release 24 hr potassium chloride 20 mEq 20 meq PO QAM #30 tabs 01/05/25 tablet,extended release(part/cryst) Results & Data (ED) Vital Signs Vital Signs - 24 hr 01/11/25 15:26 01/11/25 16:00 01/11/25 16:03 Temperature 36.6 C Temperature Source Temporal Artery Scan Pulse Rate 135 H 128 H Pulse Rate [Apical] Pulse Rate from SpO2 Sensor 119 H Pulse Rhythm [Apical] Pulse Strength [Apical] Respiratory Rate 18 26 H Respiratory Effort / Characteristics Non-Labored Spontaneous Respiratory Depth Normal Respiratory Pattern Blood Pressure 102/66 114/71 Blood Pressure [Right Arm] Blood Pressure Mean 78 78 Blood Pressure Mean [Right Arm] Blood Pressure Position Sitting Blood Pressure Position [Right Arm] Pulse Oximetry 97 96 Oxygen Delivery Method Room Air Sepsis Recent Fever Within 48 Hours No Sepsis New/Unexplained Change in Mental Status No Sepsis Action Taken by Nursing No Action Required 01/11/25 16:28 01/11/25 16:30 01/11/25 16:32 Temperature Temperature Source Pulse Rate 135 H Pulse Rate [Apical] Pulse Rate from SpO2 Sensor 120 H Pulse Rhythm [Apical] Pulse Strength [Apical] Respiratory Rate 26 H Respiratory Effort / Characteristics Respiratory Depth Respiratory Pattern Blood Pressure 91/73 L Blood Pressure [Right Arm] Blood Pressure Mean 78 Blood Pressure Mean [Right Arm] Blood Pressure Position Blood Pressure Position [Right Arm] Pulse Oximetry 93 Oxygen Delivery Method Room Air Sepsis Recent Fever Within 48 Hours Sepsis New/Unexplained Change in Mental Status Sepsis Action Taken by Nursing 01/11/25 16:32 01/11/25 16:33 01/11/25 16:57 Temperature Temperature Source Pulse Rate 134 H 130 H Pulse Rate [Apical] Pulse Rate from SpO2 Sensor 128 H 127 H Pulse Rhythm [Apical] Pulse Strength [Apical] Respiratory Rate 16 19 Respiratory Effort / Characteristics Respiratory Depth Respiratory Pattern Blood Pressure 91/73 L Blood Pressure [Right Arm] Blood Pressure Mean 78 Blood Pressure Mean [Right Arm] Blood Pressure Position Blood Pressure Position [Right Arm] Pulse Oximetry 98 97 Oxygen Delivery Method Sepsis Recent Fever Within 48 Hours Sepsis New/Unexplained Change in Mental Status Sepsis Action Taken by Nursing 01/11/25 17:00 01/11/25 17:08 01/11/25 18:01 Temperature Temperature Source Pulse Rate 150 H Pulse Rate [Apical] Pulse Rate from SpO2 Sensor Pulse Rhythm [Apical] Pulse Strength [Apical] Respiratory Rate Respiratory Effort / Characteristics Respiratory Depth Respiratory Pattern Blood Pressure 118/87 139/58 L Blood Pressure [Right Arm] Blood Pressure Mean 97 124 Blood Pressure Mean [Right Arm] Blood Pressure Position Blood Pressure Position [Right Arm] Pulse Oximetry Oxygen Delivery Method Sepsis Recent Fever Within 48 Hours Sepsis New/Unexplained Change in Mental Status Sepsis Action Taken by Nursing 01/11/25 18:03 01/11/25 18:24 01/11/25 18:31 Temperature Temperature Source Pulse Rate 140 H 148 H Pulse Rate [Apical] Pulse Rate from SpO2 Sensor 130 H 124 H Pulse Rhythm [Apical] Pulse Strength [Apical] Respiratory Rate 22 24 Respiratory Effort / Characteristics Respiratory Depth Respiratory Pattern Blood Pressure 126/62 Blood Pressure [Right Arm] Blood Pressure Mean 77 Blood Pressure Mean [Right Arm] Blood Pressure Position Blood Pressure Position [Right Arm] Pulse Oximetry 98 95 Oxygen Delivery Method Sepsis Recent Fever Within 48 Hours Sepsis New/Unexplained Change in Mental Status Sepsis Action Taken by Nursing 01/11/25 19:00 01/11/25 19:00 01/11/25 19:32 Temperature Temperature Source Pulse Rate 115 H 139 H Pulse Rate [Apical] 123 H Pulse Rate from SpO2 Sensor 104 H Pulse Rhythm [Apical] Irregular Pulse Strength [Apical] Normal Respiratory Rate 18 24 27 H Respiratory Effort / Characteristics Non-Labored Spontaneous Respiratory Depth Normal Respiratory Pattern Regular Blood Pressure 122/88 136/101 H Blood Pressure [Right Arm] 122/88 Blood Pressure Mean 99 106 Blood Pressure Mean [Right Arm] 99 Blood Pressure Position Blood Pressure Position [Right Arm] Lying Pulse Oximetry 96 97 Oxygen Delivery Method Room Air Sepsis Recent Fever Within 48 Hours Sepsis New/Unexplained Change in Mental Status Sepsis Action Taken by Nursing 01/11/25 19:33 01/11/25 19:54 01/11/25 19:57 Temperature Temperature Source Pulse Rate 131 H 116 H 127 H Pulse Rate [Apical] Pulse Rate from SpO2 Sensor 131 H Pulse Rhythm [Apical] Pulse Strength [Apical] Respiratory Rate 21 Respiratory Effort / Characteristics Respiratory Depth Respiratory Pattern Blood Pressure 136/101 H 115/94 Blood Pressure [Right Arm] Blood Pressure Mean 101 Blood Pressure Mean [Right Arm] Blood Pressure Position Blood Pressure Position [Right Arm] Pulse Oximetry 93 Oxygen Delivery Method Sepsis Recent Fever Within 48 Hours Sepsis New/Unexplained Change in Mental Status Sepsis Action Taken by Nursing 01/11/25 20:01 01/11/25 20:01 01/11/25 20:15 Temperature Temperature Source Pulse Rate Pulse Rate [Apical] Pulse Rate from SpO2 Sensor Pulse Rhythm [Apical] Pulse Strength [Apical] Respiratory Rate Respiratory Effort / Characteristics Respiratory Depth Respiratory Pattern Blood Pressure 109/71 109/71 130/88 Blood Pressure [Right Arm] Blood Pressure Mean 84 84 102 Blood Pressure Mean [Right Arm] Blood Pressure Position Blood Pressure Position [Right Arm] Pulse Oximetry Oxygen Delivery Method Sepsis Recent Fever Within 48 Hours Sepsis New/Unexplained Change in Mental Status Sepsis Action Taken by Nursing 01/11/25 20:15 01/11/25 20:34 01/11/25 21:12 Temperature Temperature Source Pulse Rate 129 H 120 H Pulse Rate [Apical] 132 H Pulse Rate from SpO2 Sensor 106 H Pulse Rhythm [Apical] Regular Pulse Strength [Apical] Normal Respiratory Rate 21 20 Respiratory Effort / Characteristics Non-Labored Spontaneous Respiratory Depth Normal Respiratory Pattern Regular Blood Pressure 130/88 130/99 Blood Pressure [Right Arm] 118/87 Blood Pressure Mean 102 Blood Pressure Mean [Right Arm] 97 Blood Pressure Position Blood Pressure Position [Right Arm] Lying Pulse Oximetry 95 95 Oxygen Delivery Method Room Air Sepsis Recent Fever Within 48 Hours Sepsis New/Unexplained Change in Mental Status Sepsis Action Taken by Nursing 01/11/25 23:00 01/11/25 23:15 01/11/25 23:31 Temperature Temperature Source Pulse Rate Pulse Rate [Apical] 143 H Pulse Rate from SpO2 Sensor Pulse Rhythm [Apical] Irregular Pulse Strength [Apical] Respiratory Rate 18 Respiratory Effort / Characteristics Non-Labored Spontaneous Respiratory Depth Normal Respiratory Pattern Regular Blood Pressure 127/93 108/82 Blood Pressure [Right Arm] 94/72 L Blood Pressure Mean 97 97 Blood Pressure Mean [Right Arm] 79 Blood Pressure Position Blood Pressure Position [Right Arm] Sitting Pulse Oximetry 94 Oxygen Delivery Method Room Air Sepsis Recent Fever Within 48 Hours Sepsis New/Unexplained Change in Mental Status Sepsis Action Taken by Nursing 01/11/25 23:39 01/11/25 23:48 01/11/25 23:52 Temperature Temperature Source Pulse Rate 92 H 106 H Pulse Rate [Apical] Pulse Rate from SpO2 Sensor Pulse Rhythm [Apical] Pulse Strength [Apical] Respiratory Rate 15 Respiratory Effort / Characteristics Respiratory Depth Respiratory Pattern Blood Pressure 103/72 Blood Pressure [Right Arm] Blood Pressure Mean 90 Blood Pressure Mean [Right Arm] Blood Pressure Position Blood Pressure Position [Right Arm] Pulse Oximetry Oxygen Delivery Method Sepsis Recent Fever Within 48 Hours Sepsis New/Unexplained Change in Mental Status Sepsis Action Taken by Nursing 01/11/25 23:57 01/12/25 00:00 01/12/25 00:00 Temperature Temperature Source Pulse Rate Pulse Rate [Apical] 94 H Pulse Rate from SpO2 Sensor Pulse Rhythm [Apical] Regular Pulse Strength [Apical] Normal Respiratory Rate 16 Respiratory Effort / Characteristics Non-Labored Spontaneous Respiratory Depth Normal Respiratory Pattern Regular Blood Pressure 109/76 109/76 Blood Pressure [Right Arm] 103/72 Blood Pressure Mean 86 86 Blood Pressure Mean [Right Arm] 82 Blood Pressure Position Blood Pressure Position [Right Arm] Lying Pulse Oximetry 92 Oxygen Delivery Method Room Air Sepsis Recent Fever Within 48 Hours Sepsis New/Unexplained Change in Mental Status Sepsis Action Taken by Nursing 01/12/25 00:09 01/12/25 00:15 01/12/25 00:15 Temperature Temperature Source Pulse Rate 107 H 112 H Pulse Rate [Apical] Pulse Rate from SpO2 Sensor 112 H 116 H Pulse Rhythm [Apical] Pulse Strength [Apical] Respiratory Rate 20 23 Respiratory Effort / Characteristics Respiratory Depth Respiratory Pattern Blood Pressure 96/69 L Blood Pressure [Right Arm] Blood Pressure Mean 86 Blood Pressure Mean [Right Arm] Blood Pressure Position Blood Pressure Position [Right Arm] Pulse Oximetry 92 91 Oxygen Delivery Method Sepsis Recent Fever Within 48 Hours Sepsis New/Unexplained Change in Mental Status Sepsis Action Taken by Nursing 01/12/25 00:15 01/12/25 00:24 01/12/25 00:27 Temperature Temperature Source Pulse Rate 105 H Pulse Rate [Apical] Pulse Rate from SpO2 Sensor Pulse Rhythm [Apical] Pulse Strength [Apical] Respiratory Rate 19 Respiratory Effort / Characteristics Respiratory Depth Respiratory Pattern Blood Pressure 96/69 L 108/82 Blood Pressure [Right Arm] Blood Pressure Mean 86 96 Blood Pressure Mean [Right Arm] Blood Pressure Position Blood Pressure Position [Right Arm] Pulse Oximetry 94 Oxygen Delivery Method Sepsis Recent Fever Within 48 Hours Sepsis New/Unexplained Change in Mental Status Sepsis Action Taken by Nursing 01/12/25 00:30 01/12/25 00:42 Temperature Temperature Source Pulse Rate 122 H 103 H Pulse Rate [Apical] Pulse Rate from SpO2 Sensor 120 H 125 H Pulse Rhythm [Apical] Pulse Strength [Apical] Respiratory Rate 17 22 Respiratory Effort / Characteristics Respiratory Depth Respiratory Pattern Blood Pressure 112/85 99/77 L Blood Pressure [Right Arm] Blood Pressure Mean 94 84 Blood Pressure Mean [Right Arm] Blood Pressure Position Blood Pressure Position [Right Arm] Pulse Oximetry 90 90 Oxygen Delivery Method Sepsis Recent Fever Within 48 Hours Sepsis New/Unexplained Change in Mental Status Sepsis Action Taken by Nursing Laboratory Data 01/12/25 05:39 01/13/25 05:44 Lab Results 01/11/25 01/11/25 Range/Units 16:10 18:28 WBC 5.52 (4.8-10.8) K/ul RBC 4.09 L (4.20-5.40) M/uL Hgb 11.9 L (12.0-16.0) g/dl Hct 35.7 L (37.0-47.0) % MCV 87.3 (80.0-100.0) fL MCH 29.1 (25.0-34.0) pg MCHC 33.3 (32.0-36.0) g/dL RDW Std Deviation 41.2 (36.4-46.3) fL RDW Coeff of [place] 13.2 (11.5-14.5) % Plt Count 233 (130-400) K/uL MPV 10.7 (9.4-12.4) fL Immature Gran % (Auto) 0.7 % Neut % (Auto) 56.2 % Lymph % (Auto) 31.3 % [place] % (Auto) 9.1 % Eos % (Auto) 2.2 % Baso % (Auto) 0.5 % Neut # (Auto) 3.10 (1.40-6.50) K/uL Lymph # (Auto) 1.73 (1.20-3.40) K/uL [place] # (Auto) 0.50 (0.11-0.59) K/uL Eos # (Auto) 0.12 (0.00-0.50) K/uL Baso # (Auto) 0.03 (0.00-0.20) K/uL Immature Gran # (Auto) 0.04 (0.01-0.20) K/uL PT 10.9 (9.0-12.0) Seconds INR 1.0 (0.9-1.1) Sodium 139 (136-145) mmol/L Potassium 4.0 (3.5-5.1) mmol/L Chloride 107 (98-107) mmol/L Carbon Dioxide 25 (21-32) mmol/L Anion Gap 7 (3-11) BUN 20 (6-23) mg/dl Creatinine 0.98 (0.6-1.2) mg/dl Est Cr Clr Drug Dosing 47.8 ml/min eGFR 60.95 BUN/Creatinine Ratio 20.4 H (10-20) Glucose 96 (70-99(Fasting)) mg/dl Calcium 9.1 (8.6-10.3) mg/dl Magnesium 2.1 (1.7-2.4) mg/dl Total Bilirubin 0.5 (0.2-1.0) mg/dl AST 14 (13-39) U/L ALT 15 (7-52) U/L Alkaline Phosphatase 97 (34-104) U/L Troponin I High Sens 3.3 (0-14) pg/ml Total Protein 6.7 (6.0-8.3) gm/dl Albumin 4.3 (3.4-5.0) gm/dl Globulin 2.4 L (2.5-4.0) gm/dl Albumin/Globulin Ratio 1.8 (0.9-2) Lipase 32 (11-82) U/L TSH 0.672 (0.300-4.500) uIu/ml Urine Color Yellow Urine Appearance Clear (Clear) Urine pH 5.0 (4.5-7.5) Ur Specific [place] 1.017 (1.000-1.030) Urine Protein Negative (Negative) Urine Glucose (UA) Negative (Negative) Urine Ketones Negative (Negative) Urine Blood Negative (Negative) Urine Nitrite Negative (Negative) Urine Bilirubin Negative (Negative) Urine Urobilinogen Negative (Negative) Ur Leukocyte Esterase Trace H (Negative) Urine WBC (Auto) 0-5 (0-5) /hpf Urine RBC (Auto) 0-2 (0-2) /hpf U Hyaline Cast (Auto) 0-2 (0-2) /lpf U Epithel Cells (Auto) 0-2 (0-2) /hpf Urine Bacteria (Auto) None Seen (None Seen) Administered Medications Apixaban (Apixaban 5 Mg Tablet) 5 mg PO BID [facility] Stop: 02/11/25 08:59 Last Admin: 01/13/25 09:06 Dose: 5 mg Documented By: LORI Co-signed By: BRIEN Admin: 01/12/25 21:01 Dose: 5 mg Documented By: Admin: 01/12/25 08:56 Dose: 5 mg Documented By: ONEIDA Aspirin (Aspirin 81 Mg Ectab) 81 mg PO [facility] Stop: 02/11/25 08:59 Last Admin: 01/13/25 09:06 Dose: 81 mg Documented By: LORI Co-signed By: BRIEN Admin: 01/12/25 08:55 Dose: 81 mg Documented By: ONEIDA Cyanocobalamin (Cyanocobalamin (B-12) 500 Mcg Tablet) 1,000 mcg PO [facility] Stop: 02/11/25 08:59 Last Admin: 01/13/25 09:06 Dose: 1,000 mcg Documented By: LORI Co-signed By: BRIEN Admin: 01/12/25 08:55 Dose: 1,000 mcg Documented By: ONEIDA Duloxetine HCl (Duloxetine Hcl 20 Mg Cap) 40 mg PO QAM [facility] Stop: 02/11/25 08:59 Last Admin: 01/13/25 09:05 Dose: 40 mg Documented By: LORI Co-signed By: BRIEN Admin: 01/12/25 08:56 Dose: 40 mg Documented By: ONEIDA Furosemide (Furosemide 20 Mg Tab) 20 mg PO QAM [facility] Stop: 02/11/25 08:59 Last Admin: 01/13/25 09:06 Dose: 20 mg Documented By: LORI Co-signed By: BRIEN Admin: 01/12/25 08:56 Dose: 20 mg Documented By: ONEIDA Magnesium Sulfate/Dextrose (Magnesium Sulfate / D5w) 1 gm in 100 mls @ 50 mls/hr IV Q2H [facility] Stop: 01/13/25 12:14 Last Admin: 01/13/25 10:57 Dose: 50 mls/hr Documented By: LORI Co-signed By: BRIEN Infusion: 01/13/25 10:57 Dose: Infused Documented By: LORI Co-signed By: BRIEN Admin: 01/13/25 09:11 Dose: 50 mls/hr Documented By: LORI Co-signed By: BRIEN Levothyroxine Sodium (Levothyroxine Sodium 88 Mcg Tablet) 88 mcg PO DAILYBB [facility] Stop: 02/11/25 06:29 Last Admin: 01/13/25 06:01 Dose: 88 mcg Documented By: Admin: 01/12/25 05:40 Dose: 88 mcg Documented By: CRISITNA Metoprolol Tartrate (Metoprolol Tartrate 1 Mg/Ml Vial) 5 mg IV Q6H PRN PRN Reason: HR > 120 Stop: 02/11/25 04:13 Last Admin: 01/13/25 06:01 Dose: 5 mg Documented By: Admin: 01/12/25 08:58 Dose: 5 mg Documented By: ONEIDA Pantoprazole S[facility] ([facility]op[facility]ole 40 Mg Tab) [facility] [place]: 02/11/25 08:59 Last Admin: 01/13/25 09:06 Dose: 40 mg Documented By: LORI Co-signed By: BRIEN Admin: 01/12/25 08:55 Dose: 40 mg Documented By: ONEIDA Potassium Chloride (Potassium Chloride Crtab 20 Meq Tabcr) 20 meq PO QAM [facility] Stop: 02/11/25 08:59 Last Admin: 01/13/25 09:09 Dose: 20 meq Documented By: LORI Co-signed By: BRIEN Admin: 01/12/25 08:55 Dose: 20 meq Documented By: ONEIDA Rosuvastatin Calcium (Rosuvastatin Calcium 5 Mg Tab) 5 mg PO QAM [facility] Stop: 02/11/25 08:59 Last Admin: 01/13/25 09:06 Dose: 5 mg Documented By: LORI Co-signed By: BRIEN Admin: 01/12/25 08:55 Dose: 5 mg Documented By: ONEIDA Sotalol HCl (Sotalol Hcl 80 Mg Tab) 80 mg PO BID [facility] Stop: 02/11/25 11:29 Last Admin: 01/13/25 09:06 Dose: 80 mg Documented By: LORI Co-signed By: BRIEN Admin: 01/12/25 21:01 Dose: 80 mg Documented By: Admin: 01/12/25 12:23 Dose: 80 mg Documented By: ONEIDA Discontinued Medications Diltiazem HCl (Diltiazem Hcl 5 Mg/Ml 5 Ml Vial) 10 mg IV NOW STA Stop: 01/11/25 23:01 Last Admin: 01/11/25 23:27 Dose: 10 mg Documented By: KAIA Co-signed By: LYNNE Sodium Chloride (Nss) 1,000 mls @ 999 mls/hr IV .Q1H1M ONE Stop: 01/11/25 17:35 Last Infusion: 01/11/25 18:28 Dose: Infused Documented By: Admin: 01/11/25 16:47 Dose: 999 mls/hr Documented By: CEF Sodium Chloride (Nss) 1,000 mls @ 125 mls/hr IV .Q8H NATY Stop: 01/12/25 23:44 Last Infusion: 01/13/25 01:20 Dose: Infused Documented By: Admin: 01/12/25 17:13 Dose: 125 mls/hr Documented By: Infusion: 01/12/25 16:52 Dose: Infused Documented By: Admin: 01/12/25 08:52 Dose: 125 mls/hr Documented By: Infusion: 01/12/25 07:55 Dose: Infused Documented By: Admin: 01/11/25 23:55 Dose: 125 mls/hr Documented By: KAIA Metoprolol Succinate (Metoprolol Succ 50mg Ext Rel Tab) 50 mg PO NOW STA Stop: 01/11/25 17:47 Last Admin: 01/11/25 18:26 Dose: 50 mg Documented By: MINO Metoprolol Succinate (Metoprolol Succ 25mg Ext Rel Tab) 25 mg PO NOW STA Stop: 01/11/25 20:35 Last Admin: 01/11/25 22:15 Dose: 25 mg Documented By: KAIA Metoprolol Succinate (Metoprolol Succ 50mg Ext Rel Tab) 50 mg PO BID NATY Stop: 02/11/25 08:59 Last Admin: 01/12/25 08:57 Dose: 50 mg Documented By: ONEIDA Metoprolol Tartrate (Metoprolol Tartrate 1 Mg/Ml Vial) 5 mg IV NOW STA Stop: 01/11/25 19:25 Last Admin: 01/11/25 19:33 Dose: 5 mg Documented By: KAIA Metoprolol Tartrate (Metoprolol Tartrate 1 Mg/Ml Vial) 2.5 mg IV Q6H PRN PRN Reason: HR > 120 Stop: 02/11/25 04:13 Last Admin: 01/12/25 05:34 Dose: 2.5 mg Documented By: [facility] Imaging Data Radiologist's Impression: Chest X-Ray 01/11/25 16:36 EXAM: XR chest 1V portable CLINICAL HISTORY: A FIB. TECHNIQUE: An X-ray image of the chest is obtained in PA projection. COMPARISON: dated 01/04/2025 FINDINGS: Pulmonary Parenchyma: Lungs are clear bilaterally. No evidence of consolidation, collapse, or focal opacities. No pulmonary nodules are identified. No evidence of pleural effusion or pleural thickening. Heart and Mediastinum: Cardiomegaly noted with congested both jabari. No mediastinal widening or masses. No hilar or mediastinal lymphadenopathy. Bony Thorax: Thoracic scoliosis with convexity to the right side noted. Bony thorax appears intact without fractures or deformities. Soft Tissues: Soft tissues overlying the chest wall are unremarkable. Cardiac monitoring electrodes. IMPRESSION: 1. Cardiomegaly noted with congested both jabari, interval reduced. 2. No evidence of consolidation, collapse, or focal opacities. 3. Thoracic scoliosis with convexity to the right side noted, stable. Electronically signed by Ziggy Zayas 01-11-2025 6:16 PM Discharge Plan Visit Data Chief Complaint: Cardiac Assessment Stated Complaint: A-FIB ED Provider: Kinza Chaidez Discharge Problem: Atrial fibrillation with rapid ventricular response, Chest pain, Dyspnea Patient Disposition: Admitted As Inpatient Discharge Instructions Interventions: ED Discharge Assessment Last Done: 01/12/25 03:43
--- NOTE | 2025-01-11 18:16 | XRay Report ---
EXAM: XR chest 1V portable CLINICAL HISTORY: A FIB. TECHNIQUE: An X-ray image of the chest is obtained in PA projection. COMPARISON: CR dated 01/04/2025 FINDINGS: Pulmonary Parenchyma: Lungs are clear bilaterally. No evidence of consolidation, collapse, or focal opacities. No pulmonary nodules are identified. No evidence of pleural effusion or pleural thickening. Heart and Mediastinum: Cardiomegaly noted with congested both jabari. No mediastinal widening or masses. No hilar or mediastinal lymphadenopathy. Bony Thorax: Thoracic scoliosis with convexity to the right side noted. Bony thorax appears intact without fractures or deformities. Soft Tissues: Soft tissues overlying the chest wall are unremarkable. Cardiac monitoring electrodes. IMPRESSION: 1. Cardiomegaly noted with congested both jabari, interval reduced. 2. No evidence of consolidation, collapse, or focal opacities. 3. Thoracic scoliosis with convexity to the right side noted, stable. Electronically signed by Ziggy Zayas 01-11-2025 6:16 PM
[2025-01-11] MEDS: METOPROLOL SUCC 50MG EXT REL TAB PO STA (18:26)
[2025-01-11 19:11] LABS: Appearance Urine Clear (Clear); Bacteria Urine Automated None Seen (None Seen); Bilirubin Urine Negative (Negative); Blood Urine Negative (Negative); Cast Urine Automated 0-2 /lpf (0-2); Color Urine Yellow; Epithelial Cell Urine Auto 0-2 /hpf (0-2); Glucose Urine UA Negative (Negative); Ketones Urine Negative (Negative); Leukocyte Esterase Urine Trace (Negative); Nitrite Urine Negative (Negative); Protein Urine Negative (Negative); RBC Urine Automated 0-2 /hpf (0-2); Specific Gravity Urine 1.017 (1.000-1.030); Urobilinogen Urine Negative (Negative); WBC Urine Automated 0-5 /hpf (0-5)
[2025-01-11] MEDS: METOPROLOL TARTRATE 1 MG/ML VIAL IV STA (19:33)
[2025-01-11] MEDS: METOPROLOL SUCC 25MG EXT REL TAB PO STA (22:15)
[2025-01-11] MEDS: dilTIAZem HCl 5 MG/ML 5 ML VIAL IV STA (23:27)
[2025-01-11] MEDS: SODIUM CHLORIDE 0.9% 1,000 ML IV SCH (23:55)
--- NOTE | 2025-01-12 02:41 | History & Physical Report ---
Date of Service January 12, 2025 Assessment & Plan (1) Atrial fibrillation with rapid ventricular response: Plan: 74-year-old female with past medical history significant for hypothyroidism, hypertension, hyperlipidemia, GERD, atrial fibrillation was sent in from PCP office for rapid A-fib. Patient was first admitted on 12/23/2024 for new onset atrial fibrillation and patient was discharged on 12/24/2024 on metoprolol succinate 50 mg twice daily and Eliquis 5 mg twice daily and also aspirin 81 mg p.o. daily,. Amlodipine and irbesartan were stopped because of hypotension. Patient was again admitted on 01/04/2025 with rapid A-fib and acute on chronic heart failure with preserved ejection fraction. Received Cardizem and IV Lopressor and also IV Lasix. Patient was status post cardioversion and was discharged on 01/04/2025. Lasix was also added on discharge. Patient states at home her watch was reading as A-fib. She went to her PCP for follow-up appointment today. EKG showed rapid A-fib in 130s. And she was sent to the ER. Denies any feeling of palpitations. Earlier felt chest pressure but that got resolved. Denies shortness of breath. No headache. No runny nose or sore throat. No cough. No fevers. Eating and drinking okay. No nausea. No abdominal pain. Normal bowel and bladder movements. Taking her medications as prescribed. In the ER her heart rate was in 140s /150s today. Received her home metoprolol succinate 50 mg and also extra dose 25 mg and also received IV Lopressor. As heart rates were still high, received a dose of IV Cardizem 10 mg. Currently heart rate are fluctuating in 100-120s. Hemodynamics are okay. Atrial fibrillation with rapid ventricular response Received total of 75 mg p.o. metoprolol succinate, IV Lopressor 5 mg and IV Cardizem 10 mg in the ER Will Continue home metoprolol succinate 50 mg twice daily for now IV Lopressor as needed Continue home Eliquis Telemetry Follow labs N.p.o. for now Consult cardiology in a.m. for further recommendations Hypertension On metoprolol succinate We will monitor Hyperlipidemia On statin History of TIA On aspirin and statin History of heart failure with preserved ejection fraction On Lasix and potassium supplement GERD On omeprazole Hypothyroidism On Synthyroid Chronic knee pain Depression On duloxetine DVT prophylaxis On Eliquis Disposition Telemetry Full code. History of Present Illness Chief Complaint: Rapid A-fib Primary Care Provider: Igor Boucher DO 74-year-old female with past medical history significant for hypothyroidism, hypertension, hyperlipidemia, GERD, atrial fibrillation was sent in from PCP office for rapid A-fib. Patient was first admitted on 12/23/2024 for new onset atrial fibrillation and patient was discharged on 12/24/2024 on metoprolol succinate 50 mg twice daily and Eliquis 5 mg twice daily and also aspirin 81 mg p.o. daily,. Amlodipine and irbesartan were stopped because of hypotension. Patient was again admitted on 01/04/2025 with rapid A-fib and acute on chronic heart failure with preserved ejection fraction. Received Cardizem and IV Lopressor and also IV Lasix. Patient was status post cardioversion and was discharged on 01/04/2025. Lasix was also added on discharge. Patient states at home her watch was reading as A-fib. She went to her PCP for follow-up appointment today. EKG showed rapid A-fib in 130s. And she was sent to the ER. Denies any feeling of palpitations. Earlier felt chest pressure but that got resolved. Denies shortness of breath. No headache. No runny nose or sore throat. No cough. No fevers. Eating and drinking okay. No nausea. No abdominal pain. Normal bowel and bladder movements. Taking her medications as prescribed. In the ER her heart rate was in 140s /150s today. Received her home metoprolol succinate 50 mg and also extra dose 25 mg and also received IV Lopressor. As heart rates were still high, received a dose of IV Cardizem 10 mg. Currently heart rate are fluctuating in 100-120s. Hemodynamics are okay. Past medical history. As mentioned above Past surgical history. Bunion surgery. Colonoscopy with biopsy. Cryocautery of cervix. Bilateral cataracts. Social history. . Quit smoking 1983. Smoked 1 pack a day for 15 years. Alcohol beer on weekends as per epic. No drug use. Family history. Mother had colon cancer. Sister had gynecologic cancer. Allergies Allergy/AdvReac Type Severity Reaction Status Date / Time naproxen Allergy Intermediate Rash Unverified 01/11/25 17:59 hydrochlorothiazide AdvReac Intermediate Makes her Unverified 01/11/25 17:59 feel terrible Home Medications Medication Instructions Recorded Confirmed Type aspirin 81 mg tablet,delayed 81 mg PO QAM 12/23/24 01/11/25 History release levothyroxine 88 mcg tablet 88 mcg PO QAM 12/23/24 01/11/25 History omeprazole 20 mg capsule,delayed 20 mg PO QAM 12/23/24 01/11/25 History release rosuvastatin 5 mg tablet 5 mg PO QAM 12/23/24 01/11/25 History apixaban 5 mg tablet (Eliquis) 5 mg PO BID #60 tabs 12/24/24 01/11/25 Rx metoprolol succinate 50 mg 50 mg PO BID #60 tabs 12/24/24 01/11/25 Rx tablet,extended release 24 hr potassium chloride 20 mEq 20 meq PO QAM #30 tabs 01/05/25 01/11/25 Rx tablet,extended release(part/cryst) cyanocobalamin (vitamin B-12) 1,000 mcg sublingual QAM 01/11/25 01/11/25 History 1,000 mcg sublingual tablet duloxetine 20 mg capsule,delayed 40 mg PO QAM 01/11/25 01/11/25 History release furosemide 20 mg tablet 20 mg PO QAM 01/11/25 01/11/25 History Past Med/Surg History Problem List (Updated 01/11/25 @ 17:44 by Kinza Chaidez DO) Dyspnea (Acute) Chest pain (Acute) Elevated brain natriuretic peptide (BNP) level (Acute) CHF (congestive heart failure) (Acute) Atrial fibrillation with rapid ventricular response (Acute) LIZAMA (dyspnea on exertion) (Acute) Acute on chronic heart failure with preserved ejection fraction (HFpEF) SOB (shortness of breath) Chest pain Persistent atrial fibrillation with rapid ventricular response Hypothyroidism Dehydration Dyslipidemia, goal LDL below 100 HTN, goal below 130/80 Viral gastroenteritis New onset atrial fibrillation Hypokalemia (Acute) Atrial fibrillation with rapid ventricular response (Acute) Medical History New onset atrial fibrillation Social History Smoking Status: Never smoker Second Hand Exposure: No; Do You Dip or Chew Tobacco: No; Hx Alcohol Use: Yes Alcohol type: beer Hx Substance Use: No Preferred Language: Macedonian Communication Ability: Effective 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 ENT- oropharynx clear Neck- supple, no JVD. Lungs- clear to auscultation no wheezing or crackles Heart- irregular rhythm, tachycardia no murmur, no gallop. Abdomen- normal bowel sounds, soft, nontender, no distension Extremities- no pretibial edema, no erythema seen. Neuro- alert, oriented PERRL, EOMI; no facial palsy; no dysarthria; moves extremities Results & Data Results & Data Vital Signs (Past 12 Hours) Vital Signs Temp Pulse Pulse Resp BP BP Pulse Ox 01/12/25 00:42 103 H 22 99/77 L 90 01/12/25 00:30 122 H 17 112/85 90 01/12/25 00:27 108/82 01/12/25 00:24 105 H 19 94 01/12/25 00:15 96/69 L 01/12/25 00:15 96/69 L 01/12/25 00:15 112 H 23 91 01/12/25 00:09 107 H 20 92 01/12/25 00:00 109/76 01/12/25 00:00 109/76 01/11/25 23:57 94 H 16 103/72 92 01/11/25 23:52 103/72 01/11/25 23:48 106 H 01/11/25 23:39 92 H 15 01/11/25 23:31 108/82 01/11/25 23:15 127/93 01/11/25 23:00 143 H 18 94/72 L 94 01/11/25 21:12 132 H 20 118/87 95 01/11/25 20:34 120 H 130/99 01/11/25 20:15 129 H 21 130/88 95 01/11/25 20:15 130/88 01/11/25 20:01 109/71 01/11/25 20:01 109/71 01/11/25 19:57 127 H 21 115/94 93 01/11/25 19:54 116 H 01/11/25 19:33 131 H 136/101 H 01/11/25 19:32 139 H 27 H 136/101 H 01/11/25 19:00 115 H 24 122/88 97 01/11/25 19:00 123 H 18 122/88 96 01/11/25 18:31 126/62 01/11/25 18:24 148 H 24 95 01/11/25 18:03 140 H 22 98 01/11/25 18:01 139/58 L 01/11/25 17:08 150 H 01/11/25 17:00 118/87 01/11/25 16:57 130 H 19 97 01/11/25 16:33 134 H 16 98 01/11/25 16:32 91/73 L 01/11/25 16:32 91/73 L 01/11/25 16:30 135 H 26 H 93 01/11/25 16:28 01/11/25 16:03 128 H 26 H 96 01/11/25 16:00 114/71 01/11/25 15:26 36.6 C 135 H 18 102/66 97 O2 Del Method 01/12/25 00:42 01/12/25 00:30 01/12/25 00:27 01/12/25 00:24 01/12/25 00:15 01/12/25 00:15 01/12/25 00:15 01/12/25 00:09 01/12/25 00:00 01/12/25 00:00 01/11/25 23:57 Room Air 01/11/25 23:52 01/11/25 23:48 01/11/25 23:39 01/11/25 23:31 01/11/25 23:15 01/11/25 23:00 Room Air 01/11/25 21:12 Room Air 01/11/25 20:34 01/11/25 20:15 01/11/25 20:15 01/11/25 20:01 01/11/25 20:01 01/11/25 19:57 01/11/25 19:54 01/11/25 19:33 01/11/25 19:32 01/11/25 19:00 01/11/25 19:00 Room Air 01/11/25 18:31 01/11/25 18:24 01/11/25 18:03 01/11/25 18:01 01/11/25 17:08 01/11/25 17:00 01/11/25 16:57 01/11/25 16:33 01/11/25 16:32 01/11/25 16:32 01/11/25 16:30 01/11/25 16:28 Room Air 01/11/25 16:03 01/11/25 16:00 01/11/25 15:26 Room Air Diagnostic Findings Laboratory Results WBC 5.52 K/ul (4.8-10.8) 01/11/25 16:10 RBC 4.09 M/uL (4.20-5.40) L 01/11/25 16:10 Hgb 11.9 g/dl (12.0-16.0) L 01/11/25 16:10 Hct 35.7 % (37.0-47.0) L 01/11/25 16:10 MCV 87.3 fL (80.0-100.0) 01/11/25 16:10 MCH 29.1 pg (25.0-34.0) 01/11/25 16:10 MCHC 33.3 g/dL (32.0-36.0) 01/11/25 16:10 RDW Std Deviation 41.2 fL (36.4-46.3) 01/11/25 16:10 RDW Coeff of [place] 13.2 % (11.5-14.5) 01/11/25 16:10 Plt Count 233 K/uL (130-400) 01/11/25 16:10 MPV 10.7 fL (9.4-12.4) 01/11/25 16:10 Immature Gran % (Auto) 0.7 % 01/11/25 16:10 Neut % (Auto) 56.2 % 01/11/25 16:10 Lymph % (Auto) 31.3 % 01/11/25 16:10 [place] % (Auto) 9.1 % 01/11/25 16:10 Eos % (Auto) 2.2 % 01/11/25 16:10 Baso % (Auto) 0.5 % 01/11/25 16:10 Neut # (Auto) 3.10 K/uL (1.40-6.50) 01/11/25 16:10 Lymph # (Auto) 1.73 K/uL (1.20-3.40) 01/11/25 16:10 [place] # (Auto) 0.50 K/uL (0.11-0.59) 01/11/25 16:10 Eos # (Auto) 0.12 K/uL (0.00-0.50) 01/11/25 16:10 Baso # (Auto) 0.03 K/uL (0.00-0.20) 01/11/25 16:10 Immature Gran # (Auto) 0.04 K/uL (0.01-0.20) 01/11/25 16:10 PT 10.9 Seconds (9.0-12.0) 01/11/25 16:10 INR 1.0 (0.9-1.1) 01/11/25 16:10 Sodium 139 mmol/L (136-145) 01/11/25 16:10 Potassium 4.0 mmol/L (3.5-5.1) 01/11/25 16:10 Chloride 107 mmol/L (98-107) 01/11/25 16:10 Carbon Dioxide 25 mmol/L (21-32) 01/11/25 16:10 Anion Gap 7 (3-11) 01/11/25 16:10 BUN 20 mg/dl (6-23) 01/11/25 16:10 Creatinine 0.98 mg/dl (0.6-1.2) 01/11/25 16:10 Est Cr Clr Drug Dosing 47.8 ml/min 01/11/25 16:10 eGFR 60.95 01/11/25 16:10 BUN/Creatinine Ratio 20.4 (10-20) H 01/11/25 16:10 Glucose 96 mg/dl (70-99(Fasting)) 01/11/25 16:10 Calcium 9.1 mg/dl (8.6-10.3) 01/11/25 16:10 Magnesium 2.1 mg/dl (1.7-2.4) 01/11/25 16:10 Total Bilirubin 0.5 mg/dl (0.2-1.0) 01/11/25 16:10 AST 14 U/L (13-39) 01/11/25 16:10 ALT 15 U/L (7-52) 01/11/25 16:10 Alkaline Phosphatase 97 U/L (34-104) 01/11/25 16:10 Troponin I High Sens 3.3 pg/ml (0-14) 01/11/25 16:10 Total Protein 6.7 gm/dl (6.0-8.3) 01/11/25 16:10 Albumin 4.3 gm/dl (3.4-5.0) 01/11/25 16:10 Globulin 2.4 gm/dl (2.5-4.0) L 01/11/25 16:10 Albumin/Globulin Ratio 1.8 (0.9-2) 01/11/25 16:10 Lipase 32 U/L (11-82) 01/11/25 16:10 TSH 0.672 uIu/ml (0.300-4.500) 01/11/25 16:10 Urine Color Yellow 01/11/25 18:28 Urine Appearance Clear (Clear) 01/11/25 18:28 Urine pH 5.0 (4.5-7.5) 01/11/25 18:28 Ur Specific [place] 1.017 (1.000-1.030) 01/11/25 18:28 Urine Protein Negative (Negative) 01/11/25 18:28 Urine Glucose (UA) Negative (Negative) 01/11/25 18:28 Urine Ketones Negative (Negative) 01/11/25 18:28 Urine Blood Negative (Negative) 01/11/25 18:28 Urine Nitrite Negative (Negative) 01/11/25 18:28 Urine Bilirubin Negative (Negative) 01/11/25 18:28 Urine Urobilinogen Negative (Negative) 01/11/25 18:28 Ur Leukocyte Esterase Trace (Negative) H 01/11/25 18:28 Urine WBC (Auto) 0-5 /hpf (0-5) 01/11/25 18:28 Urine RBC (Auto) 0-2 /hpf (0-2) 01/11/25 18:28 U Hyaline Cast (Auto) 0-2 /lpf (0-2) 01/11/25 18:28 U Epithel Cells (Auto) 0-2 /hpf (0-2) 01/11/25 18:28 Urine Bacteria (Auto) None Seen (None Seen) 01/11/25 18:28 Impressions Chest X-Ray 01/11/25 16:36 EXAM: XR chest 1V portable CLINICAL HISTORY: A FIB. TECHNIQUE: An X-ray image of the chest is obtained in PA projection. COMPARISON: CR dated 01/04/2025 FINDINGS: Pulmonary Parenchyma: Lungs are clear bilaterally. No evidence of consolidation, collapse, or focal opacities. No pulmonary nodules are identified. No evidence of pleural effusion or pleural thickening. Heart and Mediastinum: Cardiomegaly noted with congested both jabari. No mediastinal widening or masses. No hilar or mediastinal lymphadenopathy. Bony Thorax: Thoracic scoliosis with convexity to the right side noted. Bony thorax appears intact without fractures or deformities. Soft Tissues: Soft tissues overlying the chest wall are unremarkable. Cardiac monitoring electrodes. IMPRESSION: 1. Cardiomegaly noted with congested both jabari, interval reduced. 2. No evidence of consolidation, collapse, or focal opacities. 3. Thoracic scoliosis with convexity to the right side noted, stable. Electronically signed by Ziggy Zayas 01-11-2025 6:16 PM ECG Additional Comments: ECG. A-fib with rapid ventricular response rate of 146. No acute ST changes seen. Code Status & VTE Plan VTE Prophylaxis Plan VTE Prophylaxis will be ordered: Yes
[2025-01-12] MEDS ORDERED: ACETAMINOPHEN 325 MG TAB PO PRN (04:14)
[2025-01-12] MEDS ORDERED: POLYETHYLENE (MIRALAX) 17 GM PACK PO PRN (04:14)
[2025-01-12] MEDS: METOPROLOL TARTRATE 1 MG/ML VIAL IV PRN ×2 (05:34→08:58)
[2025-01-12] MEDS: LEVOTHYROXINE SODIUM 88 MCG TABLET PO SCH (05:40)
[2025-01-12 05:59] LABS: Basophils # (auto) 0.02 K/uL (0.00-0.20); Basophils % (auto) 0.5 %; Eosinophils # (auto) 0.13 K/uL (0.00-0.50); Eosinophils % (auto) 3.3 %; Hematocrit (blood only) 31.5 % (37.0-47.0); Hemoglobin 10.4 g/dl (12.0-16.0); Immature Granulocytes # (auto) 0.01 K/uL (0.01-0.20); Immature Granulocytes % (auto) 0.3 %; Lymphocytes % (auto) 35.8 %; Mean Corpuscular Hemoglobin 29.2 pg (25.0-34.0); Mean Corpuscular Volume 88.5 fL (80.0-100.0); Mean Platelet Volume 10.6 fL (9.4-12.4); Monocytes # (auto) 0.39 K/uL (0.11-0.59); Neutrophils # (auto) 1.96 K/uL (1.40-6.50); Neutrophils % (auto) 50.1 %; Platelet Count 214 K/uL (130-400); RDW Coefficient of Variation 13.1 % (11.5-14.5); RDW Standard Deviation 42.2 fL (36.4-46.3); Red Blood Count 3.56 M/uL (4.20-5.40); White Blood Count 3.91 K/ul (4.8-10.8)
[2025-01-12 06:13] LABS: BUN Creatinine Ratio 17.2 (10-20); Calcium 8.5 mg/dl (8.6-10.3); Creatinine Clr Calc Pharmacy 50.5 ml/min; Potassium 3.9 mmol/L (3.5-5.1)
--- OUTSIDE RECORDS SUMMARY | 2025-01-12 06:37 | External Medical Summary | Summary of Care ---
Author Name Unknown Organization [facility] Address [address] [facility] [place] [address] Phone [phone] Care Team Providers Care Vascular Technologist Sonographer Name Role Phone Igor Boucher DO Primary Care Provider Reason for Referral * Precert (Within 10 days (routine)) - Authorized Specialty Diagnoses / Procedures Referred By Contac t Referred To Contact Radiology Diagnoses LVH (left ventricular hypertrophy) Chronic heart failure with preserved ejection fraction (HCC) Procedures NM SPECT CT SINGLE AREA, SINGLE DAY Jesus Blum DO [address] [place] [address] Phone: tel: fax: Referral ID Status Reason Start Date Expiration Date V isits Requested Visits Authorized [id number] Authorized 01/06/2025 999 999 * Precert (Within 10 days (routine)) - Authorized Specialty Diagnoses / Procedures Referred By Contac t Referred To Contact Radiology Diagnoses LVH (left ventricular hypertrophy) Chronic heart failure with preserved ejection fraction (HCC) Procedures NM PYP WHOLE BODY IMAGING Jesus Blum DO [address] [place] [address] Phone: tel: fax: Referral ID Status Reason Start Date Expiration Date V isits Requested Visits Authorized [id number] Authorized 01/06/2025 999 999 Reason for Visit * Reason Onset Date Comments Follow Up 01/05/2025 Appointment 01/05/2025 Encounter Details Date Type Department Care Team (Late st Contact Info) Description 01/05/2025 Telephone Cardiology, [facility] [address] [place] [address] Jesus Blum, [address] [place] [address] Follow Up; Appointment Allergies Active Allergy Reactions Criticality Noted Date Comments Hydrochlorothiazide 05/12/2018 Nauseaous and low energy Naproxen Rash High 11/26/2007 Bullous eruption on hands, phototoxicity documented as of this encounter (statuses as of 01/06/2025) Medications aspirin enteric coated 81 MG TBEC [...] as of this encounter (statuses as of 01/06/2025) Active Problems Problem Noted Date Diagnosed Date Chronic pain of right knee 02/06/2021 HTN, goal below 130/80 12/14/2019 Other specified hypothyroidism 12/30/2002 CANCER OF COLON,FAM HX - Mom 03/10/1998 Menopause 03/10/1998 CARDIAC MURMURS NEC documented as of this encounter (statuses as of 01/06/2025) Resolved Problems Problem Noted Date Diagnosed Date Resolved Date Encounter for examination fo r normal comparison and control in clinical research program 01/12/2019 05/15/2020 Overview (01/29/2021): DO NOT DELETE [employer] DETECT Study: Project # [id number], Director Engineering: Murphy Alicia, PhD. SUMMARY: Goal: Establish test [...] study staff at ; after hours Director Engineering via the [facility] hospital brake operator sheet metal . Please contact study team before resolving/deleting from patients problem list. Study phone number: [phone]. Diagnosis changed due to Research Module. Go to Snapshot for study details. Encounter for examination fo r normal comparison and control in clinical research program 01/12/2019 06/13/2022 Overview (01/29/2021): DO NOT DELETE - [employer] DETECT Study: Project # [id number], Director Engineering: Ezequiel Christian, MS, MPH. SUMMARY: Goal: Establish [...] study staff at ; after hours Director Engineering via the [facility] hospital brake operator sheet metal . - Please contact study team before resolving/deleting from patients problem list. Study phone number: [phone]. Diagnosis changed due to Research Module. Go to Snapshot for study details. ADVANCE DIRECTIVE INFORMATION 08/20/2006 08/16/2024 Overview (08/20/2006): Pt will bring copy at next visit. Special screening for malign ant neoplasms, colon 01/30/2006 04/08/2019 Overview (01/30/2006): Colonoscopy 01/21/06 --hyperplastic polyp--repeat 5 years documented as of this encounter (statuses as of 01/06/2025) Immunizations Name Administration Dates Next Due COVID-19 mRNA, LNP-s, No Pre serve, 2-Dose Series ([place]) 08/07/2021,12/25/2020,11/20/2020 COVID-19, LNP-s, No Preserve , Gus-sucrose, Ages 12+ ([place]) 04/30/2022 COVID-19, MRNA-LNP, PF, 30 M CG/0.3 mL, 12 YRS AND ABOVE, IM ([facility]) 08/13/2023 Covid-19, Mrna, Lnp-s, Pf, B ivalent, 30 Mcg, IM, 12 yrs and above ([place]) 08/08/2022 DT - Diptheria/Tetanus (PEDS) 12/30/2002 Pneumococcal [...] 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 * Telephone Encounter - Griffin Smart OSA - 01/05/2025 11:11 AM EDT Patient is ordered a cardiac study, please assist patient to schedule, thank you. Please see providers note, to be done at [facility], and the patient has her FU on 01/27/25, and to be donebefore this appt. Thank you. NM PYP WHOLE BODY IMAGING [NMPYPWB] (Order [id number]) NM SPECT CT SINGLE AREA, SINGLE DAY [NMSPECTCTS] (Order [id number]) * Telephone Encounter - Jesus Blum DO - 01/05/2025 10:47 AM EDT Patient tentatively be discharged from [facility] today 01/05/2025 status post transesophageal echocardiogram guided direct-current cardioversion for symptomatic atrial fibrillation along with heart failure with preserved ejection fraction. Initial echocardiogram performed as an inpatient earlier this month revealed concentric left ventricular hypertrophy and echogenicity concerning for underlying infiltrative process. Patient has upcoming cardiology follow-up visit. Will also coordinate monoclonal gammopathy screening blood work as well as PYP nuclear medicine scan at [facility]. Orders placed. Jesus Blum DO Copied DHARMESH Morris as an FYI. documented in this encounter Plan of Treatment Upcoming Encounters Date Type Department Care Team (Late st Contact Info) Description 01/11/2025 2:20 PM EDT Office Visit [facility] [address] [place] [address] Igor Boucher DO [address] [place] [address] 01/25/2025 1:00 PM EDT Appointment Radiology, [address] [address] 01/25/2025 4:00 PM EDT Appointment Radiology, [place] [address] [place] [address] 01/25/2025 4:30 PM EDT Appointment Radiology, [address] [address] 01/27/2025 11:30 AM EDT Office Visit Cardiology, [facility] [address] [place] [address] Evelyn Vogt PA-C [address] [place] [address] [place] [address] 02/17/2025 10:00 AM EDT Office Visit [facility] [address] [place] [address] Igor Boucher DO [address] [place] [address] 07/01/2025 10:40 AM EDT Office Visit [facility] [address] [place] [address] Lisa Ramírez CRNP [address] [facility] [address] Scheduled Orders Name Type Priority Associated Diagnoses Orde r Schedule MONOCLONAL GAMMOPATHIES SCREENING PANEL Lab Routine LVH (left ventricular hypertrophy) Chronic heart failure with preserved ejection fraction (HCC) Expected: 01/06/2025, Expires: 01/05/2026 URINE IMMUNOFIXATION, BENCE KESSLER PROTEIN, RANDOM URINE Lab Routine LVH (left ventricular hypertrophy) Chronic heart failure with preserved ejection fraction (HCC) Expected: 01/06/2025, Expires: 01/05/2026 NM PYP WHOLE BODY IMAGING Medical Imaging Routine LVH (left ventricular hypertrophy) Chronic heart failure with preserved ejection fraction (HCC) Expected: 01/06/2025, Expires: 02/05/[address] SINGLE AREA, SINGLE DAY Medical Imaging Routine LVH (left ventricular hypertrophy) Chronic heart failure with preserved ejection fraction (HCC) Expected: 01/06/2025, Expires: 02/05/2026 Scheduled Procedures Name Priority Associated Diagnoses Date/Ti me COLONOSCOPY FLEXIBLE PROXIMA L DIAGNOSTIC Recall Family history of colon cancer Health Maintenance Due Date Last Done Comments Cologuard 1996 Sigmoidoscopy 1996 Fecal Occult Blood Test 12/05/2002 12/05/19 02, 09/13/2000, 04/05/1998, Additional history exists COVID-19 Vaccine ( season) 2024 08/13/2023, 08/08/2022, 04/30/2022, Additional history exists Adult Wellness Visit 06/11/2025 06/11/2024 Depression Screening 06/11/2025 06/11/2024, 02/17/20 24 Mammogram 09/15/2025 09/15/2024, 01/2024, 07/05/2024, Additional history exists Albumin/Creatinine Ratio 12/03/2025 023, 02/06/2021, 05/24/2020 GFR 01/03/2026 01/03/2025, 04/0 11/2023, 12/03/2022, Additional history exists TSH 01/03/2026 01/03/2025, 04/0 11/2023, 12/03/2022, Additional history exists Colonoscopy 12/10/2027 12/10/2022, 11/14, 01/31/2017, Additional history exists Colorectal Cancer Screening 12/10/2027 DXA Scan 05/24/2029 05/24/2024, 05/13, 12/03/2016 Lipid Panel 01/03/2030 01/03/2025, 04/0 11/2023, 12/03/2022, Additional history exists DTap/Tdap Vaccines (4 - Td or Tdap) [...] this encounter Medical Devices Implanted Type Area Radiotelephone Technical Operator Device Identifier Shelf Expiration Date Model / Serial / Lot Lens Li61ao 13.00mm 19.00 - [id number] - [id number] Implanted:Qty: 1 on 07/15/2023 by Doron Toscano MD at OR [facility] Left: Eye [employer] 04/11/2028 [id number] / [id number] / [id number] Lens Li61ao 13.00mm 17.50 - [id number] - [id number] Implanted:Qty: 1 on 07/29/2023 by Doron Toscano MD at OR [facility] Right: Eye [employer]CH [employer] LOMB 03/12/2028 [id number] / [id number] / [id number] documented as of this encounter Visit Diagnoses Diagnosis Chronic heart failure with preserved ejection fraction (HCC)- Primary LVH (left ventricular hypertrophy) Cardiomegaly documented in this encounter Advance Directives Documents on File Type Date Recorded Patient Life Science Taxonomist Expl anation Advance Directives and Living Will 07/08/2003 LIVING WILL Power of Gypsum Calciner 07/08/2003 POWER OF A TTORNEY DURABLE HEALTHCARE [...] Power of Attor liya? No Care Teams Vascular Technologist Sonographer Relationship Specialty Start Date End Date Igor Boucher DO [address] [place] [address] PCP - General Family Medicine 12/14/19 documented as of this encounter
--- OUTSIDE RECORDS SUMMARY | 2025-01-12 06:37 | External Medical Summary | Summary of Care ---
Author Name Unknown Organization [facility] Address [address] [address] Phone [phone] Care Team Providers Care Crane Manager Name Role Phone Igor Boucher DO Primary Care Provider Encounter Details Date Type Department Care Team (Late st Contact Info) Description 01/04/2025 Result Scan Unspecified Department Jesus Blum DO [address] [place] [address] <No scans attached> Allergies Active Allergy Reactions Criticality Noted Date [...] 05/15/2020 Overview (01/29/2021): DO NOT DELETE [facility] DETECT Study: Project # [id number], Steel Handler: Murphy Alicia, PhD. SUMMARY: Goal: Establish test [...] contact study staff at ; after hours Steel Handler via the [facility] horizontal boring mill operator . Please contact study team before resolving/deleting from patients problem list. Study phone number: [phone]. Diagnosis changed due to Research Module. Go to Snapshot for study details. Encounter for examination fo r normal comparison and control in clinical research program 01/12/2019 06/13/2022 Overview (01/29/2021): DO NOT DELETE - [facility] DETECT Study: Project # [id number], Steel Handler: Ezequiel Christian, MS, MPH. SUMMARY: Goal: Establish [...] contact study staff at ; after hours Steel Handler via the [facility] horizontal boring mill operator . - Please contact study team before resolving/deleting from patients problem list. Study phone number: [phone]. Diagnosis changed due to Research Module. Go to SourceTour for study details. ADVANCE DIRECTIVE INFORMATION 08/20/2006 08/16/2024 Overview (08/20/2006): Pt will bring copy at next visit. Special screening for malign ant neoplasms, colon 01/30/2006 04/08/2019 Overview (01/30/2006): Colonoscopy 01/21/06 --hyperplastic polyp--repeat 5 years documented as of this encounter (statuses as of 01/06/2025) Immunizations Name Administration Dates Next Due COVID-19 mRNA, LNP-s, No Pre serve, 2-Dose Series ([place]) 08/07/2021,12/25/2020,11/20/2020 COVID-19, LNP-s, No Preserve , Gus-sucrose, Ages 12+ (Pfizer) 04/30/2022 COVID-19, MRNA-LNP, PF, 30 M CG/0.3 mL, 12 YRS AND ABOVE, IM ([facility]) 08/13/2023 Covid-19, Mrna, Lnp-s, Pf, B ivalent, 30 Mcg, IM, 12 yrs and above ([place]) 08/08/2022 Pneumococcal Conjugate Vacc, 13 Valent (Prevnar) [...] 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 [address] [place] [address] Evelyn Vogt PA-C [address] [place] [address] [place] [address] 02/17/2025 10:00 AM EDT Office Visit [facility] [address] [place] [address] Igor Boucher, [address] [place] [address] 07/01/2025 10:40 AM EDT Office Visit Family Practice [facility] [address] [place] [address] Lisa Ramírez CRNP [address] [place] [address] Scheduled Procedures Name Priority Associated Diagnoses Date/Ti [...] this encounter Medical Devices Implanted Type Area Cloth Handler Device Identifier Shelf Expiration Date Model / Serial / Lot Lens Li61ao 13.00mm 19.00 - [id number] - [id number] Implanted:Qty: 1 on 07/15/2023 by Doron Toscano MD at OR [facility] Left: Eye [employer]OM[employer] 04/11/2028 [id number] / [id number] / [id number] Lens Li61ao 13.00mm 17.50 - [id number] - [id number] Implanted:Qty: 1 on 07/29/2023 by Doron Toscano MD at OR [facility] Right: Eye [employer]CH [employer]OMB 03/12/2028 [id number] / [id number] / [id number] documented as of this encounter Procedures Procedure Name Priority Date/Time Associated Diagnosis Comments ECHOCARDIOLOGY SCANNED RESULT 01/04/2025 documented in this encounter Results * ECHOCARDIOLOGY SCANNED RESULT (01/04/2025) 01/04/2025 Jesus Blum DO ECHOCARDIOLOGY Final Result documented in this encounter Advance Directives Documents on File Type Date Recorded Patient Monologist Expl anation Advance Directives and Living Will 07/08/2003 LIVING WILL Power of Past Due Accounts Clerk 07/08/2003 POWER OF A TTORNEY DURABLE HEALTHCARE [...] Power of Attor liya? No Care Teams Crane Manager Relationship Specialty Start Date End Date Igor Boucher DO [address] [place] [address] PCP - General Family Medicine 12/14/19 documented as of this encounter
--- OUTSIDE RECORDS SUMMARY | 2025-01-12 06:37 | External Medical Summary | Summary of Care ---
Author Name Unknown Organization [facility] Address [address] [facility] [facility] [address] Phone [phone] Care Team Providers Care Pulp Grinder Feeder Name Role Phone Igor Boucher DO Primary Care Provider Encounter Details Date Type Department Care Team (Late st Contact Info) Description [facility] [address] [place] [address] Raghavendra Kwok PA-C [address] [place] [id number] Allergies Active Allergy Reactions Criticality Noted Date [...] 5 12/30/19 25 Active Metoprolol Succinate ER 50 MG Oral Tablet Extended Release 24 Hour (toPROL XL) Take 1 Tablet by mouth in the morning and 1 Tablet before bedtime. 01/04/20 25 Active Metoprolol Succinate ER 25 MG [...] [facility] DETECT Study: Project # [id number], Equal Opportunity Officer: Murphy Alicia, PhD. SUMMARY: Goal: Establish test [...] contact study staff at ; after hours Equal Opportunity Officer via the [facility] checkout operator . Please contact study team before resolving/deleting from patients problem list. Study phone number: [phone]. Diagnosis changed due to Research Module. Go to Snapshot for study details. Encounter for examination fo r normal comparison and control in clinical research program 01/12/2019 06/13/2022 Overview (01/29/2021): DO NOT DELETE - [facility] Study: Project # [id number], Equal Opportunity Officer: Ezequiel Christian, MS, MPH. SUMMARY: Goal: Establish [...] contact study staff at ; after hours Equal Opportunity Officer via the [facility] checkout operator . - Please contact study team before resolving/deleting from patients problem list. Study phone number: [phone]. Diagnosis changed due to Research Module. 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 Not on fi le documented as of this encounter Plan of Treatment Upcoming Encounters Date Type Department Care Team (Late st Contact Info) Description 01/11/2025 2:20 PM EDT Office Visit Family Practice [facility] [address] [place] [address] Igor Boucher DO [address] [place] [address] 01/25/2025 1:00 PM EDT Appointment Radiology, [address] [address] 01/25/2025 4:00 PM EDT Appointment Radiology, [address] [address] 01/25/2025 4:30 PM EDT Appointment Radiology, [address] [address] 01/27/2025 11:30 AM EDT Office Visit Cardiology, [facility] [address] [place] [phone] Evelyn Vogt PA-C [address] [place] [address] [place] [address] 02/17/2025 10:00 AM EDT Office Visit [facility] [address] [place] [address] Igor Boucher DO [address] [place] [address] 07/01/2025 10:40 AM EDT Office Visit [facility] [address] [place] [address] Lisa Ramírez CRNP [address] [place] [address] Scheduled Procedures Name Priority Associated Diagnoses Date/Ti [...] 05/24/2024, 05/13, 12/03/2016 Lipid Panel 01/03/2030 01/03/2025, 11/2023, 12/03/2022, Additional history exists DTap/Tdap Vaccines [...] this encounter Medical Devices Implanted Type Area Harvest Worker Fruit Device Identifier Shelf Expiration Date Model / Serial / Lot Lens Li61ao 13.00mm 19.00 - [id number] - [id number] Implanted:Qty: 1 on 07/15/2023 by Doron Toscano MD at [place] [facility] Left: Eye [employer]CH [employer] LOMB 04/11/2028 [id number] / [id number] / [id number] Lens Li61ao 13.00mm 17.50 - [id number] - [id number] Implanted:Qty: 1 on 07/29/2023 by Doron Toscano MD at OR [facility] Right: Eye [employer]USCH [employer] LOMB 03/12/2028 [id number] / [id number] / [id number] documented as of this encounter Advance Directives Documents on File Type Date Recorded Patient Install Technician Expl anation Advance Directives and Living Will 07/08/2003 LIVING WILL Power of Banking Teacher 07/08/2003 POWER OF A TTORNEY DURABLE HEALTHCARE [...] Power of Attor liya? No Care Teams Pulp Grinder Feeder Relationship Specialty Start Date End Date Igor Boucher DO [address] [place] [address] PCP - General Family Medicine 12/14/19 documented as of this encounter
--- OUTSIDE RECORDS SUMMARY | 2025-01-12 06:37 | External Medical Summary | Summary of Care ---
Author Name Unknown Organization [facility] Address [address] [place] [address] Phone [phone] Care Team Providers Care Salsa Dance Instructor Name Role Phone Sander Igor Persaudvira Primary Care Provider Reason for Visit * Reason Onset Date Comments Referral 01/05/2025 Encounter Details Date Type Department Care Team (Late st Contact Info) Description 01/05/2025 New Patient Triage (ELECTRIC WHEELCHAIR REPAIRER USE ONLY) Cardiology, [facility] [address] [facility] [place] [address] Erica Rodriguez CRNP [address] [place] [address] Referral Allergies Active Allergy Reactions Criticality Noted Date [...] Overview (01/29/2021): DO NOT DELETE [facility] DETECT Study: Project # [id number], Marketing Information Manager: Murphy Alicia, PhD. SUMMARY: Goal: Establish test [...] contact study staff at ; after hours Marketing Information Manager via the [facility] cryptologic technician operator/analyst . Please contact study team before resolving/deleting from patients problem list. Study phone number: [phone]. Diagnosis changed due to Research Module. Go to Snapshot for study details. Encounter for examination fo r normal comparison and control in clinical research program 01/12/2019 06/13/2022 Overview (01/29/2021): DO NOT DELETE - [facility] MAX Study: Project # [id number], Marketing Information Manager: Ezequiel Christian, MS, MPH. SUMMARY: Goal: Establish [...] contact study staff at ; after hours Marketing Information Manager via the [facility] cryptologic technician operator/analyst . - Please contact study team before resolving/deleting from patients problem list. Study phone number: [phone]. Diagnosis changed due to Research Module. Go to ChromaDex for study details. ADVANCE DIRECTIVE INFORMATION 08/20/2006 08/16/2024 Overview (08/20/2006): Pt will bring copy at next visit. Special screening for malign ant neoplasms, colon 01/30/2006 04/08/2019 Overview (01/30/2006): Colonoscopy 01/21/06 --hyperplastic polyp--repeat 5 years documented as of this encounter (statuses as of 01/06/2025) Immunizations Name Administration Dates Next Due COVID-19 mRNA, LNP-s, No Pre serve, 2-Dose Series ([employer]) 08/07/2021,12/25/2020,11/20/2020 COVID-19, LNP-s, No Preserve , Gus-sucrose, Ages 12+ (Pfizer) 04/30/2022 COVID-19, MRNA-LNP, PF, 30 M CG/0.3 mL, 12 YRS AND ABOVE, IM ([facility] 08/13/2023 Covid-19, Mrna, Lnp-s, Pf, B ivalent, 30 Mcg, IM, 12 yrs and above ([employer]) 08/08/2022 DT - Diptheria/Tetanus (PEDS) 12/30/2002 Pneumococcal [...] 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 She is on Metoprolol for rate control and Eliquis for oral AC therapy. Would like to discuss A-fib and treatment options EKG/Echo on chart scanned in Appropriate referral as scheduled. Thank you, ROB Dowling Cardiology [facility] * Aurora Seymour LPN - 01/05/2025 10:48 AM EDT Images from the original note were not included. New Patient Triage What is the diagnosis/reason for referral?: Chronic atrial fibrillation (HCC) [I48.20] - Primary Enter order ID here: Order [id number] Specialty specific documentation: Cardiology Structural Heart Discussed care plan with patient or proxy?: Yes radha Communicated with patient on Date (mm/dd/yyyy): 01/05/2025 at Time ([facility]): 10:56AM APPOINTMENT INFO: 01/27/25 11:30 AM - 60 min Evelyn Vogt PA-C New Cardiology Andree Dwyer PCP/REFERRING 12/29/2024 [facility]gor Boucher DO Family Medicine Chronic atrial fibrillation (HCC) +7 more Dx Hospital Follow-Up ; Referred by Self Reason for Visit Progress Notes Igor Boucher DO (Physician) Family Medicine Assessment and Plan Assessment & Plan Atrial [...] old female that presents for Hospital Follow-Up ([facility] d/c 12/24 had stomach virus, dehydration, Afib) [...] and Affect: Mood normal. Behavior: Behavior normal. EKG/ECHO/ZIO/CARDIAC TESTING EKG Report [id number] 01/03/2025 10:56 AM Kendall Damian DO Signed by Kendall Damian DO on 01/03/25 at 1433 REASON FOR STUDY: A fib, SOB;A fib, SOB CONCLUSIONS: Atrial fibrillation with rapid ventricular response Possible Anterior infarct , age undetermined Abnormal ECG No previous ECGs available Ventricular Rate: 139 Atrial Rate: 267 QRS Duration: 78 QT/QTc: 310/471 ms P-R-T [place]: 0 : -6 : 76 degrees LABS Results for orders placed or performed in visit on 01/03/25 VITAMIN B12 Result Value Ref Range Vitamin B12 1,584 (H) 232 - 1,245 pg/mL COMPREHENSIVE METABOLIC PANEL Result Value Ref Range BUN 14 6 - 20 mg/dL CREATININE 1.0 0.5 - 1.0 mg/dL EGFR 61 >=60 mL/min SODIUM 138 135 - 146 mmol/L POTASSIUM 4.5 3.5 - 5.1 mmol/L CHLORIDE 104 98 - 107 mmol/L CO2 22 22 - 32 mmol/L ANION GAP 12 7 - 15 mmol/L GLUCOSE 111 70 - 120 mg/dL Albumin 4.1 3.8 - 5.0 g/dL AST 17 10 - 35 U/L Alkaline Phosphatase 110 35 - 130 U/L Bilirubin, Total 0.8 <=1.2 mg/dL CALCIUM 9.2 8.4 - 10.2 mg/dL Protein 6.1 6.0 - 8.3 g/dL ALT 25 10 - 35 U/L TSH WITH FREE T4 IF INDICATED Result Value Ref Range TSH 2.49 0.27 - 4.20 uIU/mL MAGNESIUM Result Value Ref Range Magnesium 2.5 1.5 - 2.6 mg/dL LIPID PANEL WITH DIRECT LDL IF TG IS HIGH Result Value Ref Range Triglycerides 143 <=174 mg/dL Cholesterol 139 <200 mg/dL HDL Cholesterol 38 (L) >49 mg/dL Non-HDL Cholesterol 101 <=159 mg/dL LDL Cholesterol 72 <=129 mg/dL BNP, NT-PRO Result Value Ref Range BNP, NT-Pro 4,933 (H) <300 pg/mL CBC Result Value Ref Range WBC 7.73 4.00 - 10.80 K/uL RBC 4.04 3.85 - 5.15 M/uL HGB 11.8 (L) 12.0 - 15.3 g/dL HCT 38.2 36.0 - 45.2 % MCV 94.6 81.5 - 97.5 fL MCH 29.2 27.0 - 34.0 pg MCHC 30.9 32.0 - 36.0 g/dL RDW 13.2 11.5 - 15.5 % PLT 347 140 - 400 K/uL MPV 11.7 6.6 - 11.1 fL nRBCs 0 <=0 /100 WBCs DIFFERENTIAL, AUTOMATED Result Value Ref Range WBC 7.73 4.00 - 10.80 K/uL Neutrophils % 73.2 40.0 - 75.0 % Lymphocytes % 18.4 18.0 - 42.0 % Monocytes % 6.0 1.0 - 11.0 % Eosinophils % 1.2 0.0 - 6.0 % Basophils % 0.6 0.0 - 2.0 % Immature Granulocytes % 0.6 0.0 - 2.0 % Absolute Neutrophils 5.66 1.80 - 7.70 K/uL Absolute Lymphocytes 1.42 1.00 - 4.80 K/ul Absolute Monocytes 0.46 0.00 - 1.10 K/uL Absolute Eosinophils 0.09 0.00 - 0.70 K/uL Absolute Basophils 0.05 0.00 - 0.20 K/uL Absolute Immature Granulocytes 0.05 0.00 - 0.20 K/uL MEDICATIONS Metoprolol Succinate ER 50 MG Oral Tablet Extended Release 24 Hour (toPROL XL) DULoxetine HCl 20 MG Oral Capsule Delayed Release Particles (Cymbalta) Eliquis 5 MG Oral Tablet Rosuvastatin Calcium 5 MG Oral Tablet (Crestor) Levothyroxine Sodium 88 MCG Oral Tablet (Levoxyl) Omeprazole 20 MG Oral Capsule Delayed Release (PriLOSEC) Magnesium Oxide 400 MG Oral Tablet Vitamin B-12 1000 MCG Oral Tablet (Cyanocobalamin) aspirin enteric coated 81 MG TBEC HOSPITALIZATIONS/CONSULTS [facility] 12/23/2024 scanned under media HOSPITAL TESTING [facility] 12/23/2024 scanned under media documented in this encounter Plan of Treatment Upcoming Encounters Date Type Department Care Team (Late st Contact Info) Description 01/11/2025 2:20 PM EDT Office Visit [facility] [address] [place] [address] Igor Boucher DO [address] [place] [address] 01/27/2025 11:30 AM EDT Office Visit Cardiology, [facility] [address] [place] [phone] Evelyn Vogt PA-C [address] [place] [address] 02/17/2025 10:00 AM EDT Office Visit [facility] [address] [place] [address] Igor Boucher DO [address] [place] [address] 07/01/2025 10:40 AM EDT Office Visit [facility] [address] [place] [address] Lisa Ramírez CRNP [address] [place] [address] Scheduled Procedures Name Priority Associated Diagnoses Date/Ti [...] this encounter Medical Devices Implanted Type Area Crane Mechanic Device Identifier Shelf Expiration Date Model / Serial / Lot Lens Li61ao 13.00mm 19.00 - [id number] - [id number] Implanted:Qty: 1 on 07/15/2023 by Doron Toscano MD at OR [facility] Left: Eye [employer] 04/11/2028 [id number] / [id number] / [id number] Lens Li61ao 13.00mm 17.50 - [id number] - [id number] Implanted:Qty: 1 on 07/29/2023 by Doron Toscano MD at OR [facility] Right: Eye [employer]OM[employer] 03/12/2028 [id number] / [id number] / [id number] documented as of this encounter Advance Directives Documents on File Type Date Recorded Patient Train Station Server Expl anation Advance Directives and Living Will 07/08/2003 LIVING WILL Power of Flexible Shaft Winder 07/08/2003 POWER OF A TTORNEY DURABLE HEALTHCARE [...] Power of Attor liya? No Care Teams Salsa Dance Instructor Relationship Specialty Start Date End Date Igor Boucher DO [address] [place] [address] PCP - General Family Medicine 12/14/19 documented as of this encounter
--- OUTSIDE RECORDS SUMMARY | 2025-01-12 06:38 | External Medical Summary | Summary of Care ---
Author Name Unknown Organization [facility] Address [address] [facility] [place] [address] Phone [phone] Care Team Providers Care Entrepreneur Name Role Phone Igor Boucher DO Primary Care Provider Reason for Referral * Precert (Within 10 days (routine)) - Authorized Specialty Diagnoses / Procedures Referred By Contac t Referred To Contact Radiology Diagnoses LVH (left ventricular hypertrophy) Chronic heart failure with preserved ejection fraction (HCC) Procedures NM SPECT CT SINGLE AREA, SINGLE DAY Jesus Blum DO [address] [place] [address] Phone: tel: fax: Referral ID Status Reason Start Date Expiration Date V isits Requested Visits Authorized [id number] Authorized 01/06/2025 999 999 * Precert (Within 10 days (routine)) - Authorized Specialty Diagnoses / Procedures Referred By Contac t Referred To Contact Radiology Diagnoses LVH (left ventricular hypertrophy) Chronic heart failure with preserved ejection fraction (HCC) Procedures NM PYP WHOLE BODY IMAGING Jesus Blum DO [address] [place] [address] Phone: tel: fax: Referral ID Status Reason Start Date Expiration Date V isits Requested Visits Authorized [id number] Authorized 01/06/2025 999 999 Reason for Visit * Reason Onset Date Comments Follow Up 01/05/2025 Appointment 01/05/2025 Encounter Details Date Type Department Care Team (Late st Contact Info) Description 01/05/2025 Telephone Cardiology, [facility] [address] [place] [address] Jesus Blum, [address] [place] [address] Follow Up; Appointment Allergies Active Allergy Reactions Criticality Noted Date Comments Hydrochlorothiazide 05/12/2018 Nauseaous and low energy Naproxen Rash High 11/26/2007 Bullous eruption on hands, phototoxicity documented as of this encounter (statuses as of 01/05/2025) Medications aspirin enteric coated 81 MG TBEC [...] as of this encounter (statuses as of 01/05/2025) Active Problems Problem Noted Date Diagnosed Date Chronic pain of right knee 02/06/2021 HTN, goal below 130/80 12/14/2019 Other specified hypothyroidism 12/30/2002 CANCER OF COLON,FAM HX - Mom 03/10/1998 Menopause 03/10/1998 CARDIAC MURMURS NEC documented as of this encounter (statuses as of 01/05/2025) Resolved Problems Problem Noted Date Diagnosed Date Resolved Date Encounter for examination fo r normal comparison and control in clinical research program 01/12/2019 05/15/2020 Overview (01/29/2021): DO NOT DELETE [facility] DETECT Study: Project # [id number], Refrigeration Mechanic Helper: Murphy Alicia, PhD. SUMMARY: Goal: Establish [...] contact study staff at ; after hours Refrigeration Mechanic Helper via the [facility] hospital yarn mercerizer operator . Please contact study team before resolving/deleting from patients problem list. Study phone number: [phone]. Diagnosis changed due to Research Module. Go to Snapshot for study details. Encounter for examination fo r normal comparison and control in clinical research program 01/12/2019 06/13/2022 Overview (01/29/2021): DO NOT DELETE - [facility] DETECT Study: Project # [id number], Refrigeration Mechanic Helper: Ezequiel Christian, MS, MPH. SUMMARY: Goal: [...] contact study staff at ; after hours Refrigeration Mechanic Helper via the [facility] hospital yarn mercerizer operator . - Please contact study team before resolving/deleting from patients problem list. Study phone number: [phone]. Diagnosis changed due to Research Module. Go to Snapshot for study details. ADVANCE DIRECTIVE INFORMATION 08/20/2006 08/16/2024 Overview (08/20/2006): Pt will bring copy at next visit. Special screening for malign ant neoplasms, colon 01/30/2006 04/08/2019 Overview (01/30/2006): Colonoscopy 01/21/06 --hyperplastic polyp--repeat 5 years documented as of this encounter (statuses as of 01/05/2025) Immunizations Name Administration Dates Next Due COVID-19 mRNA, LNP-s, No Pre serve, 2-Dose Series ([employer]) 08/07/2021,12/25/2020,11/20/2020 COVID-19, LNP-s, No Preserve , Gus-sucrose, Ages 12+ ([employer]unes) 04/30/2022 COVID-19, MRNA-LNP, PF, 30 M CG/0.3 mL, 12 YRS AND ABOVE, IM (OpenBook-Comirnaty) 08/13/2023 Covid-19, Mrna, Lnp-s, Pf, B ivalent, 30 Mcg, IM, 12 yrs and above ([employer]) 08/08/2022 DT - Diptheria/Tetanus (PEDS) 12/30/2002 Pneumococcal [...] 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 Please see providers note, to be done at [facility], and the patient has her FU on 01/27/25, and to be donebefore this appt. Thank you. NM PYP WHOLE BODY IMAGING [NMPYPWB] (Order [id number]) NM SPECT CT SINGLE AREA, SINGLE DAY [NMSPECTCTS] (Order [id number]) * Telephone Encounter - Jesus Blum DO - 01/05/2025 10:47 AM EDT Patient tentatively be discharged from [facility] today 01/05/2025 status post transesophageal echocardiogram guided [...] well as PYP nuclear medicine scan at [facility]. Orders placed. DO Chantal Leblancied DHARMESH Morris as an FYI. documented in this encounter Plan of Treatment Upcoming Encounters Date Type Department Care Team (Late st Contact Info) Description 01/11/2025 9:30 AM EDT Laboratory Laboratory, [facility] [address] [place] [address] Oh Dwyer [address] [place] [address] 01/11/2025 2:20 PM EDT Office Visit Family Practice [facility] [address] [place] [address] Igor Boucher DO [address] [place] [address] 01/27/2025 11:30 AM EDT Office Visit Cardiology, [facility] [address] [place] [phone] Evelyn Vogt PA-C [address] [place] [place] [address] 02/17/2025 10:00 AM EDT Office Visit Family Practice [facility] [address] [place] [address] Igor Boucher DO [address] [place] [address] 07/01/2025 10:40 AM EDT Office Visit [facility] [address] [place] [address] Lisa Ramírez CRNP [address] [place] [address] Scheduled Orders Name Type Priority Associated Diagnoses [...] this encounter Medical Devices Implanted Type Area Solderer Torch Device Identifier Shelf Expiration Date Model / Serial / Lot Lens Li61ao 13.00mm 19.00 - [id number] - [id number] Implanted:Qty: 1 on 07/15/2023 by Doron Toscano MD at OR [facility] Left: Eye [employer] 04/11/2028 [id number] / [id number] / [id number] Lens Li61ao 13.00mm 17.50 - [id number] - [id number] Implanted:Qty: 1 on 07/29/2023 by Doron Toscano MD at OR [facility] Right: Eye [employer] 03/12/2028 [id number] / [id number] / [id number] documented as of this encounter Visit Diagnoses Diagnosis Chronic heart failure with preserved ejection fraction (HCC)- Primary LVH (left ventricular hypertrophy) Cardiomegaly documented in this encounter Advance Directives Documents on File Type Date Recorded Patient Sales Representative Business Courses Expl anation Advance Directives and Living Will 07/08/2003 LIVING WILL Power of Rn Urgent Care 07/08/2003 POWER OF A TTORNEY DURABLE HEALTHCARE [...] Power of Attor liya? No Care Teams Entrepreneur Relationship Specialty Start Date End Date Igor Boucher DO [address] [place] [address] PCP - General Family Medicine 12/14/19 documented as of this encounter
--- OUTSIDE RECORDS SUMMARY | 2025-01-12 06:38 | External Medical Summary | Summary of Care ---
Author Name Unknown Organization [facility] Address [address] [place] [address] Phone [phone] Care Team Providers Care Office Asst Name Role Phone Sander Igor Persaudvira Primary Care Provider Reason for Visit * Reason Onset Date Comments Referral 01/05/2025 Encounter Details Date Type Department Care Team (Late st Contact Info) Description 01/05/2025 New Patient Triage (CIGARETTE LIGHTER REPAIRER USE ONLY) Cardiology, [facility] [address] [facility] [place] [address] Erica Rodriguez CRNP [address] [place] [address] Referral Allergies Active Allergy Reactions [...] 01/12/2019 05/15/2020 Overview (01/29/2021): DO NOT DELETE [facility] DETECT Study: Project # [id number], Rigger Apprentice: Murphy Alicia, PhD. SUMMARY: Goal: Establish test [...] contact study staff at ; after hours Rigger Apprentice via the [facility] switch operators supervisor . Please contact study team before resolving/deleting from patients problem list. Study phone number: [phone]. Diagnosis changed due to Research Module. Go to Snapshot for study details. Encounter for examination fo r normal comparison and control in clinical research program 01/12/2019 06/13/2022 Overview (01/29/2021): DO NOT DELETE - [facility] MAX Study: Project # [id number], Rigger Apprentice: Ezequiel Christian, MS, MPH. SUMMARY: Goal: Establish [...] contact study staff at ; after hours Rigger Apprentice via the [facility] switch operators supervisor . - Please contact study team before resolving/deleting from patients problem list. Study phone number: [phone]. Diagnosis changed due to Research Module. Go to [employer] for study details. ADVANCE DIRECTIVE INFORMATION 08/20/2006 08/16/2024 Overview (08/20/2006): Pt will bring copy at next visit. Special screening for malign ant neoplasms, colon 01/30/2006 04/08/2019 Overview (01/30/2006): Colonoscopy 01/21/06 --hyperplastic polyp--repeat 5 years documented as of this encounter (statuses as of 01/05/2025) Immunizations Name Administration Dates Next Due COVID-19 mRNA, LNP-s, No Pre serve, 2-Dose Series ([employer]) 08/07/2021,12/25/2020,11/20/2020 COVID-19, LNP-s, No Preserve , Gus-sucrose, Ages 12+ (Pfizer) 04/30/2022 COVID-19, MRNA-LNP, PF, 30 M CG/0.3 mL, 12 YRS AND ABOVE, IM ([facility]) 08/13/2023 Covid-19, Mrna, Lnp-s, Pf, B ivalent, 30 Mcg, IM, 12 yrs and above ([employer] App) 08/08/2022 Pneumococcal Conjugate Vacc, 13 Valent (Prevnar) [...] 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 New Patient Triage What is the diagnosis/reason for referral?: Chronic atrial fibrillation (HCC) [I48.20] - Primary Enter order ID here: Order [id number] Specialty specific documentation: Cardiology Structural Heart Discussed care plan with patient or proxy?: Yes markt Communicated with patient on Date (mm/dd/yyyy): 01/05/2025 at Time ([facility]): 10:56AM APPOINTMENT INFO: 01/27/25 11:30 AM - 60 min Evelyn Vogt PA-C New Cardiology Andree Dwyer PCP/REFERRING 12/29/2024 Family Practice [facility] Igor Boucher DO Family Medicine Chronic atrial [...] old female that presents for Hospital Follow-Up ([facility] d/c 12/24 had stomach virus, dehydration, [...] Behavior: Behavior normal. EKG/ECHO/ZIO/CARDIAC TESTING EKG Report [id number] 01/03/2025 10:56 AM Kendall Damian DO Signed by Kendall Damian DO on 01/03/25 at 1433 REASON FOR STUDY: A fib, SOB;A fib, SOB CONCLUSIONS: Atrial fibrillation with rapid ventricular response Possible Anterior infarct , age undetermined Abnormal ECG No previous ECGs available Ventricular Rate: 139 Atrial Rate: 267 QRS Duration: 78 QT/QTc: 310/471 ms P-R-T [place]: 0 : -6 : 76 degrees LABS [...] aspirin enteric coated 81 MG TBEC HOSPITALIZATIONS/CONSULTS [facility] 12/23/2024 scanned under media HOSPITAL TESTING [facility] 12/23/2024 scanned under media documented in this encounter Plan of Treatment Upcoming Encounters Date Type Department Care Team (Late st Contact Info) Description 01/11/2025 9:30 AM EDT Laboratory Laboratory, [facility] [place] [address] [place] [phone] Oh Dwyer [address] [place] [address] 01/11/2025 2:20 PM EDT Office Visit Family Practice [facility] [place] [address] [place] [address] Igor Boucher, DO [address] [place] [address] 01/27/2025 11:30 AM EDT Office Visit Cardiology, [facility] [address] [place] [phone] Evelyn Vogt PA-C [address] [place] [address] 02/17/2025 10:00 AM EDT Office Visit Family Practice [facility] [address] [place] [address] Igor Boucher, [address] [place] [address] 07/01/2025 10:40 AM EDT Office Visit Family Practice [facility] [address] [place] [address] Lisa Ramírez CRNP [address] [place] [address] Scheduled Procedures Name Priority Associated Diagnoses Date/Ti [...] 05/24/2024, 05/13, 12/03/2016 Lipid Panel 01/03/2030 01/03/2025, 040 11/2023, 12/03/2022, Additional history exists DTap/Tdap Vaccines [...] this encounter Medical Devices Implanted Type Area Casing Finisher And Stuffer Device Identifier Shelf Expiration Date Model / Serial / Lot Lens Li61ao 13.00mm 19.00 - [id number] - [id number] Implanted:Qty: 1 on 07/15/2023 by Doron Toscano MD at OR [facility] Left: Eye [employer] 04/11/2028 [id number] / [id number] / [id number] Lens Li61ao 13.00mm 17.50 - [id number] - [id number] Implanted:Qty: 1 on 07/29/2023 by Doron Toscano MD at OR [facility] Right: Eye [employer]OMB 03/12/2028 [id number] / [id number] / [id number] documented as of this encounter Advance Directives Documents on File Type Date Recorded Patient Acid Plant Helper Expl anation Advance Directives and Living Will 07/08/2003 LIVING WILL Power of Roll Threader Operator 07/08/2003 POWER OF A TTORNEY DURABLE [...] Power of Attor liya? No Care Teams Office Asst Relationship Specialty Start Date End Date Igor Boucher DO [address] [place] [address] PCP - General Family Medicine 12/14/19 documented as of this encounter
--- OUTSIDE RECORDS SUMMARY | 2025-01-12 06:38 | External Medical Summary | Summary of Care ---
Author Name Unknown Organization [facility] Address [address] [place] [address] Phone [phone] Care Team Providers Care Semiconductor Assembler Name Role Phone Boucher Igor Persaudvira Primary Care Provider Reason for Visit * Reason Onset Date Comments Test Results 01/03/2025 Unexpected or In determinate Result Encounter Details Date Type Department Care Team (Late st Contact Info) Description 01/03/2025 Telephone Laboratory, [place] [address] [place] [address] Raghavendra Kwok, ELSA [address] [place] [address] Test Results (Unexpected or Indeterminate [...] [facility] DETECT Study: Project # [id number], Segment Producer: Murphy Alicia, PhD. SUMMARY: Goal: Establish test [...] contact study staff at ; after hours Segment Producer via the [facility] barbed wire machine operator . Please contact study team before resolving/deleting from patients problem list. Study phone number: [phone]. Diagnosis changed due to Research Module. Go to Snapshot for study details. Encounter for examination fo r normal comparison and control in clinical research program 01/12/2019 06/13/2022 Overview (01/29/2021): DO NOT DELETE - [facility] MAX Study: Project # [id number], Segment Producer: Ezequiel Christian, MS, MPH. SUMMARY: Goal: Establish [...] contact study staff at ; after hours Segment Producer via the [facility] barbed wire machine operator . - Please contact study team before resolving/deleting from patients problem list. Study phone number: [phone]. Diagnosis changed due to Research Module. Go to waygum for study details. ADVANCE DIRECTIVE INFORMATION 08/20/2006 08/16/2024 Overview (08/20/2006): Pt will bring copy at next visit. Special screening for malign ant neoplasms, colon 01/30/2006 04/08/2019 Overview (01/30/2006): Colonoscopy 01/21/06 --hyperplastic polyp--repeat 5 years documented as of this encounter (statuses as of 01/04/2025) Immunizations Name Administration Dates Next Due COVID-19 mRNA, LNP-s, No Pre serve, 2-Dose Series ([employer]) 08/07/2021,12/25/2020,11/20/2020 COVID-19, LNP-s, No Preserve , Gus-sucrose, Ages 12+ (Pfizer) 04/30/2022 COVID-19, MRNA-LNP, PF, 30 M CG/0.3 mL, 12 YRS AND ABOVE, IM ([facility]) 08/13/2023 Covid-19, Mrna, Lnp-s, Pf, B ivalent, 30 Mcg, IM, 12 yrs and above ([employer]) 08/08/2022 DT - Diptheria/Tetanus (PEDS) 12/30/2002 Pneumococcal [...] 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 MyG sent to patient. * Telephone Encounter - Opal Buck OSA - 01/03/2025 2:58 PM EDT Hello- The radiologist discovered an unexpected or indeterminate finding on Bc Najera ([id number]) and asks that you review the following report. Study Type:XR CHEST 2 VIEWS Date of Study: 01/03/2025 IMPRESSION Small bilateral pleural effusions. Ill-defined bibasilar ground-glass opacities are noted which mayrepresent atelectasis or infection. Please correlate clinically. Please respond to this encounter to acknowledge receipt of this message and take responsibility to ensure this report is reviewed. Thank you, KHURRAM Hughes Client Service [facility] documented in this encounter Plan of Treatment Upcoming Encounters Date Type Department Care Team (Late st Contact Info) Description 01/11/2025 9:30 AM EDT Laboratory Laboratory, [facility] [address] [place] [phone] [facility] [address] [place] [address] 01/27/2025 11:30 AM EDT Office Visit Cardiology, [facility] [address] [place] [phone] Evelyn Vogt PA-C [address] [place] [address] [place] [address] 02/17/2025 10:00 AM EDT Office Visit Family Practice [facility] [address] [place] [address] Igor Boucher DO [address] [place] [address] 07/01/2025 10:40 AM EDT Office Visit Family Practice [facility] [address] [place] [address] Lisa Ramírez CRNP [address] [place] [address] Scheduled Procedures Name Priority Associated Diagnoses Date/Ti [...] Completed 11/13/2017, 11/12/2016 Zoster Vaccines Completed 09/01/2019, 070 05/2019, 10/12/2012 RETIRED - COLONOSCOPY-EVERY 5 YRS [...] this encounter Medical Devices Implanted Type Area Vice President Of Software Engineering Device Identifier Shelf Expiration Date Model / Serial / Lot Lens Li61ao 13.00mm 19.00 - [id number] - [id number] Implanted:Qty: 1 on 07/15/2023 by Doron Toscano MD at OR [facility] Left: Eye [employer]USCH [employer] LOMB 04/11/2028 [id number] / [id number] / [id number] Lens Li61ao 13.00mm 17.50 - [id number] - [id number] Implanted:Qty: 1 on 07/29/2023 by Doron Toscano MD at OR [facility] Right: Eye BAUSCH & LOMB 03/12/2028 [id number] / [id number] / [id number] documented as of this encounter Advance Directives Documents on File Type Date Recorded Patient Salt Cutter Expl anation Advance Directives and Living Will 07/08/2003 LIVING WILL Power of Sole Rounding Machine Operator 07/08/2003 POWER OF A TTORNEY [...] Power of Attor liya? No Care Teams Semiconductor Assembler Relationship Specialty Start Date End Date Igor Boucher DO [address] [place] [address] PCP - General Family Medicine 12/14/19 documented as of this encounter
--- OUTSIDE RECORDS SUMMARY | 2025-01-12 06:38 | External Medical Summary | Summary of Care ---
Author Name Unknown Organization [facility] Address [address] [place] [address] Phone [phone] Care Team Providers Care Shrub Planter Name Role Phone Boucher Igor Persaudvira Primary Care Provider Reason for Visit * Reason Onset Date Comments Test Results 01/03/2025 Unexpected or In determinate Result Encounter Details Date Type Department Care Team (Late st Contact Info) Description 01/03/2025 Telephone Laboratory, [place] [address] [place] [address] Raghavendra Kwok, ELSA [address] [place] [address] Test Results (Unexpected or Indeterminate [...] [facility] [place] DETECT Study: Project # [id number], Property Utilization Manager: Murphy Alicia, PhD. SUMMARY: Goal: Establish [...] contact study staff at ; after hours Property Utilization Manager via the [facility] welding machine operator . Please contact study team before resolving/deleting from patients problem list. Study phone number: [phone]. Diagnosis changed due to Research Module. Go to Snapshot for study details. Encounter for examination fo r normal comparison and control in clinical research program 01/12/2019 06/13/2022 Overview (01/29/2021): DO NOT DELETE - [facility] MAX Study: Project # [id number], Property Utilization Manager: Ezequiel Christian, MS, MPH. SUMMARY: Goal: [...] contact study staff at ; after hours Property Utilization Manager via the [facility] welding machine operator . - Please contact study team before resolving/deleting from patients problem list. Study phone number: [phone]. Diagnosis changed due to Research Module. Go to Weroom for study details. ADVANCE DIRECTIVE INFORMATION 08/20/2006 08/16/2024 Overview (08/20/2006): Pt will bring copy at next visit. Special screening for malign ant neoplasms, colon 01/30/2006 04/08/2019 Overview (01/30/2006): Colonoscopy 01/21/06 --hyperplastic polyp--repeat 5 years documented as of this encounter (statuses as of 01/04/2025) Immunizations Name Administration Dates Next Due COVID-19 mRNA, LNP-s, No Pre serve, 2-Dose Series ([employer]) 08/07/2021,12/25/2020,11/20/2020 COVID-19, LNP-s, No Preserve , Gus-sucrose, Ages 12+ (Pfizer) 04/30/2022 COVID-19, MRNA-LNP, PF, 30 M CG/0.3 mL, 12 YRS AND ABOVE, IM ([facility]) 08/13/2023 Covid-19, Mrna, Lnp-s, Pf, B ivalent, 30 Mcg, IM, 12 yrs and above ([employer]) 08/08/2022 DT - Diptheria/Tetanus (PEDS) 12/30/2002 Pneumococcal [...] 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 MyG sent to patient. * Telephone Encounter - Opal Buck OSA - 01/03/2025 2:58 PM EDT Hello- The radiologist discovered an unexpected or indeterminate finding on Bc Najera ([id number]) and asks that you review the following report. Study Type:XR CHEST 2 VIEWS Date of Study: 01/03/2025 IMPRESSION Small bilateral pleural effusions. Ill-defined bibasilar ground-glass opacities are noted which mayrepresent atelectasis or infection. Please correlate clinically. Please respond to this encounter to acknowledge receipt of this message and take responsibility to ensure this report is reviewed. Thank you, KHURRAM Hughes Client Service [facility] documented in this encounter Plan of Treatment Upcoming Encounters Date Type Department Care Team (Late st Contact Info) Description 01/11/2025 9:30 AM EDT Laboratory Laboratory, [facility] [address] [phone] [facility] [address] [place] [address] 01/27/2025 11:30 AM EDT Office Visit Cardiology, [facility] [address] [place] [phone] Evelyn Vogt PA-C [address] [place] [address] [place] [address] 02/17/2025 10:00 AM EDT Office Visit Family Practice [facility] [address] [place] [address] Igor Boucher DO [address] [place] [address] 07/01/2025 10:40 AM EDT Office Visit Family Practice [facility] [address] [place] [address] Lisa Ramírez CRNP [address] [place] [address] Scheduled Procedures Name Priority Associated Diagnoses Date/Ti [...] this encounter Medical Devices Implanted Type Area Public Utilities Sales Representative Device Identifier Shelf Expiration Date Model / Serial / Lot Lens Li61ao 13.00mm 19.00 - [id number] - [id number] Implanted:Qty: 1 on 07/15/2023 by Doron Toscano MD at OR [facility] Left: Eye [employer]USCH [employer] LOMB 04/11/2028 [id number] / [id number] / [id number] Lens Li61ao 13.00mm 17.50 - [id number] - [id number] Implanted:Qty: 1 on 07/29/2023 by Doron Toscano MD at OR [facility] Right: Eye BAUSCH & LOMB 03/12/2028 [id number] / [id number] / [id number] documented as of this encounter Advance Directives Documents on File Type Date Recorded Patient Health Education Director Expl anation Advance Directives and Living Will 07/08/2003 LIVING WILL Power of General Intern 07/08/2003 POWER OF A TTORNEY DURABLE HEALTHCARE [...] Power of Attor liya? No Care Teams Shrub Planter Relationship Specialty Start Date End Date Igor Boucher DO [address] [place] [address] PCP - General Family Medicine 12/14/19 documented as of this encounter
--- OUTSIDE RECORDS SUMMARY | 2025-01-12 06:38 | External Medical Summary | Summary of Care ---
Author Name Unknown Organization [facility] Address [address] [facility] [place] [address] Phone [phone] Care Team Providers Care Yard Pilot Name Role Phone Igor Bouchervira Primary Care Provider Encounter Details Date Type Department Care Team (Late st Contact Info) Description 01/04/2025 Result Scan Unspecified Department <No scans attached> Allergies Active Allergy Reactions [...] 01/12/2019 05/15/2020 Overview (01/29/2021): DO NOT DELETE [facility] DETECT Study: Project # [id number], Hydrogen Plant Operations Manager: Murphy Alicia, PhD. SUMMARY: Goal: Establish [...] contact study staff at ; after hours Hydrogen Plant Operations Manager via the [facility] hospital combat systems operator . Please contact study team before resolving/deleting from patients problem list. Study phone number: [phone]. Diagnosis changed due to Research Module. Go to Snapshot for study details. Encounter for examination fo r normal comparison and control in clinical research program 01/12/2019 06/13/2022 Overview (01/29/2021): DO NOT DELETE - [facility] DETECT Study: Project # [id number], Hydrogen Plant Operations Manager: Ezequiel Christian, MS, MPH. SUMMARY: Goal: [...] contact study staff at ; after hours Hydrogen Plant Operations Manager via the [facility] hospital combat systems operator . - Please contact study team before resolving/deleting from patients problem list. Study phone number: [phone]. Diagnosis changed due to Research Module. Go to Regalister for study details. ADVANCE DIRECTIVE INFORMATION 08/20/2006 08/16/2024 Overview (08/20/2006): Pt will bring copy at next visit. 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 Not on file Not on fi le documented as of this encounter Plan of Treatment Upcoming Encounters Date Type Department Care Team (Late st Contact Info) Description 01/11/2025 9:30 AM EDT Laboratory Laboratory, [facility] [address] [facility] [place] [address] [facility] [place] [address] 01/11/2025 2:20 PM EDT Office Visit [facility] [address] [place] [address] Igor Boucher, [address] [place] [address] 01/27/2025 11:30 AM EDT Office Visit Cardiology, [facility] [address] [place] [address] Evelyn Vogt PA-C [address] [place] [address] [place] [address] 02/17/2025 10:00 AM EDT Office Visit [facility] [address] [facility] [place] [address] Igor Boucher DO [address] [place] [address] 07/01/2025 10:40 AM EDT Office Visit [facility] [address] [place] [address] Lisa Ramírez CRNP [address] [place] [address] Scheduled Procedures Name Priority Associated Diagnoses Date/Ti [...] this encounter Medical Devices Implanted Type Area Pediatric Cns Device Identifier Shelf Expiration Date Model / Serial / Lot Lens Li61ao 13.00mm 19.00 - [id number] - [id number] Implanted:Qty: 1 on 07/15/2023 by Doron Toscano MD at OR [facility] Left: Eye BAUSCH [employer] LOMB 04/11/2028 [id number] / [id number] / [id number] Lens Li61ao 13.00mm 17.50 - [id number] - [id number] Implanted:Qty: 1 on 07/29/2023 by Doron Toscano MD at OR [facility] Right: Eye BAUSCH & LOMB 03/12/2028 [id number] / [id number] / [id number] documented as of this encounter Procedures Procedure Name Priority Date/Time Associated Diagnosis Comments CARDIOLOGY SCANNED RESULT 01/04/2025 documented in this encounter Results * CARDIOLOGY SCANNED RESULT (01/04/2025) 01/04/2025 us No Physician Data Unknown OTHER Final Result documented in this encounter Advance Directives Documents on File Type Date Recorded Patient Requisition Approver Expl anation Advance Directives and Living Will 07/08/2003 LIVING WILL Power of Ramp Flight Attendant 07/08/2003 POWER OF A TTORNEY DURABLE HEALTHCARE [...] Power of Attor liya? No Care Teams Yard Pilot Relationship Specialty Start Date End Date Igor Boucher DO [address] [place] [address] PCP - General Family Medicine 12/14/19 documented as of this encounter
--- OUTSIDE RECORDS SUMMARY | 2025-01-12 06:38 | External Medical Summary | Summary of Care ---
Author Name Unknown Organization [facility] Address [address] [facility] [place] [address] Phone [phone] Care Team Providers Care Interpreter Translator Name Role Phone Igor Boucher DO Primary Care Provider Reason for Referral * Precert (Within 10 days (routine)) - Authorized Specialty Diagnoses / Procedures Referred By Contac t Referred To Contact Radiology Diagnoses LVH (left ventricular hypertrophy) Chronic heart failure with preserved ejection fraction (HCC) Procedures NM SPECT CT SINGLE AREA, SINGLE DAY Jesus Blum DO [address] [place] [address] Phone: tel: fax: Referral ID Status Reason Start Date Expiration Date V isits Requested Visits Authorized [id number] Authorized 01/06/2025 999 999 * Precert (Within 10 days (routine)) - Authorized Specialty Diagnoses / Procedures Referred By Contac t Referred To Contact Radiology Diagnoses LVH (left ventricular hypertrophy) Chronic heart failure with preserved ejection fraction (HCC) Procedures NM PYP WHOLE BODY IMAGING Jesus Blum DO [address] [place] [address] Phone: tel: fax: Referral ID Status Reason Start Date Expiration Date V isits Requested Visits Authorized [id number] Authorized 01/06/2025 999 999 Reason for Visit * Reason Onset Date Comments Follow Up 01/05/2025 Appointment 01/05/2025 Encounter Details Date Type Department Care Team (Late st Contact Info) Description 01/05/2025 Telephone Cardiology, [facility] [address] [place] [address] Jesus Blum, [address] [place] [address] Follow Up; Appointment Allergies Active Allergy Reactions [...] 01/12/2019 05/15/2020 Overview (01/29/2021): DO NOT DELETE [facility] DETECT Study: Project # [id number], Meter Tester Polyphase: Murphy Alicia, PhD. SUMMARY: Goal: Establish test [...] contact study staff at ; after hours Meter Tester Polyphase via the [facility] hospital chemical treatment operator . Please contact study team before resolving/deleting from patients problem list. Study phone number: [phone]. Diagnosis changed due to Research Module. Go to Snapshot for study details. Encounter for examination fo r normal comparison and control in clinical research program 01/12/2019 06/13/2022 Overview (01/29/2021): DO NOT DELETE - [facility] DETECT Study: Project # [id number], Meter Tester Polyphase: Ezequiel Christian, MS, MPH. SUMMARY: Goal: Establish [...] contact study staff at ; after hours Meter Tester Polyphase via the [facility] hospital chemical treatment operator . - Please contact study team before resolving/deleting from patients problem list. Study phone number: [phone]. Diagnosis changed due to Research Module. 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 Please see providers note, to be done at [facility], and the patient has her FU on 01/27/25, and to be donebefore this appt. Thank you. NM PYP WHOLE BODY IMAGING [NMPYPWB] (Order [id number]) NM SPECT CT SINGLE AREA, SINGLE DAY [NMSPECTCTS] (Order [id number]) * Telephone Encounter - Jesus Blum DO - 01/05/2025 10:47 AM EDT Patient tentatively be discharged from [facility] today 01/05/2025 status post transesophageal echocardiogram guided [...] well as PYP nuclear medicine scan at [facility]. Orders placed. DO Chantal Leblancied DHARMESH Morris as an FYI. documented in this encounter Plan of Treatment Upcoming Encounters Date Type Department Care Team (Late st Contact Info) Description 01/11/2025 9:30 AM EDT Laboratory Laboratory, [facility] [address] [place] [address] Oh Dwyer [address] [place] [address] 01/11/2025 2:20 PM EDT Office Visit Family Practice [facility] [address] [place] [address] Igor Boucher DO [address] [place] [address] 01/27/2025 11:30 AM EDT Office Visit Cardiology, [facility] [address] [place] [phone] Evelyn Vogt PA-C [address] [place] [address] 02/17/2025 10:00 AM EDT Office Visit Family Practice [facility] [address] [place] [address] Igor Boucher DO [address] [place] [address] 07/01/2025 10:40 AM EDT Office Visit [facility] [address] [place] [address] Lisa Ramírez CRNP [address] [place] [address] Scheduled Orders Name Type Priority Associated Diagnoses [...] this encounter Medical Devices Implanted Type Area Room Service Attendant Device Identifier Shelf Expiration Date Model / Serial / Lot Lens Li61ao 13.00mm 19.00 - [id number] - [id number] Implanted:Qty: 1 on 07/15/2023 by Doron Toscano MD at OR [facility] Left: Eye BAUSCH & LOMB 04/11/2028 [id number] / [id number] / [id number] Lens Li61ao 13.00mm 17.50 - [id number] - [id number] Implanted:Qty: 1 on 07/29/2023 by Doron Toscano MD at OR [facility] Right: Eye BAUSCH & LOMB 03/12/2028 [id number] / [id number] / [id number] documented as of this encounter Visit Diagnoses Diagnosis Chronic heart failure with preserved ejection fraction (HCC)- Primary LVH (left ventricular hypertrophy) Cardiomegaly documented in this encounter Advance Directives Documents on File Type Date Recorded Patient Follow Up Rep Expl anation Advance Directives and Living Will 07/08/2003 LIVING WILL Power of Solar Technician 07/08/2003 POWER OF A TTORNEY DURABLE [...] Power of Attor liya? No Care Teams Interpreter Translator Relationship Specialty Start Date End Date Igor Boucher DO [address] [place] [address] PCP - General Family Medicine 12/14/19 documented as of this encounter
--- OUTSIDE RECORDS SUMMARY | 2025-01-12 06:39 | External Medical Summary ---
Author Name Unknown Address Unknown Organization : Laboratory Report Ordering Provider Test Date Status MATI GOODMAN 01/03/2025 11:16:21 Final Observation Date Value Abnormality Reference (Units ) Status METHYLMALONIC ACID 01/03/2025 11:16:21 158 6 9-390 (nmol/L) Final Serum methylmalonic acid (MM A) levels are used to
diagnose and monitor several rare inborn errors of
metabolism, including methylmalonic aciduria. The
enzymatic conversion of MMA to succinic acid requires
vitamin B12 (adenosyl-cobalamin) as a cofactor. Serum
MMA levels are also used for assessing functional
vitamin B12 deficiency. Vitamin B12 is essential for
neurodevelopment, particularly early in
. Undiagnosed maternal vitamin B12 deficiency
may be associated with adverse / outcomes,
such as neural tube defects and intrauterine growth
restriction.
[facility] utilized Multi-Modal Decomposition
(MMD) analysis to establish first and second trimester-
specific MMA reference intervals in , as given
below:
MMA, First trimester (<13 wks gestation): 58-167 nmol/L
MMA, Second trimester (13-23 wks gestation):
63-241 nmol/L
This test was developed and its analytical performance
characteristics have been determined by [facility]. It has not been cleared or approved by the
FDA. This assay has been validated pursuant to the CLIA
regulations and is used for clinical purposes.

Test Performed at:
[facility]
[address] [facility]
[place] [address]
Griffin Snyder M.D., Ph.D.,Director of Laboratories Performing Location
--- NOTE | 2025-01-12 08:27 | Electrocardiogram Report ---
Test Reason : Blood Pressure : */* mmHG Vent. Rate : 146 BPM Atrial Rate : * BPM P-R Int : * ms QRS Dur : 74 ms QT Int : 316 ms P-R-T Axes : * -27 59 degrees QTcB Int : 492 ms Atrial fibrillation with rapid ventricular response Abnormal ECG Poor R wave progression, consider anterior TN vs. lead placement vs. LVH When compared with ECG of 05-Jan-2025 05:23, Atrial fibrillation has replaced Sinus rhythm Vent. rate has increased by 77 bpm Confirmed by Mario Grady ([id number]) on 01/12/2025 8:27:32 AM Referred By: Igor Boucher Confirmed By: Mario Grady
--- NOTE | 2025-01-12 08:35 | Electrocardiogram Report ---
Test Reason : Blood Pressure : */* mmHG Vent. Rate : 121 BPM Atrial Rate : * BPM P-R Int : * ms QRS Dur : 78 ms QT Int : 286 ms P-R-T Axes : * -35 69 degrees QTcB Int : 406 ms Atrial fibrillation with rapid ventricular response Left axis deviation Poor R wave progression, consider anterior [place] vs. lead placement vs. LVH Abnormal ECG When compared with ECG of 11-Jan-2025 15:55, HR has decreased by 25 bpm Otherwise no significant change Confirmed by Mario Grady ([id number]) on 01/12/2025 8:35:05 AM Referred By: Igor Boucher Confirmed By: Mario Grady
--- NOTE | 2025-01-12 08:39 | Cardiology Consultation ---
Date of Consultation January 12, 2025 Assessment & Plan (1) Atrial fibrillation with rapid ventricular response: (2) Chronic heart failure with preserved ejection fraction: (3) Hypertension: Plan Patient here for recurrent afib RVR having undergone KEISHA/CV on 01/04 converting to NSR. Discharged on metoprolol 50 mg BID and Eliquis 5 mg BID. She reports compliance with medications at home. (She may not have received evening Eliquis dose here last night per patient and review of records). This is her 3rd admission related to afib in the last 3 weeks. Options discussed for treatment of recurrent afib RVR. Failed metoprolol. Recommend initiation of sotalol 80 mg BID. Stable QT measurements this morning. normal renal function. preserved LVEF with mild LVH on echo. Will require 3 day load. Monitor daily QT/QTc with EKG's. Ordered. Continue eliquis 5 mg BID. If she fails to convert to NSR spontaneously, will need to plan for repeat DCCV on day 3 of admission (Fri AM). Last admission she was treated for mild HFpEF symptoms. Currently appears euvolemic Continue oral furosemide 20 mg daily History of hypertension -BP controlled - continue sotalol. -Amlodipine and irbesartan held last admission. resume therapy if needed. She is currently being worked up for possible infiltrative cardiomyopathy. Keep appt as outpatient for PYP scan and repeat blood work. Case discussed with Dr. Damian. I spent a total of 60 minutes on the date of service in preparation, delivery, and documentation of the care provided to this patient, excluding any time spent in the performance of separately billed services. Nilam Da Silva PA-C Department of Cardiology, [facility] This chart was completed in part utilizing Speech Voice Recognition Software. Grammatical errors, random word insertions, pronoun errors, and incomplete sentences are an occasional consequence of this system due to software limitations, ambient noise, and hardware issues. Any formal questions or concerns about the content, text, or information contained within the body of this dictation should be directly addressed to the provider for clarification. Supervising Physician Co-Signing Physician Notes I have personally performed a history and physical examination on the patient. I have reviewed the advance practitioner's documentation, and I agree with, and take responsibility for the plan of care. 74-year-old female with paroxysmal atrial fibrillation and chronic heart failure with preserved ejection fraction. Currently failed beta-denae therapy. Recommend sotalol loading 80 mg twice daily. Appears euvolemic from a heart basilar perspective. Will proceed with repeat external direct-current cardioversion on Friday if patient does not convert to sinus rhythm with medical therapy. Repeat limited KEISHA required prior to cardioversion as she missed dose of Eliquis this week. Daily ECG ordered for QT monitoring. I spent a total of 30 minutes on the date of service in preparation, delivery, and documentation of the care provided to this patient, excluding any time spent in the performance of separately billed services. Kendall Damian DO, [facility] History of Present Illness Reason for Consultation: Atrial fibrillation RVR Requesting Physician: Grant Winslow Attending Physician: Dr. Damian History of Present Illness Patient is a 74 year old female who presented to [facility] yesterday with recurrent atrial fibrillation RVR. This is 3rd admission in the last 3 weeks for Atrial fibrillation and symptoms. Admitted 12/23-12/24/24 for new onset atrial fibrillation RVR. Patient declined KEISHA/CV. Started on metoprolol succinate 50 mg BID and Eliquis 5 mg BID. Amlodipine/irbesartan were held on discharge due to hypotension. TTE showed mild conc LVH, EF 55-60%, mildly dilated LA, mild to mod MR, trivial posterolateral pericardial effusion. Readmitted 01/04-01/05 for ongoing afib with elevated rates and worsening SOB. Had developed symptoms of HFpEF. Required IV diuresis as inpatient. Echo was reviewed and there was concern for possible infiltrative process. Serum immunofixation study was completed which was negative. Urine light chains also normal. She ultimately underwent KEISHA/CV with return to [facility]. she was again discharged on metoprolol 50 mg BID and Eliquis 5 mg BID, along with furosemide 20 mg and supplemental potassium due to HFpEF. She was scheduled for outpatient repeat monoclonal gammopathy screening and PYP nuclear scan to r/o infiltrative disease, but this has not yet been completed. Scheduled for later in January 2025. Patient reports she was feeling well the few days after discharge. Back to normal daily activities, working in the yard, feeling well for several days. On Friday patient reported worsening fatigue. Checked her HR on her fit bit and was elevated. She had no other symptoms of palpitations/tachypalpitations, but had fatigue with activity. No SOB or chest pain. She had PCP visit yesterday for hospital f/u and found to have recurrent atrial fibrillation. She reports mild chest heaviness yesterday when heart rate was elevated but now improved. She reports compliance with oral metoprolol 50 mg BID at home. She reports compliance with Eliquis 5 mg BID at home, but she is not sure she received evening dose here last night? She took Eliquis yesterday morning before coming to the ER. She also reports compliance with oral furosemide. No SOB/orthopnea/edema. Allergies Allergy/AdvReac Type Severity Reaction Status Date / Time naproxen Allergy Intermediate Rash Unverified 01/11/25 17:59 hydrochlorothiazide AdvReac Intermediate Makes her Unverified 01/11/25 17:59 feel terrible Home Medications Medication Instructions Recorded Confirmed Type aspirin 81 mg tablet,delayed 81 mg PO QAM 12/23/24 01/11/25 History release levothyroxine 88 mcg tablet 88 mcg PO QAM 12/23/24 01/11/25 History omeprazole 20 mg capsule,delayed 20 mg PO QAM 12/23/24 01/11/25 History release rosuvastatin 5 mg tablet 5 mg PO QAM 12/23/24 01/11/25 History apixaban 5 mg tablet (Eliquis) 5 mg PO BID #60 tabs 12/24/24 01/11/25 Rx metoprolol succinate 50 mg 50 mg PO BID #60 tabs 12/24/24 01/11/25 Rx tablet,extended release 24 hr potassium chloride 20 mEq 20 meq PO QAM #30 tabs 01/05/25 01/11/25 Rx tablet,extended release(part/cryst) cyanocobalamin (vitamin B-12) 1,000 mcg sublingual QAM 01/11/25 01/11/25 History 1,000 mcg sublingual tablet duloxetine 20 mg capsule,delayed 40 mg PO QAM 01/11/25 01/11/25 History release furosemide 20 mg tablet 20 mg PO QAM 01/11/25 01/11/25 History Patient History Medical History New onset atrial fibrillation Social History Smoking Status: Never smoker Second Hand Exposure: No; Do You Dip or Chew Tobacco: No; Hx Alcohol Use: Yes Alcohol type: beer Hx Substance Use: No Preferred Language: Citizen Of [place] Communication Ability: Effective Dietary Worker Required: No Beliefs That Will Affect Care: None Current Living Situation: Spouse Feels Safe at Home: Yes Safety Concerns: Feels Safe At This Time Assistive Devices: None Review of Systems Review of Systems: All systems reviewed & are unremarkable except as noted in HPI & below Physical Exam Constitutional: WD/WN, vitals as above no acute distress Neck: trachea midline, no thyromegaly Respiratory: normal respiratory effort; no labored breathing and no cough Auscultation: lungs clear to auscultation bilaterally Cardiovascular: Rate/Rhythm: + tachycardic and + irregularly irregular Heart Sounds: normal S1 and normal S2; no murmur Vessels: no JVD Extremities: no edema Gastrointestinal (Abdomen): normal bowel sounds, soft, nontender, no hepatosplenomegaly Skin: no rashes, warm and dry Neurologic: PERRL, EOMI, accommodation nl, no face palsy, no dysarthria Results & Data Vital Signs (Past 12 Hours) Vital Signs Temp Pulse Pulse Resp BP BP Pulse Ox 01/12/25 08:08 36.5 C 136 H 20 116/82 95 01/12/25 05:50 110 H 109/80 01/12/25 05:34 128 H 120/78 01/12/25 04:14 36.4 C L 124 H 20 117/96 95 01/12/25 04:14 36.4 C L 124 H 20 117/96 95 01/12/25 04:14 01/12/25 03:38 109 H 20 91/67 L 92 01/12/25 03:15 118 H 20 100/49 L 92 01/12/25 03:04 104 H 20 103/60 93 01/12/25 02:23 113 H 18 105/68 91 01/12/25 00:42 103 H 22 99/77 L 90 01/12/25 00:30 122 H 17 112/85 90 01/12/25 00:27 108/82 01/12/25 00:24 105 H 19 94 01/12/25 00:15 96/69 L 01/12/25 00:15 96/69 L 01/12/25 00:15 112 H 23 91 01/12/25 00:09 107 H 20 92 01/12/25 00:00 109/76 01/12/25 00:00 109/76 01/11/25 23:57 94 H 16 103/72 92 01/11/25 23:52 103/72 01/11/25 23:48 106 H 01/11/25 23:39 92 H 15 01/11/25 23:31 108/82 01/11/25 23:15 127/93 01/11/25 23:00 143 H 18 94/72 L 94 01/11/25 21:12 132 H 20 118/87 95 01/11/25 20:34 120 H 130/99 Pulse Ox O2 Del Method O2 Del Method 01/12/25 08:08 Room Air 01/12/25 05:50 01/12/25 05:34 01/12/25 04:14 Room Air 01/12/25 04:14 Room Air 01/12/25 04:14 95 Room Air 01/12/25 03:38 Room Air 01/12/25 03:15 Room Air 01/12/25 03:04 Room Air 01/12/25 02:23 Room Air 01/12/25 00:42 01/12/25 00:30 01/12/25 00:27 01/12/25 00:24 01/12/25 00:15 01/12/25 00:15 01/12/25 00:15 01/12/25 00:09 01/12/25 00:00 01/12/25 00:00 01/11/25 23:57 Room Air 01/11/25 23:52 01/11/25 23:48 01/11/25 23:39 01/11/25 23:31 01/11/25 23:15 01/11/25 23:00 Room Air 01/11/25 21:12 Room Air 01/11/25 20:34 Laboratory Results Cardiac Enzymes 01/11/25 01/12/25 Range/Units 16:10 05:39 AST 14 (13-39) U/L Troponin I High Sens 3.3 6.0 (0-14) pg/ml Coagulation 01/11/25 Range/Units 16:10 PT 10.9 (9.0-12.0) Seconds CBC 01/11/25 01/12/25 Range/Units 16:10 05:39 WBC 5.52 3.91 L (4.8-10.8) K/ul RBC 4.09 L 3.56 L (4.20-5.40) M/uL Hgb 11.9 L 10.4 L (12.0-16.0) g/dl Hct 35.7 L 31.5 L (37.0-47.0) % Plt Count 233 214 (130-400) K/uL Neut # (Auto) 3.10 1.96 (1.40-6.50) K/uL Lymph # (Auto) 1.73 1.40 (1.20-3.40) K/uL [place] # (Auto) 0.50 0.39 (0.11-0.59) K/uL Eos # (Auto) 0.12 0.13 (0.00-0.50) K/uL Baso # (Auto) 0.03 0.02 (0.00-0.20) K/uL Comprehensive Metabolic Panel 01/11/25 01/12/25 Range/Units 16:10 05:39 Sodium 139 141 (136-145) mmol/L Potassium 4.0 3.9 (3.5-5.1) mmol/L Chloride 107 112 H (98-107) mmol/L Carbon Dioxide 25 25 (21-32) mmol/L BUN 20 16 (6-23) mg/dl Creatinine 0.98 0.93 (0.6-1.2) mg/dl Glucose 96 104 H (70-99(Fasting)) mg/dl Calcium 9.1 8.5 L (8.6-10.3) mg/dl AST 14 (13-39) U/L ALT 15 (7-52) U/L Alkaline Phosphatase 97 (34-104) U/L Total Protein 6.7 (6.0-8.3) gm/dl Albumin 4.3 (3.4-5.0) gm/dl Intake and Output 01/11/25 01/12/25 01/12/25 22:59 06:59 14:59 Intake Total 1000 / 1000 0 / 1000 Balance 1000 / 1000 0 / 1000 Intake: IV 1000 / 1000 Sodium Chloride 0.9% 1,000 ml @ 1000 / 1000 999 mls/hr IV .Q1H1M ONE Rx#: [id number] Oral 0 / 0 Other: # Unmeasured Voids 0 Weight 72.8 kg 73.284 kg Weight Measurement Method Chair Scale Standing Scale Diagnostic Findings Telemetry reviewed: Afib with elevated ventricular rates ranging 120-130's. EKG reviewed from 01/11/25: Afib with RVR at 146 bmp Possible old anterior infarct Compared with prior EKG, afib has replaced NSR. QT/QTC 316/492 ms Repeat EKG reviewed: Afib with RVR at 121 bmp LAD possible old anterior infarct No significant change. QT/QTc 286/406 ms Chest xray report 01/11/25 IMPRESSION: 1. Cardiomegaly noted with congested both jabari, interval reduced. 2. No evidence of consolidation, collapse, or focal opacities. 3. Thoracic scoliosis with convexity to the right side noted, stable. Echo reviewed form prior admission: LV is normal in size Mild concentric LVH Myocardium is hyperechogenic No regional wall motion abnormalities LVEF 50-55% LA is mildly dilated Mild to moderate MR Trivial posterolateral pericardial effusion Medications Administered Current Inpatient Medications Acetaminophen (Acetaminophen 325 Mg Tab) 650 mg PO Q4H PRN PRN Reason: Pain or Fever Stop: 02/11/25 04:13 Apixaban (Apixaban 5 Mg Tablet) 5 mg PO BID [facility] Stop: 02/11/25 08:59 Aspirin (Aspirin 81 Mg Ectab) 81 mg PO QAM [facility] Stop: 02/11/25 08:59 Cyanocobalamin (Cyanocobalamin (B-12) 500 Mcg Tablet) 1,000 mcg PO QAM [facility] Stop: 02/11/25 08:59 Duloxetine HCl (Duloxetine Hcl 20 Mg Cap) 40 mg PO QAM [facility]Y Stop: 02/11/25 08:59 Furosemide (Furosemide 20 Mg Tab) 20 mg PO QAM [facility] Stop: 02/11/25 08:59 Sodium Chloride (Nss) 1,000 mls @ 125 mls/hr IV .Q8H NATY Stop: 01/12/25 23:44 Last Admin: 01/11/25 23:55 Dose: 125 mls/hr Levothyroxine Sodium (Levothyroxine Sodium 88 Mcg Tablet) 88 mcg PO DAILYBB NATY Stop: 02/11/25 06:29 Last Admin: 01/12/25 05:40 Dose: 88 mcg Metoprolol Succinate (Metoprolol Succ 50mg Ext Rel Tab) 50 mg PO BID NATY Stop: 02/11/25 08:59 Metoprolol Tartrate (Metoprolol Tartrate 1 Mg/Ml Vial) 5 mg IV Q6H PRN PRN Reason: HR > 120 Stop: 02/11/25 04:13 Nitroglycerin (Nitroglycerin Sl 0.4 Mg/Tab Tab) 0.4 mg SL Q5M PRN PRN Reason: Chest Pain Stop: 02/11/25 04:13 Pantoprazole Sodium (Pantoprazole 40 Mg Tab) 40 mg PO QAM [facility] Stop: 02/11/25 08:59 Polyethylene Glycol (Polyethylene (Miralax) 17 Gm Pack) 17 gm PO DAILY PRN PRN Reason: Constipation Stop: 02/11/25 04:13 Potassium Chloride (Potassium Chloride Crtab 20 Meq Tabcr) 20 meq PO QAM [facility] Stop: 02/11/25 08:59 Rosuvastatin Calcium (Rosuvastatin Calcium 5 Mg Tab) 5 mg PO QAM [facility] Stop: 02/11/25 08:59
[2025-01-12] MEDS: PANTOprazole 40 MG TAB PO SCH (08:55)
[2025-01-12] MEDS: POTASSIUM CHLORIDE CRTAB 20 MEQ TABCR PO SCH (08:55)
[2025-01-12] MEDS: ROSUVASTATIN CALCIUM 5 MG TAB PO SCH (08:55)
[2025-01-12] MEDS: CYANOCOBALAMIN (B-12) 500 MCG TABLET PO SCH (08:55)
[2025-01-12] MEDS: ASPIRIN 81 MG ECTAB PO SCH (08:55)
[2025-01-12] MEDS: FUROSEMIDE 20 MG TAB PO SCH (08:56)
[2025-01-12] MEDS: DULoxetine HCL 20 MG CAP PO SCH (08:56)
[2025-01-12] MEDS: APIXABAN 5 MG TABLET PO SCH (08:56)
[2025-01-12] MEDS: METOPROLOL SUCC 50MG EXT REL TAB PO SCH (08:57)
--- OUTSIDE RECORDS SUMMARY | 2025-01-12 12:05 | External Medical Summary | Summary of Care ---
Author Name Unknown Organization [facility] Address [address] [address] Phone [phone] Care Team Providers Care Heel Top Lift Splitter Name Role Phone Igor Boucher DO Primary Care Provider Reason for Visit * Reason Comments Hospital Follow-Up Pt here for Hosp F./ U. Pt admitted to [facility] on 01/04/2025 and d/c 01/05/2025 for A Fib with RVR. Pt states she was feeling better until yesterday when her fit bit notes that she was back in A-fib. Other sx noted at present is SOB and chest discomfort. Encounter Details Date Type Department Care Team (Late st Contact Info) Description 01/11/2025 2:20 PM EDT [facility] [address] [facility] [place] [address] Igor Boucher DO [address] [facility] [place] [address] Atrial fibrillation, unspecified type (HCC)* Allergies Active Allergy Reactions Criticality Noted Date Comments Hydrochlorothiazide 05/12/2018 Nauseaous and low energy Naproxen Rash High 11/26/2007 Bullous eruption on hands, phototoxicity documented as of this encounter (statuses as of 01/11/2025) Medications aspirin enteric coated 81 MG TBEC [...] 1 Tablet before bedtime. 01/04/20 25 Active Furosemide 20 MG Oral Tablet (Lasix) Take 1 Tablet by mouth in the morning. 01/06/20 25 Active Potassium Chloride Al[facility] Rosa ER 20 MEQ Oral Tablet Extended Release Take 20 Milliequivalent by mouth in the morning. 01/06/20 25 Active documented as of this encounter (statuses as of 01/11/2025) Active Problems Problem Noted Date Diagnosed Date Chronic pain of right knee 02/06/2021 HTN, goal below 130/80 12/14/2019 Other specified hypothyroidism 12/30/2002 CANCER OF COLON,FAM HX - Mom 03/10/1998 Menopause 03/10/1998 CARDIAC MURMURS NEC documented as of this encounter (statuses as of 01/11/2025) Resolved Problems Problem Noted Date Diagnosed Date Resolved Date Encounter for examination fo r normal comparison and control in clinical research program 01/12/2019 05/15/2020 Overview (01/29/2021): DO NOT DELETE Asaf [employer] MAX Study: Project # [id number], Vehicle Maintenance Supervisor: Murphy Alicia, PhD. SUMMARY: Goal: Establish [...] contact study staff at ; after hours Vehicle Maintenance Supervisor via the [facility] hospital pile driver operator . Please contact study team before resolving/deleting from patients problem list. Study phone number: [phone]. Diagnosis changed due to Research Module. Go to Snapshot for study details. Encounter for examination fo r normal comparison and control in clinical research program 01/12/2019 06/13/2022 Overview (01/29/2021): DO NOT DELETE - Asaf [employer] MAX Study: Project # [id number], Vehicle Maintenance Supervisor: Ezequiel Christian, MS, MPH. SUMMARY: Goal: [...] contact study staff at ; after hours Vehicle Maintenance Supervisor via the [facility] hospital pile driver operator . - Please contact study team before resolving/deleting from patients problem list. Study phone number: [phone]. Diagnosis changed due to Research Module. Go to Snapshot for study details. ADVANCE DIRECTIVE INFORMATION 08/20/2006 08/16/2024 Overview (08/20/2006): Pt will bring copy at next visit. Special screening for malign ant neoplasms, colon 01/30/2006 04/08/2019 Overview (01/30/2006): Colonoscopy 01/21/06 --hyperplastic polyp--repeat 5 years documented as of this encounter (statuses as of 01/11/2025) Immunizations Name Administration Dates Next Due COVID-19 mRNA, LNP-s, No Pre serve, 2-Dose Series ([employer]) 08/07/2021,12/25/2020,11/20/2020 COVID-19, LNP-s, No Preserve , Gus-sucrose, Ages 12+ (Pfizer) 04/30/2022 COVID-19, MRNA-LNP, PF, 30 M CG/0.3 mL, 12 YRS AND ABOVE, IM ([employer]-Comirnat) 08/13/2023 Covid-19, Mrna, Lnp-s, Pf, B ivalent, [...] 0 [birth year]/08/1969 - 02/09/1984 Smokeless Tobacco: Never Tobacco Cessation:Counseling Given: Not Answered Alcohol Use Standard Drinks/Week Comments Yes 0 [...] 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 Not on file Not on fi le documented as of this encounter Last Filed Vital Signs Vital Sign Reading Time Taken Comments Blood Pressure 96/60 01/11/2025 2:17 PM EDT Pulse 120 01/11/2025 2:17 PM EDT Temperature 36.1 °C (97 °F) 01/11/2025 2:17 PM EDT Respiratory Rate 16 01/11/2025 2:17 PM EDT Oxygen Saturation 95% 01/11/2025 2:17 PM EDT Inhaled Oxygen Concentration - - Weight 72.8 kg (160 lb 8 oz) 01/11/2025 2:17 PM EDT Height - - Body Mass Index 30.33 09/03/2024 9:18 AM EST documented in this encounter Progress Notes * Igor Boucher, - 01/11/2025 2:28 PM EDT Images from the original note were not included. Assessment and Plan Assessment & Plan Atrial Fibrillation Recurrent atrial fibrillation with a recent episode that seems to have begun yesterday and has waxed and waned.Symptoms fluctuant today. EKG on January 03 showed atrial fibrillation with rapid ventricular response at 139 bpm. Current pulse is 120 on my assessment. Cardioversion is a potential intervention if necessary. Scheduled for a nuclear medicine SPECT CT scan to assess coronary arteries andmyocardial perfusion, providing detailed information similar to heart catheterization. - Perform EKG to assess current heart rhythm - Continue increased dose of metoprolol - Proceed with nuclear medicine SPECT CT scan as scheduled Left Ventricular Hypertrophy and Mitral Regurgitation Echocardiogram shows left ventricular hypertrophy, mild to moderate mitral regurgitation, trace pericardial effusion, and mild left atrial dilation. Ejection fraction is good with no motion abnormalities. These findings may affect cardiac function during atrial fibrillation episodes. - Monitor cardiac function and symptoms - Review results of upcoming nuclear medicine SPECT CT scan Follow-up Scheduled follow-up on January 27 with [place], to review nuclear medicine SPECT CT scan results and further assess cardiac condition. Patient to proceed to ER at this point in time for further rate and rhythm considerations, considered sending home with increased metoprolol dosing, but currently light headed, orthostatic, and still not controlled. - Follow up with cardiology on January 27 History of Present Illness Bc Najera is a 74 year old female that presents for Hospital Follow-Up (Pt here for Hosp F./U. Pt admitted to [facility] on 01/04/2025 and d/c 01/05/2025 for A Fib with RVR. Pt states she was feeling better until yesterday when her fit bit notes that she was back in A-fib. Other sx noted at present is SOB and chest discomfort.) History of Present Illness The patient, with a history of atrial fibrillation, presents after a recent hospital admission for cardioversion. Despite an increased dose of metoprolol, she has returned to atrial fibrillation. Shereports feeling better today than yesterday, despite her Fitbit alerting her to atrial fibrillationthis morning. In addition to the atrial fibrillation, the patient has a mildly dilated left atrium, mild to moderate mitral regurgitation, and a little bit of thickening of the left ventricle. Physical Exam Vitals: 01/11/25 1417 Temp: 97 °F (36.1 °C) Pulse: 64 Resp: 16 SpO2: 95% BP: 96/60 Physical Exam Constitutional: Appearance: Normal appearance. HENT: Head: Normocephalic and atraumatic. Eyes: Extraocular Movements: Extraocular movements intact. Pupils: Pupils are equal, round, and reactive to light. Cardiovascular: Rate and Rhythm: Tachycardia present. Rhythm irregular. Pulmonary: Effort: Pulmonary effort is normal. Breath sounds: Normal breath sounds. Musculoskeletal: General: Swelling present. Comments: Mild LE edema bilaterally Neurological: General: No focal deficit present. Mental Status: She is alert and oriented to person, place, and time. Psychiatric: Mood and Affect: Mood normal. Behavior: Behavior normal. Wrap-Up Time: Total time today was 42 minutes excluding any time spent in the performance of separately billed services. Text in this note was generated using an [employer] documentation service. I discussed the use of a device to record and summarize our discussion today. All persons present during the encounter consented to its use. documented in this encounter Nursing Notes * Leny Keene LPN - 01/11/2025 2:15 PM EDT ,id Chief Complaint Patient presents with Hospital Follow-Up Pt here for Hosp F./U. Pt admitted to [facility] on 01/04/2025 and d/c 01/05/2025 for A Fib with RVR. Pt states she was feeling better until yesterday when her fit bit notes that she was back in A-fib. Other sx noted at present is SOB and chest discomfort. documented in this encounter Miscellaneous Notes * Addendum Note - Leny Keene LPN - 01/11/2025 3:07 PM EDTAddended by: LENY KEENE on: 01/11/2025 03:07 PM Modules accepted: Orders documented in this encounter Plan of Treatment Upcoming Encounters Date Type Department Care Team (Late st Contact Info) Description 01/25/2025 1:00 PM EDT Appointment Radiology, [address] [address] 01/25/2025 4:00 PM EDT Appointment Radiology, [address] [address] 01/25/2025 4:30 PM EDT Appointment Radiology, [address] [address] 01/27/2025 11:30 AM EDT Office Visit Cardiology, [facility] [place] [phone] Evelyn Vogt PA-C [address] [facility] [place] [address] 02/17/2025 10:00 AM EDT [facility] [address] [facility] [place] [address] Igor Boucher DO [address] [facility] [place] [address] 07/01/2025 10:40 AM EDT [facility] [place] [address] Lisa Ramírez CRNP [address] [place] [address] Scheduled Orders Name Type Priority Associated Diagnoses Orde r Schedule EKG EKG Routine Atrial fibrillation, unspecified type (HCC) Expected: 01/11/2025 (Approximate), Expires: 02/10/2026 Scheduled Procedures Name Priority Associated Diagnoses Date/Ti [...] this encounter Medical Devices Implanted Type Area Septic Tank Cleaner Device Identifier Shelf Expiration Date Model / Serial / Lot Lens Li61ao 13.00mm 19.00 - [id number] - [id number] Implanted:Qty: 1 on 07/15/2023 by Doron Toscano MD at [facility] Left: Eye [employer] LOMB 04/11/2028 [id number] / [id number] / [id number] Lens Li61ao 13.00mm 17.50 - [id number] - [id number] Implanted:Qty: 1 on 07/29/2023 by Doron Toscano MD at OR [facility] Right: Eye BAUSCH [employer] LOMB 03/12/2028 [id number] / [id number] / [id number] documented as of this encounter Visit Diagnoses Diagnosis Atrial fibrillation, unspecified type (HCC)- Primary documented in this encounter Advance Directives Documents on File Type Date Recorded 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 No Care Teams Heel Top Lift Splitter Relationship Specialty Start Date End Date Igor Boucher DO [address] [place] [address] PCP - General Family Medicine 12/14/19 documented as of this encounter
--- OUTSIDE RECORDS SUMMARY | 2025-01-12 12:06 | External Medical Summary | Summary of Care ---
Author Name Unknown Organization [facility] Address [address] [address] Phone [phone] Care Team Providers Care Clinical Transformation Specialist Name Role Phone Igor Boucher DO Primary Care Provider Reason for Visit * Reason Comments Hospital Follow-Up Pt here for Hosp F./ U. Pt admitted to [facility] on 01/04/2025 and d/c 01/05/2025 for A Fib with RVR. Pt states she was feeling better until yesterday when her fit bit notes that she was back in A-fib. Other sx noted at present is SOB and chest discomfort. Encounter Details Date Type Department Care Team (Late st Contact Info) Description 01/11/2025 2:20 PM EDT Office Visit [facility] [address] [facility] [place] [address] Igor Boucher DO 132 [facility] [place] [address] Atrial fibrillation, unspecified type (HCC)* Allergies Active [...] 05/15/2020 Overview (01/29/2021): DO NOT DELETE Asaf [employer] MAX Study: Project # [id number], Correspondence Specialist: Murphy Alicia, PhD. SUMMARY: Goal: Establish [...] contact study staff at ; after hours Correspondence Specialist via the [facility] hospital hot die press operator . Please contact study team before resolving/deleting from patients problem list. Study phone number: [phone]. Diagnosis changed due to Research Module. Go to Snapshot for study details. Encounter for examination fo r normal comparison and control in clinical research program 01/12/2019 06/13/2022 Overview (01/29/2021): DO NOT DELETE - Asaf [employer] MAX Study: Project # [id number], Correspondence Specialist: Ezequiel Christian, MS, MPH. SUMMARY: Goal: [...] contact study staff at ; after hours Correspondence Specialist via the [facility] hospital hot die press operator . - Please contact study team before resolving/deleting from patients problem list. Study phone number: [phone]. Diagnosis changed due to Research Module. 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 Pt admitted to [facility] on 01/04/2025 and d/c 01/05/2025 for A [...] in this note was generated using an [employer] documentation service. I discussed the use of a device to record and summarize our discussion today. All persons present during the encounter consented to its use. documented in this encounter Nursing Notes * Leny Keene LPN - 01/11/2025 2:15 PM EDT ,id Chief Complaint Patient presents with Hospital Follow-Up Pt here for Hosp F./U. Pt admitted to [facility] on 01/04/2025 and d/c 01/05/2025 for A [...] Description 01/25/2025 1:00 PM EDT Appointment Radiology, [address] [address] 01/25/2025 4:00 PM EDT Appointment Radiology, [address] [address] 01/25/2025 4:30 PM EDT Appointment Radiology, [address] [address] 01/27/2025 11:30 AM EDT Office Visit Cardiology, [facility] [place] [phone] Evelyn Vogt PA-C [address] [place] [address] 02/17/2025 10:00 AM EDT Office Visit [facility] [place] [address] Igor Boucher DO [address] [facility] [place] [address] 07/01/2025 10:40 AM EDT Office [facility] [place] [address] Lisa Ramírez CRNP [address] [place] [address] Scheduled Orders Name Type Priority Associated Diagnoses [...] this encounter Medical Devices Implanted Type Area Wholesale Agronomist Device Identifier Shelf Expiration Date Model / Serial / Lot Lens Li61ao 13.00mm 19.00 - [id number] - [id number] Implanted:Qty: 1 on 07/15/2023 by Doron Toscano MD at OR [facility] Left: Eye [employer]OMB 04/11/2028 [id number] / [id number] / [id number] Lens Li61ao 13.00mm 17.50 - [id number] - [id number] Implanted:Qty: 1 on 07/29/2023 by Doron Toscano MD at OR [facility] Right: Eye BAUSCH [employer] LOMB 03/12/2028 [id number] / [id number] / [id number] documented as of this encounter Visit Diagnoses Diagnosis Atrial fibrillation, unspecified type (HCC)- Primary documented in this encounter Advance Directives Documents on File Type Date Recorded Patient Patient Financial Services Specialist Expl anation Advance Directives and Living Will 07/08/2003 LIVING WILL Power of Back Stayer 07/08/2003 POWER OF A TTORNEY DURABLE HEALTHCARE [...] Power of Attor liya? No Care Teams Clinical Transformation Specialist Relationship Specialty Start Date End Date Igor Boucher DO [address] [place] [address] PCP - General Family Medicine 12/14/19 documented as of this encounter
[2025-01-12] MEDS: SOTALOL HCL 80 MG TAB PO SCH (12:23)
--- NOTE | 2025-01-12 15:12 | Hospitalist Progress Note ---
Date of Service January 12, 2025 Assessment & Plan (1) Atrial fibrillation with rapid ventricular response: Plan: 74-year-old female with past medical history significant for hypothyroidism, hypertension, hyperlipidemia, GERD, atrial fibrillation was sent in from PCP office for rapid A-fib. Patient was first admitted on 12/23/2024 for new onset atrial fibrillation and patient was discharged on 12/24/2024 on metoprolol succinate 50 mg twice daily and Eliquis 5 mg twice daily and also aspirin 81 mg p.o. daily,. Amlodipine and irbesartan were stopped because of hypotension. Patient was again admitted on 01/04/2025 with rapid A-fib and acute on chronic heart failure with preserved ejection fraction. Received Cardizem and IV Lopressor and also IV Lasix. Patient was status post cardioversion and was discharged on 01/04/2025. Lasix was also added on discharge. Patient states at home her watch was reading as A-fib. She went to her PCP for follow-up appointment today. EKG showed rapid A-fib in 130s. And she was sent to the ER. Denies any feeling of palpitations. Earlier felt chest pressure but that got resolved. Denies shortness of breath. No headache. No runny nose or sore throat. No cough. No fevers. Eating and drinking okay. No nausea. No abdominal pain. Normal bowel and bladder movements. Taking her medications as prescribed. In the ER her heart rate was in 140s /150s today. Received her home metoprolol succinate 50 mg and also extra dose 25 mg and also received IV Lopressor. As heart rates were still high, received a dose of IV Cardizem 10 mg. Currently heart rate are fluctuating in 100-120s. Hemodynamics are okay. Atrial fibrillation with rapid ventricular response Received total of 75 mg p.o. metoprolol succinate, IV Lopressor 5 mg and IV Cardizem 10 mg in the ER Failed metoprolol treatment Started on sotalol 80 mg twice a day Monitor QTc with daily EKG Avoid QTc prolonging meds as able Appreciate Cardiology input On Eliquis for anticoagulation Consideration for repeat cardioversion if needed Monitor replete electrolytes as needed Hypertension Previously on irbesartan, amlodipine Continue sotalol as above Monitor blood pressure and adjust medications as needed Hyperlipidemia Continue statin History of TIA Continue aspirin and statin History of heart failure with preserved ejection fraction On Lasix and potassium supplement Monitor volume status GERD Continue PPI Hypothyroidism Continue levothyroxine Chronic knee pain Depression On duloxetine DVT Px: Eliquis CODE STATUS Full code Admission and Anticipated Discharge Date Admission Date: January 12, 2025 Subjective Patient is seen and examined at bedside Denies any chest pain, dyspnea, palpitation, dizziness, nausea, vomiting, abdominal pain Discussed with cardiology today A-fib RVR on monitor Review of Systems Review of Systems: All systems reviewed & are unremarkable except as noted in Subjective Physical Exam Physical Exam: Physical Exam: Vitals signs as noted above General Appearance:Moderately built and nourished, no apparent distress Head: normocephalic, Atraumatic Eyes: normal inspection, EOMI Neck: supple, Trachea midline Respiratory/Chest: Normal breath sounds, CTA, No accessory muscle use Cardiovascular: Irregularly irregular, tachycardia, No murmur Abdomen/GI:Soft, Non tender, Bowel sounds present Extremities/Musculoskeletal:normal inspection, no edema Neurologic/Psych:AAOX3, grossly no focal neurological deficits Skin: normal color, warm Results & Data Results & Data Vital Signs (Past 12 Hours) Vital Signs Temp Pulse Pulse Resp BP BP Pulse Ox 01/12/25 12:45 126 H 01/12/25 10:37 36.6 C 123 H 19 102/65 93 01/12/25 09:13 123 H 116/96 01/12/25 09:02 127 H 111/81 94 01/12/25 08:58 138 H 111/81 01/12/25 08:08 36.5 C 136 H 20 116/82 95 01/12/25 05:50 110 H 109/80 01/12/25 05:34 128 H 120/78 01/12/25 04:14 36.4 C L 124 H 20 117/96 95 01/12/25 04:14 36.4 C L 124 H 20 117/96 95 01/12/25 04:14 01/12/25 03:38 109 H 20 91/67 L 92 01/12/25 03:15 118 H 20 100/49 L 92 Pulse Ox O2 Del Method O2 Del Method 01/12/25 12:45 01/12/25 10:37 Room Air 01/12/25 09:13 01/12/25 09:02 Room Air 01/12/25 08:58 01/12/25 08:08 Room Air 01/12/25 05:50 01/12/25 05:34 01/12/25 04:14 Room Air 01/12/25 04:14 Room Air 01/12/25 04:14 95 Room Air 01/12/25 03:38 Room Air 01/12/25 03:15 Room Air Laboratory Results Short CBC 01/11/25 01/12/25 Range/Units 16:10 05:39 WBC 5.52 3.91 L (4.8-10.8) K/ul Hgb 11.9 L 10.4 L (12.0-16.0) g/dl Hct 35.7 L 31.5 L (37.0-47.0) % Plt Count 233 214 (130-400) K/uL BMP 01/11/25 01/12/25 16:10 05:39 Sodium 139 141 Potassium 4.0 3.9 Chloride 107 112 H Carbon Dioxide 25 25 BUN 20 16 Creatinine 0.98 0.93 Glucose 96 104 H Calcium 9.1 8.5 L Liver Function 01/11/25 Range/Units 16:10 Total Bilirubin 0.5 (0.2-1.0) mg/dl AST 14 (13-39) U/L ALT 15 (7-52) U/L Alkaline Phosphatase 97 (34-104) U/L Albumin 4.3 (3.4-5.0) gm/dl Urine 01/11/25 Range/Units 18:28 Urine Color Yellow Urine Appearance Clear (Clear) Urine pH 5.0 (4.5-7.5) Ur Specific Rogers 1.017 (1.000-1.030) Urine Protein Negative (Negative) Urine Glucose (UA) Negative (Negative)
[2025-01-13 07:05] LABS: Calcium 8.8 mg/dl (8.6-10.3); Magnesium 1.8 mg/dl (1.7-2.4); Potassium 3.8 mmol/L (3.5-5.1)
[2025-01-13 07:11] LABS: BUN Creatinine Ratio 17.6 (10-20); Creatinine Clr Calc Pharmacy 56.6 ml/min
[2025-01-13] MEDS: MAGNESIUM SULFATE / D5W 1 GM/100 ML BAG IV SCH (09:11)
--- NOTE | 2025-01-13 09:58 | Electrocardiogram Report ---
Test Reason : Blood Pressure : */* mmHG Vent. Rate : 135 BPM Atrial Rate : * BPM P-R Int : * ms QRS Dur : 84 ms QT Int : 334 ms P-R-T Axes : * -17 52 degrees QTcB Int : 501 ms Atrial fibrillation with rapid ventricular response Abnormal ECG When compared with ECG of 11-Jan-2025 21:20, No significant change Confirmed by Mario Grady ([id number]) on 01/13/2025 9:57:44 AM Referred By: Igor Boucher Confirmed By: Mario Grady
--- NOTE | 2025-01-13 12:22 | Cardiology Progress Note ---
Date of Service January 13, 2025 Assessment & Plan (1) Atrial fibrillation with rapid ventricular response: (2) Chronic heart failure with preserved ejection fraction: (3) Hypertension: Plan 01/12/25: Patient here for recurrent afib RVR having undergone KEISHA/CV on 01/04 converting t o NSR. Discharged on metoprolol 50 mg BID and Eliquis 5 mg BID. She reports compliance with medications at home. (She may not have received evening Eliquis dose here last night per patient and review of records). This is her 3rd admission related to afib in the last 3 weeks. Options discussed for treatment of recurrent afib RVR. Failed metoprolol. Recommend initiation of sotalol 80 mg BID. Stable QT measurements this morning. normal renal function. preserved LVEF with mild LVH on echo. Will require 3 day load. Monitor daily QT/QTc with EKG's. Ordered. Continue Eliquis 5 mg BID. If she fails to convert to NSR spontaneously, will need to plan for repeat DCCV on day 3 of admission (Fri AM). Last admission she was treated for mild HFpEF symptoms. Currently appears euvolemic Continue oral furosemide 20 mg daily History of hypertension -BP controlled - continue sotalol. -Amlodipine and irbesartan held last admission. resume therapy if needed. She is currently being worked up for possible infiltrative cardiomyopathy. Keep appt as outpatient for PYP scan and repeat blood work. 01/13/25: Patient remains in persistent atrial fibrillation with elevated rates Sotalol initiated yesterday at 80 mg BID Borderline prolonged QTC interval this morning at 501 (before 3rd dose) Repeat EKG 1 hour post 3rd dose demonstrating QTC of 513 ms will repeat EKG later this afternoon Reduce sotalol to 40 mg BID tonight given borderline prolonged QT. NPO after midnight for KEISHA/CV tomorrow morning. She missed one dose of Eliquis this week upon admission, so will need repeat KEISHA. Continue furosemide 20 mg daily with potassium. Appears euvolemic. BP controlled. Will follow. Case discussed with Dr. Damian. I spent a total of 35 minutes on the date of service in preparation, delivery, and documentation of the care provided to this patient, excluding any time spent in the performance of separately billed services. Nilam Da Silva PA-C Department of Cardiology, [facility] This chart was completed in part utilizing Speech Voice Recognition Software. Grammatical errors, random word insertions, pronoun errors, and incomplete sentences are an occasional consequence of this system due to software limitations, ambient noise, and hardware issues. Any formal questions or concerns about the content, text, or information contained within the body of this dictation should be directly addressed to the provider for clarification. Admission and Anticipated Discharge Date Admission Date: January 12, 2025 Supervising Physician Co-Signing Physician Notes I have personally performed a history and physical examination on the patient. I have reviewed the advance practitioner's documentation, and I agree with, and take responsibility for the plan of care. 74-year-old female with paroxysmal atrial fibrillation and chronic heart failure with preserved ejection fraction. Sotalol loading initiated 01/12/25, unfortunately, prolonged QTc noted on ECG today. Will place sotalol on hold with repeat ECG this afternoon. Restart metoprolol to tartrate 50 mg 3 times daily. She will receive 1 dose now as well as an additional dose this evening. Continue Eliquis uninterrupted. N.p.o. except medications after midnight for transesophageal echo guided cardioversion in a.m. 01/14/25. I spent a total of 30 minutes on the date of service in preparation, delivery, and documentation of the care provided to this patient, excluding any time spent in the performance of separately billed services. Kendall Damian DO, [facility] Subjective Patient feeling well. resting in bed. No CP/SOB/palpitations. Remains in afib with elevated rates. No orthopnea, PND or edema. Review of Systems Review of Systems: All systems reviewed & are unremarkable except as noted in HPI & below Physical Exam Constitutional: WD/WN, vitals as above no acute distress Neck: trachea midline, no thyromegaly Respiratory: normal respiratory effort; no labored breathing and no cough Auscultation: lungs clear to auscultation bilaterally Cardiovascular: Rate/Rhythm: + tachycardic and + irregularly irregular Heart Sounds: normal S1 and normal S2; no murmur Vessels: no JVD Extremities: no edema Gastrointestinal (Abdomen): normal bowel sounds, soft, nontender, no hepatosplenomegaly Skin: no rashes, warm and dry Neurologic: PERRL, EOMI, accommodation nl, no face palsy, no dysarthria Results & Data Vital Signs (Past 12 Hours) Vital Signs Temp Pulse Pulse Resp BP BP Pulse Ox 01/13/25 11:00 37.0 C 120 H 18 112/89 94 01/13/25 07:31 36.5 C 115 H 16 130/82 91 01/13/25 07:00 143 H 01/13/25 06:22 122 H 01/13/25 06:01 128 H 117/83 01/13/25 03:12 36.9 C 119 H 18 123/91 91 O2 Del Method 01/13/25 11:00 Room Air 01/13/25 07:31 Room Air 01/13/25 07:00 01/13/25 06:22 01/13/25 06:01 01/13/25 03:12 Room Air Laboratory Results Comprehensive Metabolic Panel 01/13/25 Range/Units 05:44 Sodium 142 (136-145) mmol/L Potassium 3.8 (3.5-5.1) mmol/L Chloride 112 H (98-107) mmol/L Carbon Dioxide 22 (21-32) mmol/L BUN 15 (6-23) mg/dl Creatinine 0.85 (0.6-1.2) mg/dl Glucose 100 H (70-99(Fasting)) mg/dl Calcium 8.8 (8.6-10.3) mg/dl Intake and Output 01/12/25 01/13/25 01/13/25 22:59 06:59 14:59 Intake Total 2330 / 4330 1000 / 4330 88.333 / 88.333 Output Total Balance 2329 / 4329 1000 / 4329 88.333 / 88.333 Intake: IV 1000 / 3000 1000 / 3000 88.333 / 88.333 Magnesium Sulfate / D5w 1 gm In 88.333 / 88.333 100 ml @ 50 mls/hr IV Q2H NATY Rx#:[id number] Sodium Chloride 0.9% 1,000 ml @ 1000 / 3000 1000 / 3000 125 mls/hr IV .Q8H NATY Rx#: [id number] Oral 1330 / 1330 Output: # Bowel Movements Other: # Unmeasured Voids 3 1 Weight 77 kg Weight Measurement Method Built in [facility] Diagnostic Findings telemetry reviewed: Afib with elevated rates ranging 110-130's. EKG reviewed from 01/13/25 at 10:47 AM: Afib with RVR possible old septal infarct QT/QTC 348/513 ms EKG reviewed from 01/13/25 at 6:16 AM Afib with elevated rates QT/QTc 334/501 ms Medications Administered Current Inpatient Medications Acetaminophen (Acetaminophen 325 Mg Tab) 650 mg PO Q4H PRN PRN Reason: Pain or Fever Stop: 02/11/25 04:13 Apixaban (Apixaban 5 Mg Tablet) 5 mg PO BID [facility] Stop: 02/11/25 08:59 Last Admin: 01/13/25 09:06 Dose: 5 mg Aspirin (Aspirin 81 Mg Ectab) [facility] Stop: 02/11/25 08:59 Last Admin: 01/13/25 09:06 Dose: 81 mg Cyanocobalamin (Cyanocobalamin (B-12) 500 Mcg Tablet) 1,000 mcg [facility] Stop: 02/11/25 08:59 Last Admin: 01/13/25 09:06 Dose: 1,000 mcg Duloxetine HCl (Duloxetine Hcl 20 Mg Cap) [address] [facility] Stop: 02/11/25 08:59 Last Admin: 01/13/25 09:05 Dose: 40 mg Furosemide (Furosemide 20 Mg Tab) 20 [facility] Stop: 02/11/25 08:59 Last Admin: 01/13/25 09:06 Dose: 20 mg Levothyroxine Sodium (Levothyroxine Sodium 88 Mcg Tablet) 88 mcg PO DAILYBB [facility] Stop: 02/11/25 06:29 Last Admin: 01/13/25 06:01 Dose: 88 mcg Metoprolol Tartrate (Metoprolol Tartrate 1 Mg/Ml Vial) 5 mg IV Q6H PRN PRN Reason: HR > 120 Stop: 02/11/25 04:13 Last Admin: 01/13/25 06:01 Dose: 5 mg Nitroglycerin (Nitroglycerin Sl 0.4 Mg/Tab Tab) 0.4 mg SL Q5M PRN PRN Reason: Chest Pain Stop: 02/11/25 04:13 Pantoprazole Sodium (Pantoprazole 40 Mg Tab) 40 mg PO QAM [facility] Stop: 02/11/25 08:59 Last Admin: 01/13/25 09:06 Dose: 40 mg Polyethylene Glycol (Polyethylene (Miralax) 17 Gm Pack) 17 gm PO DAILY PRN PRN Reason: Constipation Stop: 02/11/25 04:13 Potassium Chloride (Potassium Chloride Crtab 20 Meq Tabcr) 20 meq [facility] Stop: 02/11/25 08:59 Last Admin: 01/13/25 09:09 Dose: 20 meq Rosuvastatin Calcium (Rosuvastatin Calcium 5 Mg Tab) 5 mg PO QAM [facility] Stop: 02/11/25 08:59 Last Admin: 01/13/25 09:06 Dose: 5 mg Sotalol HCl (Sotalol Hcl 80 Mg Tab) 40 mg PO BID [facility] Stop: 02/12/25 20:59
[2025-01-13] MEDS: METOPROLOL TARTRATE 50 MG TAB PO SCH (13:59)
--- NOTE | 2025-01-13 14:45 | Electrocardiogram Report ---
Test Reason : Blood Pressure : */* mmHG Vent. Rate : 131 BPM Atrial Rate : * BPM P-R Int : * ms QRS Dur : 78 ms QT Int : 348 ms P-R-T Axes : * -19 28 degrees QTcB Int : 513 ms Atrial fibrillation with rapid ventricular response with premature ventricular or aberrantly conducte d complexes Abnormal ECG When compared with ECG of 13-Jan-2025 06:16, No significant change Confirmed by Mario Grady ([id number]) on 01/13/2025 2:45:06 PM Referred By: Igor Boucher Confirmed By: Mario Grady
--- NOTE | 2025-01-13 15:37 | Hospitalist Progress Note ---
Date of Service January 13, 2025 Assessment & Plan (1) Atrial fibrillation with rapid ventricular response: Plan: 74-year-old female with past medical history significant for hypothyroidism, hypertension, hyperlipidemia, GERD, atrial fibrillation was sent in from PCP office for rapid A-fib. Patient was first admitted on 12/23/2024 for new onset atrial fibrillation and patient was discharged on 12/24/2024 on metoprolol succinate 50 mg twice daily and Eliquis 5 mg twice daily and also aspirin 81 mg p.o. daily,. Amlodipine and irbesartan were stopped because of hypotension. Patient was again admitted on 01/04/2025 with rapid A-fib and acute on chronic heart failure with preserved ejection fraction. Received Cardizem and IV Lopressor and also IV Lasix. Patient was status post cardioversion and was discharged on 01/04/2025. Lasix was also added on discharge. Patient states at home her watch was reading as A-fib. She went to her PCP for follow-up appointment today. EKG showed rapid A-fib in 130s. And she was sent to the ER. Denies any feeling of palpitations. Earlier felt chest pressure but that got resolved. Denies shortness of breath. No headache. No runny nose or sore throat. No cough. No fevers. Eating and drinking okay. No nausea. No abdominal pain. Normal bowel and bladder movements. Taking her medications as prescribed. In the ER her heart rate was in 140s /150s today. Received her home metoprolol succinate 50 mg and also extra dose 25 mg and also received IV Lopressor. As heart rates were still high, received a dose of IV Cardizem 10 mg. Currently heart rate are fluctuating in 100-120s. Hemodynamics are okay. Atrial fibrillation with rapid ventricular response Was on metoprolol succinate 50 mg twice a day Sotalol held due to prolonged QTc Monitor QTc with daily EKG Avoid QTc prolonging meds as able Appreciate Cardiology input On Eliquis for anticoagulation Started on metoprolol tartrate 50 mg today. Continue per cardiology NPO after midnight for KEISHA cardioversion tomorrow Monitor replete electrolytes as needed Hypertension Previously on irbesartan, amlodipine Continue metoprolol as above Monitor blood pressure and adjust medications as needed Hyperlipidemia Continue statin History of TIA Continue aspirin and statin History of heart failure with preserved ejection fraction On Lasix and potassium supplement Monitor volume status GERD Continue PPI Hypothyroidism Continue levothyroxine Chronic knee pain Depression On duloxetine DVT Px: Eliquis CODE STATUS Full code Admission and Anticipated Discharge Date Admission Date: January 12, 2025 Subjective Patient is seen and examined at bedside Continues to be in A-fib RVR but asymptomatic Discussed with patient's family at bedside Offers no complaints today Denies any chest pain, dyspnea, palpitation, dizziness, nausea, vomiting, abdominal pain Review of Systems Review of Systems: All systems reviewed & are unremarkable except as noted in Subjective Physical Exam Physical Exam: Physical Exam: Vitals signs as noted above General Appearance:Moderately built and nourished, no apparent distress Head: normocephalic, Atraumatic Eyes: normal inspection, EOMI Neck: supple, Trachea midline Respiratory/Chest: Normal breath sounds, CTA, No accessory muscle use Cardiovascular: Irregularly irregular, tachycardia, No murmur Abdomen/GI:Soft, Non tender, Bowel sounds present Extremities/Musculoskeletal:normal inspection, no edema Neurologic/Psych:AAOX3, grossly no focal neurological deficits Skin: normal color, warm Results & Data Results & Data Vital Signs (Past 12 Hours) Vital Signs Temp Pulse Pulse Resp BP BP Pulse Ox 01/13/25 14:00 117 H 01/13/25 11:00 37.0 C 120 H 18 112/89 94 01/13/25 07:31 36.5 C 115 H 16 130/82 91 01/13/25 07:00 143 H 01/13/25 06:22 122 H 01/13/25 06:01 128 H 117/83 O2 Del Method 01/13/25 14:00 01/13/25 11:00 Room Air 01/13/25 07:31 Room Air 01/13/25 07:00 01/13/25 06:22 01/13/25 06:01 Laboratory Results BMP 01/13/25 05:44 Sodium 142 Potassium 3.8 Chloride 112 H Carbon Dioxide 22 BUN 15 Creatinine 0.85 Glucose 100 H Calcium 8.8
--- NOTE | 2025-01-13 16:17 | Electrocardiogram Report ---
Test Reason : Blood Pressure : */* mmHG Vent. Rate : 117 BPM Atrial Rate : * BPM P-R Int : * ms QRS Dur : 78 ms QT Int : 338 ms P-R-T Axes : * -20 28 degrees QTcB Int : 471 ms Atrial fibrillation with rapid ventricular response Old Anteroseptal infarct (cited on or before 13-Jan-2025) Abnormal ECG When compared with ECG of 13-Jan-2025 10:47, HR has decreased by 14 bpm Confirmed by Mario Grady ([id number]) on 01/13/2025 4:16:38 PM Referred By: Igor Boucher Confirmed By: Mario Grady
[2025-01-13] MEDS: SOTALOL HCL 80 MG TAB PO SCH (20:10)
[2025-01-13] MEDS: CALCIUM CARBONATE 500 MG CHEWABLE TAB PO STA (20:10)
[2025-01-14] MEDS: NITROGLYCERIN SL 0.4 MG/TAB TAB SL STA (01:38)
[2025-01-14] MEDS: NITROGLYCERIN SL 0.4 MG/TAB TAB SL PRN (01:38)
[2025-01-14] MEDS ORDERED: oxyCODONE HCL IR 5 MG TAB (IMMEDIATE RELEASE) PO PRN (01:38)
--- NOTE | 2025-01-14 01:45 | Communication Note ---
Date of Service: January 14, 2025 Patient complained of substernal chest pain Uncontrolled A-fib overnight No response to sotalol and beta-denae heart rate 1 10-1 30s. AP Nitro trial IV Cardizem bolus
[2025-01-14] MEDS: dilTIAZem HCl 5 MG/ML 5 ML VIAL IV STA (02:00)
[2025-01-14 02:22] LABS: Basophils # (auto) 0.02 K/uL (0.00-0.20); Basophils % (auto) 0.4 %; Eosinophils # (auto) 0.15 K/uL (0.00-0.50); Eosinophils % (auto) 3.1 %; Hematocrit (blood only) 32.2 % (37.0-47.0); Hemoglobin 10.7 g/dl (12.0-16.0); Immature Granulocytes # (auto) 0.02 K/uL (0.01-0.20); Immature Granulocytes % (auto) 0.4 %; Lymphocytes # (auto) 1.48 K/uL (1.20-3.40); Lymphocytes % (auto) 30.7 %; Mean Corpuscular Hgb Conc 33.2 g/dL (32.0-36.0); Mean Corpuscular Volume 87.3 fL (80.0-100.0); Mean Platelet Volume 10.9 fL (9.4-12.4); Monocytes # (auto) 0.36 K/uL (0.11-0.59); Monocytes % (auto) 7.5 %; Neutrophils # (auto) 2.79 K/uL (1.40-6.50); Neutrophils % (auto) 57.9 %; Platelet Count 212 K/uL (130-400); Red Blood Count 3.69 M/uL (4.20-5.40); White Blood Count 4.82 K/ul (4.8-10.8)
[2025-01-14 02:37] LABS: BUN Creatinine Ratio 18.9 (10-20); Calcium 8.9 mg/dl (8.6-10.3); Creatinine Clr Calc Pharmacy 53.5 ml/min; Magnesium 2.1 mg/dl (1.7-2.4); Potassium 3.6 mmol/L (3.5-5.1)
[2025-01-14 02:44] LABS: Troponin I High Sensitivity 5.4 pg/ml (0-14)
[2025-01-14 02:45] LABS: Partial Thromboplastin Time 27 Seconds (21-31)
[2025-01-14] MEDS: POTASSIUM CHLORIDE CRTAB 20 MEQ TABCR PO STA ×2 (04:31→09:05)
[2025-01-14] MEDS: ALBUMIN 25% 12.5 GM/50 ML VIAL IV ONE (04:32)
--- NOTE | 2025-01-14 07:07 | Anesthesiology Consultation ---
Date of Service January 14, 2025 Assessment & Plan Chart Review Chart Review: Acceptable Risk for Surgery and Patient NOT seen in Pre Admission Testing Consults Requested none ASA ASA3 Proposed Anesthesia Anesthesia Type: MAC Risk / Benefits Reviewed With: PT / POA / Parent / Guardian, Accepts Plan and Informed Consent Obtained History Surgery Operation Date: 01/14/25 07:15 Proposed Procedures p Cardioversion w/Anesthesia Sedation - Kendall Damian DO s Transesophageal Echo w/Anesthesia - Kendall Damian DO Height/Weight Height: 5 ft 2 in Weight: 77 kg Allergies Allergy/AdvReac Type Severity Reaction Status Date / Time naproxen Allergy Intermediate Rash Unverified 01/11/25 17:59 hydrochlorothiazide AdvReac Intermediate Makes her Unverified 01/11/25 17:59 feel terrible Medications Home Medications Medication Instructions Recorded Confirmed Last Taken aspirin 81 mg tablet,delayed 81 mg PO QAM 12/23/24 01/11/25 01/11/25 release levothyroxine 88 mcg tablet 88 mcg PO QAM 12/23/24 01/11/25 01/11/25 omeprazole 20 mg capsule,delayed 20 mg PO QAM 12/23/24 01/11/25 01/11/25 release rosuvastatin 5 mg tablet 5 mg PO QAM 12/23/24 01/11/25 Unknown apixaban 5 mg tablet (Eliquis) 5 mg PO BID #60 tabs 12/24/24 01/11/25 01/11/25 AM DOSE metoprolol succinate 50 mg 50 mg PO BID #60 tabs 12/24/24 01/11/25 01/11/25 tablet,extended release 24 hr AM DOSE potassium chloride 20 mEq 20 meq PO QAM #30 tabs 01/05/25 01/11/25 01/10/25 tablet,extended release(part/cryst) cyanocobalamin (vitamin B-12) 1,000 mcg sublingual QAM 01/11/25 01/11/25 01/11/25 1,000 mcg sublingual tablet duloxetine 20 mg capsule,delayed 40 mg PO QAM 01/11/25 01/11/25 01/11/25 release furosemide 20 mg tablet 20 mg PO QAM 01/11/25 01/11/25 01/10/25 Active Medications Generic Name Dose Route Start Last Admin Trade Name Freq PRN Reason Stop Dose Admin Apixaban 5 mg 01/12/25 09:00 01/13/25 20:11 Apixaban 5 Mg Tablet PO 02/11/25 08:59 5 mg BID NATY Administration Aspirin 81 mg 01/12/25 09:00 01/13/25 09:06 Aspirin 81 Mg Ectab PO 02/11/25 08:59 81 mg QAM NATY Administration Cyanocobalamin 1,000 mcg 01/12/25 09:00 01/13/25 09:06 Cyanocobalamin (B-12) 500 Mcg Tablet PO 02/11/25 08:59 1,000 mcg QAM NATY Administration Duloxetine HCl 40 mg 01/12/25 09:00 01/13/25 09:05 Duloxetine Hcl 20 Mg Cap PO 02/11/25 08:59 40 mg QAM NATY Administration Furosemide 20 mg 01/12/25 09:00 01/13/25 09:06 Furosemide 20 Mg Tab PO 02/11/25 08:59 20 mg QAM NATY Administration Levothyroxine Sodium 88 mcg 01/12/25 06:30 01/13/25 06:01 Levothyroxine Sodium 88 Mcg Tablet PO 02/11/25 06:29 88 mcg DAILYBB NATY Administration Metoprolol Tartrate 5 mg 01/12/25 08:23 01/14/25 01:00 Metoprolol Tartrate 1 Mg/Ml Vial IV 02/11/25 04:13 5 mg Q6H PRN Administration HR > 120 Metoprolol Tartrate 50 mg 01/13/25 13:00 01/13/25 20:11 Metoprolol Tartrate 50 Mg Tab PO 02/12/25 12:59 50 mg BID NATY Administration Pantoprazole Sodium 40 mg 01/12/25 09:00 01/13/25 09:06 Pantoprazole 40 Mg Tab PO 02/11/25 08:59 40 mg QAM NATY Administration Rosuvastatin Calcium 5 mg 01/12/25 09:00 01/13/25 09:06 Rosuvastatin Calcium 5 Mg Tab PO 02/11/25 08:59 5 mg QAM NATY Administration Sotalol HCl 40 mg 01/13/25 21:00 01/13/25 20:10 Sotalol Hcl 80 Mg Tab PO 02/12/25 20:59 40 mg BID NATY Administration NPO Date Last Intake of Fluids: 01/13/25 Time Last Intake of Fluids: 23:59 Date Last Intake of Solids: 01/13/25 Time Last Intake of Solids: 23:59 Past Medical History Medical History New onset atrial fibrillation Exercise / Class Metabolic Activity III < 4 Walking/Shop/Light housework Past Anesthesia History No Hx of Anesthesia Complications and No Family Hx of Anesthesia Complications History of PONV No Hx of PONV and No Hx of Motion Sickness Social History Smoking Status: Never smoker Do You Dip or Chew Tobacco: No Hx Alcohol Use: Yes Alcohol type: beer alcohol intake frequency: 0-2 drinks per day Alcohol Intake Frequency Comment: states hasnt had a beer in 2 weeks Hx Substance Use: No substance use type: does not use Review of Systems Constitutional: as per Subjective / HPI Eyes: as per Subjective / HPI Ear, Nose, Mouth, Throat: as per Subjective / HPI Cardiovascular: + chest pain Additional Comments: Afib with AVR Gastrointestinal: as per Subjective / HPI Genitourinary (Female): as per Subjective / HPI Musculoskeletal: as per Subjective / HPI Integumentary: as per Subjective / HPI Neurologic: as per Subjective / HPI Psychiatric: as per Subjective / HPI Endocrine: as per Subjective / HPI Hematologic / Lymphatic: as per Subjective / HPI Allergy / Immunological: as per Subjective / HPI Physical Exam Vital Signs Last Vital Signs Temp 36.6 C 01/13/25 22:31 Pulse 101 H 01/14/25 03:01 Resp 14 01/14/25 02:05 BP 106/82 01/14/25 04:00 Pulse Ox 94 01/14/25 02:05 O2 Del Method Nasal Cannula 01/14/25 02:05 O2 Flow Rate 2 01/14/25 02:05 Constitutional + obese ENMT Thyromental Distance: > or= 3.5 Finger Breadths Mallampati Class: I Neck normal visual inspection Respiratory normal respiratory effort Cardiovascular Rate/Rhythm: regular rhythm and + tachycardic (irregular rhythm) Musculoskeletal Extremities: extremities normal to inspection Neurologic moves all extremities Psychiatric Orientation: alert and oriented x 3 Testing Laboratory Results 01/14/25 01:55 01/14/25 01:55 PT 10.9 Seconds (9.0-12.0) 01/11/25 16:10 INR 1.0 (0.9-1.1) 01/11/25 16:10 APTT 27 Seconds (21-31) 01/14/25 01:55 Urine Color Yellow 01/11/25 18:28 Urine Appearance Clear (Clear) 01/11/25 18: Urine pH 5.0 (4.5-7.5) 01/11/25 18: Ur Specific Cedar 1.017 (1.000-1.030) 01/11/25 18: Urine Protein Negative (Negative) 01/11/25 18: Urine Glucose (UA) Negative (Negative) 01/11/25 18: Urine Ketones Negative (Negative) 01/11/25 18: Urine Nitrite Negative (Negative) 01/11/25 18: Ur Leukocyte Esterase Trace (Negative) H 01/11/25 18:28 Urine WBC (Auto) 0-5 /hpf (0-5) 01/11/25 18:28 Urine RBC (Auto) 0-2 /hpf (0-2) 01/11/25 18: U Hyaline Cast (Auto) 0-2 /lpf (0-2) 01/11/25 18:28 U Epithel Cells (Auto) 0-2 /hpf (0-2) 01/11/25 18:28 Urine Bacteria (Auto) None Seen (None Seen) 01/11/25 18:28
--- NOTE | 2025-01-14 07:57 | Anesthesiology Progress Note ---
Date of Service January 14, 2025 Anesthesia Post Procedure Vital Signs Vital Signs: Temp Pulse Pulse Resp BP BP Pulse Ox 01/14/25 07:15 132 H 14 136/97 94 01/14/25 04:00 106/82 01/14/25 03:01 101 H 96/70 L 01/14/25 02:49 77 96/66 L 01/14/25 02:05 76 14 109/48 L 94 01/14/25 02:02 128 H 01/14/25 02:00 108/76 01/14/25 01:31 121 H 119/71 01/14/25 01:00 150 H 123/86 01/14/25 00:58 150 H 12 123/86 01/13/25 22:31 36.6 C 125 H 18 116/87 94 01/13/25 19:27 36.9 C 135 H 18 128/92 93 01/13/25 19:21 01/13/25 15:54 36.5 C 121 H 19 111/78 93 01/13/25 14:00 117 H 01/13/25 11:00 37.0 C 120 H 18 112/89 94 O2 Del Method O2 Flow Rate 01/14/25 07:15 Room Air 01/14/25 04:00 01/14/25 03:01 01/14/25 02:49 01/14/25 02:05 Nasal Cannula 2 01/14/25 02:02 01/14/25 02:00 01/14/25 01:31 01/14/25 01:00 01/14/25 00:58 01/13/25 22:31 Room Air 01/13/25 19:27 Room Air 01/13/25 19:21 Room Air, Nasal Cannula 2 01/13/25 15:54 Room Air 01/13/25 14:00 01/13/25 11:00 Room Air Transfer of Care Handoff Completed per policy Notes Mental Status: alert / awake / arousable and participated in evaluation Patient Amnestic to Procedure: Yes Nausea / Vomiting: adequately controlled Pain: adequately controlled Airway Patency, RR, SpO2: stable & adequate BP & HR: stable & adequate Hydration State: stable & adequate Anesthetic Complications: no major complications apparent and Pt Satisfied with anesthetic care
--- NOTE | 2025-01-14 07:59 | Cardioversion ---
Date of Service January 14, 2025 Electrical Cardioversion Rpt Electrical Cardioversion Report Indication paroxysmal atrial fibrillation with rapid ventricular response Complications: None Estimated blood loss: 0 cc Anesthesia: MAC, sedation provided by anesthesia service. Please see separate report Procedural summary: Transesophageal echocardiogram was performed prior to cardioversion to exclude presence of left atrial appendage thrombus. No evidence of thrombus per imaging. Please see separate report. Patient was sedated as noted above. Defibrillator pads placed in anterior and posterior position. Defibrillator was sync to the QRS complex. A single 200 J shock was delivered. Patient successfully converted from atrial fibrillation with rapid ventricular response to normal sinus rhythm. Patient tolerated procedure well. No focal neurologic deficit post cardioversion. Conclusion: Successful transesophageal echo guided direct-current cardioversion with 200 J. ECG post cardioversion confirms sinus rhythm. QT interval within normal limits. Increase sotalol to 80 mg twice daily. Repeat ECG 2 hours after sotalol dose given. Kendall Damian DO, [facility]
[2025-01-14] MEDS: PROPOFOL IV EMULSION 10 MG/ML 20 ML VIAL IV ONE (08:58)
[2025-01-14] MEDS: LIDOCAINE 2% 2 ML VIAL/AMP(20MG/ML) INFIL ONE (08:58)
[2025-01-14] MEDS: BENZOCAINE/TETRACAIN/BUTAM 50 APPLN/5 GM CAN EXT ONE (08:59)
[2025-01-14] MEDS: SOTALOL HCL 80 MG TAB PO SCH (09:10)
[2025-01-14] MEDS: METOPROLOL TARTRATE 25 MG TAB PO SCH (09:18)
--- NOTE | 2025-01-14 09:45 | Electrocardiogram Report ---
Test Reason : Blood Pressure : */* mmHG Vent. Rate : 131 BPM Atrial Rate : * BPM P-R Int : * ms QRS Dur : 78 ms QT Int : 348 ms P-R-T Axes : * -19 28 degrees QTcB Int : 513 ms Atrial fibrillation with rapid ventricular response with premature ventricular or aberrantly conducte d complexes Abnormal ECG When compared with ECG of 13-Jan-2025 06:16, No significant change Confirmed by Mario Grady ([id number]) on 01/13/2025 2:45:06 PM Also confirmed by Mario Grady ([id number]), script editor Anjel Munoz ([id number]) on 01/14/2025 9:44:52 AM Referred By: Igor Boucher Confirmed By: Mario Grady
--- NOTE | 2025-01-14 10:06 | Electrocardiogram Report ---
Test Reason : Blood Pressure : */* mmHG Vent. Rate : 124 BPM Atrial Rate : * BPM P-R Int : * ms QRS Dur : 82 ms QT Int : 294 ms P-R-T Axes : * -12 32 degrees QTcB Int : 422 ms Atrial fibrillation with rapid ventricular response Old Septal infarct Abnormal ECG When compared with ECG of 13-Jan-2025 16:37, No significant change was found Confirmed by Mario Grady ([id number]) on 01/14/2025 10:06:11 AM Referred By: Igor Boucher Confirmed By: Mario Grady
--- NOTE | 2025-01-14 10:06 | Electrocardiogram Report ---
Test Reason : Blood Pressure : */* mmHG Vent. Rate : 141 BPM Atrial Rate : * BPM P-R Int : * ms QRS Dur : 78 ms QT Int : 326 ms P-R-T Axes : * -5 84 degrees QTcB Int : 499 ms Atrial fibrillation with rapid ventricular response Possible Old Septal infarct Abnormal ECG When compared with ECG of 13-Jan-2025 20:39, No significant change was found Confirmed by Mario Grady ([id number]) on 01/14/2025 10:06:37 AM Referred By: Igor Boucher Confirmed By: Mario Grady
--- NOTE | 2025-01-14 10:16 | Electrocardiogram Report ---
Test Reason : Blood Pressure : */* mmHG Vent. Rate : 121 BPM Atrial Rate : * BPM P-R Int : * ms QRS Dur : 78 ms QT Int : 354 ms P-R-T Axes : * -16 52 degrees QTcB Int : 502 ms Atrial fibrillation with rapid ventricular response Old Septal infarct (cited on or before 13-Jan-2025) Abnormal ECG When compared with ECG of 13-Jan-2025 14:18, No significant change was found Confirmed by Mario Grady ([id number]) on 01/14/2025 9:58:47 AM Referred By: Igor Boucher Confirmed By: Mario Grady
--- NOTE | 2025-01-14 11:29 | Cardiology Progress Note ---
Date of Service January 14, 2025 Assessment & Plan (1) Paroxysmal atrial fibrillation with RVR: (2) Chronic heart failure with preserved ejection fraction: (3) Atrial fibrillation status post cardioversion: Plan 74-year-old female status post KEISHA guided cardioversion 01/14/25. After 3 doses of 80 mg sotalol, prolonged QT interval noted during periods of rapid atrial fibrillation prompting reduction of sotalol to 40 mg. She received 1 dose of 40 mg sotalol yesterday evening 01/13/25. Post cardioversion ECG demonstrating normal QT interval. Recommend increasing sotalol to 80 mg twice daily. QT interval remains within normal limits after 80 mg dose of sotalol this morning. Continue sotalol 80 mg twice daily with repeat ECG approximately 2 hours after medication dose. If QTc remains within acceptable range tomorrow, she may be discharged home on sotalol 80 mg twice daily and metoprolol 25 mg twice daily. Continue Eliquis as ordered. Admission and Anticipated Discharge Date Admission Date: January 12, 2025 Subjective 74-year-old female seen and examined. Transesophageal guided direct-current cardioversion performed this a.m. without complication. QT interval within normal limits post cardioversion. Feeling well. Review of Systems Review of Systems: All systems reviewed & are unremarkable except as noted in Subjective Physical Exam Constitutional: well nourished; no acute distress Respiratory: no respiratory distress, no labored breathing and no retractions Auscultation: no crackles, no rales, no rhonchi and no wheezes Cardiovascular: Rate/Rhythm: regular rate and regular rhythm Heart Sounds: normal S1 and normal S2; no murmur Vessels: no JVD and no carotid bruit Extremities: no edema Gastrointestinal (Abdomen): Inspection/Auscultation: abdomen normal to inspection and normal bowel sounds; abdomen not distended Percussion/Palpation: abdomen soft; abdomen nontender, no guarding and abdomen not rigid Neurologic: CN's II-XI intact bilaterally and moves all extremities; no focal motor deficits Results & Data Vital Signs (Past 12 Hours) Vital Signs Temp Pulse Pulse Resp BP BP Pulse Ox 01/14/25 10:55 36.4 C L 61 18 109/70 90 01/14/25 09:00 63 117/82 01/14/25 08:34 36.7 C 61 16 99/64 L 92 01/14/25 08:19 63 14 108/64 92 01/14/25 07:57 66 14 97/60 L 94 01/14/25 07:54 62 14 93/51 L 95 01/14/25 07:15 132 H 14 136/97 94 01/14/25 04:00 106/82 01/14/25 03:01 101 H 96/70 L 01/14/25 02:49 77 96/66 L 01/14/25 02:05 76 14 109/48 L 94 01/14/25 02:02 128 H 01/14/25 02:00 108/76 01/14/25 01:31 121 H 119/71 01/14/25 01:00 150 H 123/86 01/14/25 00:58 150 H 12 123/86 O2 Del Method O2 Flow Rate 01/14/25 10:55 Room Air 01/14/25 09:00 01/14/25 08:34 Room Air 01/14/25 08:19 Room Air 0 01/14/25 07:57 Oxymask 3 01/14/25 07:54 Oxymask 8 01/14/25 07:15 Room Air 01/14/25 04:00 01/14/25 03:01 01/14/25 02:49 01/14/25 02:05 Nasal Cannula 2 01/14/25 02:02 01/14/25 02:00 01/14/25 01:31 01/14/25 01:00 01/14/25 00:58 Laboratory Results Cardiac Enzymes 01/14/25 Range/Units 01:55 Troponin I High Sens 5.4 (0-14) pg/ml Coagulation 01/14/25 Range/Units 01:55 APTT 27 (21-31) Seconds CBC 01/14/25 Range/Units 01:55 WBC 4.82 (4.8-10.8) K/ul RBC 3.69 L (4.20-5.40) M/uL Hgb 10.7 L (12.0-16.0) g/dl Hct 32.2 L (37.0-47.0) % Plt Count 212 (130-400) K/uL Neut # (Auto) 2.79 (1.40-6.50) K/uL Lymph # (Auto) 1.48 (1.20-3.40) K/uL Swain # (Auto) 0.36 (0.11-0.59) K/uL Eos # (Auto) 0.15 (0.00-0.50) K/uL Baso # (Auto) 0.02 (0.00-0.20) K/uL Comprehensive Metabolic Panel 01/14/25 Range/Units 01:55 Sodium 140 (136-145) mmol/L Potassium 3.6 (3.5-5.1) mmol/L Chloride 109 H (98-107) mmol/L Carbon Dioxide 24 (21-32) mmol/L BUN 17 (6-23) mg/dl Creatinine 0.90 (0.6-1.2) mg/dl Glucose 107 H (70-99(Fasting)) mg/dl Calcium 8.9 (8.6-10.3) mg/dl Intake and Output 01/13/25 01/14/25 01/14/25 22:59 06:59 14:59 Intake Total 1440 / 1628.333 50 / 50 Output Total Balance 1439 / 1627.333 50 / 50 Intake: IV 50 / 50 Albumin 25% 12.5 gm In 50 ml @ 50 / 50 50 mls/hr IV ONE ONE Rx#: [id number] Oral 1440 / 1440 Output: # Bowel Movements Other: # Unmeasured Voids 3 3 1 Weight 77 kg Patient Weight 01/15/25 06:59 Weight 77 kg
--- NOTE | 2025-01-14 14:25 | Electrocardiogram Report ---
Test Reason : Blood Pressure : */* mmHG Vent. Rate : 64 BPM Atrial Rate : 64 BPM P-R Int : 226 ms QRS Dur : 76 ms QT Int : 454 ms P-R-T Axes : 54 -10 26 degrees QTcB Int : 468 ms Sinus rhythm with 1st degree A-V block Otherwise normal ECG When compared with ECG of 14-Jan-2025 01:47, Sinus rhythm has replaced Atrial fibrillation Vent. rate has decreased by 77 bpm Confirmed by Mario Grady ([id number]) on 01/14/2025 2:24:58 PM Referred By: Igor Boucher Confirmed By: Mario Grady
--- NOTE | 2025-01-14 16:08 | Hospitalist Progress Note ---
Date of Service January 14, 2025 Assessment & Plan (1) Atrial fibrillation with rapid ventricular response: Plan: 74-year-old female with past medical history significant for hypothyroidism, hypertension, hyperlipidemia, GERD, atrial fibrillation was sent in from PCP office for rapid A-fib. Patient was first admitted on 12/23/2024 for new onset atrial fibrillation and patient was discharged on 12/24/2024 on metoprolol succinate 50 mg twice daily and Eliquis 5 mg twice daily and also aspirin 81 mg p.o. daily,. Amlodipine and irbesartan were stopped because of hypotension. Patient was again admitted on 01/04/2025 with rapid A-fib and acute on chronic heart failure with preserved ejection fraction. Received Cardizem and IV Lopressor and also IV Lasix. Patient was status post cardioversion and was discharged on 01/04/2025. Lasix was also added on discharge. Patient states at home her watch was reading as A-fib. She went to her PCP for follow-up appointment today. EKG showed rapid A-fib in 130s. And she was sent to the ER. Denies any feeling of palpitations. Earlier felt chest pressure but that got resolved. Denies shortness of breath. No headache. No runny nose or sore throat. No cough. No fevers. Eating and drinking okay. No nausea. No abdominal pain. Normal bowel and bladder movements. Taking her medications as prescribed. In the ER her heart rate was in 140s /150s today. Received her home metoprolol succinate 50 mg and also extra dose 25 mg and also received IV Lopressor. As heart rates were still high, received a dose of IV Cardizem 10 mg. Currently heart rate are fluctuating in 100-120s. Hemodynamics are okay. Atrial fibrillation with rapid ventricular response --S/P successful KEISHA cardioversion on 01/14/2025 --Normal TSH Continue sotalol 80 mg twice a day, metoprolol tartrate 25 mg twice a day On Eliquis for anticoagulation Appreciate cardiology input Monitor QTc Likely discharge tomorrow if stable Monitor and replete electrolytes as needed Hypertension Previously on irbesartan, amlodipine Continue metoprolol as above Monitor blood pressure and adjust medications as needed Hyperlipidemia Continue statin History of TIA Continue aspirin and statin History of heart failure with preserved ejection fraction On Lasix and potassium supplement Monitor volume status GERD Continue PPI Hypothyroidism Continue levothyroxine Chronic knee pain Depression On duloxetine DVT Px: Eliquis CODE STATUS Full code Admission and Anticipated Discharge Date Admission Date: January 12, 2025 Subjective Patient is seen and examined at bedside Asymptomatic post cardioversion today Currently in sinus Offers no complaints Denies any chest pain, dyspnea, palpitation, dizziness, nausea, vomiting, abdominal pain Review of Systems Review of Systems: All systems reviewed & are unremarkable except as noted in Subjective Physical Exam Physical Exam: Physical Exam: Vitals signs as noted above General Appearance:Moderately built and nourished, no apparent distress Head: normocephalic, Atraumatic Eyes: normal inspection, EOMI Neck: supple, Trachea midline Respiratory/Chest: Normal breath sounds, CTA, No accessory muscle use Cardiovascular: Irregularly irregular, tachycardia, No murmur Abdomen/GI:Soft, Non tender, Bowel sounds present Extremities/Musculoskeletal:normal inspection, no edema Neurologic/Psych:AAOX3, grossly no focal neurological deficits Skin: normal color, warm Results & Data Results & Data Vital Signs (Past 12 Hours) Vital Signs Temp Pulse Pulse Resp BP Pulse Ox O2 Del Method 01/14/25 14:00 73 01/14/25 10:55 36.4 C L 61 18 109/70 90 Room Air 01/14/25 09:00 130 H 01/14/25 09:00 63 117/82 01/14/25 08:34 36.7 C 61 16 99/64 L 92 Room Air 01/14/25 08:19 63 14 108/64 92 Room Air 01/14/25 07:57 66 14 97/60 L 94 Oxymask 01/14/25 07:54 62 14 93/51 L 95 Oxymask 01/14/25 07:15 132 H 14 136/97 94 Room Air O2 Flow Rate 01/14/25 14:00 01/14/25 10:55 01/14/25 09:00 01/14/25 09:00 01/14/25 08:34 01/14/25 08:19 0 01/14/25 07:57 3 01/14/25 07:54 8 01/14/25 07:15 Laboratory Results Short CBC 01/14/25 Range/Units 01:55 WBC 4.82 (4.8-10.8) K/ul Hgb 10.7 L (12.0-16.0) g/dl Hct 32.2 L (37.0-47.0) % Plt Count 212 (130-400) K/uL BMP 01/14/25 01:55 Sodium 140 Potassium 3.6 Chloride 109 H Carbon Dioxide 24 BUN 17 Creatinine 0.90 Glucose 107 H Calcium 8.9
[2025-01-15 07:14] LABS: BUN Creatinine Ratio 21.8 (10-20); Calcium 8.9 mg/dl (8.6-10.3); Creatinine Clr Calc Pharmacy 61.6 ml/min; Potassium 3.8 mmol/L (3.5-5.1)
[2025-01-15] MEDS: POTASSIUM CHLORIDE CRTAB 20 MEQ TABCR PO SCH (08:47)
--- NOTE | 2025-01-15 11:57 | Cardiology Progress Note ---
Date of Service January 15, 2025 Assessment & Plan (1) Paroxysmal atrial fibrillation with RVR: (2) Chronic heart failure with preserved ejection fraction: (3) Atrial fibrillation status post cardioversion: Plan 74 year old female who presented with afib with RVR s/p KEISHA guided cardioversion 01/14/25. Started on sotalol. - feels well on exam today, in NSR - QTc mildly prolonged, will reduce sotalol to 40 mg twice daily - observe overnight, repeat EKG 2 hours after medication dose - continue to monitor on telemetry - continue metoprolol tartrate, Eliquis, aspirin, furosemide, rosuvastatin - follow up with outpatient cardiology Case discussed with attending physician, further recommendations per Dr. Heart. I spent a total of 30 minutes on the date of service in preparation, delivery, and documentation of the care provided to this patient excluding any time spent in the performance of separately billed services. This visit was a split-shared visit with the substantial portion of the decision making performed by the supervising larriman/billing provider. Admission and Anticipated Discharge Date Admission Date: January 12, 2025 Supervising Physician Co-Signing Physician Notes I spent a total of 30 minutes on the date of service in preparation, delivery, and documentation of the care provided to this patient, excluding any time spent in the performance of separately billed services. I have personally performed a history and physical examination on the patient. I have reviewed the advance practitioner's documentation, and I agree with, and take responsibility for the plan of care. 74-year-old female with a past medical history of paroxysmal atrial fibrillation, HTN presented to [facility] with recurrent atrial fibrillation with rapid ventricular response. This is her third admission related to atrial fibrillation. She had a KEISHA guided cardioversion on 01/04/2025 converting her to sinus rhythm and she was discharged on metoprolol 50 mg continued. Sotalol load was initiated on 01/12/2025 with sotalol 80 mg p.o. twice daily. She remained in atrial fibrillation despite 3 doses of p.o. sotalol and underwent a direct- current cardioversion on 01/14/2025. Transesophageal echocardiogram was done there was a question of possible missed dose of Eliquis which showed preserved left ventricular ejection fraction and no thrombus in the left atrial appendage. Patient was successfully cardioverted to sinus rhythm. Her QTc after cardioversion was 468. Her QTc bumped up to 490 ms last night and currently her QTc is 484 ms. There has been a noticeable increase in her QT interval. Will reduce the dose of sotalol to 40 mg p.o. twice daily. Will repeat ECG 2 hours after her evening dose of sotalol today and 2 hours after her morning dose of sotalol tomorrow. If QT stabilizes patient can be discharged home with sotalol 40 mg p.o. twice daily. Subjective 74 year old female seen today in cardiology follow up. States she feels well. Denies chest pain, palpitations, shortness of breath, edema. Review of Systems Review of Systems: CONSTITUTIONAL: No change in weight, No weakness, No fatigue and No fevers, No sweats or chills. PULMONARY: No cough, sputum, or hemoptysis, No wheezing, No shortness of breath and No recent change in breathing. CARDIOVASCULAR: No chest pain, No dyspnea on exertion, No edema, No palpitations and No syncope. GASTROINTESTINAL: No abdominal pain, No change in bowel habits, No significant heartburn, No nausea, No vomiting, No diarrhea, No constipation, No blood in stools or black tarry stools. No dysphagia. HEMATOLOGIC: No abnormal bleeding and No bruising. NEUROLOGICAL: Normal balance, No headaches and No weakness. Physical Exam Physical Exam: General: No acute distress. A+Ox3. HEENT: Normocephalic. Atraumatic. PERRL. EOMI. Conjunctiva and sclera clear. NECK: No carotid bruits. No JVD. Carotid upstrokes are brisk. Heart: RRR. S1 and S2 noted. No murmur. No rubs or gallops. PMI non displaced. Lungs: Clear to auscultation. No wheezes. No rhonchi. No rales. Abdomen: Normal bowel sounds. Soft. Nontender. No masses or organomegaly. No abdominal bruits. Extremities: No edema. No clubbing or cyanosis. Pulses: radial=2/4, posterior tibial=2/4, dorsalis pedis = 2/4. NEURO: No focal deficits. PSYCH: Appropriate affect and insight. Results & Data Vital Signs (Past 12 Hours) Vital Signs Temp Pulse Pulse Resp BP BP Pulse Ox 01/15/25 11:43 36.7 C 76 17 143/73 H 97 01/15/25 08:46 36.5 C 71 18 128/70 94 01/15/25 07:00 67 01/15/25 03:55 36.9 C 69 16 168/85 H 91 01/15/25 00:00 68 O2 Del Method 01/15/25 11:43 Room Air 01/15/25 08:46 Room Air 01/15/25 07:00 01/15/25 03:55 Room Air 01/15/25 00:00 Laboratory Results Comprehensive Metabolic Panel 01/15/25 Range/Units 06:18 Sodium 142 (136-145) mmol/L Potassium 3.8 (3.5-5.1) mmol/L Chloride 112 H (98-107) mmol/L Carbon Dioxide 26 (21-32) mmol/L BUN 17 (6-23) mg/dl Creatinine 0.78 (0.6-1.2) mg/dl Glucose 100 H (70-99(Fasting)) mg/dl Calcium 8.9 (8.6-10.3) mg/dl Intake and Output 01/14/25 01/15/25 01/15/25 22:59 06:59 14:59 Intake Total 240 / 960 Output Total Balance 239 / 959 Intake: Oral 240 / 910 Output: # Bowel Movements Other: # Unmeasured Voids 3 Weight 76.8 kg Weight Measurement Method Built in [facility] Diagnostic Findings EKG 01/14/25 NSR, QTc 492 ms EKG 01/15/25 NSR, QTc 484 ms
--- NOTE | 2025-01-15 13:00 | Electrocardiogram Report ---
Test Reason : Blood Pressure : */* mmHG Vent. Rate : 67 BPM Atrial Rate : 67 BPM P-R Int : 204 ms QRS Dur : 80 ms QT Int : 464 ms P-R-T Axes : 55 -16 13 degrees QTcB Int : 490 ms Normal sinus rhythm Septal infarct , age undetermined Prolonged QT Abnormal ECG When compared with ECG of 14-Jan-2025 11:08, QT has lengthened Confirmed by Kervin Lloyd ([id number]) on 01/15/2025 1:00:11 PM Referred By: Igor Boucher Confirmed By: Kervin Lloyd
--- NOTE | 2025-01-15 13:02 | Electrocardiogram Report ---
Test Reason : Blood Pressure : */* mmHG Vent. Rate : 68 BPM Atrial Rate : 68 BPM P-R Int : 202 ms QRS Dur : 84 ms QT Int : 448 ms P-R-T Axes : 57 -24 27 degrees QTcB Int : 477 ms Normal sinus rhythm Prolonged QT Abnormal ECG When compared with ECG of 14-Jan-2025 22:59, No significant change was found Confirmed by Kervin Lloyd ([id number]) on 01/15/2025 1:01:31 PM Referred By: Igor Boucher Confirmed By: Kervin Lloyd
--- NOTE | 2025-01-15 15:04 | Hospitalist Progress Note ---
Date of Service January 15, 2025 Assessment & Plan (1) Atrial fibrillation with rapid ventricular response: Plan: 74-year-old female with past medical history significant for hypothyroidism, hypertension, hyperlipidemia, GERD, atrial fibrillation was sent in from PCP office for rapid A-fib. Patient was first admitted on 12/23/2024 for new onset atrial fibrillation and patient was discharged on 12/24/2024 on metoprolol succinate 50 mg twice daily and Eliquis 5 mg twice daily and also aspirin 81 mg p.o. daily,. Amlodipine and irbesartan were stopped because of hypotension. Patient was again admitted on 01/04/2025 with rapid A-fib and acute on chronic heart failure with preserved ejection fraction. Received Cardizem and IV Lopressor and also IV Lasix. Patient was status post cardioversion and was discharged on 01/04/2025. Lasix was also added on discharge. Patient states at home her watch was reading as A-fib. She went to her PCP for follow-up appointment today. EKG showed rapid A-fib in 130s. And she was sent to the ER. Denies any feeling of palpitations. Earlier felt chest pressure but that got resolved. Denies shortness of breath. No headache. No runny nose or sore throat. No cough. No fevers. Eating and drinking okay. No nausea. No abdominal pain. Normal bowel and bladder movements. Taking her medications as prescribed. In the ER her heart rate was in 140s /150s today. Received her home metoprolol succinate 50 mg and also extra dose 25 mg and also received IV Lopressor. As heart rates were still high, received a dose of IV Cardizem 10 mg. Currently heart rate are fluctuating in 100-120s. Hemodynamics are okay. Atrial fibrillation with rapid ventricular response --S/P successful KEISHA cardioversion on 01/14/2025 --Normal TSH Continue metoprolol tartrate 25 mg twice a day On Eliquis for anticoagulation Appreciate cardiology input Monitor and replete electrolytes as needed Sotalol decreased to 40 mg twice a day Plan to repeat EKG tomorrow to monitor QTc Hypertension Previously on irbesartan, amlodipine Continue metoprolol as above Monitor blood pressure and adjust medications as needed Hyperlipidemia Continue statin History of TIA Continue aspirin and statin History of heart failure with preserved ejection fraction On Lasix and potassium supplement Monitor volume status GERD Continue PPI Hypothyroidism Continue levothyroxine Chronic knee pain Depression On duloxetine DVT Px: Eliquis CODE STATUS Full code Admission and Anticipated Discharge Date Admission Date: January 12, 2025 Subjective Patient is seen and examined at bedside States feeling well today No new complaints Denies any chest pain, dyspnea, palpitation, dizziness, nausea, vomiting, a bdominal pain Review of Systems Review of Systems: All systems reviewed & are unremarkable except as noted in Subjective Physical Exam Physical Exam: Physical Exam: Vitals signs as noted above General Appearance:Moderately built and nourished, no apparent distress Head: normocephalic, Atraumatic Eyes: normal inspection, EOMI Neck: supple, Trachea midline Respiratory/Chest: Normal breath sounds, CTA, No accessory muscle use Cardiovascular: Irregularly irregular, tachycardia, No murmur Abdomen/GI:Soft, Non tender, Bowel sounds present Extremities/Musculoskeletal:normal inspection, no edema Neurologic/Psych:AAOX3, grossly no focal neurological deficits Skin: normal color, warm Results & Data Results & Data Vital Signs (Past 12 Hours) Vital Signs Temp Pulse Pulse Resp BP BP Pulse Ox 01/15/25 11:43 36.7 C 76 17 143/73 H 97 01/15/25 08:46 36.5 C 71 18 128/70 94 01/15/25 07:00 67 01/15/25 03:55 36.9 C 69 16 168/85 H 91 O2 Del Method 01/15/25 11:43 Room Air 01/15/25 08:46 Room Air 01/15/25 07:00 01/15/25 03:55 Room Air Laboratory Results BMP 01/15/25 06:18 Sodium 142 Potassium 3.8 Chloride 112 H Carbon Dioxide 26 BUN 17 Creatinine 0.78 Glucose 100 H Calcium 8.9
[2025-01-15] MEDS: SOTALOL HCL 80 MG TAB PO SCH (20:55)
[2025-01-16 06:29] LABS: BUN Creatinine Ratio 21.1 (10-20); Calcium 9.3 mg/dl (8.6-10.3); Creatinine Clr Calc Pharmacy 67.7 ml/min; Potassium 3.7 mmol/L (3.5-5.1)
[2025-01-16] MEDS: METOPROLOL TARTRATE 50 MG TAB PO SCH (08:08)
--- NOTE | 2025-01-16 11:56 | Cardiology Progress Note ---
Date of Service January 16, 2025 Assessment & Plan (1) Paroxysmal atrial fibrillation with RVR: (2) Atrial fibrillation status post cardioversion: (3) Chronic heart failure with preserved ejection fraction: Plan 74 year old female who presented with afib with RVR s/p KEISHA guided cardioversion 01/14/25. Started on sotalol. On 01/15/25 went back into afib with RVR. - Sotalol discontinued due to worsening QTc - Heart rates elevated this AM on telemetry, currently asymptomatic and eu volemic on exam - increase metoprolol tartrate to 50 mg twice daily - tomorrow can consider other antiarrhythmic, such as amiodarone - continue to monitor on telemetry - continue Eliquis, aspirin, furosemide, rosuvastatin - will need follow up with EP to discuss if ablation is indicated Case discussed with attending physician, further recommendations per Dr. Heart. I spent a total of 30 minutes on the date of service in preparation, delivery, and documentation of the care provided to this patient excluding any time spent in the performance of separately billed services. This visit was a split-shared visit with the substantial portion of the decision making performed by the supervising casualty claims supervisor/billing provider. Admission and Anticipated Discharge Date Admission Date: January 12, 2025 Supervising Physician Co-Signing Physician Notes I spent a total of 30 minutes on the date of service in preparation, delivery, and documentation of the care provided to this patient, excluding any time spent in the performance of separately billed services. I have personally performed a history and physical examination on the patient. I have reviewed the advance practitioner's documentation, and I agree with, and take responsibility for the plan of care. 74-year-old female with a past medical history of paroxysmal atrial fibrillation, HTN presented to [facility] with recurrent atrial fibrillation with rapid ventricular response. This is her third admission related to atrial fibrillation. She had a KEISHA guided cardioversion on 01/04/2025 converting her to sinus rhythm and she was discharged on metoprolol 50 mg continued. Sotalol load was initiated on 01/12/2025 with sotalol 80 mg p.o. twice daily. She remained in atrial fibrillation despite 3 doses of p.o. sotalol and underwent a direct- current cardioversion on 01/14/2025. Transesophageal echocardiogram was done there was a question of possible missed dose of Eliquis which showed preserved left ventricular ejection fraction and no thrombus in the left atrial appendage. Patient was successfully cardioverted to sinus rhythm. Her QTc after cardioversion was 468. Her dose of sotalol was reduced due to prolonged QT to 40 mg p.o. twice daily however her QT persisted at 499 ms and unfortunately she reverted back to atrial fibrillation with rapid ventricular response. Her sotalol has since been discontinued. Has not received any sotalol today. Case briefly discussed with EP who recommended we can consider amiodarone infusion after sotalol washout. Will plan on repeating ECG in the morning to reassess her QT interval. Will increase her metoprolol to 50 mg p.o. twice daily. Her left atrium is mildly dilated and may be a good candidate for an atrial fibrillation ablation. Subjective 74 year old female seen today in cardiology follow up. Last night went into afib with RVR. Heart rates currently 120-140 bpm. On exam, she is resting comfortably in bed. Denies chest pain, palpitations, shortness of breath, lightheadedness. Sotalol d/c, given metoprolol IVP and increased metoprolol dose with no improvement of heart rate. Review of Systems Review of Systems: CONSTITUTIONAL: No change in weight, No weakness, No fatigue and No fevers, No sweats or chills. PULMONARY: No cough, sputum, or hemoptysis, No wheezing, No shortness of breath and No recent change in breathing. CARDIOVASCULAR: No chest pain, No dyspnea on exertion, No edema, No palpitations and No syncope. GASTROINTESTINAL: No abdominal pain, No change in bowel habits, No significant heartburn, No nausea, No vomiting, No diarrhea, No constipation, No blood in stools or black tarry stools. No dysphagia. HEMATOLOGIC: No abnormal bleeding and No bruising. NEUROLOGICAL: Normal balance, No headaches and No weakness. Physical Exam Physical Exam: General: No acute distress. A+Ox3. HEENT: Normocephalic. Atraumatic. PERRL. EOMI. Conjunctiva and sclera clear. NECK: No carotid bruits. No JVD. Carotid upstrokes are brisk. Heart: Irregularly irregular and tachycardic. S1 and S2 noted. No murmur. No rubs or gallops. PMI non displaced. Lungs: Clear to auscultation. No wheezes. No rhonchi. No rales. Abdomen: Normal bowel sounds. Soft. Nontender. No masses or organomegaly. No abdominal bruits. Extremities: No edema. No clubbing or cyanosis. Pulses: radial=2/4, posterior tibial=2/4, dorsalis pedis = 2/4. NEURO: No focal deficits. PSYCH: Appropriate affect and insight. Results & Data Vital Signs (Past 12 Hours) Vital Signs Temp Pulse Pulse Resp BP BP Pulse Ox 01/16/25 08:18 135 H 127/80 01/16/25 08:06 36.7 C 135 H 19 112/85 94 01/16/25 08:03 132 H 112/85 01/16/25 07:11 124 H 01/16/25 04:30 36.8 C 123 H 16 127/61 93 01/15/25 23:56 36.7 C 114 H 16 122/80 92 O2 Del Method 01/16/25 08:18 01/16/25 08:06 Room Air 01/16/25 08:03 01/16/25 07:11 01/16/25 04:30 Room Air 01/15/25 23:56 Room Air Laboratory Results Comprehensive Metabolic Panel 01/16/25 Range/Units 05:35 Sodium 141 (136-145) mmol/L Potassium 3.7 (3.5-5.1) mmol/L Chloride 110 H (98-107) mmol/L Carbon Dioxide 25 (21-32) mmol/L BUN 15 (6-23) mg/dl Creatinine 0.71 (0.6-1.2) mg/dl Glucose 102 H (70-99(Fasting)) mg/dl Calcium 9.3 (8.6-10.3) mg/dl Intake and Output 01/15/25 01/16/25 01/16/25 22:59 06:59 14:59 Other: # Unmeasured Voids 2 Weight 76.8 kg Diagnostic Findings EKG 01/15/25 at 1056, NSR, QTc 499 ms EKG 01/15/25 at 2306, afib with RVR, 119 bpm, QTc 495 ms EKG 01/16/25 at 0704, afib with RVR, 130 bpm, QTc 479 ms
--- NOTE | 2025-01-16 13:13 | Electrocardiogram Report ---
Test Reason : Blood Pressure : */* mmHG Vent. Rate : 63 BPM Atrial Rate : 63 BPM P-R Int : 202 ms QRS Dur : 82 ms QT Int : 486 ms P-R-T Axes : 52 -22 8 degrees QTcB Int : 498 ms Normal sinus rhythm Septal infarct , age undetermined Prolonged QT Abnormal ECG When compared with ECG of 15-Jan-2025 06:39, No significant change was found Confirmed by Kervin Lloyd ([id number]) on 01/16/2025 1:12:57 PM Referred By: Igor Boucher Confirmed By: Kervin Lloyd
--- NOTE | 2025-01-16 13:14 | Electrocardiogram Report ---
Test Reason : Blood Pressure : */* mmHG Vent. Rate : 119 BPM Atrial Rate : * BPM P-R Int : * ms QRS Dur : 74 ms QT Int : 352 ms P-R-T Axes : * -29 28 degrees QTcB Int : 495 ms Atrial fibrillation with rapid ventricular response Prolonged QT Abnormal ECG When compared with ECG of 15-Jan-2025 10:56, Atrial fibrillation has replaced Sinus rhythm Vent. rate has increased by 56 bpm Confirmed by Kervin Lloyd ([id number]) on 01/16/2025 1:14:35 PM Referred By: Igor Boucher Confirmed By: Kervin Lloyd
--- NOTE | 2025-01-16 13:16 | Electrocardiogram Report ---
Test Reason : Blood Pressure : */* mmHG Vent. Rate : 130 BPM Atrial Rate : * BPM P-R Int : * ms QRS Dur : 76 ms QT Int : 336 ms P-R-T Axes : * -29 58 degrees QTcB Int : 495 ms Atrial fibrillation with rapid ventricular response Prolonged QT Abnormal ECG When compared with ECG of 15-Jan-2025 23:06, No significant change Confirmed by Kervin Lloyd ([id number]) on 01/16/2025 1:16:04 PM Referred By: Igor Boucher Confirmed By: Kervin Lloyd
--- NOTE | 2025-01-16 14:32 | Hospitalist Progress Note ---
Date of Service January 16, 2025 Assessment & Plan (1) Atrial fibrillation with rapid ventricular response: Plan: 74-year-old female with past medical history significant for hypothyroidism, hypertension, hyperlipidemia, GERD, atrial fibrillation was sent in from PCP office for rapid A-fib. Patient was first admitted on 12/23/2024 for new onset atrial fibrillation and patient was discharged on 12/24/2024 on metoprolol succinate 50 mg twice daily and Eliquis 5 mg twice daily and also aspirin 81 mg p.o. daily,. Amlodipine and irbesartan were stopped because of hypotension. Patient was again admitted on 01/04/2025 with rapid A-fib and acute on chronic heart failure with preserved ejection fraction. Received Cardizem and IV Lopressor and also IV Lasix. Patient was status post cardioversion and was discharged on 01/04/2025. Lasix was also added on discharge. Patient states at home her watch was reading as A-fib. She went to her PCP for follow-up appointment today. EKG showed rapid A-fib in 130s. And she was sent to the ER. Denies any feeling of palpitations. Earlier felt chest pressure but that got resolved. Denies shortness of breath. No headache. No runny nose or sore throat. No cough. No fevers. Eating and drinking okay. No nausea. No abdominal pain. Normal bowel and bladder movements. Taking her medications as prescribed. In the ER her heart rate was in 140s /150s today. Received her home metoprolol succinate 50 mg and also extra dose 25 mg and also received IV Lopressor. As heart rates were still high, received a dose of IV Cardizem 10 mg. Currently heart rate are fluctuating in 100-120s. Hemodynamics are okay. Atrial fibrillation with rapid ventricular response --S/P successful KEISHA cardioversion on 01/14/2025 --Normal TSH On Eliquis for anticoagulation Appreciate cardiology input Monitor and replete electrolytes as needed Sotalol discontinued due to prolonged QTc Metoprolol dose increased to 50 mg twice a day Consideration to initiate amiodarone tomorrow Need EP evaluation for possible ablation IV Lopressor as needed Hypertension Previously on irbesartan, amlodipine Continue metoprolol as above Monitor blood pressure and adjust medications as needed Hyperlipidemia Continue statin History of TIA Continue aspirin and statin History of heart failure with preserved ejection fraction On Lasix and potassium supplement Monitor volume status GERD Continue PPI Hypothyroidism Continue levothyroxine Chronic knee pain Depression On duloxetine DVT Px: Eliquis CODE STATUS Full code Admission and Anticipated Discharge Date Admission Date: January 12, 2025 Subjective Patient is seen and examined at bedside Patient reverted back to A-fib RVR Asymptomatic Denies any chest pain, dyspnea, palpitation, dizziness, nausea, vomiting, abdominal pain Review of Systems Review of Systems: All systems reviewed & are unremarkable except as noted in Subjective Physical Exam Physical Exam: Physical Exam: Vitals signs as noted above General Appearance:Moderately built and nourished, no apparent distress Head: normocephalic, Atraumatic Eyes: normal inspection, EOMI Neck: supple, Trachea midline Respiratory/Chest: Normal breath sounds, CTA, No accessory muscle use Cardiovascular: Irregularly irregular, tachycardia, No murmur Abdomen/GI:Soft, Non tender, Bowel sounds present Extremities/Musculoskeletal:normal inspection, no edema Neurologic/Psych:AAOX3, grossly no focal neurological deficits Skin: normal color, warm Results & Data Results & Data Vital Signs (Past 12 Hours) Vital Signs Temp Pulse Pulse Resp BP BP Pulse Ox 01/16/25 08:18 135 H 127/80 01/16/25 08:06 36.7 C 135 H 19 112/85 94 01/16/25 08:03 132 H 112/85 01/16/25 07:11 124 H 01/16/25 04:30 36.8 C 123 H 16 127/61 93 O2 Del Method 01/16/25 08:18 01/16/25 08:06 Room Air 01/16/25 08:03 01/16/25 07:11 01/16/25 04:30 Room Air Laboratory Results BMP 01/16/25 05:35 Sodium 141 Potassium 3.7 Chloride 110 H Carbon Dioxide 25 BUN 15 Creatinine 0.71 Glucose 102 H Calcium 9.3
[2025-01-17 06:35] LABS: BUN Creatinine Ratio 20.9 (10-20); Calcium 9.4 mg/dl (8.6-10.3); Creatinine Clr Calc Pharmacy 52.8 ml/min; Potassium 3.7 mmol/L (3.5-5.1)
--- NOTE | 2025-01-17 10:51 | Electrocardiogram Report ---
Test Reason : Blood Pressure : */* mmHG Vent. Rate : 144 BPM Atrial Rate : * BPM P-R Int : * ms QRS Dur : 78 ms QT Int : 316 ms P-R-T Axes : * -28 36 degrees QTcB Int : 489 ms Atrial fibrillation with rapid ventricular response Nonspecific ST abnormality Prolonged QT Abnormal ECG When compared with ECG of 16-Jan-2025 07:04, No significant change was found Confirmed by Kervin Lloyd ([id number]) on 01/17/2025 10:51:07 AM Referred By: Igor Boucher Confirmed By: Kervin Lloyd
--- NOTE | 2025-01-17 11:04 | Cardiology Progress Note ---
Date of Service January 17, 2025 Assessment & Plan (1) Paroxysmal atrial fibrillation with RVR: (2) Atrial fibrillation status post cardioversion: (3) Chronic heart failure with preserved ejection fraction: Plan 74 year old female who presented with afib with RVR s/p KEISHA guided cardioversion 01/14/25. Started on sotalol. On 01/15/25 went back into afib with RVR. - Sotalol discontinued due to worsening QTc - Heart rates elevated this AM on telemetry, currently asymptomatic and eu volemic on exam - increase metoprolol tartrate to 50 mg twice daily - tomorrow can consider other antiarrhythmic, such as amiodarone - continue to monitor on telemetry - continue Eliquis, aspirin, furosemide, rosuvastatin - will need follow up with EP to discuss if ablation is indicated 01/17/2025 Still in atrial fibrillation with very rapid response despite metoprolol. Trial attempt with sotalol resulted in QT prolongation. This represents third hospitalization for paroxysmal atrial fibrillation Plan: Begin amiodarone this evening at 48-hour washout from sotalol. Follow QT interval on EKG with possible synchronized cardioversion Friday Discussed management ultimately would suggest patient be referred for pulmonary vein isolation ablation. Patient agreeable Will continue apixaban Supplement potassium today Admission and Anticipated Discharge Date Admission Date: January 12, 2025 Subjective Patient seen and personally examined, chart, medications, telemetry reviewed Remains in atrial fibrillation with variable ventricular response rates oftent imes very high no rates below 100. Dyspneic on exertion but no acute complaints. No chest pains dizziness or lightheadedness. No bleeding difficulties. EKG atrial fibrillation with rapid response, rate 144 bpm QTc corrected 489 Review of Systems Review of Systems: All systems reviewed & are unremarkable except as noted in Subjective Physical Exam Constitutional: WD/WN, vitals as above well nourished; no acute distress Neck: trachea midline, no thyromegaly Respiratory: normal respiratory effort; no respiratory distress, no labored breathing, no retractions and no cough Auscultation: lungs clear to auscultation bilaterally; no crackles, no rales, no rhonchi and no wheezes Cardiovascular: Rate/Rhythm: + tachycardic and + irregularly irregular Heart Sounds: normal S1 and normal S2; no murmur Vessels: no JVD and no carotid bruit Extremities: no edema Gastrointestinal (Abdomen): normal bowel sounds, soft, nontender, no hepatosplenomegaly Inspection/Auscultation: abdomen normal to inspection and normal bowel sounds; abdomen not distended Percussion/Palpation: abdomen soft; abdomen nontender, no guarding and abdomen not rigid Skin: no rashes, warm and dry Neurologic: PERRL, EOMI, accommodation nl, no face palsy, no dysarthria CN's II-XI intact bilaterally and moves all extremities; no focal motor deficits Results & Data Vital Signs (Past 12 Hours) Vital Signs Temp Pulse Pulse Resp BP Pulse Ox O2 Del Method 01/17/25 10:09 Room Air 01/17/25 08:22 36.7 C 132 H 18 107/77 97 Room Air 01/17/25 07:50 125 H 01/17/25 04:27 36.7 C 95 H 16 138/86 93 Room Air 01/17/25 00:53 36.6 C 127 H 16 112/75 94 Room Air Laboratory Results Laboratory Results - last 24 hr 01/17/25 05:45 Sodium 141 Potassium 3.7 Chloride 108 H Carbon Dioxide 26 Anion Gap 7 BUN 19 Creatinine 0.91 Est Cr Clr Drug Dosing 52.8 eGFR 66.61 BUN/Creatinine Ratio 20.9 H Glucose 105 H Calcium 9.4 Magnesium 2.0
[2025-01-17] MEDS: POTASSIUM CHLORIDE CRTAB 20 MEQ TABCR PO ONE (11:25)
--- NOTE | 2025-01-17 15:05 | Hospitalist Progress Note ---
Date of Service January 17, 2025 Assessment & Plan (1) Atrial fibrillation with rapid ventricular response: Plan: 74-year-old female with past medical history significant for hypothyroidism, hypertension, hyperlipidemia, GERD, atrial fibrillation was sent in from PCP office for rapid A-fib. Patient was first admitted on 12/23/2024 for new onset atrial fibrillation and patient was discharged on 12/24/2024 on metoprolol succinate 50 mg twice daily and Eliquis 5 mg twice daily and also aspirin 81 mg p.o. daily,. Amlodipine and irbesartan were stopped because of hypotension. Patient was again admitted on 01/04/2025 with rapid A-fib and acute on chronic heart failure with preserved ejection fraction. Received Cardizem and IV Lopressor and also IV Lasix. Patient was status post cardioversion and was discharged on 01/04/2025. Lasix was also added on discharge. Patient states at home her watch was reading as A-fib. She went to her PCP for follow-up appointment today. EKG showed rapid A-fib in 130s. And she was sent to the ER. Denies any feeling of palpitations. Earlier felt chest pressure but that got resolved. Denies shortness of breath. No headache. No runny nose or sore throat. No cough. No fevers. Eating and drinking okay. No nausea. No abdominal pain. Normal bowel and bladder movements. Taking her medications as prescribed. In the ER her heart rate was in 140s /150s today. Received her home metoprolol succinate 50 mg and also extra dose 25 mg and also received IV Lopressor. As heart rates were still high, received a dose of IV Cardizem 10 mg. Currently heart rate are fluctuating in 100-120s. Hemodynamics are okay. Atrial fibrillation with rapid ventricular response --S/P successful KEISHA cardioversion on 01/14/2025 --Normal TSH On Eliquis for anticoagulation Appreciate cardiology input Sotalol discontinued due to prolonged QTc Metoprolol dose increased to 50 mg twice a day Need EP evaluation for possible ablation IV Lopressor as needed Started on amiodarone 200 mg TID today Monitor QTc Monitor and replete electrolytes as needed Hypertension Previously on irbesartan, amlodipine Continue metoprolol as above Monitor blood pressure and adjust medications as needed Hyperlipidemia Continue statin History of TIA Continue aspirin and statin History of heart failure with preserved ejection fraction On Lasix and potassium supplement Monitor volume status GERD Continue PPI Hypothyroidism Continue levothyroxine Chronic knee pain Depression On duloxetine DVT Px: Eliquis CODE STATUS Full code Admission and Anticipated Discharge Date Admission Date: January 12, 2025 Subjective Patient is seen and examined at bedside Remains in A-fib RVR Denies any chest pain, dyspnea, palpitation, dizziness, nausea, vomiting, abdominal pain No new complaints today Review of Systems Review of Systems: All systems reviewed & are unremarkable except as noted in Subjective Physical Exam Physical Exam: Physical Exam: Vitals signs as noted above General Appearance:Moderately built and nourished, no apparent distress Head: normocephalic, Atraumatic Eyes: normal inspection, EOMI Neck: supple, Trachea midline Respiratory/Chest: Normal breath sounds, CTA, No accessory muscle use Cardiovascular: Irregularly irregular, tachycardia, No murmur Abdomen/GI:Soft, Non tender, Bowel sounds present Extremities/Musculoskeletal:normal inspection, no edema Neurologic/Psych:AAOX3, grossly no focal neurological deficits Skin: normal color, warm Results & Data Results & Data Vital Signs (Past 12 Hours) Vital Signs Temp Pulse Pulse Resp BP BP Pulse Ox 01/17/25 14:12 122 H 01/17/25 12:10 101/74 01/17/25 11:49 36.7 C 143 H 18 84/62 L 97 01/17/25 10:09 01/17/25 08:22 36.7 C 132 H 18 107/77 97 01/17/25 07:50 125 H 01/17/25 04:27 36.7 C 95 H 16 138/86 93 O2 Del Method 01/17/25 14:12 01/17/25 12:10 01/17/25 11:49 Room Air 01/17/25 10:09 Room Air 01/17/25 08:22 Room Air 01/17/25 07:50 01/17/25 04:27 Room Air Laboratory Results BMP 01/17/25 05:45 Sodium 141 Potassium 3.7 Chloride 108 H Carbon Dioxide 26 BUN 19 Creatinine 0.91 Glucose 105 H Calcium 9.4
[2025-01-17] MEDS: AMIODARONE 200 MG TAB PO SCH (17:09)
--- NOTE | 2025-01-17 17:16 | Electrocardiogram Report ---
Test Reason : Blood Pressure : */* mmHG Vent. Rate : 60 BPM Atrial Rate : 60 BPM P-R Int : 224 ms QRS Dur : 80 ms QT Int : 452 ms P-R-T Axes : 54 -29 24 degrees QTcB Int : 452 ms Sinus rhythm with 1st degree A-V block with Premature atrial complexes Otherwise normal ECG When compared with ECG of 14-Jan-2025 01:47, Sinus rhythm has replaced Atrial fibrillation Vent. rate has decreased by 81 bpm Nonspecific T wave abnormality no longer evident in Lateral leads Confirmed by Kervin Lloyd ([id number]) on 01/17/2025 5:16:16 PM Referred By: Igor Boucher Confirmed By: Kervin Lloyd
[2025-01-18 06:47] LABS: Calcium 9.4 mg/dl (8.6-10.3); Creatinine Clr Calc Pharmacy 50.6 ml/min; Magnesium 2.1 mg/dl (1.7-2.4)
--- NOTE | 2025-01-18 10:55 | Cardiology Progress Note ---
Date of Service January 18, 2025 Assessment & Plan (1) Atrial flutter with rapid ventricular response: (2) Atrial fibrillation with rapid ventricular response: Plan Recurrent symptomatic atrial fibrillation/flutter with very rapid ventricular response. Trial of sotalol resulted in QT prolongation. Oral amiodarone initiated in PM of 01/17/2025. * Increase amiodarone to 400 mg three times per day * Daily EKGs * Maintain telemetry * NPO after midnight * Direct-current cardioversion in AM of 01/19/2025 * Outpatient referral to Electrophysiology, for ablation(s) Admission and Anticipated Discharge Date Admission Date: January 12, 2025 Supervising Physician Co-Signing Physician Notes Patient seen and examined, chart reviewed. Full assessment and plan as outlined by advanced provider above 74-year-old female with a past medical history of paroxysmal atrial fibrillation, HTN presented to [facility] with recurrent atrial fibrillation with rapid ventricular response. This is her third admission related to atrial fibrillation. She had a KEISHA guided cardioversion on 01/04/2025 converting her to sinus rhythm and she was discharged on metoprolol 50 mg continued. Sotalol load was initiated on 01/12/2025 with sotalol 80 mg p.o. twice daily. She remained in atrial fibrillation despite 3 doses of p.o. sotalol and underwent a direct- current cardioversion on 01/14/2025. Transesophageal echocardiogram was done there was a question of possible missed dose of Eliquis which showed preserved left ventricular ejection fraction and no thrombus in the left atrial appendage. Patient was successfully cardioverted to sinus rhythm. Her QTc after cardioversion was 468. Her dose of sotalol was reduced due to prolonged QT to 40 mg p.o. twice daily however her QT persisted at 499 ms and unfortunately she reverted back to atrial fibrillation with rapid ventricular response. Her sotalol has since been discontinued Now tolerating initial trial of amiodarone therapy. Atrial fibrillation rates still remain elevated but tolerated. Anticipate synchronized electrical cardioversion in a.m. Outpatient referral to EP for possible consideration of pulmonary vein isolation ablation Subjective Patient seen and examined. Chart, medications, telemetry reviewed. Third admission with paroxysmal atrial fibrillation/flutter with a rapid ventricular response No palpitations, chest pain, shortness of breath, orthopnea, PND, or peripheral edema. Sotalol washed out, discontinued due to worsening QT prolongation. Amiodarone initiated in the evening of 01/17/2025 EKG this morning reveals atrial fibrillation with a ventricular rate of 141 bpm, QTc 422 ms. Telemetry: Atrial fibrillation with heart rates in the 120s to 130s Physical Exam Physical Exam: General: A&Ox3. NAD. HENT: Normocephalic. Atraumatic. Eyes: PER. Conjunctiva pink, sclera clear. Neck: No carotid bruits. No JVD. No HJR. Heart: Irregular at 120 bpm. No murmur. Lungs: Clear to auscultation. Abdomen: +BS. Soft. Nontender. No masses or organomegaly. Extremities: No clubbing, cyanosis, or edema. Limited neurological examination is without focal deficits. Pulses: Posterior tibial=2/4. Results & Data Vital Signs (Past 12 Hours) Vital Signs Temp Pulse Pulse Resp BP Pulse Ox O2 Del Method 01/18/25 08:00 36.7 C 132 H 18 119/76 98 Room Air 01/18/25 05:43 156 H 01/18/25 04:00 01/18/25 02:40 36.8 C 110 H 18 114/72 94 Room Air O2 Del Method 01/18/25 08:00 01/18/25 05:43 01/18/25 04:00 Room Air 01/18/25 02:40 Laboratory Results Comprehensive Metabolic Panel 01/18/25 Range/Units 05:34 Sodium 141 (136-145) mmol/L Potassium 4.0 (3.5-5.1) mmol/L Chloride 109 H (98-107) mmol/L Carbon Dioxide 25 (21-32) mmol/L BUN 19 (6-23) mg/dl Creatinine 0.95 (0.6-1.2) mg/dl Glucose 106 H (70-99(Fasting)) mg/dl Calcium 9.4 (8.6-10.3) mg/dl Intake and Output 01/17/25 01/18/25 01/18/25 22:59 06:59 14:59 Intake Total 100 / 640 300 / 640 Balance 100 / 640 300 / 640 Intake: Oral 100 / 640 300 / 640 Other: # Unmeasured Voids 1 2 Weight 76.8 kg Weight Measurement Method Built in [facility]
[2025-01-18] MEDS: AMIODARONE 200 MG TAB PO SCH (11:46)
--- NOTE | 2025-01-18 14:24 | Hospitalist Progress Note ---
Date of Service January 18, 2025 Assessment & Plan (1) Atrial fibrillation with rapid ventricular response: Plan: 74-year-old female with past medical history significant for hypothyroidism, hypertension, hyperlipidemia, GERD, atrial fibrillation was sent in from PCP office for rapid A-fib. Patient was first admitted on 12/23/2024 for new onset atrial fibrillation and patient was discharged on 12/24/2024 on metoprolol succinate 50 mg twice daily and Eliquis 5 mg twice daily and also aspirin 81 mg p.o. daily,. Amlodipine and irbesartan were stopped because of hypotension. Patient was again admitted on 01/04/2025 with rapid A-fib and acute on chronic heart failure with preserved ejection fraction. Received Cardizem and IV Lopressor and also IV Lasix. Patient was status post cardioversion and was discharged on 01/04/2025. Lasix was also added on discharge. Patient states at home her watch was reading as A-fib. She went to her PCP for follow-up appointment today. EKG showed rapid A-fib in 130s. And she was sent to the ER. Denies any feeling of palpitations. Earlier felt chest pressure but that got resolved. Denies shortness of breath. No headache. No runny nose or sore throat. No cough. No fevers. Eating and drinking okay. No nausea. No abdominal pain. Normal bowel and bladder movements. Taking her medications as prescribed. In the ER her heart rate was in 140s /150s today. Received her home metoprolol succinate 50 mg and also extra dose 25 mg and also received IV Lopressor. As heart rates were still high, received a dose of IV Cardizem 10 mg. Currently heart rate are fluctuating in 100-120s. Hemodynamics are okay. Atrial fibrillation with rapid ventricular response --S/P successful KEISHA cardioversion on 01/14/2025 --Normal TSH On Eliquis for anticoagulation Appreciate cardiology input and recommendation Sotalol discontinued due to prolonged QTc Metoprolol dose increased to 50 mg twice a day Need EP evaluation for possible ablation IV Lopressor as needed Started on amiodarone 200 mg TID on 01/17/2025 Monitor QTc Heart rate remains elevated more than 110s without any symptoms Awaiting cardioversion tomorrow Hypertension Previously on irbesartan, amlodipine Continue metoprolol as above Monitor blood pressure and adjust medications as needed Blood pressure remains on the lower side at 96/64 Hyperlipidemia Continue statin History of TIA Continue aspirin and statin History of heart failure with preserved ejection fraction On Lasix and potassium supplement Monitor volume status No evidence of fluid overload GERD Continue PPI Hypothyroidism Continue levothyroxine Chronic knee pain Depression On duloxetine DVT Px: Eliquis CODE STATUS Full code Admission and Anticipated Discharge Date Admission Date: January 12, 2025 Subjective 01/18/2025 The patient was seen and examined in telemetry Unit She has been stable but remains tachycardic Denies any palpitation or chest pain and does not have any shortness of breath Awaiting cardioversion tomorrow Review of Systems Review of Systems: All systems reviewed and are unremarkable except as noted below Physical Exam Physical Exam: Lying in bed without any acute distress Constitutional: well developed, well nourished and average body habitus; not ill appearing Eyes: PERRL, conjunctivae normal, anicteric sclerae ENMT: external ear and nose normal, oropharynx normal Neck: trachea midline, no thyromegaly Respiratory: no respiratory distress Auscultation: lungs clear to auscultation bilaterally Cardiovascular: Rate/Rhythm: + tachycardic and + irregularly irregular Heart Sounds: normal S1 and normal S2; no murmur Extremities: + edema ( trace edema bilaterally) Gastrointestinal (Abdomen): Inspection/Auscultation: normal bowel sounds; abdomen not distended Percussion/Palpation: abdomen soft; abdomen nontender Musculoskeletal: No acute arthritis involving any of the joint Neurologic: normal touch/pain/proprioception and moves all extremities; no focal motor deficits Psychiatric: A+Ox3, euthymic affect Lymphatic: no cervical or axillary lymphadenopathy Results & Data Results & Data Vital Signs (Past 12 Hours) Vital Signs Temp Pulse Pulse Resp BP Pulse Ox O2 Del Method 01/18/25 13:08 117 H 01/18/25 12:11 36.7 C 115 H 18 96/64 L 98 Room Air 01/18/25 08:00 36.7 C 132 H 18 119/76 98 Room Air 01/18/25 05:43 156 H 01/18/25 04:00 01/18/25 02:40 36.8 C 110 H 18 114/72 94 Room Air O2 Del Method 01/18/25 13:08 01/18/25 12:11 01/18/25 08:00 01/18/25 05:43 01/18/25 04:00 Room Air 01/18/25 02:40 Laboratory Results BMP 01/18/25 05:34 Sodium 141 Potassium 4.0 Chloride 109 H Carbon Dioxide 25 BUN 19 Creatinine 0.95 Glucose 106 H Calcium 9.4 Medications Administered Current Inpatient Medications Acetaminophen (Acetaminophen 325 Mg Tab) 650 mg PO Q4H PRN PRN Reason: Pain or Fever Stop: 02/11/25 04:13 Amiodarone HCl (Amiodarone 200 Mg Tab) 400 mg PO TIDM [facility] Stop: 02/17/25 11:59 Last Admin: 01/18/25 11:46 Dose: 400 mg Apixaban (Apixaban 5 Mg Tablet) 5 mg PO BID [facility] Stop: 02/11/25 08:59 Last Admin: 01/18/25 09:10 Dose: 5 mg Aspirin (Aspirin 81 Mg Ectab) [facility] Stop: 02/11/25 08:59 Last Admin: 01/18/25 09:10 Dose: 81 mg Cyanocobalamin (Cyanocobalamin (B-12) 500 Mcg Tablet) 1,000 mcg [facility] [place] Stop: 02/11/25 08:59 Last Admin: 01/18/25 09:10 Dose: 1,000 mcg Duloxetine HCl (Duloxetine Hcl 20 Mg Cap) 40 [facility] Stop: 02/11/25 08:59 Last Admin: 01/18/25 09:10 Dose: 40 mg Furosemide (Furosemide 20 Mg Tab) [facility] Stop: 02/11/25 08:59 Last Admin: 01/18/25 09:10 Dose: 20 mg Levothyroxine Sodium (Levothyroxine Sodium 88 Mcg Tablet) 88 mcg PO DAILYBB [facility] Stop: 02/11/25 06:29 Last Admin: 01/18/25 05:08 Dose: 88 mcg Metoprolol Tartrate (Metoprolol Tartrate 1 Mg/Ml Vial) 5 mg IV Q6H PRN PRN Reason: HR > 120 Stop: 02/11/25 04:13 Last Admin: 01/16/25 08:03 Dose: 5 mg Metoprolol Tartrate (Metoprolol Tartrate 50 Mg Tab) 50 mg PO BID [facility] Stop: 02/15/25 08:59 Last Admin: 01/18/25 09:09 Dose: 50 mg Nitroglycerin (Nitroglycerin Sl 0.4 Mg/Tab Tab) 0.4 mg SL Q5M PRN PRN Reason: Chest Pain Stop: 02/11/25 04:13 Oxycodone HCl (Oxycodone Hcl Ir 5 Mg Tab (Immediate Release)) 5 mg PO Q4H PRN PRN Reason: Pain Stop: 01/28/25 01:37 Pantoprazole Sodium (Pantoprazole 40 Mg Tab) [facility] Stop: 02/11/25 08:59 Last Admin: 01/18/25 09:09 Dose: 40 mg Polyethylene Glycol (Polyethylene (Miralax) 17 Gm Pack) 17 gm PO DAILY PRN PRN Reason: Constipation Stop: 02/11/25 04:13 Rosuvastatin Calcium (Rosuvastatin Calcium 5 Mg Tab) [facility] Stop: 02/11/25 08:59 Last Admin: 01/18/25 09:09 Dose: 5 mg
--- NOTE | 2025-01-19 05:38 | Electrocardiogram Report ---
Test Reason : Blood Pressure : */* mmHG Vent. Rate : 141 BPM Atrial Rate : * BPM P-R Int : * ms QRS Dur : 74 ms QT Int : 312 ms P-R-T Axes : * -37 63 degrees QTcB Int : 478 ms Atrial fibrillation with rapid ventricular response Left axis deviation Abnormal ECG When compared with ECG of 17-Jan-2025 06:40, No significant change was found Confirmed by Kervin Lloyd ([id number]) on 01/19/2025 5:38:00 AM Referred By: Igor Boucher Confirmed By: Kervin Lloyd
[2025-01-19 06:24] LABS: Basophils # (auto) 0.02 K/uL (0.00-0.20); Basophils % (auto) 0.4 %; Eosinophils # (auto) 0.21 K/uL (0.00-0.50); Eosinophils % (auto) 4.6 %; Hemoglobin 12.3 g/dl (12.0-16.0); Immature Granulocytes # (auto) 0.03 K/uL (0.01-0.20); Immature Granulocytes % (auto) 0.7 %; Lymphocytes # (auto) 1.55 K/uL (1.20-3.40); Mean Corpuscular Hemoglobin 28.7 pg (25.0-34.0); Mean Corpuscular Hgb Conc 33.2 g/dL (32.0-36.0); Mean Corpuscular Volume 86.4 fL (80.0-100.0); Mean Platelet Volume 10.8 fL (9.4-12.4); Monocytes # (auto) 0.45 K/uL (0.11-0.59); Monocytes % (auto) 9.9 %; Neutrophils % (auto) 50.4 %; Platelet Count 241 K/uL (130-400); RDW Coefficient of Variation 13.1 % (11.5-14.5); RDW Standard Deviation 40.6 fL (36.4-46.3); Red Blood Count 4.28 M/uL (4.20-5.40); White Blood Count 4.56 K/ul (4.8-10.8)
[2025-01-19 06:55] LABS: BUN Creatinine Ratio 17.9 (10-20); Calcium 9.3 mg/dl (8.6-10.3); Creatinine Clr Calc Pharmacy 45.1 ml/min; Magnesium 2.1 mg/dl (1.7-2.4); Potassium 3.9 mmol/L (3.5-5.1)
--- NOTE | 2025-01-19 07:23 | Anesthesiology Consultation ---
Date of Service January 19, 2025 Assessment & Plan Chart Review Chart Review: Acceptable Risk for Surgery and Patient NOT seen in Pre Admission Testing Consults Requested none ASA ASA3 Proposed Anesthesia Anesthesia Type: MAC Risk / Benefits Reviewed With: PT / POA / Parent / Guardian, Accepts Plan and Informed Consent Obtained History Surgery Operation Date: 01/14/25 07:15 Proposed Procedures p Cardioversion w/Anesthesia Sedation - Kendall Damian DO s Transesophageal Echo w/Anesthesia - Kendall Damian DO Operation Date: 01/19/25 07:45 Proposed Procedures p Cardioversion w/Anesthesia Sedation - Alex Hayward MD Height/Weight Height: 5 ft 2 in Weight: 76 kg Allergies Allergy/AdvReac Type Severity Reaction Status Date / Time naproxen Allergy Intermediate Rash Unverified 01/11/25 17:59 hydrochlorothiazide AdvReac Intermediate Makes her Unverified 01/11/25 17:59 feel terrible Medications Home Medications Medication Instructions Recorded Confirmed Last Taken aspirin 81 mg tablet,delayed 81 mg PO QAM 12/23/24 01/11/25 01/11/25 release levothyroxine 88 mcg tablet 88 mcg PO QAM 12/23/24 01/11/25 01/11/25 omeprazole 20 mg capsule,delayed 20 mg PO QAM 12/23/24 01/11/25 01/11/25 release rosuvastatin 5 mg tablet 5 mg PO QAM 12/23/24 01/11/25 Unknown apixaban 5 mg tablet (Eliquis) 5 mg PO BID #60 tabs 12/24/24 01/11/25 01/11/25 AM DOSE metoprolol succinate 50 mg 50 mg PO BID #60 tabs 12/24/24 01/11/25 01/11/25 tablet,extended release 24 hr AM DOSE potassium chloride 20 mEq 20 meq PO QAM #30 tabs 01/05/25 01/11/25 01/10/25 tablet,extended release(part/cryst) cyanocobalamin (vitamin B-12) 1,000 mcg sublingual QAM 01/11/25 01/11/25 01/11/25 1,000 mcg sublingual tablet duloxetine 20 mg capsule,delayed 40 mg PO QAM 01/11/25 01/11/25 01/11/25 release furosemide 20 mg tablet 20 mg PO QAM 01/11/25 01/11/25 01/10/25 Active Medications Generic Name Dose Route Start Last Admin Trade Name Freq PRN Reason Stop Dose Admin Amiodarone HCl 400 mg 01/18/25 12:00 01/18/25 16:39 Amiodarone 200 Mg Tab PO 02/17/25 11:59 400 mg TIDM NATY Administration Apixaban 5 mg 01/12/25 09:00 01/18/25 20:40 Apixaban 5 Mg Tablet PO 02/11/25 08:59 5 mg BID NATY Administration Aspirin 81 mg 01/12/25 09:00 01/18/25 09:10 Aspirin 81 Mg Ectab PO 02/11/25 08:59 81 mg QAM NATY Administration Cyanocobalamin 1,000 mcg 01/12/25 09:00 01/18/25 09:10 Cyanocobalamin (B-12) 500 Mcg Tablet PO 02/11/25 08:59 1,000 mcg QAM NATY Administration Duloxetine HCl 40 mg 01/12/25 09:00 01/18/25 09:10 Duloxetine Hcl 20 Mg Cap PO 02/11/25 08:59 40 mg QAM NATY Administration Furosemide 20 mg 01/12/25 09:00 01/18/25 09:10 Furosemide 20 Mg Tab PO 02/11/25 08:59 20 mg QAM NATY Administration Levothyroxine Sodium 88 mcg 01/12/25 06:30 01/19/25 05:56 Levothyroxine Sodium 88 Mcg Tablet PO 02/11/25 06:29 88 mcg DAILYBB NATY Administration Metoprolol Tartrate 5 mg 01/12/25 08:23 01/16/25 08:03 Metoprolol Tartrate 1 Mg/Ml Vial IV 02/11/25 04:13 5 mg Q6H PRN Administration HR > 120 Metoprolol Tartrate 50 mg 01/16/25 09:00 01/18/25 20:40 Metoprolol Tartrate 50 Mg Tab PO 02/15/25 08:59 50 mg BID NATY Administration Pantoprazole Sodium 40 mg 01/12/25 09:00 01/18/25 09:09 Pantoprazole 40 Mg Tab PO 02/11/25 08:59 40 mg QAM NATY Administration Rosuvastatin Calcium 5 mg 01/12/25 09:00 01/18/25 09:09 Rosuvastatin Calcium 5 Mg Tab PO 02/11/25 08:59 5 mg QAM NATY Administration NPO Date Last Intake of Fluids: 01/13/25 Time Last Intake of Fluids: 23:59 Date Last Intake of Solids: 01/13/25 Time Last Intake of Solids: 23:59 Past Medical History Medical History New onset atrial fibrillation Exercise / Class Metabolic Activity II 4-5 Yardwork/Stairs/Walk up hill Past Anesthesia History No Hx of Anesthesia Complications and No Family Hx of Anesthesia Complications History of PONV No Hx of PONV and No Hx of Motion Sickness Social History Smoking Status: Never smoker Do You Dip or Chew Tobacco: No Hx Alcohol Use: Yes Alcohol type: beer alcohol intake frequency: 0-2 drinks per day Alcohol Intake Frequency Comment: states hasnt had a beer in 2 weeks Hx Substance Use: No substance use type: does not use Physical Exam Vital Signs Last Vital Signs Temp 36.6 C 01/19/25 02:54 Pulse 118 H 01/19/25 05:47 Resp 20 01/19/25 02:54 BP 115/86 01/19/25 02:54 Pulse Ox 94 01/19/25 02:54 O2 Del Method Room Air 01/19/25 02:54 O2 Flow Rate 0 01/14/25 08:19 ENMT Mouth: no dentition abnormality Thyromental Distance: > or= 3.5 Finger Breadths Mallampati Class: II Neck normal visual inspection Respiratory normal respiratory effort Auscultation: lungs clear to auscultation bilaterally Cardiovascular Rate/Rhythm: + tachycardic; + abnormal rhythm Psychiatric Orientation: alert Testing Laboratory Results 01/19/25 05:40 01/19/25 05:40 PT 10.9 Seconds (9.0-12.0) 01/11/25 16:10 INR 1.0 (0.9-1.1) 01/11/25 16:10 APTT 27 Seconds (21-31) 01/14/25 01:55 Urine Color Yellow 01/11/25 18:28 Urine Appearance Clear (Clear) 01/11/25 18:28 Urine pH 5.0 (4.5-7.5) 01/11/25 18:28 Ur Specific [place] 1.017 (1.000-1.030) 01/11/25 18:28 Urine Protein Negative (Negative) 01/11/25 18:28 Urine Glucose (UA) Negative (Negative) 01/11/25 18:28 Urine Ketones Negative (Negative) 01/11/25 18:28 Urine Nitrite Negative (Negative) 01/11/25 18:28 Ur Leukocyte Esterase Trace (Negative) H 01/11/25 18:28 Urine WBC (Auto) 0-5 /hpf (0-5) 01/11/25 18:28 Urine RBC (Auto) 0-2 /hpf (0-2) 01/11/25 18:28 U Hyaline Cast (Auto) 0-2 /lpf (0-2) 01/11/25 18:28 U Epithel Cells (Auto) 0-2 /hpf (0-2) 01/11/25 18:28 Urine Bacteria (Auto) None Seen (None Seen) 01/11/25 18:28
[2025-01-19] MEDS ORDERED: LIDOCAINE 2% 2 ML VIAL/AMP(20MG/ML) INFIL ONE (07:54)
[2025-01-19] MEDS ORDERED: PROPOFOL IV EMULSION 10 MG/ML 20 ML VIAL IV ONE (07:54)
--- NOTE | 2025-01-19 08:05 | Cardioversion ---
Date of Service January 19, 2025 Electrical Cardioversion Rpt Electrical Cardioversion Report The patient was seen and examined. Procedure and risks synchronized electrical cardioversion explained in detail, informed consent obtained. Formal TIMEOUT performed. Patient sedated via anesthesia consult with continuous O2, BP, HR, endtidal CO2 monitoring Single synchronized 150J shock performed with successful conversion to sinus Patient aroused having tolerated well
--- NOTE | 2025-01-19 08:16 | Anesthesiology Progress Note ---
Date of Service January 19, 2025 Anesthesia Post Procedure Vital Signs Vital Signs: Temp Pulse Pulse Resp BP BP Pulse Ox 01/19/25 07:55 63 16 102/67 95 01/19/25 07:30 36.7 C 01/19/25 07:27 104 H 16 114/72 96 01/19/25 05:47 118 H 01/19/25 02:54 36.6 C 117 H 20 115/86 94 01/18/25 23:04 105 H 01/18/25 22:37 37.0 C 101 H 20 116/87 94 01/18/25 19:20 36.9 C 119 H 18 109/73 94 01/18/25 17:41 117 H 103/78 01/18/25 15:02 100/84 01/18/25 14:57 36.3 C L 124 H 18 85/70 L 93 01/18/25 13:08 117 H 01/18/25 12:11 36.7 C 115 H 18 96/64 L 98 O2 Del Method O2 Flow Rate 01/19/25 07:55 Oxymask 6 01/19/25 07:30 01/19/25 07:27 Room Air 01/19/25 05:47 01/19/25 02:54 Room Air 01/18/25 23:04 01/18/25 22:37 Room Air 01/18/25 19:20 Room Air 01/18/25 17:41 01/18/25 15:02 01/18/25 14:57 Room Air 01/18/25 13:08 01/18/25 12:11 Room Air Transfer of Care Handoff Completed per policy Notes Mental Status: alert / awake / arousable Patient Amnestic to Procedure: Yes Nausea / Vomiting: adequately controlled Pain: adequately controlled Airway Patency, RR, SpO2: stable & adequate BP & HR: stable & adequate Hydration State: stable & adequate Anesthetic Complications: no major complications apparent
--- NOTE | 2025-01-19 11:13 | Cardiology Progress Note ---
Date of Service January 19, 2025 Assessment & Plan (1) Atrial flutter with rapid ventricular response: (2) Atrial fibrillation with rapid ventricular response: Plan Recurrent symptomatic atrial fibrillation/flutter with very rapid ventricular response. Trial of sotalol resulted in QT prolongation. Oral amiodarone initiated in PM of 01/17/2025. * Increase amiodarone to 400 mg three times per day * Daily EKGs * Maintain telemetry * NPO after midnight * Direct-current cardioversion in AM of 01/19/2025 * Outpatient referral to Electrophysiology, for ablation(s) * * 01/19/2025 1. Paroxysmal atrial fibrillation flutter status post successful synchronized electrical cardioversion. Tolerating amiodarone load initially. Plan amiodarone 40 mg 3 times daily today then 200 mg twice. Tomorrow on likely discharge. EKG in a.m. Admission and Anticipated Discharge Date Admission Date: January 12, 2025 Subjective Patient seen both pre and following synchronized electrical cardioversion this morning Overall feels well no cardiac complaints chest pains, shortness of breath, tachypalpitations. Synchronized electrical cardioversion successful with return to sinus rhythm EKG sinus rhythm with first-degree AV block no QT prolongation Review of Systems Review of Systems: All systems reviewed & are unremarkable except as noted in Subjective Physical Exam Constitutional: WD/WN, vitals as above well nourished; no acute distress ENMT: external ear and nose normal, oropharynx normal Neck: trachea midline, no thyromegaly Respiratory: normal respiratory effort; no respiratory distress, no labored breathing, no retractions and no cough Auscultation: lungs clear to auscultation bilaterally; no crackles, no rales, no rhonchi and no wheezes Cardiovascular: Rate/Rhythm: regular rate and regular rhythm Heart Sounds: normal S1 and normal S2; no murmur Vessels: no JVD and no carotid bruit Extremities: no edema Gastrointestinal (Abdomen): normal bowel sounds, soft, nontender, no hepatosplenomegaly Inspection/Auscultation: abdomen normal to inspection and normal bowel sounds; abdomen not distended Percussion/Palpation: abdomen soft; abdomen nontender, no guarding and abdomen not rigid Skin: no rashes, warm and dry Neurologic: PERRL, EOMI, accommodation nl, no face palsy, no dysarthria CN's II-XI intact bilaterally and moves all extremities; no focal motor deficits Results & Data Vital Signs (Past 12 Hours) Vital Signs Temp Pulse Pulse Resp BP BP Pulse Ox 01/19/25 10:48 36.4 C L 62 18 104/60 94 01/19/25 09:27 69 16 116/68 95 01/19/25 08:54 67 16 116/74 95 01/19/25 08:44 63 01/19/25 08:40 36.5 C 63 16 115/86 95 01/19/25 08:20 63 16 106/64 94 01/19/25 08:00 63 16 108/70 94 01/19/25 07:55 63 16 102/67 95 01/19/25 07:30 36.7 C 01/19/25 07:27 104 H 16 114/72 96 01/19/25 05:47 118 H 01/19/25 02:54 36.6 C 117 H 20 115/86 94 O2 Del Method O2 Flow Rate 01/19/25 10:48 Room Air 01/19/25 09:27 Room Air 01/19/25 08:54 Room Air 01/19/25 08:44 01/19/25 08:40 Room Air 01/19/25 08:20 Oxymask 6 01/19/25 08:00 Oxymask 6 01/19/25 07:55 Oxymask 6 01/19/25 07:30 01/19/25 07:27 Room Air 01/19/25 05:47 01/19/25 02:54 Room Air Laboratory Results Laboratory Results - last 24 hr 01/19/25 05:40 WBC 4.56 L RBC 4.28 Hgb 12.3 Hct 37.0 MCV 86.4 MCH 28.7 MCHC 33.2 RDW Std Deviation 40.6 RDW Coeff of [place] 13.1 Plt Count 241 MPV 10.8 Immature Gran % (Auto) 0.7 Neut % (Auto) 50.4 Lymph % (Auto) 34.0 [place] % (Auto) 9.9 Eos % (Auto) 4.6 Baso % (Auto) 0.4 Neut # (Auto) 2.30 Lymph # (Auto) 1.55 [place] # (Auto) 0.45 Eos # (Auto) 0.21 Baso # (Auto) 0.02 Immature Gran # (Auto) 0.03 Sodium 141 Potassium 3.9 Chloride 107 Carbon Dioxide 29 Anion Gap 5 BUN 19 Creatinine 1.06 Est Cr Clr Drug Dosing 45.1 eGFR 55.47 BUN/Creatinine Ratio 17.9 Glucose 99 Calcium 9.3 Magnesium 2.1
--- NOTE | 2025-01-19 11:58 | Hospitalist Progress Note ---
Date of Service January 19, 2025 Assessment & Plan (1) Atrial fibrillation with rapid ventricular response: Plan: 74-year-old female with past medical history significant for hypothyroidism, hypertension, hyperlipidemia, GERD, atrial fibrillation was sent in from PCP office for rapid A-fib. Patient was first admitted on 12/23/2024 for new onset atrial fibrillation and patient was discharged on 12/24/2024 on metoprolol succinate 50 mg twice daily and Eliquis 5 mg twice daily and also aspirin 81 mg p.o. daily,. Amlodipine and irbesartan were stopped because of hypotension. Patient was again admitted on 01/04/2025 with rapid A-fib and acute on chronic heart failure with preserved ejection fraction. Received Cardizem and IV Lopressor and also IV Lasix. Patient was status post cardioversion and was discharged on 01/04/2025. Lasix was also added on discharge. Patient states at home her watch was reading as A-fib. She went to her PCP for follow-up appointment today. EKG showed rapid A-fib in 130s. And she was sent to the ER. Denies any feeling of palpitations. Earlier felt chest pressure but that got resolved. Denies shortness of breath. No headache. No runny nose or sore throat. No cough. No fevers. Eating and drinking okay. No nausea. No abdominal pain. Normal bowel and bladder movements. Taking her medications as prescribed. In the ER her heart rate was in 140s /150s today. Received her home metoprolol succinate 50 mg and also extra dose 25 mg and also received IV Lopressor. As heart rates were still high, received a dose of IV Cardizem 10 mg. Currently heart rate are fluctuating in 100-120s. Hemodynamics are okay. Atrial fibrillation with rapid ventricular response --S/P successful KEISHA cardioversion on 01/14/2025 --Normal TSH On Eliquis for anticoagulation Appreciate cardiology input and recommendation Sotalol discontinued due to prolonged QTc Metoprolol dose increased to 50 mg twice a day Need EP evaluation for possible ablation IV Lopressor as needed Started on amiodarone 200 mg TID on 01/17/2025 Monitor QTc Heart rate remains elevated more than 110s without any symptoms Status post cardioversion today and reversion to sinus rhythm Rate is controlled at around 60s and the patient remains asymptomatic Likely discharge tomorrow Previously on irbesartan, amlodipine Continue metoprolol as above Monitor blood pressure and adjust medications as needed Blood pressure remains on the lower side at 96/64 Hyperlipidemia Continue statin History of TIA Continue aspirin and statin History of heart failure with preserved ejection fraction On Lasix and potassium supplement Monitor volume status No evidence of fluid overload GERD Continue PPI Hypothyroidism Continue levothyroxine Chronic knee pain Depression On duloxetine DVT Px: Eliquis CODE STATUS Full code Admission and Anticipated Discharge Date Admission Date: January 12, 2025 Subjective 01/18/2025 The patient was seen and examined in telemetry Unit She has been stable but remains tachycardic Denies any palpitation or chest pain and does not have any shortness of breath Awaiting cardioversion tomorrow 01/19/2025 Patient was seen and examined in telemetry unit She is a status post cardioversion and reversion to sinus rhythm Denies any symptoms She will be staying tonight to make sure A-fib does not recur Review of Systems Review of Systems: All systems reviewed and are unremarkable except as noted below Physical Exam Physical Exam: Lying in bed without any acute distress Constitutional: well developed, well nourished and average body habitus; not ill appearing Eyes: PERRL, conjunctivae normal, anicteric sclerae ENMT: external ear and nose normal, oropharynx normal Neck: trachea midline, no thyromegaly Respiratory: no respiratory distress Auscultation: lungs clear to auscultation bilaterally Cardiovascular: Rate/Rhythm: regular rate and regular rhythm; not tachycardic Heart Sounds: normal S1 and normal S2; no murmur Extremities: + edema ( trace edema bilaterally) Gastrointestinal (Abdomen): Inspection/Auscultation: normal bowel sounds; abdomen not distended Percussion/Palpation: abdomen soft; abdomen nontender Neurologic: normal touch/pain/proprioception and moves all extremities; no focal motor deficits Psychiatric: A+Ox3, euthymic affect Lymphatic: no cervical or axillary lymphadenopathy Results & Data Results & Data Vital Signs (Past 12 Hours) Vital Signs Temp Pulse Pulse Resp BP BP Pulse Ox 01/19/25 10:48 36.4 C L 62 18 104/60 94 01/19/25 09:27 69 16 116/68 95 01/19/25 08:54 67 16 116/74 95 01/19/25 08:44 63 01/19/25 08:40 36.5 C 63 16 115/86 95 04/09/25 08:20 63 16 106/64 94 01/19/25 08:00 63 16 108/70 94 01/19/25 07:55 63 16 102/67 95 01/19/25 07:30 36.7 C 01/19/25 07:27 104 H 16 114/72 96 01/19/25 05:47 118 H 01/19/25 02:54 36.6 C 117 H 20 115/86 94 O2 Del Method O2 Flow Rate 01/19/25 10:48 Room Air 01/19/25 09:27 Room Air 01/19/25 08:54 Room Air 01/19/25 08:44 01/19/25 08:40 Room Air 01/19/25 08:20 Oxymask 6 01/19/25 08:00 Oxymask 6 01/19/25 07:55 Oxymask 6 01/19/25 07:30 01/19/25 07:27 Room Air 01/19/25 05:47 01/19/25 02:54 Room Air Laboratory Results Short CBC 01/19/25 Range/Units 05:40 WBC 4.56 L (4.8-10.8) K/ul Hgb 12.3 (12.0-16.0) g/dl Hct 37.0 (37.0-47.0) % Plt Count 241 (130-400) K/uL BMP 01/19/25 05:40 Sodium 141 Potassium 3.9 Chloride 107 Carbon Dioxide 29 BUN 19 Creatinine 1.06 Glucose 99 Calcium 9.3 Medications Administered Current Inpatient Medications Acetaminophen (Acetaminophen 325 Mg Tab) 650 mg PO Q4H PRN PRN Reason: Pain or Fever Stop: 02/11/25 04:13 Amiodarone HCl (Amiodarone 200 Mg Tab) 400 mg PO TIDM NATY Stop: 02/17/25 11:59 Last Admin: 01/19/25 11:30 Dose: 400 mg Apixaban (Apixaban 5 Mg Tablet) 5 mg PO BID NATY Stop: 02/11/25 08:59 Last Admin: 01/19/25 08:55 Dose: 5 mg Aspirin (Aspirin 81 Mg Ectab) 81 mg PO QAM NATY Stop: 02/11/25 08:59 Last Admin: 01/19/25 08:55 Dose: 81 mg Cyanocobalamin (Cyanocobalamin (B-12) 500 Mcg Tablet) [facility] [place] Stop: 02/11/25 08:59 Last Admin: 01/19/25 08:56 Dose: 1,000 mcg Duloxetine HCl (Duloxetine Hcl 20 Mg Cap) 40 mg PO QAM [facility] Stop: 02/11/25 08:59 Last Admin: 01/19/25 08:55 Dose: 40 mg Furosemide (Furosemide 20 Mg Tab) [facility] [place] [facility] Stop: 02/11/25 08:59 Last Admin: 01/19/25 08:56 Dose: 20 mg Levothyroxine Sodium (Levothyroxine Sodium 88 Mcg Tablet) [facility] Stop: 02/11/25 06:29 Last Admin: 01/19/25 05:56 Dose: 88 mcg Metoprolol Tartrate (Metoprolol Tartrate 1 Mg/Ml Vial) 5 mg IV Q6H PRN PRN Reason: HR > 120 Stop: 02/11/25 04:13 Last Admin: 01/16/25 08:03 Dose: 5 mg Metoprolol Tartrate (Metoprolol Tartrate 50 Mg Tab) 50 mg PO BID [facility] Stop: 02/15/25 08:59 Last Admin: 01/19/25 08:55 Dose: 50 mg Nitroglycerin (Nitroglycerin Sl 0.4 Mg/Tab Tab) 0.4 mg SL Q5M PRN PRN Reason: Chest Pain Stop: 02/11/25 04:13 Oxycodone HCl (Oxycodone Hcl Ir 5 Mg Tab (Immediate Release)) 5 mg PO Q4H PRN PRN Reason: Pain Stop: 01/28/25 01:37 Pantoprazole Sodium (Pantoprazole 40 Mg Tab) [facility] [place] Stop: 02/11/25 08:59 Last Admin: 01/19/25 08:56 Dose: 40 mg Polyethylene Glycol (Polyethylene (Miralax) 17 Gm Pack) 17 gm PO DAILY PRN PRN Reason: Constipation Stop: 02/11/25 04:13 Rosuvastatin Calcium (Rosuvastatin Calcium 5 Mg Tab) [facility] [place] Stop: 02/11/25 08:59 Last Admin: 01/19/25 08:56 Dose: 5 mg
--- NOTE | 2025-01-20 06:03 | Electrocardiogram Report ---
Test Reason : Blood Pressure : */* mmHG Vent. Rate : 113 BPM Atrial Rate : * BPM P-R Int : * ms QRS Dur : 76 ms QT Int : 344 ms P-R-T Axes : * -31 47 degrees QTcB Int : 472 ms Atrial fibrillation with rapid ventricular response Left axis deviation Abnormal ECG When compared with ECG of 18-Jan-2025 05:11, No significant change was found Confirmed by Kervin Lloyd ([id number]) on 01/20/2025 6:03:35 AM Referred By: Igor Boucher Confirmed By: Kervin Lloyd
--- NOTE | 2025-01-20 06:04 | Electrocardiogram Report ---
Test Reason : Blood Pressure : */* mmHG Vent. Rate : 62 BPM Atrial Rate : 62 BPM P-R Int : 222 ms QRS Dur : 82 ms QT Int : 454 ms P-R-T Axes : 73 -31 13 degrees QTcB Int : 460 ms Sinus rhythm with 1st degree A-V block with Premature atrial complexes Left axis deviation Minimal voltage criteria for LVH, may be normal variant ( R in aVL ) Abnormal ECG When compared with ECG of 19-Jan-2025 06:41, Sinus rhythm has replaced Atrial fibrillation Vent. rate has decreased by 51 bpm Confirmed by Kervin Lloyd ([id number]) on 01/20/2025 6:04:05 AM Referred By: Igor Boucher Confirmed By: Kervin Lloyd
[2025-01-20 07:26] LABS: BUN Creatinine Ratio 23.3 (10-20); Calcium 9.3 mg/dl (8.6-10.3); Creatinine Clr Calc Pharmacy 46.5 ml/min; Magnesium 2.1 mg/dl (1.7-2.4); Potassium 4.1 mmol/L (3.5-5.1)
[2025-01-20 11:08] VITALS: PULSE 55; RESP 19; TEMP 97.5; O2SAT 96
--- NOTE | 2025-01-20 11:54 | Cardiology Progress Note ---
Date of Service January 20, 2025 Assessment & Plan (1) Atrial flutter with rapid ventricular response: (2) Atrial fibrillation with rapid ventricular response: Plan Recurrent symptomatic atrial fibrillation/flutter with very rapid ventricular response. Trial of sotalol resulted in QT prolongation. Oral amiodarone initiated in PM of 01/17/2025. * Increase amiodarone to 400 mg three times per day * Daily EKGs * Maintain telemetry * NPO after midnight * Direct-current cardioversion in AM of 01/19/2025 * Outpatient referral to Electrophysiology, for ablation(s) * * 01/19/2025 1. Paroxysmal atrial fibrillation flutter status post successful synchronized electrical cardioversion. Tolerating amiodarone load initially. Plan amiodarone 40 mg 3 times daily today then 200 mg twice. Tomorrow on likely discharge. EKG in a.m. 01/20/2025 1. Paroxysmal atrial fibrillation flutter status post synchronized electrical cardioversion. QT with mild prolongation on amiodarone will reduce dosing to 200 mg twice per day then once daily after 1 week follow-up EKG next week. Outpatient EP evaluation for ablation. Continue apixaban Has scheduled PYP scan [facility] on Friday, follow-up with [facility] cardiology on 01/27/2025 with planned EKG next week Admission and Anticipated Discharge Date Admission Date: January 12, 2025 Subjective Patient seen and examined, chart, medications, telemetry reviewed. No cardiac complaints today remains in sinus rhythm since cardioversion yesterday. No arrhythmias on telemetry. Physical Exam Constitutional: WD/WN, vitals as above well nourished; no acute distress ENMT: external ear and nose normal, oropharynx normal Neck: trachea midline, no thyromegaly Respiratory: normal respiratory effort; no respiratory distress, no labored breathing, no retractions and no cough Auscultation: lungs clear to auscultation bilaterally; no crackles, no rales, no rhonchi and no wheezes Cardiovascular: Rate/Rhythm: regular rate and regular rhythm Heart Sounds: normal S1 and normal S2; no murmur Vessels: no JVD and no carotid bruit Extremities: no edema Gastrointestinal (Abdomen): normal bowel sounds, soft, nontender, no hepatosplenomegaly Inspection/Auscultation: abdomen normal to inspection and normal bowel sounds; abdomen not distended Percussion/Palpation: abdomen soft; abdomen nontender, no guarding and abdomen not rigid Skin: no rashes, warm and dry Neurologic: PERRL, EOMI, accommodation nl, no face palsy, no dysarthria CN's II-XI intact bilaterally and moves all extremities; no focal motor deficits Results & Data Vital Signs (Past 12 Hours) Vital Signs Temp Pulse Pulse Resp BP Pulse Ox O2 Del Method 01/20/25 11:07 36.4 C L 55 L 19 114/75 96 Room Air 01/20/25 09:00 70 01/20/25 08:31 36.6 C 65 17 110/71 94 Room Air 01/20/25 03:01 36.9 C 60 18 104/62 94 Room Air 01/20/25 00:36 57 L ECG Additional Comments: EKG 01/20/2025: sinus rhythm with first-degree AV block, rate 62 bpm QT corrected 501
--- NOTE | 2025-01-20 12:00 | Hospitalist Progress Note ---
Date of Service January 20, 2025 Assessment & Plan (1) Atrial fibrillation with rapid ventricular response: Plan: 74-year-old female with past medical history significant for hypothyroidism, hypertension, hyperlipidemia, GERD, atrial fibrillation was sent in from PCP office for rapid A-fib. Patient was first admitted on 12/23/2024 for new onset atrial fibrillation and patient was discharged on 12/24/2024 on metoprolol succinate 50 mg twice daily and Eliquis 5 mg twice daily and also aspirin 81 mg p.o. daily,. Amlodipine and irbesartan were stopped because of hypotension. Patient was again admitted on 01/04/2025 with rapid A-fib and acute on chronic heart failure with preserved ejection fraction. Received Cardizem and IV Lopressor and also IV Lasix. Patient was status post cardioversion and was discharged on 01/04/2025. Lasix was also added on discharge. Patient states at home her watch was reading as A-fib. She went to her PCP for follow-up appointment today. EKG showed rapid A-fib in 130s. And she was sent to the ER. Denies any feeling of palpitations. Earlier felt chest pressure but that got resolved. Denies shortness of breath. No headache. No runny nose or sore throat. No cough. No fevers. Eating and drinking okay. No nausea. No abdominal pain. Normal bowel and bladder movements. Taking her medications as prescribed. In the ER her heart rate was in 140s /150s today. Received her home metoprolol succinate 50 mg and also extra dose 25 mg and also received IV Lopressor. As heart rates were still high, received a dose of IV Cardizem 10 mg. Currently heart rate are fluctuating in 100-120s. Hemodynamics are okay. Atrial fibrillation with rapid ventricular response --S/P successful KEISHA cardioversion on 01/14/2025 --Normal TSH On Eliquis for anticoagulation Appreciate cardiology input and recommendation Sotalol discontinued due to prolonged QTc Metoprolol dose increased to 50 mg twice a day Need EP evaluation for possible ablation IV Lopressor as needed Started on amiodarone 200 mg TID on 01/17/2025 Monitor QTc Heart rate remains elevated more than 110s without any symptoms Status post cardioversion today and reversion to sinus rhythm Rate is controlled at around 60s and the patient remains asymptomatic She is much better this morning without any cardiac symptoms and remains in sinus rhythm Previously on irbesartan, amlodipine Continue metoprolol as above Monitor blood pressure and adjust medications as needed Blood pressure remains on the lower side at 96/64 Her blood pressure remains stable Hyperlipidemia Continue statin History of TIA Continue aspirin and statin History of heart failure with preserved ejection fraction On Lasix and potassium supplement Monitor volume status No evidence of fluid overload GERD Continue PPI Hypothyroidism Continue levothyroxine Chronic knee pain Depression On duloxetine DVT Px: Eliquis CODE STATUS Full code Admission and Anticipated Discharge Date Admission Date: January 12, 2025 Subjective 01/18/2025 The patient was seen and examined in telemetry Unit She has been stable but remains tachycardic Denies any palpitation or chest pain and does not have any shortness of breath Awaiting cardioversion tomorrow 01/19/2025 Patient was seen and examined in telemetry unit She is a status post cardioversion and reversion to sinus rhythm Denies any symptoms She will be staying tonight to make sure A-fib does not recur 01/20/2025 The patient was seen and examined in the telemetry unit She has been feeling much better and remains in sinus rhythm She has been ambulating without difficulties and will be discharged home this afternoon Review of Systems 2 Review of Systems: All systems reviewed and are unremarkable except as noted below Physical Exam Physical Exam: Lying in bed without any acute distress Constitutional: well developed, well nourished and average body habitus; not ill appearing Eyes: PERRL, conjunctivae normal, anicteric sclerae ENMT: external ear and nose normal, oropharynx normal Neck: trachea midline, no thyromegaly Respiratory: no respiratory distress Auscultation: lungs clear to auscultation bilaterally Cardiovascular: Rate/Rhythm: regular rate, regular rhythm and + irregularly irregular; not tachycardic Heart Sounds: normal S1 and normal S2; no murmur Extremities: + edema ( trace edema bilaterally) Gastrointestinal (Abdomen): Inspection/Auscultation: normal bowel sounds; abdomen not distended Percussion/Palpation: abdomen soft; abdomen nontender Neurologic: normal touch/pain/proprioception and moves all extremities; no focal motor deficits Psychiatric: A+Ox3, euthymic affect Lymphatic: no cervical or axillary lymphadenopathy Results & Data Results & Data Vital Signs (Past 12 Hours) Vital Signs Temp Pulse Pulse Resp BP Pulse Ox O2 Del Method 01/20/25 11:07 36.4 C L 55 L 19 114/75 96 Room Air 01/20/25 09:00 70 01/20/25 08:31 36.6 C 65 17 110/71 94 Room Air 01/20/25 03:01 36.9 C 60 18 104/62 94 Room Air 01/20/25 00:36 57 L Laboratory Results [facility] 01/20/25 05:50 Sodium 141 Potassium 4.1 Chloride 109 H Carbon Dioxide 27 BUN 24 H Creatinine 1.03 Glucose 100 H Calcium 9.3 Medications Administered Current Inpatient Medications Acetaminophen (Acetaminophen 325 Mg Tab) 650 mg PO Q4H PRN PRN Reason: Pain or Fever Stop: 02/11/25 04:13 Amiodarone HCl (Amiodarone 200 Mg Tab) 400 mg PO TIDM [facility] Stop: 02/17/25 11:59 Last Admin: 01/20/25 09:08 Dose: 400 mg Apixaban (Apixaban 5 Mg Tablet) 5 mg PO BID [facility] Stop: 02/11/25 08:59 Last Admin: 01/20/25 09:09 Dose: 5 mg Aspirin (Aspirin 81 Mg Ectab) 81 mg PO QAM [facility] Stop: 02/11/25 08:59 Last Admin: 01/20/25 09:07 Dose: 81 mg Cyanocobalamin (Cyanocobalamin (B-12) 500 Mcg Tablet) 1,000 mcg PO QAM [facility] Stop: 02/11/25 08:59 Last Admin: 01/20/25 09:07 Dose: 1,000 mcg Duloxetine HCl (Duloxetine Hcl 20 Mg Cap) 40 mg PO QAM [facility] Stop: 02/11/25 08:59 Last Admin: 01/20/25 09:08 Dose: 40 mg Furosemide (Furosemide 20 Mg Tab) 20 mg PO QAM [facility] Stop: 02/11/25 08:59 Last Admin: 01/20/25 09:08 Dose: 20 mg Levothyroxine Sodium (Levothyroxine Sodium 88 Mcg Tablet) 88 mcg PO DAILYBB [facility] Stop: 02/11/25 06:29 Last Admin: 01/20/25 05:15 Dose: 88 mcg Metoprolol Tartrate (Metoprolol Tartrate 1 Mg/Ml Vial) 5 mg IV Q6H PRN PRN Reason: HR > 120 Stop: 02/11/25 04:13 Last Admin: 01/16/25 08:03 Dose: 5 mg Metoprolol Tartrate (Metoprolol Tartrate 50 Mg Tab) 50 mg PO BID [facility] Stop: 02/15/25 08:59 Last Admin: 01/20/25 09:09 Dose: 50 mg Nitroglycerin (Nitroglycerin Sl 0.4 Mg/Tab Tab) 0.4 mg SL Q5M PRN PRN Reason: Chest Pain Stop: 02/11/25 04:13 Oxycodone HCl (Oxycodone Hcl Ir 5 Mg Tab (Immediate Release)) 5 mg PO Q4H PRN PRN Reason: Pain Stop: 01/28/25 01:37 Pantoprazole Sodium (Pantoprazole 40 Mg Tab) 40 mg PO QAM [facility] Stop: 02/11/25 08:59 Last Admin: 01/20/25 09:09 Dose: 40 mg Polyethylene Glycol (Polyethylene (Miralax) 17 Gm Pack) 17 gm PO DAILY PRN PRN Reason: Constipation Stop: 02/11/25 04:13 Rosuvastatin Calcium (Rosuvastatin Calcium 5 Mg Tab) 5 mg PO QAM [facility] Stop: 02/11/25 08:59 Last Admin: 01/20/25 09:07 Dose: 5 mg
[2025-01-20 12:53] VITALS: BP 110/68
[2025-01-20] MEDS ORDERED: AMIODARONE 200 MG TAB PO SCH (17:00)
--- NOTE | 2025-01-20 22:46 | Electrocardiogram Report ---
Test Reason : Blood Pressure : */* mmHG Vent. Rate : 62 BPM Atrial Rate : 62 BPM P-R Int : 264 ms QRS Dur : 94 ms QT Int : 480 ms P-R-T Axes : 78 -29 26 degrees QTcB Int : 488 ms Sinus rhythm with 1st degree A-V block Prolonged QT Abnormal ECG When compared with ECG of 19-Jan-2025 08:11, Premature atrial complexes are no longer Present Confirmed by Kervin Lloyd ([id number]) on 01/20/2025 10:45:39 PM Referred By: Igor Boucher Confirmed By: Kervin Lloyd
--- NOTE | 2025-01-21 08:15 | Discharge Summary ---
Date of Service January 21, 2025 Admission HPI Per Admitting Provider 74-year-old female with past medical history significant for hypothyroidism, hypertension, hyperlipidemia, GERD, atrial fibrillation was sent in from PCP office for rapid A-fib. Patient was first admitted on 12/23/2024 for new onset atrial fibrillation and patient was discharged on 12/24/2024 on metoprolol succinate 50 mg twice daily and Eliquis 5 mg twice daily and also aspirin 81 mg p.o. daily,. Amlodipine and irbesartan were stopped because of hypotension. Patient was again admitted on 01/04/2025 with rapid A-fib and acute on chronic heart failure with preserved ejection fraction. Received Cardizem and IV Lop ressor and also IV Lasix. Patient was status post cardioversion and was discharged on 01/04/2025. Lasix was also added on discharge. Patient states at home her watch was reading as A-fib. She went to her PCP for follow-up appointment today. EKG showed rapid A-fib in 130s. And she was sent to the ER. Denies any feeling of palpitations. Earlier felt chest pressure but that got resolved. Denies shortness of breath. No headache. No runny nose or sore throat. No cough. No fevers. Eating and drinking okay. No nausea. No abdominal pain. Normal bowel and bladder movements. Taking her medications as prescribed. In the ER her heart rate was in 140s /150s today. Received her home metoprolol succinate 50 mg and also extra dose 25 mg and also received IV Lopressor. As heart rates were still high, received a dose of IV Cardizem 10 mg. Currently heart rate are fluctuating in 100-120s. Hemodynamics are okay. Past medical history. As mentioned above Past surgical history. Bunion surgery. Colonoscopy with biopsy. Cryocautery of cervix. Bilateral cataracts. Social history. . Quit smoking 1983. Smoked 1 pack a day for 15 years. Alcohol beer on weekends as per [employer]. No drug use. Family history. Mother had colon cancer. Sister had gynecologic cancer. Admission Exam Per Admitting Provider Physical Exam: General- Not in distress Head- atraumatic Eyes- PERRL. ENT- oropharynx clear Neck- supple, no JVD. Lungs- clear to auscultation no wheezing or crackles Heart- irregular rhythm, tachycardia no murmur, no gallop. Abdomen- normal bowel sounds, soft, nontender, no distension Extremities- no pretibial edema, no erythema seen. Neuro- alert, oriented PERRL, EOMI; no facial palsy; no dysarthria; moves extremities Principal Diagnosis A-fib with RVR status post successful cardioversion Discharge Exam Lying in bed without any acute distress Constitutional well developed, well nourished and average body habitus; not ill appearing Eyes PERRL, conjunctivae normal, anicteric sclerae ENMT external ear and nose normal, oropharynx normal Neck trachea midline, no thyromegaly Respiratory no respiratory distress Auscultation: lungs clear to auscultation bilaterally Cardiovascular Rate/Rhythm: regular rate, regular rhythm and + irregularly irregular; not tachycardic Heart Sounds: normal S1 and normal S2; no murmur Extremities: + edema ( trace edema bilaterally) Gastrointestinal (Abdomen) Inspection/Auscultation: normal bowel sounds; abdomen not distended Percussion/Palpation: abdomen soft; abdomen nontender Neurologic normal touch/pain/proprioception and moves all extremities; no focal motor deficits Psychiatric A+Ox3, euthymic affect Lymphatic no cervical or axillary lymphadenopathy Discharge Data Allergies Allergy/AdvReac Type Severity Reaction Status Date / Time naproxen Allergy Intermediate Rash Unverified 01/11/25 17:59 hydrochlorothiazide AdvReac Intermediate Makes her Unverified 01/11/25 17:59 feel terrible Consultations 01/12/25 02:06 ED Decision to Admit Stat 01/12/25 08:00 Consult Cardiology Routine Procedures Performed Operation Date: 01/19/25 07:45 Actual Procedures p Cardioversion - Alex Hayward MD Hospital Course (1) Atrial fibrillation with rapid ventricular response: 74-year-old female with past medical history significant for hypothyroidism, hypertension, hyperlipidemia, GERD, atrial fibrillation was sent in from PCP office for rapid A-fib. Patient was first admitted on 12/23/2024 for new onset atrial fibrillation and patient was discharged on 12/24/2024 on metoprolol succinate 50 mg twice daily and Eliquis 5 mg twice daily and also aspirin 81 mg p.o. daily,. Amlodipine and irbesartan were stopped because of hypotension. Patient was again admitted on 01/04/2025 with rapid A-fib and acute on chronic heart failure with preserved ejection fraction. Received Cardizem and IV Lopressor and also IV Lasix. Patient was status post cardioversion and was discharged on 01/04/2025. Lasix was also added on discharge. Patient states at home her watch was reading as A-fib. She went to her PCP for follow-up appointment today. EKG showed rapid A-fib in 130s. And she was sent to the ER. Denies any feeling of palpitations. Earlier felt chest pressure but that got resolved. Denies shortness of breath. No headache. No runny nose or sore throat. No cough. No fevers. Eating and drinking okay. No nausea. No abdominal pain. Normal bowel and bladder movements. Taking her medications as prescribed. In the ER her heart rate was in 140s /150s today. Received her home metoprolol succinate 50 mg and also extra dose 25 mg and also received IV Lopressor. As heart rates were still high, received a dose of IV Cardizem 10 mg. Currently heart rate are fluctuating in 100-120s. Hemodynamics are okay. Atrial fibrillation with rapid ventricular response --S/P successful KEISHA cardioversion on 01/14/2025 --Normal TSH On Eliquis for anticoagulation Appreciate cardiology input and recommendation Sotalol discontinued due to prolonged QTc Metoprolol dose increased to 50 mg twice a day Need EP evaluation for possible ablation IV Lopressor as needed Started on amiodarone 200 mg TID on 01/17/2025 Monitor QTc Heart rate remains elevated more than 110s without any symptoms Status post cardioversion today and reversion to sinus rhythm Rate is controlled at around 60s and the patient remains asymptomatic She is much better this morning without any cardiac symptoms and remains in sinus rhythm Previously on irbesartan, amlodipine Continue metoprolol as above Monitor blood pressure and adjust medications as needed Blood pressure remains on the lower side at 96/64 Her blood pressure remains stable Hyperlipidemia Continue statin History of TIA Continue aspirin and statin History of heart failure with preserved ejection fraction On Lasix and potassium supplement Monitor volume status No evidence of fluid overload GERD Continue PPI Hypothyroidism Continue levothyroxine Chronic knee pain Depression On duloxetine DVT Px: Eliquis CODE STATUS Full code Total Time Total Time Spent Total Time Spent (In Minutes): 35 Minutes Discharge Plan Discharge Items Patient Disposition: Home - Self-Care Reason For Visit: RAPID A FIB Discharge Diagnosis: A-fib with RVR status post successful cardioversion Condition on Discharge: Fair Activity: Resume your previous activity Non-emergency contact: Primary Care Provider Call non-emergency contact if: you have any medication questions and your symptoms worsen Follow-up/Referrals: Igor Boucher DO [Primary Care Provider] - 01/27/25 9:00 am (Date & Time 01/27/2025 9:00 AM Provider: Igor Boucher DO Family Practice [facility] ) Evelyn Vogt PA-C [Physician Neurodiagnostic Technologist] - 01/27/25 11:30 am (Date & Time 01/27/2025 11:30 AM Provider: Evelyn Vogt PA-C Cardiology, [facility] ) Diet: Heart Healthy Addtl Attending Provider Instructions: Please take precautions to avoid fall Take your medications as advised- take amiodarone 200 mg twice daily for 7 days then once daily to continue Your metoprolol succinate has been changed to metoprolol tartrate. Please keep appointments with the healthcare providers Pending Studies at Discharge: No Stand-Alone Forms: My [facility], Smoking Cessation Medications and DC Order Prescriptions: New amiodarone 200 mg Tablet 200 mg PO UD Qty: 37 0RF Rx Instructions: 1 tab twice daily for 7 days and then 1 tab daily metoprolol tartrate 50 mg Tablet 50 mg PO BID Qty: 60 0RF Continued potassium chloride 20 mEq Tablet,Er Particles/Crystals 20 meq PO QAM Qty: 30 0RF furosemide 20 mg tablet 20 mg PO QAM duloxetine 20 mg capsule,delayed release(DR/EC) 40 mg PO QAM cyanocobalamin (vitamin B-12) 1,000 mcg Tablet, Sublingual 1,000 mcg SUBLINGUAL QAM aspirin 81 mg Tablet,Delayed Release (Dr/Ec) 81 mg PO QAM levothyroxine 88 mcg tablet 88 mcg PO QAM omeprazole 20 mg capsule,delayed release(DR/EC) 20 mg PO QAM rosuvastatin 5 mg tablet 5 mg PO QAM Eliquis 5 mg tablet 5 mg PO BID Qty: 60 0RF Discontinued metoprolol succinate 50 mg tablet extended release 24 hr 50 mg PO BID Qty: 60 0RF Discharge Orders: Discharge Order (Routine); Ordered 01/20/25 Ordered By: Simon Gardner Admission Data Admit Date/Time: 01/12/25 02:20 Attending Provider: Simon Gardner Admit Provider: Kurtis Preston Primary Care Provider: Igor Boucher Other Providers: Kurtis Preston; Kendall Damian; Vik Morley Other Interventions: Discharge Summary Assessment (RN) Last Done: 01/20/25 12:49
== END 2025-01-20 13:22 | disposition home or self-care (01) | DRG 309 ==
LOC: ED 15:20 → SUATTDRO 01-12 02:20 → 2E 01-12 02:20